=== PATIENT | male | born 1975 | race Caucasian/White ===

== ENCOUNTER 2023-08-22 07:53 | Outpatient (OUT) | payer OTHER, SELFPAY ==
[2023-08-22 09:28] LABS: Alanine Aminotransferase 27 U/L (16-63); Albumin Globulin Ratio 0.9; Albumin Level 3.2 g/dL (3.4-5.0); Alkaline Phosphatase 101 U/L (46-116); Anion Gap 10.6; Aspartate Amino Transferase 13 U/L (15-37); BUN Creatinine Ratio 20.3; Bilirubin Total 0.5 mg/dL (0.2-1.0); Calcium 8.5 mg/dL (8.5-10.1); Carbon Dioxide 30.3 mmol/L (21.0-32.0); Chloride 104 mmol/L (98-107); Chol HDL Ratio 5.6; Cholesterol 253 mg/dL (<=200); Estimated GFR (African America >60 (>=60); Estimated GFR (Non-African Ame >60 (>=60); Globulin 3.7 g/dL; Glucose 97 mg/dL (74-106); HDL Cholesterol 45 mg/dL (40-60); Potassium 3.9 mmol/L (3.5-5.1); Sodium 141 mmol/L (136-145); Total Protein 6.9 g/dL (6.4-8.2); Triglycerides 101 mg/dL (<=150); VLDL CHOLESTEROL 20.2 mg/dL
== END 2023-08-22 07:54 | disposition home or self-care (01) ==
LOC: LAB 07:56
PROVIDERS: PCP Family Medicine; Visit Provider Family Medicine
DX: I10 Essential (primary) hypertension (principal)
CPT/HCPCS: 36415; 80053; 80061

== ENCOUNTER 2025-01-27 16:04 | Emergency (ER) | payer OTHER, SELFPAY ==
--- OUTSIDE RECORDS SUMMARY | 2025-01-19 15:30 | XMS_ITS | Encounter Summary ---
Author Organization [facility] Address [address] [place] [address] Care Team Providers Care Co Founder And Cto Name Role Phone Mesfin Chin MD Primary Care Provider [phone] Reason for Visit * ReasonCommentsHypertensionHyperlipidemia Encounter Details DateTypeDepartmentCare Team (Latest Contact Info)Ymtvglcnakt22/23/2025 3:30 PM EDTOffice Visit [facility] [place] [address] [facility] [address] [place] [address] Mesfin Chin MD 112 [facility] 100 [place] [address] Essential hypertension; Mixed dyslipidemia; Chronic left shoulder pain Social History Tobacco UseTypesPacks/DayYears UsedDateSmoking Tobacco: NeverSmokeless Tobacco: Never Tobacco Cessation:Counseling Given: Yes Alcohol UseStandard Drinks/RittKinawreaRaw19 (1 standard drink = 0.6 oz pure alcohol)caffeine intake: 2-3 cups per [id number] Health LiteracyAnswerDate RecordedHow often do you need to have someone help you when you read instructions, pamphlets, or other written material from your doctor or pharmacy? Never03/03/2024Humiliation, Afraid, Rape, and Kick questionnaireAnswerDate RecordedWithin the last year, have you been afraid of your partner or ex-partner?No08/31/2022Within the last year, have you been humiliated or emotionally abused in other ways by your partner or ex-partner?No08/31/2022 Within the last year, have you been kicked, hit, slapped, or otherwise physically hurt by your partner or ex-partner?No08/31/2022Within the last year, have you been raped or forced to have any kind of sexual activity by your part ner or ex-partner?No08/31/2022Social Connection and Isolation PanelAnswerDate RecordedIn a typical week, how many times do you talk on the phone with family, friends, or neighbors?Once a week03/03/2024How often do you get together with friends or relatives?Once a week03/03/2024How often do you attend anabaptist or pentecostalism services?More than 4 times per year03/03/2024o you belong to any clubs or organizations such as anabaptist groups, unions, [employer] or athletic lali ups, or school groups?No03/03/2024How often do you attend meetings of the clubs or organizations you belong to?Never03/03/2024re you , , , , never , or living with a partner?Xkvjysu4903/03/2024 AUDIT-CAnswerDate RecordedQ1: How often do you have a drink containing alcohol? Never03/03/2024Q2: How many drinks containing alcohol do you have on a typical day when you are drinking?Patient does not drink03/03/2024Q3: How often do you have six or more drinks on one occasion?Never03/03/2024Overall Financial Resource Strain (CARDIA)AnswerDate RecordedHow hard is it for you to pay for the very basics like food, housing, medical care, and heating?Not hard at all 03/03/2024HQ-2AnswerDate RecordedPatient Health Questionnaire-2 Score0 09/01/2022[facility] [place] [facility] - Occupational Stress QuestionnaireAnswerDate RecordedDo you feel stress - tense, restless, nervous, or anxious, or unable to sleep at night because yourmind is troubled all the time - these days?Only a gzivzt9103/03/2024Exercise Vital SignAnswerDate Recorded On average, how many days per week do you engage in moderate to strenuous exercise (like a brisk walk)?0 days03/03/2024On average, how many minutes do you engage in exercise at this level?0 min03/03/2024Hunger Vital SignAnswerDate RecordedWithin the past 12 months, you worried that your food would run out before you got the money to buymore.Never true03/03/2024Within the past 12 months, the food you bought just didn't last and you didn't have money to get more.Never true03/03/2024RAPARE - TransportationAnswerDate RecordedIn the past 12 months, has lack of transportation kept you from medical appointments or from getting medications?No03/03/2024In the past 12 months, has lack of transportation kept you from meetings, work, or from getting things needed for daily living?No03/03/2024Housing Stability Vital SignAnswerDate RecordedIn the last 12 months, was there a time when you were not able to pay the mortgage or rent on time?No08/31/2022In the last 12 months, how many places have you lived?1 08/31/2022In the last 12 months, was there a time when you did not have a steady place to sleep or slept in [facility] (including now)?No08/31/2022Housing Stability Vital SignAnswerDate RecordedIn the last 12 months, was there a time when you were not able to pay the mortgage or rent on time?No03/03/2024In the past 12 months, how many times have you moved where you were living? At any time in the past 12 months, were you homeless or living in a detention (including now)?No03/03/2024EducationAnswerDate RecordedWhat is the highest level of school you have completed or the highest degree you have received?Some college, no eovggw2508/05/2022Sex and Gender InformationValueDate RecordedSex Assigned at BirthNot on fileLegal AjrDumz7106/11/2022 7:26 PM EDTGender Identity Not on fileSexual OrientationNot on fileOccupationIndustryJob Start DateJob End Dateworks full-timeNot on fileNot on fileNot on filedocumented as of this encounter Last Filed Vital Signs Vital SignReadingTime TakenCommentsBlood Osfngftw371/7410/ 3:12 PM EDT Lbjqx770301/19/2025 3:12 PM EDTTemperature--Respiratory Rate--Oxygen Rzxoibfzxc59% 01/19/2025 3:12 PM EDTInhaled Oxygen Concentration--Mxtorl77.6 kg (171 lb) 01/19/2025 3:12 PM JJAWmbfho548.4 cm (6' 1 )01/19/2025 3:12 PM EDTBody Mass Index22.561 3:12 PM EDTdocumented in this encounter Progress Notes * Mesfin Chin MD - 01/19/2025 3:30 PM EDT Images from the original note were not included. Patient ID: Caio Carolina is a 49 y.o. male who presents for: Hypertension Patient is here for follow-up of elevated blood pressure. He is exercising and is adherent to a low-salt diet. Blood pressure is well controlled at home. Cardiac symptoms: none. Patient denies chest pain, dyspnea, irregular heart beat, lower extremity edema, and palpitations. Cardiovascular risk factors: dyslipidemia, hypertension, and male gender. Use of agents associated with hypertension: none. History of target organ damage: none. Hyperlipidemia Pt who presents for follow-up of dyslipidemia. A repeat fasting lipid profile was not done. The patient does not use medications that may worsen dyslipidemias (corticosteroids, progestins, anabolic steroids, diuretics, beta-blockers, amiodarone, cyclosporine, olanzapine). Exercise: three times a week. Review of Systems Constitutional: Negative for activity change and fatigue. Respiratory: Negative for cough, shortness of breath and wheezing. Cardiovascular: Negative for chest pain, palpitations and leg swelling. Neurological: Negative for light-headedness and headaches. Objective The patient is pleasant and in no acute distress. The neck is supple and trachea is midline. No masses are appreciated. The heart is regular rate and rhythm without S3, S4. No murmur. The patient has normal respiratory pattern. The breath sounds are symmetrical without evidence of rhonchi or rales. No wheezing. The skin is warm and dry. The lower extremities have trace edema. The patient has good eye contact and speech is clear. Appropriate affect. 01/19/2025 3:12 PM 08/16/2024 4:03 PM 02/22/2024 4:03 PM 08/31/2023 4:02 PM Vitals BMI 22.56 kg/m2 22.82 kg/m2 22.82 kg/m2 22.82 kg/m2 BSA (m2) 2 m2 2.01 m2 2.01 m2 2.01 m2 Systolic 124 126 128 124 Diastolic 74 74 78 74 Heart Rate 68 74 71 76 SpO2 99 % 99 % 98 % 98 % Height (in) 6' 1 6' 1 6' 1 6' 1 Weight (lb) 171 173 173 173 Visit Report Report Report Report Report Allergies[1] Medications Ordered Prior to Encounter[2] 1. Essential hypertension Chronic problem, stable, to goal. Active at work but no formal exercise program. Continue current treatment and refill medications. - nebivolol (Bystolic) 10 MG tablet; Take 1 tablet (10 mg) by mouth Daily Dispense: 90 tablet; Refill: 1 - losartan (Cozaar) 100 MG tablet; Take 1 tablet (100 mg) by mouth Daily Dispense: 90 tablet; Refill: 1 - Comprehensive metabolic panel; Future - Comprehensive metabolic panel 2. Mixed dyslipidemia Chronic problem. Tolerating statin without side effect. Continue current treatment and refill medication. - atorvastatin (Lipitor) 40 MG tablet; Take 1 tablet (40 mg) by mouth in the evening Dispense: 90 tablet; Refill: 1 - Lipid panel; Future - Lipid panel 3. Chronic left shoulder pain Chronic problem that he believes is stable. He notes the nabumetone does help him especially when there is a weather changes shoulder truly aches. - nabumetone (Relafen) 750 MG tablet; Take 1 tablet (750 mg) by mouth in the morning and 1 tablet (750 mg) before bedtime. Dispense: 180 tablet; Refill: 1 Please Note: Portions of this chart may have been created using voice recognition software. Occasionally a wrong-word or sound-like substitutions may have occurred due to inherent limitations of the voice recognition software. Please read the chart carefully and recognize, using context, where the substitutions may have occurred. [1] No Known Allergies [2] Current Outpatient Medications on File Prior to Visit Medication Sig Dispense Refill acetaminophen (Tylenol) 325 MG tablet Take 325 mg by mouth every 6 (six) hours if needed. atorvastatin (Lipitor) 40 MG tablet Take 1 tablet (40 mg) by mouth in the evening 90 tablet 1 carBAMazepine (TEGretol) 200 MG tablet Take 200 mg by mouth in the morning and 200 mg before bedtime. 1.5 tablet in AM and 2 tablets in PM orally daily. levETIRAcetam (Keppra) 1000 MG tablet Take 1,000 mg by mouth in the morning and 1,000 mg before bedtime. losartan (Cozaar) 100 MG tablet Take 1 tablet (100 mg) by mouth Daily 90 tablet 1 nabumetone (Relafen) 750 MG tablet Take 1 tablet (750 mg) by mouth in the morning and 1 tablet (750mg) before bedtime. 180 tablet 0 nebivolol (Bystolic) 10 MG tablet Take 1 tablet (10 mg) by mouth Daily 30 tablet 0 No current facility-administered medications on file prior to visit. documented in this encounter Plan of Treatment DateTypeDepartmentCare Team (Latest Contact Info)Kygcerdvhey22/22/2026 3:30 PM EDTOffice Visit [facility] [address] Medicine [address] [address] Mesfin Chin MD [address] [address] NameTypePriorityAssociated DiagnosesOrder ScheduleComprehensive metabolic panel LabRoutine Essential hypertension Expected: 06/19/2025, Expires: 09/17/2025Lipid panelLabRoutine Mixed dyslipidemia Expected: 06/19/2025, Expires: 09/17/2025documented as of this encounter Visit Diagnoses Diagnosis Essential hypertension Unspecified essential hypertension Mixed dyslipidemia Chronic left shoulder pain Pain in joint, shoulder region documented in this encounter Care Teams Team MemberRelationshipSpecialtyStart DateEnd Date Mesfin Chin MD PCP - GeneralFamily Medicine08/21/22documented as of this encounter
--- OUTSIDE RECORDS SUMMARY | 2025-01-27 16:13 | XMS_ITS | Encounter Summary ---
Author Organization [facility] Address [address] [place] [address] Care Team Providers Care Aperture Mask Etcher Name Role Phone Mesfin Chin MD Primary Care Provider [phone] Encounter Details DateTypeDepartmentCare Team (Latest Contact Info)Ntjugaihcnv82/23/2025amboo flowsheet [facility] [place] [address] Family Medicine [address] [place] [address] [place] [address] Mesfin Chin MD [address] [place] [address] Social History Tobacco UseTypesPacks/DayYears UsedDateSmoking Tobacco: NeverSmokeless Tobacco: NeverAlcohol UseStandard Drinks/SqprIfbchaicHsm28 (1 standard drink = 0.6 oz pure alcohol)caffeine intake: 2-3 cups per tbuM7857 Health LiteracyAnswerDate RecordedHow often do you need [...] relatives?Once a week03/03/2024How often do you attend advent or voodoo services?More than 4 times per year03/03/2024o you belong to any clubs or organizations such as advent groups, unions, [employer] or athletic lali ups, or school groups?No03/03/2024How often do you attend meetings of the clubs or organizations you belong to?Never03/03/2024re you , , , , never , or living with a partner?Opaebpx3303/03/2024 AUDIT-CAnswerDate RecordedQ1: How often do you have [...] at all 03/03/2024HQ-2AnswerDate RecordedPatient Health Questionnaire-2 Score0 09/01/2022[facility] [place] of Occupational Health - Occupational Stress QuestionnaireAnswerDate RecordedDo you feel stress - tense, restless, nervous, or anxious, or unable to sleep at night because yourmind is troubled all the time - these days?Only a dqrcxr9603/03/2024Exercise Vital SignAnswerDate Recorded On average, how many [...] steady place to sleep or [facility] ([facility])?No08/31/2022Housing Stability Vital SignAnswerDate RecordedIn the last 12 months, was there a time when you were not able to pay the mortgage or rent on time?No03/03/2024In the past 12 months, how many times have you moved where you were living? At any time in the past 12 months, were you homeless or living in a [place] [facility] (including now)?No03/03/2024EducationAnswerDate RecordedWhat is the highest level of school you have completed or the highest degree you have received?Some college, no osvodg0208/05/2022Sex and Gender InformationValueDate RecordedSex Assigned at BirthNot on fileLegal LzvArxc2506/11/2022 7:26 PM EDTGender Identity Not on fileSexual OrientationNot on fileOccupationIndustryJob Start DateJob End Dateworks full-timeNot on fileNot on fileNot on filedocumented as of this encounter Plan of Treatment DateTypeDepartmentCare Team (Latest Contact Info)Hzxrqkdancq16/22/2026 3:30 PM EDTOffice Visit [facility] [place] [address] [place] [address] Mesfin Chin MD [address] [place] [address] documented as of this encounter Visit Diagnoses Not on filedocumented in this encounter Care Teams Team MemberRelationshipSpecialtyStart DateEnd Date Mesfin Chin MD PCP - GeneralFamily Medicine08/21/22documented as of this encounter
--- OUTSIDE RECORDS SUMMARY | 2025-01-27 16:13 | XMS_ITS | Clinical Summary ---
Author Organization [facility] Address [address] [place] [address] Care Team Providers Care Furnace Attendant Name Role Phone Mesfin Chin MD Primary Care Provider [phone] Allergies No known active allergies Medications MedicationSigDispense QuantityRefillsLast FilledStart DateEnd DateStatus acetaminophen (Tylenol) 325 MG tablet Take 325 mg by mouth every 6 (six) hours if needed.Active carBAMazepine (TEGretol) 200 MG tablet Take 200 mg by mouth in the morning and 200 mg before bedtime. 1.5 tablet in AM and 2 tablets in PMorally daily.Active levETIRAcetam (Keppra) 1000 MG tablet Take 1,000 mg by mouth in the morning and 1,000 mg before bedtime.Active melatonin 10 MG tablet Take 1 tablet by mouth at bedtimeActive nebivolol (Bystolic) 10 MG tablet Indications:Essential hypertensionTake 1 tablet (10 mg) by mouth Daily 90 tablet /899036/6Active losartan (Cozaar) 100 MG tablet Indications:Essential hypertensionTake 1 tablet (100 mg) by mouth Daily 90 tablet /706099//6Active atorvastatin (Lipitor) 40 MG tablet Indications:Mixed dyslipidemiaTake 1 tablet (40 mg) by mouth in the evening 90 tablet /977281/6Active nabumetone (Relafen) 750 MG tablet Indications:Chronic left shoulder painTake 1 tablet (750 mg) by mouth in the morning and 1 tablet (750 mg) before bedtime. 180 tablet /236825/6Active atorvastatin (Lipitor) 40 MG tablet Indications:Mixed dyslipidemiaTake 1 tablet (40 mg) by mouth in the evening 90 tablet Discontinued(Reorder) losartan (Cozaar) 100 MG tablet Indications:Essential hypertensionTake 1 tablet (100 mg) by mouth Daily 90 tablet Discontinued(Reorder) nebivolol (Bystolic) 10 MG tablet Indications:Essential hypertensionTake 1 tablet (10 mg) by mouth Daily 90 tablet Discontinued(Reorder) nabumetone (Relafen) 750 MG tablet Indications:Chronic left shoulder painTake 1 tablet (750 mg) by mouth in the morning and 1 tablet (750 mg) before bedtime. 180 tablet Discontinued(Reorder) nebivolol (Bystolic) 10 MG tablet Indications:Essential hypertensionTake 1 tablet (10 mg) by mouth Daily 30 tablet Discontinued(Reorder) Active Problems ProblemNoted DateDiagnosed DateMixed /02/2024ependence on other enabling machines and molqnbv3709/01/2022Essential axyaesxboybb92/05/2023rand mal seizure ptcpdgno20/05/2023Obstructive sleep apnea (adult) (pediatric)09/01/2022 Postural kyphosis of cervicothoracic uzjjni3109/01/2022Reactive depression 09/01/2022rimary osteoarthritis of right elbow09/01/2022S/P rotator cuff repair 06/30/2016Post traumatic seizure uiefsygi63/24/2017Incomplete tear of left rotator cuff06/12/2016Cubital tunnel syndrome on left05/01/2016Chronic left shoulder pain03/13/2016Adhesive capsulitis of left uzqidbld22/15/2016Impingement syndrome of left cesqehuj33/15/2016Lateral epicondylitis of left elbow03/13/2016 Encounters DateTypeDepartmentCare JebfEuneymhgyzv34/23/2025 3:30 PM EDTOffice Visit [facility] [place] [address] [place] [address] Mesfin Chin MD Essential hypertension; Mixed dyslipidemia; Chronic left shoulder pain01/19/2025amboo flowsheet [facility] [address] [place] [address] Mesfin Chin MD 01/19/20255683Agxlta75/02/2025Refill [place] [address] [place] [address] Mesfin Chin MD Essential suqrfdmleycf31/02/2025Telephone [address] [place] [address] Mesfin Chin MD from Last 3 Months Immunizations ImmunizationAdministration DatesNext DueInfluenza, injectable, quadrivalent, preservative free12/22/2022,05/09/2022,12/29/2020,01/31/2020,01/01/2019, 12/23/2017Influenza, seasonal, injectable, preservative free12/20/2016, 01/20/2015Pfizer Bivalent Booster 12 Years And Older05/09/20220016FHKW-SJP-9 (COVID- 19) vaccine, mRNA, spike protein, LNP, PF, hue-sucrose, 30 mcg/0.3 mL12/22/2022 Tetanus toxoid, obtzqecv23/19/2001 Family History Medical HistoryRelationNameCommentsNo Known ProblemsDaughterArthritisFatherDave DiabetesFatherDaveHeart diseaseFatherDaveStrokeFatherDaveArthritisMotherPat AsthmaMotherPatDiabetesMotherPatAlcohol abuseMother's BrotherTomArthritis Paternal GrandmotherMaudeNo Known ProblemsSister 1No Known ProblemsSister 2No Known ProblemsSister 3RelationNameStatusCommentsDaughterAliveFatherDaveAlive MotherPatAliveMother's BrotherTomPaternal GrandmotherMaudeSister 1AliveSister 2 AliveSister 3Alive Social History Tobacco UseTypesPacks/DayYears UsedDateSmoking Tobacco: NeverSmokeless Tobacco: Never Tobacco Cessation:Counseling Given: Yes Alcohol UseStandard Drinks/UetxWrqlkwchIee76 (1 standard drink = 0.6 oz pure alcohol)caffeine intake: 2-3 cups per bzlC7658 Health LiteracyAnswerDate RecordedHow often do you need [...] relatives?Once a week03/03/2024How often do you attend sikh or spiritism services?More than 4 times per year03/03/2024o you belong to any clubs or organizations such as sikh groups, unions, fraternal or athletic lali ups, or school groups?No03/03/2024How often do you attend meetings of the clubs or organizations you belong to?Never03/03/2024re you , , , , never , or living with a partner?Qqbovez7903/03/2024 AUDIT-CAnswerDate RecordedQ1: How often do you have [...] at all 03/03/2024HQ-2AnswerDate RecordedPatient Health Questionnaire-2 Score0 09/01/2022[facility] [place] of Occupational Health - Occupational Stress QuestionnaireAnswerDate RecordedDo you feel stress - tense, restless, nervous, or anxious, or unable to sleep at night because yourmind is troubled all the time - these days?Only a jorogr7103/03/2024Exercise Vital SignAnswerDate Recorded On average, how many [...] steady place to sleep or slept in [place] (including now)?No08/31/2022Housing Stability Vital SignAnswerDate RecordedIn the last 12 months, was there a time when you were not able to pay the mortgage or rent on time?No03/03/2024In the past 12 months, how many times have you moved where you were living? At any time in the past 12 months, were you homeless or living in a assisted (including now)?No03/03/2024EducationAnswerDate RecordedWhat is the highest level of school you have completed or the highest degree you have received?Some college, no rzyvoq9408/05/2022Sex and Gender InformationValueDate RecordedSex Assigned at BirthNot on fileLegal ZilGfji4506/11/2022 7:26 PM EDTGender Identity Not on fileSexual OrientationNot on fileOccupationIndustryJob Start DateJob End Dateworks full-timeNot on fileNot on fileNot on file Last Filed Vital Signs Vital SignReadingTime TakenCommentsBlood Ipzbfbig675/7410 3:12 PM EDT Mhstk696601/19/2025 3:12 PM EDTTemperature--Respiratory Rate--Oxygen Kwddprkvrn42% 01/19/2025 3:12 PM EDTInhaled Oxygen Concentration--Kdagae52.6 kg (171 lb) 01/19/2025 3:12 PM NVACqwmsg874.4 cm (6' 1 )01/19/2025 3:12 PM EDTBody Mass Index22.561 3:12 PM EDT Plan of Treatment DateTypeDepartmentCare Team (Latest Contact Info)Zkopgrnflhf81/22/2026 3:30 PM EDTOffice Visit [facility] [place] [address] Family Medicine 112 [facility] 100 [place] [address] Mesfin Chin MD 112 [facility] 100 [place] [address] Health MaintenanceDue DateLast DoneCommentsCT Ircaglntiyxn13/12/1975Colonoscopy 1974Colorectal Cancer Ukbyogjzo64/12/1975FIT-DNA1974FIT1974 FOBT1974 6998Nmugmbafeakgt33/12/1975MMR Vaccines (1 of 1 - Standard series) 08/09/1975DTaP/Tdap/Td Vaccines (1 - Tdap)1981Hepatitis B Vaccines (1 of 3 - 19+ 3-dose series)1993COVID-19 Vaccine ( - season)2024 12/22/2022, 05/09/2022, 07/06/2020Influenza Vaccine (#1)5012/22/2022, 05/09/2022, 12/29/2020, Additional history existsHIB VaccinesAged OutNo longer eligible based on patient's age to complete this topicHPV VaccinesAged OutNo longer eligible based on patient's age to complete this topicHepatitis A VaccinesAged OutNo longer eligible based on patient's age to complete this topic IPV VaccinesAged OutNo longer eligible based on patient's age to complete this topicMeningococcal B VaccineAged OutNo longer eligible based on patient's age to complete this topicMeningococcal VaccineAged OutNo longer eligible based on patient's age to complete this topicPneumococcal Vaccine: Pediatrics (0 to 5 Years) and At-Risk Patients (6 to 64 Years)Aged OutNo longer eligible based on patient's age to complete this topicRotavirus VaccinesAged OutNo longer eligible based on patient's age to complete this topic Insurance Care Teams Team MemberRelationshipSpecialtyStart DateEnd Date Mesfin Chin MD PCP - GeneralFamily Medicine08/21/22
--- OUTSIDE RECORDS SUMMARY | 2025-01-27 16:14 | XMS_ITS | Encounter Summary ---
Author Organization [facility] Address [address] [place] [address] Care Team Providers Care Engineering Tech Name Role Phone Mesfin Chin MD Primary Care Provider + [phone] Encounter Details DateTypeDepartmentCare Team (Latest Contact Info)Pwbcjvxvgrc28/23/2025Travel Social History Tobacco UseTypesPacks/DayYears UsedDateSmoking Tobacco: NeverSmokeless Tobacco: NeverAlcohol UseStandard Drinks/TcpyMvimzjbnUth29 (1 standard drink = 0.6 oz pure alcohol)caffeine intake: 2-3 cups per [id number] Health LiteracyAnswerDate RecordedHow often do you need [...] relatives?Once a week03/03/2024How often do you attend mosque or anabaptist services?More than 4 times per year03/03/2024o you belong to any clubs or organizations such as mosque groups, unions, fraternal or athletic lali ups, or school groups?No03/03/2024How often do you attend meetings of the clubs or organizations you belong to?Never03/03/2024re you , , , , never , or living with a partner?Qzzccmu4003/03/2024 AUDIT-CAnswerDate RecordedQ1: How often do you have [...] at all 03/03/2024HQ-2AnswerDate RecordedPatient Health Questionnaire-2 Score0 09/01/2022[facility] [place] [facility] - Occupational Stress QuestionnaireAnswerDate RecordedDo you feel stress - tense, restless, nervous, or anxious, or unable to sleep at night because yourmind is troubled all the time - these days?Only a pbxusl8203/03/2024Exercise Vital SignAnswerDate Recorded On average, how many [...] steady place to sleep or slept in ashelter (including now)?No08/31/2022Housing Stability Vital SignAnswerDate RecordedIn the last 12 months, was there a time when you were not able to pay the mortgage or rent on time?No03/03/2024In the past 12 months, how many times have you moved where you were living? At any time in the past 12 months, were you homeless or living in a correction (including now)?No03/03/2024EducationAnswerDate RecordedWhat is the highest level of school you have completed or the highest degree you have received?Some college, no bojuzj4008/05/2022Sex and Gender InformationValueDate RecordedSex Assigned at BirthNot on fileLegal TfwIpxv2006/11/2022 7:26 PM EDTGender Identity Not on fileSexual OrientationNot on fileOccupationIndustryJob Start DateJob End Dateworks full-timeNot on fileNot on fileNot on filedocumented as of this encounter Plan of Treatment DateTypeDepartmentCare Team (Latest Contact Info)Tgdbrnjiyhi80/22/2026 3:30 PM EDTOffice Visit [facility] [address] [place] [address] Mesfin Chin MD [address] [place] [address] (Fax) documented as of this encounter Visit Diagnoses Not on filedocumented in this encounter Care Teams Team MemberRelationshipSpecialtyStart DateEnd Date Mesfin Chin MD PCP - GeneralFamily Medicine08/21/22documented as of this encounter
--- OUTSIDE RECORDS SUMMARY | 2025-01-27 16:14 | XMS_ITS | Clinical Summary ---
Author Organization [facility] Address [address] [place], [place] [address] Care Team Providers Care Pulmonologist Intensivist Name Role Phone Mesfin Chin MD Primary Care Provider Allergies No known active allergies Medications MedicationSigDispense QuantityRefillsLast FilledStart DateEnd DateStatus CPAP Indications:STEVAN (obstructive sleep apnea)CPAP 11 cmH2O, mask, tubing, humidifier, filters. Lifetime supplies. Dx: G47.33 DME: [facility], f: [phone] 1 Device Active CPAP Provide new SD card. Current card is not functional. 1 Device 11/03/2016Active CPAP AutoPAP 5-12 cmH2O, mask, humidity, filters. Lifetime supplies. Dx: G47.33. Fax 30 day compliance rpt to [phone] when available. 1 Device 11/03/2016Active CPAP 2nd request for download report. Fax results to [phone]. 1 Device 02/02/2017Active calcium carbonate (OS-BALWINDER 500) 500 mg calcium (1,250 mg) tablet Take 1 tablet by mouth once daily. 60 tablet Active losartan (COZAAR) 100 mg tablet Take 100 mg by mouth once daily.1Active carBAMazepine (TEGRETOL) 200 mg tablet Indications:Post traumatic seizure disorder (HCC)TAKE 1 AND 1/2 TABLETS BY MOUTH EVERY MORNING AND 2 TABLETS EVERY EVENING 315 tablet 5Active levETIRAcetam (KEPPRA) 1,000 mg tablet Indications:Post traumatic seizure disorder (HCC)Take 1 tablet by mouth two times a day. 180 tablet 307/507/6Active Active Problems ProblemNoted DateDiagnosed DateS/P rotator cuff repair - LEFT06/30/2016OSA on CPAP06/20/2016Post traumatic seizure rvvrecao30/24/2017Incomplete tear of left rotator cuff06/12/2016Cubital tunnel syndrome on left05/01/2016Chronic left shoulder pain03/13/2016Lateral epicondylitis of left elbow03/13/2016Impingement syndrome of left javajzgt16/15/2016Adhesive capsulitis of left shoulder 03/13/2016 Resolved Problems ProblemNoted DateDiagnosed DateResolved DateCerebral aneurysm, nonruptured Family History Medical HistoryRelationCommentsDiabetesFatherRelationStatusCommentsFatherAlive MotherAlive Social History Tobacco UseTypesPacks/DayYears UsedDateSmoking Tobacco: NeverSmokeless Tobacco: Never Tobacco Cessation:Counseling Given: No Alcohol UseStandard Drinks/WeekCommentsYes0 (1 standard drink = 0.6 oz pure alcohol)very rarePHQ-2AnswerDate RecordedPHQ-2 mxqzr0325Area Deprivation IndexAnswerDate RecordedNational Score (1-100), lower number is lower risk87 2022State Score (1-10), lower number is lower huzh1603Data from: https://www.neighborhoodatlas.medicine.[facility].edu/. Last address used for xl[address] [facility]2022Sex and Gender InformationValueDate RecordedSex Assigned at FitwyLdoi44/22/2022 10:12 PM EDTLegal BhsEsbt66/02/2012 8:11 AM ESTGender CxuxpafxEwfx92/22/2022 10:12 PM EDTSexual OrientationStraight 09/08/2024 8:53 PM EDTOccupationIndustryJob Start DateJob End DateGENERALNot on fileNot on fileNot on file Last Filed Vital Signs Vital SignReadingTime TakenCommentsBlood Ecyrayns496/96889 10:07 AM EDT Ncelr231206/19/2020 10:07 AM ENHXxdinvballa17.4 ??C (97.6 ??F)01/30/2017 9:24 AM EDTRespiratory Ekrg449706/19/2020 10:07 AM EDTOxygen Shlzuocimw80%06/19/2020 10:07 AM EDTInhaled Oxygen Concentration--Csjehe90.1 kg (170 lb)06/19/2020 10:07 AM VDOVujjgz836.4 cm (6' 1 )06/19/2020 10:07 AM EDTBody Mass Index22.43006/19/2020 10:07 AM EDT Plan of Treatment Health MaintenanceDue DateLast DoneCommentsAnxiety Ahahoddxp44/12/1993Depression Amsxowinw18/12/1993HIV Kvtnswddq33/12/1993Hepatitis C Nydyhsvsr42/12/1993 DTaP,Tdap,Td Vaccine (1 - Tdap)1993Hepatitis B Vaccine (1 of 3 - 19+ 3- dose series)1993Lipid Xddxhonnc98/12/2010CT Jkjvgcxyhssu41/12/2020 Cologuard (FIT-DNA)08/09/20198154Cljnocaufrn87/12/2020Colorectal Cancer Screening 08/09/2019Fecal Occult Blood08/09/20197075Bpzcdzqcykwbt96/12/2020Diabetes Screening , 04/11/2016, 04/11/2015, Additional history exists Pneumococcal Vaccine: 50+ (1 of 1 - PCV)2024Shingrix Vaccine (1 of 2) 5Covid-19 Vaccine ( - season)/, 05/09/2022, 10/06/2021, Additional history existsInfluenza Vaccine (#1)/, 05/09/2022, 12/29/2020, Additional history exists Medical Devices ImplantedTypeAreaManufacturerDevice IdentifierShelf Expiration DateModel / Serial / LotAnchor Swivelock 4.75mm Peek 19.1mm Suture Closed Eyelet Vent Sterile - [id number] Implanted:Qty: 1 on 06/30/2016 at [facility]: Bone - Shoulder [employer]02/26/2021R-2324PSLC / / [id number]:PEEK SWIVELOCKAnchor Swivelock 4.75mm Peek 19.1mm Suture Closed Eyelet Vent Sterile - [id number] [facility] - [facility]er [employer]12/27/2020R-2324PSLC / / [id number]:PEEK SWIVELOCKAnchor Corkscrew Fiberwire 5.5mm 2 Full Thread Peek 14.7mm Suture 2 Sterile - [id number] Implanted:Qty[facility] Bone - Shoulder [employer]09/26/2020R-1927PSF / / [id number]:PEEK CORKSCREW Procedures Procedure NamePriorityDate/TimeAssociated DiagnosisCommentsCOMPREHENSIVE METABOLIC TRUNZIljwhdh82/23/2021 10:35 AM EDT Partial epilepsy with impairment of consciousness (HCC) from Last 3 Months or Most Recently Relevant to Health Maintenance Results * (ABNORMAL) COMP METABOLIC PANEL (06/19/2020 10:35 AM EDT)ComponentValueRef RangeTest MethodAnalysis TimePerformed AtPathologist SignatureProtein, Total 7.16.3 - 8.0 g/dL06/19/2020 5:19 PM EDTCleveland Clinic LaboratoriesAlbumin4.8 3.9 - 4.9 g/dL06/19/2020 5:19 PM EDTCleveland Clinic LaboratoriesCalcium9.48.5 - 10.2 mg/dL06/19/2020 5:19 PM EDTCleveland Clinic LaboratoriesBilirubin, Total<0.2(L)0.2 - 1.3 mg/dL06/19/2020 5:19 PM EDTCleveland Clinic Laboratories Alkaline Rqitfejwwmf2145 - 113 U/L06/19/2020 5:19 PM [facility] JgyffkbzajdbEXZ2073 - 40 U/L06/19/2020 5:19 PM [facility]TC[facility] JrtbdgywblceLgngfqd9639 - 99 mg/dL06/19/2020 5:19 PM [facility] LaboratoriesComment: The [place] Diabetes Association (ADA) provides guidance for cutoff values for fasting glucose and random glucose. The ADA defines fasting as no caloric intake for at least 8 hours. Fasting plasma glucose results between 100 to 125 mg/dL indicate increased risk for diabetes (prediabetes). Fasting plasma glucose results greater than or equal to 126 mg/dL meet the criteria for diagnosis of diabetes. In the absence of unequivocal hyperglycemia, results should be confirmed by repeat testing. In a patient with classic symptoms of hyperglycemia or hyperglycemic crisis, random plasma glucose results greater than or equal to 200 mg/dL meet the criteria for diagnosis of diabetes. Reference: Standards of Medical Care in Diabetes 2016, [place] Diabetes Association. Diabetes Care. 2016.39(Suppl 1). HKZ102 - 24 mg/dL06/19/2020 5:19 PM [facility] LaboratoriesCreatinine 0.850.73 - 1.22 mg/dL06/19/2020 5:19 PM [facility] LaboratoriesSodium 093006 - 144 mmol/L06/19/2020 5:19 PM [facility] LaboratoriesPotassium 4.13.7 - 5.1 mmol/L06/19/2020 5:19 PM [facility] LaboratoriesChloride 97890 - 105 mmol/L06/19/2020 5:19 PM [facility] SgzteaxlbpnfJL16721 - 30 mmol/L06/19/2020 5:19 PM [facility] LaboratoriesAnion Gap99 - 18 mmol/L06/19/2020 5:19 PM [facility] JrosrpygcfofFVE7786 - 54 U/L 06/19/2020 5:19 PM [facility] LaboratorieseGFR->60 06/19/2020 5:19 PM [facility] LaboratorieseGFR-All Other Races>60. 06/19/2020 5:19 PM [facility] LaboratoriesComment: eGFR (Estimated GFR) Units of measure: mL/min/1.73 meters squared eGFR is derived from the reexpressed MDRD Study equation using the following parameters: serum creatinine, age, gender and race. The creatinine assay has been calibrated to be traceable to IDMS. An eGFR <60 mL/min/1.73m2 for >3 months is consistent with chronic kidney disease. Refer to KDOQI guidelines for clinical interpretation. In patients with unstable renal function, e.g. those with acute kidney injury, the eGFR may not accurately reflect actual GFR. Specimen (Source)Anatomical Location / LateralityCollection Method / Volume Collection TimeReceived TimeBloodBLOOD SPECIMEN / Ezvddsj2306/19/2020 10:35 AM EDT 06/19/2020 10:37 AM EDT Narrative Authorizing ProviderResult TypeResult StatusSilvia Justin Ramos MDLABORATORY Final ResultPerforming OrganizationAddressCity/State/ZIP CodePhone Number [facility] [address] [place] [address] [facility] [address] [place] [address] from Last 3 Months or Most Recently Relevant to Health Maintenance Insurance Care Teams Team MemberRelationshipSpecialtyStart DateEnd Mesfin Chin MD [address] [place] [address] PCP - GeneralFamily Medicine07/17/17
--- OUTSIDE RECORDS SUMMARY | 2025-01-27 16:15 | XMS_ITS | CCD ---
Author Organization [facility] Care Team Providers Care Atm Servicer Name Role Phone Josiah Blankenship Primary Care Provider DR JENA BANGURA Consulting Unavailable ABRAHAM THOMAS Attending Unavailable ABRAHAM THOMAS Admitting Unavailable KRZYSZTOF, DR RAHMAN Primary Care Unavailable KARSON SPARKS Consulting Unavailable ABRAHAM THOMAS Consulting Unavailable KRZYSZTOF, DR RAHMAN Admitting Unavailable KRZYSZTOF, DR RAHMAN Attending Unavailable KRZYSZTOF, DR RAHMAN Consulting Unavailable KRZYSZTOF, DR RAHMAN Primary Care Unavailable Josiah Blankenship MD Primary Care Provider Josiah Blankenship MD Primary Care Provider [phone] Josiah Blankenship MD Primary Care Provider Josiah Blankenship MD Primary Care Provider [phone] TRINA SINHA Attending Unavailable SELF Referring JOSIAH Falcon Primary Care Unavailab JOSIAH Gonzalez Attending Unavailable JOSIAH BLANKENSHIP Attending Unavailable JOSIAH BLANKENSHIP Attending Unavailable JOSIAH BLANKENSHIP Attending Unavailable Medications Current Medications MedicationDrug Class(es)DatesSig (Normalized)Sig (Original)acetaminophen 325 mg oral tablet (16 sources)take 1 tablet by mouth every six hours as neededacetaminophen (Tylenol) 325 MG tablet Take 325 mg by mouth every 6 (six) hours if needed. Activecalcium carbonate 1250 mg oral tablet (9 sources)Start: 70-98-8268wsav 1 tablet by mouth once dailycalcium carbonate (OS-BALWINDER 500) 500 mg calcium (1,250 mg) tablet Take 1 tablet by mouth once daily. 60 tablet 5 07/17/2017 ActiveComment on above:Take 1 tablet by mouth once daily. carBAMazepine 200 mg oral tablet (20 sources)Mood StabilizerStart: 2022 End: 68-23-9190mjeb 1 tablet by mouth once daily in the morning, then take 2 tablets by mouth once daily in the eveningcarBAMazepine (TEGRETOL) 200 mg tablet Indications: Post traumatic seizure disorder (HCC) TAKE 1 AND 1/2 TABLETS BY MOUTH EVERY MORNING AND 2 TABLETS EVERY EVENING 315 tablet 3 09/26/2024 Active Start: 07-15-2019 End: 37-00-5523lrdPECdnqzmhc (TEGRETOL) 200 mg tablet Indications: Post traumatic seizure disorder (HCC) 1 1/2 TABIN AM AND 2 TABS IN PM 315 tablet 1 07/28/2022 Activetake 2 tablets by mouth once daily in the eveningcarBAMazepine (TEGretol) 200 MG tablet Take 200 mg by mouth in the morning and 200 mg before bedtime. 1.5 tablet in AM and 2 tablets in PM orally daily. ActiveComment on above:1 1/2 TAB IN AM AND 2 TABS IN PM1 and a half tab in am and 2 tabs in pm TAKE 1 AND 1/2 TABLETS BY MOUTH EVERY MORNING AND 2 TABLETS EVERY EVENING cholecalciferol 0.025 mg oral capsule (1 source)Vitamin DStart: 07-17-2017 End: 47-84-1976vlaj 1 capsule by mouth once dailyCholecalciferol, Vitamin D3, (VITAMIN D) 1,000 unit cap Take 1 capsule by mouth once daily. 60 capsule 5 07/17/2017 06/21/2021 DiscontinuedComment on above:Take 1 capsule by mouth once daily.CPAP (20 sources)Start: 40-90-2434MEWR 2nd request for download report. Fax results to [phone]. 1 Device 02/02/2017 ActiveStart: 83-37-4726YNHW 2nd request for download report. Fax results to [phone]. 1 Device 0 02/02/2017 ActiveStart: 19-41-0773CFPQ Provide new SD card. Current card is not functional. 1 Device 11/03/2016 ActiveStart: 66-09-7024OVAW AutoPAP 5-12 cmH2O, mask, humidity, filters. Lifetime supplies. Dx: G47.33. Fax 30 day compliance rpt to [phone] when available. 1 Device 11/03/2016 ActiveStart: 14-21-8015EQMP Provide new SD card. Current card is not functional. 1 Device 0 11/03/2016 ActiveStart: 17-74-9324XMNS AutoPAP 5-12 cmH2O, mask, humidity, filters. Lifetime supplies. Dx: G47.33. Fax 30 day compliance rpt to [phone] when available. 1 Device 0 11/03/2016 ActiveStart: 42-21-5895OEYF Indications: STEVAN (obstructive sleep apnea) CPAP 11 cmH2O, mask, tubing, humidifier, filters. Li fetime supplies. Dx: G47.33 DME: [employer], f: [phone] 1 Device 0 10/22/2015ActiveComment on above:CPAP 11 cmH2O, mask, tubing, humidifier, filters. Lifetime supplies. Dx: G47.33 DME: [employer], f: [phone] new SD card. Current card is not functional. AutoPAP 5-12 cmH2O, mask, humidity, filters. Lifetime supplies. Dx: G47.33. Fax 30 day compliance rpt to [phone] when available.2nd request for download report. Fax results to [phone].levETIRAcetam 1000 mg oral tablet (20 sources)Start: 2022 End: 44-32-1429lowp 1 tablet by mouth twice dailylevETIRAcetam (KEPPRA) 1,000 mg tablet Indications: Post traumatic seizure disorder (HCC) Take 1 tablet by mouth two times a day. 180 tablet 3 10/05/2024 10/05/2025 ActiveStart: 07-30-2020 End: 65-05-1099yory 1 tablet by mouth twice dailylevETIRAcetam (KEPPRA) 1,000 mg tablet Indications: Post traumatic seizure disorder (HCC) Take 1 tablet by mouth twice daily. 180 tablet 3 06/21/2021 ActiveComment on above:Take 1 tablet by mouth twice daily.melatonin 10 mg oral tablet (2 sources)take 1 tablet by mouth at bedtimemelatonin 10 MG tablet Take 1 tablet by mouth at bedtime Activenabumetone 750 mg oral tablet (17 sources)Nonsteroidal Anti-inflammatory DrugStart: 11-07-2024 End: 54-19-1597dmgr 1 tablet by mouth in the morningnabumetone (Relafen) 750 MG tablet Indications: Chronic left shoulder pain Take 1 tablet (750 mg) by mouth in the morning and 1 tablet (750 mg) before bedtime. 180 tablet 1 01/19/2025 07/18/2025 ActiveStart: 03-28-2024 End: 92-29-6349ogkn 1 tablet by mouth in the morningnabumetone (Relafen) 750 MG tablet Indications: Chronic left shoulder pain Take 1 tablet (750 mg) by mouth in the morning and 1 tablet (750 mg) before bedtime. 180 tablet 1 03/28/2024 09/24/2024 ActiveStart: 02-22-2024 End: 38-70-1463ulqw 1 tablet by mouth in the morningnabumetone (Relafen) 750 MG tablet Indications: Chronic left shoulder pain Take 1 tablet (750 mg) by mouth in the morning and 1 tablet (750 mg) before bedtime. 60 tablet 02/22/2024 03/23/2024 ExpiredStart: 05-04-2023 End: 50-54-3713ugkl 1 tablet by mouth in the morningnabumetone (Relafen) 750 MG tablet Indications: Chronic right shoulder pain Take 1 tablet (750 mg) by mouth in the morning and 1 tablet (750 mg) before bedtime. 60 tablet 0 05/04/2023 06/03/2023 Activenaproxen 500 mg oral tablet (1 source)Nonsteroidal Anti-inflammatory DrugStart: 06-30-2016 End: 80-64-9274zrll 1 tablet by mouth twice daily at mealtimenaproxen (NAPROSYN) 500 mg tablet Take 1 tablet by mouth twice daily with meals. Take with food 20 t ablet 0 06/30/2016 06/21/2021 DiscontinuedComment on above:Take 1 tablet by mouth twice daily with meals. Take with food Completed/Discontinued Medications MedicationDrug Class(es)DatesSig (Normalized)Sig (Original)atorvastatin 40 mg oral tablet (18 sources)HMG-CoA Reductase InhibitorStart: 09-24-2023 End: 76-90-8102fgqi 1 tablet by mouth in the eveningatorvastatin (Lipitor) 40 MG tablet Indications: Mixed dyslipidemia Take 1 tablet (40 mg) by mouth in the evening 90 tablet 1 08/16/2024 01/19/2025 Discontinued (Reorder)losartan potassium 100 mg oral tablet (20 sources)Angiotensin 2 Receptor BlockerStart: 05-26-2020 End: 23-91-7072qupu 1 tablet by mouth once dailylosartan (Cozaar) 100 MG tablet Indications: Essential hypertension Take 1 tablet (100 mg) by mouthDaily 90 tablet 1 08/16/2024 01/19/2025 Discontinued (Reorder)Comment on above:Take 100 mg by mouth once daily.meloxicam 15 mg oral tablet (3 sources)Nonsteroidal Anti-inflammatory DrugStart: 08-31-2023 End: 23-72-1264ghhu 1 tablet by mouth once dailymeloxicam (Mobic) 15 MG tablet Indications: Impingement syndrome of left shoulder Take 1 tablet (15mg) by mouth Daily 90 tablet 1 08/31/2023 02/22/2024 Discontinued (Therapy completed) nebivolol 10 mg oral tablet (20 sources)Start: 08-01-2023 End: 35-71-4865jmzw 1 tablet by mouth once dailynebivolol (Bystolic) 10 MG tablet Indications: Essential hypertension Take 1 tablet (10 mg) by mouth Daily 30 tablet 12/29/2024 01/19/2025 Discontinued (Reorder)traMADol hydrochloride 50 mg oral tablet (2 sources)Opioid AgonistStart: 05-04-2023 End: 92-59-2912hrhn 1 tablet by mouth every six hours for paintraMADol (Ultram) 50 MG tablet Indications: Rotator cuff syndrome, right Take 1 tablet (50 mg) by mouth every 6 (six) hours if needed for severe pain for up to 7 days 21 tablet 0 05/04/2023 05/11/2023 Problems Active Problems Problem ClassificationProblemDateDocumented DateEpisodic/ChronicAbdominal pain (9 sources)Unspecified abdominal pain; Translations: [Right upper quadrant pain] Onset: 43-58-7925UobwyyyeFpshjcgsx of lipid metabolism (19 sources)Dyslipidemia; Translations: [Mixed hyperlipidemia]Onset: 02-29-2024 42-45-8969IshyjtdRrlybkzs; convulsions (16 sources)Other generalized epilepsy and epileptic syndromes, not intractable, without status epilepticus; Translations: [Generalized convulsive epilepsy, without mention of intractable epilepsy]Onset: hronic Essential hypertension (20 sources)Essential hypertension; Translations: [Essential (primary) hypertension]Onset: 024059-38-9893LinnserGfbc disorders (16 sources)Reactive depression (situational); Translations: [Major depressive disorder, single episode, unspecified]Onset: hronic Osteoarthritis (16 sources)Osteoarthritis of joint of right elbow; Translations: [Primary osteoarthritis, right elbow]Onset: 437343-85-4990HaamxvvLahlb acquired deformities (16 sources)Postural kyphosis; 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, cervicothoracic region]Onset: 657519-69-3919DgcrgcvBjgql connective tissue disease (2 sources)Right rotator cuff syndrome; Translations: [Unspecified rotator cuff tear or rupture of right shoulder, not specified as traumatic]42-23-2280Qcaproyl Other connective tissue disease (2 sources)Non-traumatic partial tear of left rotator cuff; Translations: [Incomplete rotator cuff tear or rupture of left shoulder, not specified as traumatic]43-48-2565AcceboxfZgwqz nervous system disorders (20 sources)Lesion of ulnar nerve, left upper limb; Translations: [Lesion of ulnar nerve]Onset: 692560-83-3669ZyeukjcEpaiy non-traumatic joint disorders (20 sources)Chronic pain of left upper limb; Translations: [Pain in left shoulder]Onset: 256147-02-0957ZompmnteItlji non-traumatic joint disorders (2 sources)Chronic pain of right upper limb; Translations: [Pain in right shoulder]19-18-7517HciounugJqjll upper respiratory infections (2 sources)Viral upper respiratory tract infection; Translations: [Acute upper respiratory infection, unspecified]96-91-6894ApwecaesMipkmbrm codes; unclassified (20 sources)Obstructive sleep apnea syndrome; Translations: [Obstructive sleep apnea (adult) (pediatric)]Onset: 358270-66-9821KynkbonVpwkvjia codes; unclassified (16 sources)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; Translations: [Dependence on other enabling machines and devices]Onset: 907626-27-8302Mjgtbcy Past or Other Problems Problem ClassificationProblemDateDocumented DateEpisodic/ChronicEpilepsy; convulsions (20 sources)Seizure; Translations: [Post traumatic seizures]Onset: 06-20-2016 EpisodicOther and ill-defined cerebrovascular disease (4 sources)Cerebral arterial aneurysm; Translations: [Cerebral aneurysm, nonruptured]Onset: 04-07-2007 Resolved: 002551-81-8425JdplktpOaoax connective tissue disease (20 sources)Lateral epicondylitis of left humerus; Translations: [Lateral epicondylitis, left elbow]Onset: 437834-81-1745VqpewkjoGxsig connective tissue disease (20 sources)Impingement syndrome of left shoulder region; Translations: [Impingement syndrome of left shoulder]Onset: 626053-27-8887YwrkraheOmraq connective tissue disease (20 sources)Adhesive capsulitis of left shoulder; Translations: [Adhesive capsulitis of left shoulder]Onset: 096608-16-2143RxrtuwqwComlk connective tissue disease (20 sources)Partial thickness rotator cuff tear; Translations: [Incomplete rotator cuff tear or rupture of leftshoulder, not specified as traumatic]Onset: 743653-20-5971Vbzhnevr Results Test NameValueInterpretationReference RangeFacilityXR Shoulder - right 2 Viewson [id number] are no acute osseous changes. ELECTRONICALLY SIGNED BY: Washington White MDIMAGING CLINICAL HISTORY: right shoulder pain, chronic COMPARISON: NONE. FINDINGS: There are no lytic or sclerotic lesions. There is no acute fracture or subluxation. The humeral head is located. There is no significant joint space narrowing. The AC joint and the clavicle are unremarkable. The visualized portions of the lung, ribs, and chest wall soft tissues are unremarkable. IMAGINGWashington White MD - 05/06/2023 CLINICAL HISTORY: right shoulder pain, chronic COMPARISON: NONE. FINDINGS: There are no lytic or sclerotic lesions. There is no acute fracture or subluxation. The humeral head is located. There is no significant joint space narrowing. The AC joint and the clavicle are unremarkable. The visualized portions of the lung, ribs, and chest wall soft tissues are unremarkable. IMPRESSION: There are no acute osseous changes. ELECTRONICALLY SIGNED BY: Washington White MD [facility]OM[facility] HealthcareXR Shoulder - right 2 ViewsOrdered By: Washington White on [id number] Work Phone: XR Shoulder - right 2 Viewson 77-92-5844Cgdzbtkjq Study observation (narrative)[facility] HealthcareAMYLASEon 19-58-1474Ixeasvx [Catalytic activity/Vol]48 U/VInomac62-131Jow [facility] HospitalComment on above: Performed By: #### RAFAEL, LIPA, CMP #### [facility] [address] [place] [address] Dr. Mando Huynh AUTO DIFFon [id number] #0.1 103/ulNormal0.0-0.1The [facility] HospitalComment on above:Performed By: #### CBC #### [facility] [address] [place] [address] Dr. Mando MckennaBasophils/100 WBC (Bld)1.1 %Normal0.2-2.0[facility] Comment on above:Performed By: #### CBC #### [facility] [address] [place] [address] Dr. Mando Trujillo #0.2 103/ulNormal0.0-0.7The [facility] HospitalComment on above: Performed By: #### CBC #### [facility] [address] [place] [address] Dr. Mando Duttaosinophils/100 WBC (Bld)3.2 %Normal0.9-7.0[facility] Comment on above:Performed By: #### CBC #### [facility] [address] [place] [address] Dr. Mando Duttarythrocyte distribution width (RBC) [Ratio]11.9 %Jnbitx43.0-15.0 The [facility] HospitalComment on above:Performed By: #### CBC #### [facility] [address] [place] [address] Dr. Mando MckennaHematocrit (Bld) [Volume fraction]42.6 %Dnzvnf82.0-54.0The [facility] HospitalComment on above:Performed By: #### CBC #### [facility] [address] [place] [address] Dr. Mando Hernadezoglobin (Bld) [Mass/Vol]13.5 g/dLCritically low14.0-18.0The [facility] HospitalComment on above:Performed By: #### CBC #### [facility] [address] [place] [address] Dr. Mando Greene #0.01 10e3/ulNormal0.00-0.03The [facility] HospitalComment on above:Performed By: #### CBC #### [facility] [address] [place] [address] Dr. Mando Greene %0.2 %Normal0.0-0.5The [facility] HospitalComment on above: Performed By: #### CBC #### [facility] [address] [place] [address] Dr. Mando Cabrera #1.6 103/ulNormal1.2-3.8The [facility] HospitalComment on above:Performed By: #### CBC #### [facility] [address] [place] [address] Dr. Mando Eugenemphocytes/100 WBC (Bld)33.8 %Cimtla20.5-60.0The [facility] HospitalComment on above:Performed By: #### CBC #### [facility] [address] [place] [address] Dr. Mando BraxtonUAL DIFF REQNONormalThe [facility] HospitalComment on above: Performed By: #### CBC #### [facility] [address] [place] [address] Dr. Mando Gay (RBC) [Entitic mass]30.1 llPiyote39.9-34.0The [facility] HospitalComment on above:Performed By: #### CBC #### [facility] [address] [place] [address] Dr. Mando Diaz (RBC) [Mass/Vol]31.7 g/kNItgaxg87.9-35.2The [facility] HospitalComment on above:Performed By: #### CBC #### [facility] [address] [address] [address] Mando DiazV (RBC) [Entitic vol]94.9 fLCritically high80.0-94.0The [facility] HospitalComment on above:Performed By: #### CBC #### [facility] [address] [place] [address] Dr. Mando Javed #0.6 103/ulNormal0.3-0.8The [facility] HospitalComment on above:Performed By: #### CBC #### [facility] [address] [place] [address] Dr. Mando Taocytes/100 WBC (Bld)11.9 %Normal1.7-12.0[facility] Comment on above:Performed By: #### CBC #### [facility] [address] [place] [address] Dr. Mando Bran #2.4 103/ulNormal1.4-6.5The [facility] HospitalComment on above:Performed By: #### CBC #### [facility] [address] [place] [address] Dr. Mando Billingsleyutrophils/100 WBC (Bld)49.8 %Zqyfup20.0-75.0The [facility] HospitalComment on above:Performed By: #### CBC #### [facility] [address] [place] [address] Dr. Mando Ronlet mean volume (Bld) [Entitic vol]8.4 fLCritically low 9.5-13.5The [facility] HospitalComment on above:Performed By: #### CBC #### [facility] [address] [place] [address] Dr. Mando MckennaPLT307 103/ntQqsnqx515-635Gxc [facility] HospitalComment on above: Performed By: #### CBC #### [facility] [address] [place] [address] Dr. Mando MckennaRBC4.49 106/ulCritically low4.70-6.10The [facility] HospitalComment on above:Performed By: #### CBC #### [facility] [address] [place] [address] Dr. Mando MckennaWBC4.7 103/ulNormal4.0-11.0The [facility] HospitalComment on above: Performed By: #### CBC #### [facility] [address] [place] [address] Dr. Mando MckennaCT ABD/PELV W CONon [id number] ABD/PELV W CONEXAMINATION: CT ABD/PELV W CON HISTORY: UNSPECIFIED ABDOMINAL PAIN , right lower quadrant pain for 2-4 weeks COMPARISON: No relevant comparison available. TECHNIQUE: Axial, Coronal, and Sagittal images were created with IV contrast. Dose reduction techniques were achieved by using automated exposure control and/or adjustment of mA and/or kV according to patient size and/or use of iterative reconstruction technique. FINDINGS: LUNG BASES: No visible pulmonary or pleural disease. LIVER: No enlargement, atrophy, abnormal density, or significant focal lesion. BILIARY: No dilatation or calcification. PANCREAS: No lesion, fluid collection, ductal dilatation, or atrophy. SPLEEN: No enlargement or focal lesion. ADRENALS: No mass or enlargement. KIDNEYS: No mass, obstruction, or calcification. BOWEL/MESENTERY: No visible mass, obstruction, or bowel wall thickening. Normal appendix. AORTA/VASCULAR: No aneurysm or dissection. RETROPERITONEUM: No mass or adenopathy. LYMPH NODES: No adenopathy. URINARY BLADDER: No visible focal wall thickening, lesion, or calculus. PELVIC ORGANS: No visible mass. Pelvic organs appropriate for patient age. ABDOMINAL WALL: No mass or hernia. BONES: No bony lesion or fracture. OTHER: Negative. IMPRESSION: 1. No abnormal or suspicious findings to account for patient's symptoms. Electronically authenticated by: JENA BANGURA Date: 2021-08-29 09:26NormSelect Medical Specialty [facility], [facility] URINE PROFILEon [id number] Ql (U)NegativeNormal NEGATIVEThe [facility] HospitalComment on above:Performed By: #### ERUR #### [facility] [address] [address] [address] Mando MckennaClarity (U)CLEARNormalCLEARFisher-Titus Medical CenterComment on above: Performed By: #### ERUR #### [facility] [address] [address] [address] Mando Kaurlor (U)YELLOWNormalYELLOWFisher-Titus Medical CenterComment on above: Performed By: #### ERUR #### [facility] [address] [address] [address] Mando Almanza micrscopic examination will be performed if indicated. NormalThe Newark HospitalComment on above:Performed By: #### ERUR #### [facility] [address] [place] [address] Dr. Mando MckennaGlucose Ql (U)NegativeNormalNEGATIVEFisher-Titus Medical CenterComment on above:Performed By: #### ERUR #### [facility] [address] [place] [address] Dr. Mando MckennaHemoglobin Ql (U)NegativeNormalNEGATIVELakehealth [facility] on above:Performed By: #### ERUR #### [facility] [address] [place] [address] Dr. Mando MckennaKetones Ql (U)NegativeNormalNEGATIVEFisher-Titus Medical CenterComment on above:Performed By: #### ERUR #### [facility] [address] [place] [address] Dr. Mando MckennaLEUKOCYTESNegativeNormalNEGATIVEFisher-Titus Medical CenterComment on above:Performed By: #### ERUR #### [facility] [address] [place] [address] Dr. Mando MckennaNitrite Ql (U)NegativeNormalNEGATIVEFisher-Titus Medical CenterComment on above:Performed By: #### ERUR #### [facility] [address] [place] [address] Dr. Mando MckennapH (U)6.0 [pH]Normal5-9Fisher-[facility]itus Medical CenterComment on above: Performed By: #### ERUR #### [facility] [address] [place] [address] Dr. Mando MckennaSPEC GRAVITY1.747Utpeiz8.005-<=1.025The [facility] HospitalComment on above:Performed By: #### ERUR #### [facility] [address] [place] [address] Dr. Mando Sharpe PROTEINNegativeNormalNEGATIVE/ TRACEThe [facility] Comment on above:Performed By: #### ERUR #### [facility] [address] [place] [address] Dr. Mando Alvarez MICRO INDNOT INDICATEDNoVeterans Health Administratione [facility] HospitalComment on above:Performed By: #### ERUR #### [facility] [address] [place] [address] Dr. Mando Del Torobilinogen Qn (U)0.2 {Jackie'U}/dLNormal0.2 - 1.0The [facility] HospitalComment on above:Performed By: #### ERUR #### [facility] [address] [place] [address] Dr. Mando MckennaLACTATE/LACTIC ACIDon 54-14-3113Yjofhsk [Moles/Vol]0.4 mmol/L Normal0.4-1.9The [facility] HospitalComment on above:Performed By: #### RAFAEL, LIPA, CMP #### [facility] [address] [place] [address] Dr. Mando MckennaLIPASEon [id number] [Catalytic activity/Vol]74.0 U/LNormal 73.0-393.0The [facility] HospitalComment on above:Performed By: #### RAFAEL, LIPA, CMP #### [facility] [address] [place] [address] Dr. Mando Olmos 14(COMP METB)on 68-84-8977Dpvtunv [Mass/Vol]3.6 g/dLNormal 3.4-5.0The [facility] HospitalComment on above:Performed By: #### RAFAEL, LIPA, CMP #### [facility] [address] [place], [place] [id number] Dr. Mando MckennaAlbumin/Globulin [Mass ratio]1.1 {ratio}NormalThe [facility] HospitalComment on above:Performed By: #### RAFAEL, LIPA, CMP #### [facility] [address] [place] [address] Dr. Mando AyalaP [Catalytic activity/Vol]83 U/PEdpzus65-710Uqf [facility] HospitalComment on above:Performed By: #### RAFAEL, LIPA, CMP #### [facility] [address] [place] [address] Dr. Mando AyalaT [Catalytic activity/Vol]25 U/VGpdsfc14-96Cfx [facility] HospitalComment on above:Performed By: #### RAFAEL, LIPA, CMP #### [facility] [address] [place] [address] Dr. Mando Marquezon gap [Moles/Vol]11.8 mmol/LNormalThe [facility] Comment on above:Performed By: #### RAFAEL, LIPA, CMP #### [facility] [address] [place] [address] Dr. Mando MckennaAST [Catalytic activity/Vol]13 U/LCritically mdy22-46Set [facility] HospitalComment on above:Performed By: #### RAFAEL, LIPA, CMP #### [facility] [address] [place] [address] Dr. Mando MckennaBilirubin [Mass/Vol]0.3 mg/dLNormal0.2-1.0[facility] Comment on above:Performed By: #### RAFAEL, LIPA, CMP #### [facility] [address] [place] [address] Dr. Mando MckennaCalcium [Mass/Vol]8.6 mg/dLNormal8.5-10.1[facility] Comment on above:Performed By: #### RAFAEL, LIPA, CMP #### [facility] [address] [place] [address] Dr. Mando MckennaChloride [Moles/Vol]104 mmol/FPaqxdw70-566Ewk [facility] Comment on above:Performed By: #### RAFAEL, LIPA, CMP #### [facility] [address] [address] [address] Mando MckennaCO2 [Moles/Vol]29.3 mmol/MTduytj88.0-32.0[facility] Comment on above:Performed By: #### RAFAEL, LIPA, CMP #### [facility] [address] [address] [address] Mando MckennaCreatinine [Mass/Vol]0.81 mg/dLNormal0.70-1.30[facility]itus Medical CenterComment on above:Performed By: #### RAFAEL, LIPA, CMP #### [facility] [address] [address] [address] Mando De Paz-AF ETHIOPIAN>60Normal>=60The [facility] HospitalComment on above:Performed By: #### RAFAEL, LIPA, CMP #### [facility] [address] [place] [address] Dr. Mando De Paz-NON AF ETHIOPIAN>60Normal>=60The [facility] HospitalComment on above:Performed By: #### RAFAEL, LIPA, CMP #### [facility] [address] [address] [address] Mando MckennaGlobulin (S) [Mass/Vol]3.3 g/dLNormalThe [facility] HospitalComment on above:Performed By: #### RAFAEL, LIPA, CMP #### [facility] [address] [place] [address] Dr. Mando MckennaGlucose [Mass/Vol]96 mg/oAOeflsm39-871Rnp [facility] Comment on above:Performed By: #### RAFAEL, LIPA, CMP #### [facility] [address] [address] [address] Mando MckennaPotassium [Moles/Vol]4.1 mmol/LNormal3.5-5.1[facility] Comment on above:Performed By: #### RAFAEL, LIPA, CMP #### [facility] [address] [address] [address] Mando MckennaProtein [Mass/Vol]6.9 g/dLNormal6.4-8.2[facility] Comment on above:Performed By: #### OG HALL, CMP #### [facility] [address] [address] [address] Mando MckennaSodium [Moles/Vol]141 mmol/VUshuiy599-798Lqw [facility] Comment on above:Performed By: #### RAFAEL LIPA, CMP #### [facility] [address] [address] [address] Mando MckennaUrea nitrogen [Mass/Vol]17.0 mg/dLNormal7.0-18.0The [facility] HospitalComment on above:Performed By: #### CHARISSA HALLA, CMP #### [facility] [address] [place] [address] Dr. Mando Connor nitrogen/Creatinine [Mass ratio]21.0 mg/mgNoBrown Memorial HospitalComment on above:Performed By: #### OG HALL, CMP #### [facility] [address] [place] [address] Dr. Mando MckennaUS SINGLE QUAD RT UPPERon [id number] SINGLE QUAD RT UPPER EXAMINATION: US SINGLE QUAD RT UPPER HISTORY: Pain , right lower quadrant pain for 2 weeks COMPARISON: No relevant comparison available. TECHNIQUE: Transabdominal evaluation of the right upper quadrant. FINDINGS: LIVER: Normal size and echotexture. Color Doppler demonstrates patent hepatic veins. PORTAL VEIN: Duplex Doppler demonstrates normal hepatopetal flow pattern with flow velocity averaging 32 cm/s. GALLBLADDER: No visible gallstones, wall thickening, or pericholecystic free fluid. Negative sonographic Aiken's sign. BILIARY: No abnormal dilation or stones. Common bile duct diameter is within normal limits. PANCREASE: No visible mass, abnormal atrophy, or duct dilation. KIDNEY: No hydronephrosis. No visible mass or stones. Size: 11.6 x 5.0 x 5.1 cm IMPRESSION: 1. No acute or suspicious findings to account for patient's symptoms. Electronically authenticated by: JENA BANGURA Date: 2021-08-29 08:18[facility] AUTO DIFFon [id number] #0.1 103/ulNormal0.0-0.1The [facility] HospitalComment on above:Performed By: #### CBC #### [facility] [address] [place] [address] Dr. Mando MckennaBasophils/100 WBC (Bld)1.1 %Normal0.2-2.0[facility] Comment on above:Performed By: #### CBC #### [facility] [address] [place] [address] Dr. Mando Trujillo #0.1 103/ulNormal0.0-0.7The [facility] HospitalComment on above: Performed By: #### CBC #### [facility] [address] [place] [address] Dr. Mando Duttaosinophils/100 WBC (Bld)1.7 %Normal0.9-7.0[facility] Comment on above:Performed By: #### CBC #### [facility] [address] [place] [address] Dr. Mando Emmanuelthrocyte distribution width (RBC) [Ratio]12.1 %Tqozyj53.0-15.0 The [facility] HospitalComment on above:Performed By: #### CBC #### [facility] [address] [place] [address] Dr. Mando MckennaHematocrit (Bld) [Volume fraction]42.2 %Unxgnz14.0-54.0The [facility] HospitalComment on above:Performed By: #### CBC #### [facility] [address] [place] [address] Dr. Mando MckennaHemoglobin (Bld) [Mass/Vol]13.6 g/dLCritically low14.0-18.0The [facility] HospitalComment on above:Performed By: #### CBC #### [facility] [address] [place] [address] Dr. Mando Greene #0.02 10e3/ulNormal0.00-0.03The [facility] HospitalComment on above:Performed By: #### CBC #### [facility] [address] [place] [address] Dr. Mando Greene %0.3 %Normal0.0-0.5The [facility] HospitalComment on above: Performed By: #### CBC #### [facility] [address] [place] [address] Dr. Mando Cabrera #1.7 103/ulNormal1.2-3.8The [facility] HospitalComment on above:Performed By: #### CBC #### [facility] [address] [place] [address] Dr. Mando Frankhocytes/100 WBC (Bld)27.1 %Tnuvhk16.5-60.0The [facility] HospitalCom[facility] on above:Performed By: #### CBC #### [facility] [address] [place] [address] Dr. Mando BraxtonUAL DIFF REQNONormalThe [facility] HospitalComment on above: Performed By: #### CBC #### [facility] [address] [place] [address] Dr. Mando Gay (RBC) [Entitic mass]30.1 hlMnoizl17.9-34.0The [facility] HospitalComment on above:Performed By: #### CBC #### [facility] [address] [place] [address] Dr. Mando Diaz (RBC) [Mass/Vol]32.2 g/tLKzznda56.9-35.2The [facility] HospitalCom[facility] on above:Performed By: #### CBC #### [facility] [address] [place] [address] Dr. Mando Diaz (RBC) [Entitic vol]93.4 dORsrqcb27.0-94.0The [facility] HospitalComasc[facility] on above:Performed By: #### CBC #### [facility] [address] [place] [address] Dr. Mando Javed #0.7 103/ulNormal0.3-0.8The [facility] HospitalComment on above:Performed By: #### CBC #### [facility] [address] [address] [address] Mando Taocytes/100 WBC (Bld)11.5 %Normal1.7-12.0[facility] Comment on above:Performed By: #### CBC #### [facility] [address] [place] [address] Dr. Mando Bran #3.7 103/ulNormal1.4-6.5The [facility] HospitalComment on above:Performed By: #### CBC #### [facility] [address] [place] [address] Dr. Mando Billingsleyutrophils/100 WBC (Bld)58.3 %Cdqmre93.0-75.0The [facility] HospitalComment on above:Performed By: #### CBC #### [facility] [address] [place] [address] Dr. Mando MckennaPlatelet mean volume (Bld) [Entitic vol]8.1 fLCritically low 9.5-13.5The [facility] HospitalComment on above:Performed By: #### CBC #### [facility] [address] [place] [address] Dr. Mando MckennaPLT318 103/zxEwkghz298-469Xle [facility] HospitalComment on above: Performed By: #### CBC #### [facility] [address] [place] [address] Dr. Mando MckennaRBC4.52 106/ulCritically low4.70-6.10The [facility] HospitalComment on above:Performed By: #### CBC #### [facility] [address] [place] [address] Dr. Mando MckennaWBC6.4 103/ulNormal4.0-11.0The [facility] HospitalComment on above: Performed By: #### CBC #### [facility] [address] [place] [address] Dr. Mando MckennaLIPASEon 95-12-5298Kwpndd [Catalytic activity/Vol]81.0 U/LNormal 73.0-393.0The [facility] HospitalComment on above:Performed By: #### CMP, LIPA #### [facility] [address] [address] [address] Mando TolbertF 14(COMP METB)on 73-01-2448Hjcgpuh [Mass/Vol]3.9 g/dLNormal 3.4-5.0The [facility] HospitalComment on above:Performed By: #### CMP, LIPA #### [facility] [address] [address] [address] Mando MckennaAlbumin/Globulin [Mass ratio]1.1 {ratio}NormalThe [facility] HospitalComment on above:Performed By: #### CMP, LIPA #### [facility] [address] [address] [address] Mando Wheat [Catalytic activity/Vol]91 U/DWtbrap65-786Cav [facility] HospitalComment on above:Performed By: #### CMP, LIPA #### [facility] [address] [address] [address] Mando Iqbal [Catalytic activity/Vol]30 U/JGcwvyt97-75Flf [facility] HospitalComment on above:Performed By: #### CMP, LIPA #### [facility] [address] [address] [address] Mando Machado gap [Moles/Vol]10.6 mmol/LNormalThe [facility] Comment on above:Performed By: #### CMP, LIPA #### [facility] [address] [address] [address] Mando MckennaAST [Catalytic activity/Vol]14 U/LCritically imj08-20Yxd [facility] HospitalComment on above:Performed By: #### CMP, LIPA #### [facility] [address] [address] [address] Mando MckennaBilirubin [Mass/Vol]0.1 mg/dLCritically low0.2-1.0The [facility] HospitalComment on above:Performed By: #### CMP, LIPA #### [facility] [address] [place] [address] Dr. Mando MckennaCalcium [Mass/Vol]9.0 mg/dLNormal8.5-10.1[facility] Comment on above:Performed By: #### CMP, LIPA #### [facility] [address] [place] [address] Dr. Mando MckennaChloride [Moles/Vol]103 mmol/XMyxkjs45-630Jul [facility] Comment on above:Performed By: #### CMP, LIPA #### [facility] [address] [place] [address] Dr. Mando MckennaCO2 [Moles/Vol]31.3 mmol/LVqkazi70.0-32.0[facility] Comment on above:Performed By: #### CMP, LIPA #### [facility] [address] [place] [address] Dr. Mando MckennaCreatinine [Mass/Vol]0.96 mg/dLNormal0.70-1.30The [facility] HospitalComment on above:Performed By: #### CMP, LIPA #### [facility] [address] [place] [address] Dr. Mando DuttaGFR-AF ETHIOPIAN>60Normal>=60The [facility] HospitalComment on above:Performed By: #### CMP, LIPA #### [facility] [address] [place] [address] Dr. Mando DuttaGFR-NON AF ETHIOPIAN>60Normal>=60The [facility] HospitalComment on above:Performed By: #### CMP, LIPA #### [facility] [address] [place] [address] Dr. Mando MckennaGlobulin (S) [Mass/Vol]3.6 g/dLNormalThe [facility] HospitalComment on above:Performed By: #### CMP, LIPA #### [facility] [address] [place] [address] Dr. Mando MckennaGlucose [Mass/Vol]95 mg/nJSinxis21-737MtnFisher-Titus Medical Center Comment on above:Performed By: #### CMP, LIPA #### [facility] [address] [place] [address] Dr. Mando MckennaPotassium [Moles/Vol]3.9 mmol/LNormal3.5-5.1[facility] Comment on above:Performed By: #### CMP, LIPA #### [facility] [address] [place] [address] Dr. Mando MckennaProtein [Mass/Vol]7.5 g/dLNormal6.4-8.2[facility] Comment on above:Performed By: #### CMP, LIPA #### [facility] [address] [address] [address] Mando MckennaSodium [Moles/Vol]141 mmol/IAevtte799-572AufFisher-Titus Medical Center Comment on above:Performed By: #### CMP, LIPA #### [facility] [address] [place] [address] Dr. Mando MckennaUrea nitrogen [Mass/Vol]18.0 mg/dLNormal7.0-18.0[facility] Medical CenterComment on above:Performed By: #### CMP, LIPA #### [facility] [address] [place] [address] Dr. Mando Connor nitrogen/Creatinine [Mass ratio]18.8 mg/mgNormalThWayne HealthCare Main CampusComment on above:Performed By: #### CMP, LIPA #### [facility] [address] [place] [address] Dr. Mando Mckenna Vital Signs Date TimeVital SignValuePerforming XqedyphafRqxzhgap70-75-3088 15:12-0400Body ylrtlq609.4 Casie Blankenship MD Work Phone: [facility] RoadPqakyqcogy11-99-0621 15:12-0400Body mass index (BMI) [Ratio]22.56 kg/d5AecoycJosiah Blankenship MD Work Phone: [facility] RoadAgmsclsqyc58-21-4439 15:12-0400Body ichttp26.56 kgJosiah Blankenship MD Work Phone: [facility] RoadGovrazduzp92-59-3354 15:12-0400Diastolic blood xpqivsgd49 mm[Hg]Josiah Blankenship MD Work Phone: [phone])[address] [place], [place] 6841910-23-2025 15:12-0400Heart rate68 /min Josiah Blankenship MD Work Phone: [phone] [place], [place] 6841910-23-2025 15:12-5307EdP5% (BldA) [Mass fraction]99 %Josiah Blankenship MD Work Phone: [phone])[address] [place], [place] 684[address]10-23-2025 15:12-0400Systolic blood ucqeppid533 mm[Hg]Josiah Blankenship MD Work Phone: [phone])[address] [place], [place] 684[address]05-20-2025 16:03-0400Body oeznya906.4 cmEsedrick Blankenship MD Work Phone: [phone] [place], [place] 684[address]05-20-2025 16:03-0400Body mass index (BMI) [Ratio]22.82 kg/t5ZtptbfJosiah Blankenship MD Work Phone: [phone])[address] [place], [place] 684[address]05-20-2025 16:03-0400Body hxuqbp07.47 kgJosiah Blankenship MD Work Phone: [phone] [place], [place] 684[address]05-20-2025 16:03-0400Diastolic blood exqubjyv31 mm[Hg]Josiah Blankenship MD Work Phone: [phone])[address] [place], [place] 684[address]05-20-2025 16:03-0400Heart rate74 /min Josiah Blankenship MD Work Phone: [phone] [place], [place] 684[address]05-20-2025 16:03-6698YeY3% (BldA) [Mass fraction]99 %Josiah Blankenship MD Work Phone: 1(725)[address] [place], [place] 6841905-20-2025 16:03-0400Systolic blood eslyhhco732 mm[Hg]Josiah Blankenship MD Work Phone: [phone])[address] [place], [place] 6841911-25-2024 16:03-0500Body nzytno040.4 Casie Blankenship MD Work Phone: [phone])[address] [place], [place] 6841911-25-2024 16:03-0500Body mass index (BMI) [Ratio]22.82 kg/f2SvbelyJosiah Blankenship MD Work Phone: [facility] RoadOempwwzjej42-55-2288 16:03-0500Body agbiuk74.47 kgJosiah Blankenship MD Work Phone: [facility] RoadNladmofzwm82-17-6879 16:03-0500Diastolic blood oaiaxvhq23 mm[Hg]Josiah Blankenship MD Work Phone: [facility] RoadIinekdcztz97-78-5789 16:03-0500Heart rate71 /min Josiah Blankenship MD Work Phone: [facility] RoadTmxymzdxqn80-09-8058 16:03-0316PsW9% (BldA) [Mass fraction]98 %Josiah Blankenship MD Work Phone: [facility] RoadUnxmcbmnjv22-81-9067 16:03-0500Systolic blood eejzcrik576 mm[Hg]Josiah Blankenship MD Work Phone: [facility] RoadFyuvxpapja93-61-5796 15:27-0500Body mass index (BMI) [Ratio]22.82 kg/j7UcxjqsJosiah Blankenship MD Work Phone: [facility] RoadIoahuxnejj22-85-0599 15:27-0500Body dtcsyj47.47 kgJosiah Blankenship MD Work Phone: [facility] Healthcare Encounters Encounter DateEncounter TypeCare ProviderFacilityStart: 01-19-2025 End: 32-98-8011Wzqaav outpatient visit 25 minutesEdyasmeen Blankenship MD Work Phone: [phone] MedicineComment on above: Essential hypertension; Mixed dyslipidemia; Chronic left shoulder painStart: 01-19-2025 End: 05-16-6265jwhyuyuhtsNAYXDX J HEMEYERNot AvailableStart: 01-19-2025 End: 15-16-9338Rrosqo flowsPayton Blankenship MD Work Phone: [facility] 100 Family MedicineStart: 01-19-2025 End: 22-66-4443Fmffim Lucía Blankenship MD Work Phone: [facility] MedicineStart: 10-05-2024 End: 19-39-3992QqgubnEsusrxMarianna Ramos MD Work Phone: NeurosurgeryComment on above:Refill RequestStart: 09-26-2024 End: 18-46-4963UeptzwJwyrjjMarianna Ramos MD Work Phone: NeurologyComment on above:Refill RequestStart: 09-09-2024 End: 17-33-0607Ctwlkaesbdcy consultation with Nini Sinha APRN.SLICING MACHINE OPERATOR Work Phone: NeurologyStart: 09-09-2024 End: 30-36-6680kgibobzrdvUJH M MERNERFacility:[facility]ittman HospitalComment on above:STEVAN on CPAP (Primary Dx); Post traumatic seizure disorder (HCC)Start: 08-24-2024 End: 35-14-5126WzskdwLsbwtc J Hemeyer MD Work Phone: [facility] 100Comment on above:Essential hypertension (CMS/HCC)Start: 08-16-2024 End: 88-87-5013Lfittj outpatient visit 25 minutesJosiah Blankenship MD Work Phone: [facility] 100Comment on above:Essential hypertension (CMS/HCC); Mixed dyslipidemia (CMS/HCC)Start: 08-16-2024 End: 91-57-3982ttppkqyfwcEYITLY J HEMEYERNot AvailableStart: 08-16-2024 End: 31-31-1185Zzkosy flowsheetJosiah Blankenship MD Work Phone: [facility] 100Start: 08-16-2024 End: 46-55-8161Aauwny flowsPayton Blankenship MD Work Phone: [facility] 100Start: 03-21-2024 End: 05-63-0060KusshpRsjzwh J Hemeyer MD Work Phone: [facility] 100Comment on above:Chronic left shoulder painStart: 03-03-2024 End: 70-37-7650Tzuxej outpatient visit 15 minutesJosiah Blankenship MD Work Phone: [facility] 100Comment on above:Viral upper respiratory tract infection (Primary Dx)Start: 03-03-2024 End: 08-19-8359mzhsxsmrtpOFLEXI J HEMEYERNot AvailableStart: 03-03-2024 End: 19-59-4985Gcnhxz flowsPayton Blankenship MD Work Phone: [facility] 100Start: 03-03-2024 End: 48-76-1538Sswchv flowsPayton Blankenship MD Work Phone: [facility] 100Start: 02-22-2024 End: 24-67-7432Olyzxu outpatient visit 25 minutesJosiah Blankenship MD Work Phone: [facility] 100Comment on above:Essential hypertension (CMS/HCC) (Primary Dx); Mixed dyslipidemia (CMS/HCC); Chronic left shoulder pain; 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; Impingement syndrome of left shoulderStart: 02-22-2024 End: 59-79-0405qjmsoalorzEDXSKK J HEMEYERNot AvailableStart: 02-22-2024 End: 35-28-3106Qaxrng flowsPayton Blankenship MD Work Phone: [facility] 100Start: 02-22-2024 End: 12-08-9802Yhnjmu Lucía Blankenship MD Work Phone: [facility] 100Start: 08-27-2023 End: 63-62-1815Fdxphvtu Erich Sinha SENIOR PROJECT LEADER/TEAM LEAD.SLICING MACHINE OPERATOR Work Phone: NeurologyComment on above:Post traumatic seizure disorder (HCC)Start: 05-04-2023 End: 22-98-1290Ptpwyy outpatient visit 25 minutesJosiah Blankenship MD Work Phone: [facility] FMComment on above:Chronic right shoulder pain (Primary Dx); Rotator cuff syndrome, rightStart: 42-24-7913UshytjBxboi Langenbeck SENIOR PROJECT LEADER/TEAM LEAD.SLICING MACHINE OPERATOR Work Phone: NeurologyComment on above:Refill RequestStart: 68-09-1443OgepwkKnhReyna Sinha APRN.SLICING MACHINE OPERATOR Work Phone: NeurologyComment on above:Refill RequestStart: 38-39-5113Wxfwtlwzy encounterSbrennon Ramos MD Work Phone: NeurologyComment on above:Forms ([employer])Start: 08-29-2021 End: 75-56-7389hjxwozmbtpDA JENA BANGURAFacility:G5Smlcd: 08-27-2021 End: 49-68-5149ldcbjykxjzFL EDWARD HEMEYERFacility:W3Gjpoq: 79-93-4216Hclnrczcc encounterSbrennon Ramos MD Work Phone: NeurologyComment on above:Lab req emailed to patient Start: 06-19-2021 End: 82-15-5189Fkkbumpb HealthTrina Sinha APRN.CNP Work Phone: NeurologyComment on above:Post traumatic seizure disorder (HCC) Procedures DateProcedureProcedure DetailPerforming ClinicianStart: 93-76-5386Ypjgu depression screening assessmentTrina Sinha APRN.CNP Work Phone: Start: 60-50-9839Grtahsg of repair of musculotendinous cuff of shoulderS/P rotator cuff repair - LEFTTrina Sinha APRN.CNP Work Phone: Plan of Treatment DateCare ActivityDetailAuthorStart: 07-19-2025 End: 37-48-7543Pbguhxa encounter njfuhgqwg47/22/2026 3:30 PM EDT Office Visit [facility] Medicine [address] [facility] 100 [place] [address] Josiah Blankenship MD [address] [facility] 100 [place] [address] (Fax)[facility] 100 Family MedicineStart: 06-19-2025 End: 95-40-3145Wfyxxfrshbfzp metabolic 2000 panel - Serum or PlasmaComprehensive metabolic panel Lab Routine Essential hypertension Expected: 06/19/2025, Expires: 09/17/2025[facility] Work Phone: Comment on above:Expected: 06/19/2025, Expires: 09/17/2025Start: 06-19-2025 End: 02-64-5629Aagvz 1996 panel - Serum or PlasmaLipid panel Lab Routine Mixed dyslipidemia Expected: 06/19/2025, Expires: 09/17/2025[facility] HealthcareComment on above:Expected: 06/19/2025, Expires: 09/17/2025Start: 01-19-2025 End: 10-82-9817Aqvnuyi encounter kdowvricq37/23/2025 3:30 PM EDT Office Visit [facility] [address] [place] [address] Josiah Blankenship MD [address] [place] [address] Essential hypertension; Mixed dyslipidemiaNOMS [place] 100 Family MedicineComment on above:Essential hypertension; Mixed dyslipidemiaStart: 77-20-8280QWKRI-19 Vaccine ( season)COVID-19 Vaccine ( season)[facility] HealthcareStart: 83-09-3003Mxrfzzaic vaccinationNOMS HealthcareStart: 08-16-2024 End: 58-10-1601Fdubmhv encounter procedureNOMS CI FM 100Comment on above: Essential hypertension (CMS/HCC); Mixed dyslipidemia (CMS/HCC)Start: 33-22-6884Nmtgksbybrlz Vaccine: 50+ (1 of 1 - PCV)Pneumococcal Vaccine: 50+ (1 of 1 - PCV)[facility] 2024 Shingrix Vaccine (1 of 2)Shingrix Vaccine (1 of 2)[facility]: 03-03-2024 End: 49-93-8142Ixuxtfm encounter rbbyvusph14/05/2024 4:00 PM EST Office Visit [facility] [address] [place] [address] Josiah Blankenship MD [address] [place] [address] (Fax) ArrivedNOMS CI FM 100Comment on above: ArrivedStart: 02-22-2024 End: 10-42-1454Xpwsrul encounter fjoifngzs82/25/2024 4:00 PM EST Office Visit [facility] [address] [facility] [address] [place] [address] Josiah Blankenship MD [address] [place] [address] (Fax) Essential hypertension (CMS/HCC); Chronic left shoulder painNOMS CI FM 100Comment on above:Essential hypertension (CMS/HCC); Chronic left shoulder painStart: 33-71-2804Avvhw-19 Vaccine ( season) Covid-19 Vaccine ()[facility]: 99-55-8950Etebfdsfw vaccinationInfluenza Vaccine (#1)[facility] HealthcareStart: 08-31-2023 End: 69-01-2383Bewzrkb encounter fjyxinssh71/03/2024 4:00 PM EDT Office Visit [facility] [address] [place] [address] Josiah Blankenship MD [address] [place] [address] (Fax)[facility] FMStart: 17-94-4013HQWMGGTH SCREENDIABETES SCREENOhioHealth Marion General Hospitaltart: 16-14-5437Tloeqiyo ScreeningDiabetes Screening [facility]: 39-66-9781Flubt-19 Vaccine ()Covid-19 Vaccine ()[facility]: 01-85-1576Nxcaodgfc vaccinationOhioHealth Marion General Hospitaltart: 96-51-3205Vlkay depression screening assessmentDEPRESSION SCREENINGOhioHealth [facility] Hospitaltart: 95-51-1644HKMZBWJDPW ASSESSMENTDEPRESSION ASSESSMENTOhioHealth [facility] Hospitaltart: 92-09-9681NIDKQ-19 VACCINE (3 - Booster for Pfizer series)COVID-19 VACCINE (3 - Booster for Pfizer series) [facility]: 38-72-3934KKNYT-19 VACCINE (3 - Booster for Pfizer series)COVID-19 VACCINE (3 - Booster for Pfizer series)[facility]: 63-85-6787TQZIJLHIZ (FIT-DNA)COLOGUARD (FIT-DNA)[facility]: 48-51-0376VkjyuphsopnRANHYPMRSYFNeoudgxzw ClinicStart: 44-02-3475QBKSOCBZGY CANCER SCREENINGCOLORECTAL CANCER SCREENINGOhio[facility] Hospitaltart: 90-09-7396EJ COLONOGRAPHYCT COLONOGRAPHYOhioHealth [facility] General Hospitaltart: 80-81-8976OEECJ OCCULT BLOOD FECAL OCCULT BLOODOhioHealth Marion General Hospitaltart: 45-44-3719Tlnciywaw for malignant neoplasm of colonOhioHealth Marion General Hospitaltart: 38-53-2532YEFUZKUZGHEGKAKEHSYVURNXPE [facility]: 78-60-5126Sqzbx 1996 panel - Serum or PlasmaLipid ScreeningOhioHealth Marion General Hospitaltart: 17-07-2347Twwda panelLipid ScreeningOhioHealth Marion General Hospitaltart: 64-50-0785FMLSV SCREENLIPID SCREENOhioHealth Marion General Hospitaltart: 1993 Hepatitis B Vaccine (1 of 3 - 19+ 3-dose series)Hepatitis B Vaccine (1 of 3 - 19+ 3-dose series)[facility]: 91-41-5910Ldsglhtfq B Vaccines (1 of 3 - 19+ 3-dose series)Hepatitis B Vaccines (1 of 3 - 19+ 3-dose series)[facility] RoadStart: 33-94-9221Auxet microalbumin profileOhioHealth Marion General Hospitaltart: 73-60-7235Etdtbmo ScreeningAnxiety ScreeningOhioHealth [facility] Hospitaltart: 1992 Depression ScreeningDepression ScreeningOhioHealth [facility] Hospitaltart: 1992 HEPATITIS C SCREENINGHEPATITIS C SCREENINGOhioHealth [facility] Hospitaltart: 1992 Hepatitis C screeningHepatitis C ScreeningOhioHealth Marion General Hospitaltart: 41-37-7956LNN SCREENINGHIV SCREENINGOhioHealth [facility] Hospitaltart: 58-76-2190LCH screeningHIV ScreeningOhioHealth Marion General Hospitaltart: 32-17-2678QTbL/Tdap/Td Vaccines (1 - Tdap) DTaP/Tdap/Td Vaccines (1 - Tdap)[facility] RoadStart: 24-29-5909ZOV Vaccines (1 of 1 - Standard series)MMR Vaccines (1 of 1 - Standard series)[facility] [facility] Start: 67-37-7384UMRDNMYVP B (1 of 3 - 3-dose series)HEPATITIS B (1 of 3 - 3- dose series)[facility]: 89-45-7577Juirpxtor B Vaccine (1 of 3 - 3- dose series)Hepatitis B Vaccine (1 of 3 - 3-dose series)[facility]: 38-11-4204Dknemvdvu for malignant neoplasm of [facility]Fort [facility], [place] Immunizations Immunization DateImmunizationNotesCare OvngywvtJfypiaaf46-28-7650swmwpynej, injectable, quadrivalent, preservative freeJosiah Blankenship MD Work Phone: [facility] RoadEobcfqzodi27-42-6757HCXU-LKK-7 (COVID-19) vaccine, mRNA, spike protein, LNP, PF, hue-sucrose, 30 mcg/0.3 mLJosiah Blankenship MD Work Phone: [facility] RoadXovlklkrhr31-05-2923gggtiwvtg virus vaccine, unspecified formulationJosiah Blankenship MD Work Phone: [facility] RoadVkscbxdmeh11-17-2892dbywyktkt, injectable, quadrivalent, preservative freeJosiah Blankenship MD Work Phone: [facility] RoadHzovdmzits44-17-4693Kkoosh Bivalent Booster 12 Years And OlderJosiah Blankenship MD Work Phone: [facility] RoadZweglnzazv53-06-3452trlqozcka virus vaccine, unspecified formulationJasmin Brooks APRNVA Work Phone: [facility] HospitalMnunll93-95-4005rbyaumzcs, injectable, quadrivalent, preservative freeJosiah Blankenship MD Work Phone: [facility] RoadWminjovjao80-23-0688egezfnlpi, injectable, quadrivalent, preservative freeJosiah Blankenship MD Work Phone: [facility] RoadRvnhrgkvsf34-98-9880bxgpeeanz, injectable, quadrivalent, preservative freeJosiah Blankenship MD Work Phone: [facility] RoadQdosalnwwn49-20-1605omvbcmpdd, injectable, quadrivalent, preservative freeJosiah Blankenship MD Work Phone: [facility] RoadIuzcgnckqr74-66-5583pcbugzagj, seasonal, injectable, preservative freeJosiah Blankenship MD Work Phone: [facility] RoadLfxdjgrihe00-90-7063sqryarnpq, seasonal, injectable, preservative freeEdyasmeen Blankenship MD Work Phone: [facility] RoadSeguoeuxoj10-81-0840ahnjzuf toxoid, adsorbed Edyasmeen Blankenship MD Work Phone: [facility] Payers DatePayer CategoryPayerPolicy [id number] Health Insurance [id number] Private Health [facility] [employer] [id number] 2021-Present [phone] [address] [address] [place] [address] O [id number] Social History DateTypeDetailFacilityStart: 07-11-2011 End: 51-42-3187Pjmzssa smoking status NHISNever smoked tobaccoGalion Hospital Start: 06-19-2020 End: 03-30-2208Woxbmuf intakeCurrent drinker of alcohol (finding)[facility]tart: 38-41-6744Jaesrgw SDOH Alcohol Commentvery rareGalion Hospital Start: 15-60-7883Wju Assigned At BirthMaleCblanchard valley health [facility] ClinicStart: 07-11-2011 End: 46-68-5922Njqkzel use and exposureSmokeless tobacco non-userOhioHealth Marion General Hospitaltart: 06-19-2020 End: 60-21-8672Unarpmq of Social functionOhioHealth Marion General Hospitaltart: 06-19-2020 End: 93-18-8672Ploznxq use panelOhioHealth Marion General Hospitaltart: 78-47-7401Bwhgy Depression Screening Wdkzkkqoyg9Ysqtbgbji ClinicStart: 15-29-5218Ecyyba identity Identifies as male gender (finding)[facility] HospitalWithin the last year, have you been afraid of your partner or ex-partner?NoNOMS HealthcareAre you now , , , , never or living with a partner? MarriedNOMS HealthcareHow often to you have a drink containing alcohol?NeverNOMS HealthcareDo you feel stress - tense, restless, nervous, or anxious, or unable to sleep at night because yourmind is troubled all the time - these days [OSQ] Only a littleNOMS Healthcare(I/We) worried whether (my/our) food would run out before (I/we) got money to buy more.Never trueNOAZ HealthcareStart: 08-05-2022 Vnalkumnw11DWID HealthcareStart: 52-54-8851Nhruize Commentcaffeine intake: 2-3 cups per dayPARK CITY HOSPITAL HealthcareStart: 82-32-1821Pae Assigned At BirthNot on filePARK CITY HOSPITAL HealthcareStart: 27-07-8400Grfzus orientationHeterosexual (finding)[facility] Medical Equipment Procedure CodeEquipment CodeEquipment Original TextEquipment IdentifierDates [place] Swivelock 4.75mm Peek 19.1mm Suture Closed Eyelet Vent Sterile - [id number]: 51-02-2358Pofvmzr on above:Description: PEEK SWIVELOCKAnchor Swivelock 4.75mm Peek 19.1mm Suture Closed Eyelet Vent Sterile - [id number]: 81-33-8492Okdstpw on above:Description: PEEK SWIVELOCKAnchor Corkscrew Fiberwire 5.5mm 2 Full Thread Peek 14.7mm Suture 2 Sterile - [id number]: 27-20-4520Szewfhh on above:Description: PEEK CORKSCREW Functional Status MjnrCmdkozxlsjKatouaEmxndelo96-43-4254Lfa you deaf, or do you have serious difficulty hearingNo 06/08/2014 1:57 PM EDT Sarah Hernandez [facility] Work Phone: [phone] you blind, or do you have serious difficulty seeing, even when wearing glassesNo 06/08/2014 1:57 PM EDT Sarah Hernandez Nae [facility]03-12-2015Do you have serious difficulty walking or climbing stairsNo 06/08/2014 1:57 PM EDT Sarah Hernandez [facility] 41-95-1637Lh you have difficulty dressing or bathingNo 06/08/2014 1:57 PM EDT Sarah Hernandez Nae [facility] CenterTssjvt97-86-6509Oqesgte of a physical, mental, or emotional condition, do you have difficulty doing errands alone such as visiting a physician's office or shoppingNo 06/08/2014 1:57 PM EDT Sarah Hernandez [facility] Mental Status AlxfIwdeelggntGuctdrQvkigfwb46-99-8162Qicagql of a physical, mental, or emotional condition, do you have serious difficulty concentrating, remembering, or making decisionsNo 06/08/2014 1:57 PM EDT Sarah Hernandez [facility] Clinical Notes 04-07-2007 to 01-19-2025 Note Date & LjsaBlxfMvsvcmzm09-83-7424 History of Present illness Narrative* Josiah Blankenship MD - 01/19/2025 3:30 PM EDT Images [...] file prior to visit. documented in this encounterSaint Luke's [facility] Hospital–[facility]ry RoadWaxougjlyd27-22-4493 Telephone encounter Note* Telephone Encounter - Phillip Hill PA-C - 10/05/2024 11:00 AM EDT The following approved medication requests have been transmitted electronically. Requested Prescriptions Signed Prescriptions Disp Refills levETIRAcetam (KEPPRA) 1,000 mg tablet 180 tablet 3 Sig: Take 1 tablet by mouth two times a day. Authorizing Provider: PHILLIP HILL PA-C [facility]07-09-2025 Miscellaneous Notes* Telephone Encounter - Phillip Hill PA-C - 10/05/2024 11:00 AM EDT The following approved medication requests have been transmitted electronically. Requested Prescriptions Signed Prescriptions Disp Refills levETIRAcetam (KEPPRA) 1,000 mg tablet 180 tablet 3 Sig: Take 1 tablet by mouth two times a day. Authorizing Provider: PHILLIP HILL PA-C * Telephone Encounter - Zonia Phillips - 10/05/2024 10:34 AM EDT Prescription Refill: Requested by: pharmacy Please E-Scribe Caller Contact Number: [facility] Number: [phone] Generic/ brand: Generic 30 or 90 day supply requested: 90 Last appointment: 09/09/24 Next Appointment: none Patient of Dr. Justin Carolina [id number] [address] [place] [address] documented in this encounterGalion Hospital07-09-2025 Telephone encounter Note * Telephone Encounter - Zonia Phillips - 10/05/2024 10:34 AM EDT Prescription Refill: Requested by: pharmacy Please E-Scribe Caller Contact Number: [facility] Number: [phone] Generic/ brand: Generic 30 or 90 day supply requested: 90 Last appointment: 09/09/24 Next Appointment: none Patient of Dr. Justin Carolina [id number] [address] [facility] [address] [facility]06-30-2025 Telephone encounter Note* Telephone Encounter - Clyde Aponte APRN.CNP - 09/26/2024 2:27 PM EDT The following approved medication requests have been transmitted electronically. Requested Prescriptions Signed Prescriptions Disp Refills carBAMazepine (TEGRETOL) 200 mg tablet 315 tablet 3 Sig: TAKE 1 AND 1/2 TABLETS BY MOUTH EVERY MORNING AND 2 TABLETS EVERY EVENING Authorizing Provider: CLYDE APONTE APRN.CNP [facility]06-30-2025 Miscellaneous Notes* Telephone Encounter - Clyde Aponte APRN.CNP - 09/26/2024 2:27 PM EDT The following approved medication requests have been transmitted electronically. Requested Prescriptions Signed Prescriptions Disp Refills carBAMazepine (TEGRETOL) 200 mg tablet 315 tablet 3 Sig: TAKE 1 AND 1/2 TABLETS BY MOUTH EVERY MORNING AND 2 TABLETS EVERY EVENING Authorizing Provider: CLYDE APONTE APRN.CNP * Telephone Encounter - Alina Sanchez - 09/26/2024 1:44 PM EDT Prescription Refill: Requested by: pharmacy Please E-Scribe Caller Contact Number: [facility] Number: [phone] Generic/ brand: 30 or 90 day supply requested: 90 Last appointment: 09-09-2024 Next Appointment: none Patient of Dr. Justin Carolina [id number] [address] [place], [place] [id number] documented in this encounterGalion Hospital06-30-2025 Telephone encounter Note * Telephone Encounter - Alina Sanchez - 09/26/2024 1:44 PM EDT Prescription Refill: Requested by: pharmacy Please E-Scribe Caller Contact Number: [facility] Number: [phone] Generic/ brand: 30 or 90 day supply requested: 90 Last appointment: 09-09-2024 Next Appointment: none Patient of Dr. Justin Carolina [id number] [address] [place], [place] [id number] [facility]06-13-2025 NoteHNO ID: [id number] Author: TRINA SINHA APRN.SLICING MACHINE OPERATOR Service: ? Author Type: Nurse Practitioner Type: Progress Notes Filed: 09/12/2024 09:35 Note Text: [facility] VIRTUAL VISIT I have communicated my name and active licensure. The patient's identity and physical location were verified at the time of this visit. Either the patient or their legal sales representatives has been informed of the risks and benefits of -- and alternatives to -- treatment through a remote evaluation and consents to proceed with the evaluation remotely. Patient on video y himself. Lives in [place], [place]. HISTORY OF PRESENT ILLNESS: Caio Carolina is a 49 year old RHM who is diagnosed with post traumatic seizures, and presents today for annual visit. They are an established patient of Dr. Rowan and was last seen on 08/27/2023. Seizures: None LS >15 years ago. ASM's: Keppra 1000mg BID Tegretol 200mg, 1.5 tabs in AM and 2 tabs in PM No side effects. In other health, HTN, Wears CPAP at night.. Occupation: Works FT at [employer]. , lives with his . Driving: yes Mood: good Memory: good CURRENT OUTPATIENT MEDICATIONS: Current Outpatient Medications Medication Sig carBAMazepine (TEGRETOL) 200 mg tablet TAKE 1 AND 1/2 TABLETS BY MOUTH EVERY MORNING AND 2 TABLETS EVERY EVENING levETIRAcetam (KEPPRA) 1,000 mg tablet Take 1 tablet by mouth two times a day. losartan (COZAAR) 100 mg tablet Take 100 mg by mouth once daily. calcium carbonate (OS-BALWINDER 500) 500 mg calcium (1,250 mg) tablet Take 1 tablet by mouth once daily. CPAP 2nd request for download report. Fax results to [phone]. CPAP Provide new SD card. Current card is not functional. CPAP AutoPAP 5-12 cmH2O, mask, humidity, filters. Lifetime supplies. Dx: G47.33. Fax 30 day compliance rpt to [phone] when available. CPAP CPAP 11 cmH2O, mask, tubing, humidifier, filters. Lifetime supplies. Dx: G47.33 DME: [facility] [employer], f: [phone] No current facility-administered medications for this visit. PAST MEDICAL HISTORY Diagnosis Date Epilepsy (HCC) Obstructive sleep apnea Traumatic brain injury (HCC) PAST SURGICAL HISTORY Procedure Laterality Date PAST SURGICAL HISTORY OF 4 years old craniotomy with TBI PAST SURGICAL HISTORY OF 2011 stent for Kidney stones FAMILY HISTORY Problem Relation Age of Onset Diabetes Father ASSESSMENT: Caio Carolina is a 49 year old RHM with history of post traumatic epilepsy. No seizures. Remains on Keppra and Tegretol. No side effects.Working and driving. No new health issues. Continues to be followed for his HTN and STEVAN. Continue with plan.. PLAN: - LABS: LEV, CBZ - Medications: -Keppra 1000mg BID -Tegretol 200mg, 1.5 in AM and 2 in PM - Consults: none - Follow up: 6-12 months I spent 14 minutes during this encounter counseling on seizures, medications, general health, documentation. Trina Sinha, SCHUYLRE.SLICING MACHINE OPERATOR September 09[facility]06-13-[facility] History of Present illness Narrative* Trina Sinha M, SENIOR PROJECT LEADER/TEAM LEAD.SLICING MACHINE OPERATOR - 09/09/2024 4:19 PM EDT [facility] VIRTUAL VISIT I have communicated my name and active licensure. The patient's identity and physical location wereverified at the time of this visit. Either the patient or their legal sales representatives has been informed of the risks and benefits of -- and alternatives to -- treatment through a remote evaluation andconsents to proceed with the evaluation remotely. Patient on video y himself. Lives in [place], [place]. HISTORY OF PRESENT ILLNESS: Caio Carolina is a 49 year old RHM who is diagnosed with post traumatic seizures, and presents today for annual visit. They are an established patient of Dr. Anderson'torrie and was last seen on 08/27/2023. Seizures: None LS >15 years ago. ASM's: Keppra 1000mg BID Tegretol 200mg, 1.5 tabs in AM and 2 tabs in PM No side effects. In other health, HTN, Wears CPAP at night.. Occupation: Works FT at [employer]. , lives with his . Driving: yes Mood: good Memory: good CURRENT OUTPATIENT MEDICATIONS: Current Outpatient Medications Medication Sig carBAMazepine (TEGRETOL) 200 mg tablet TAKE 1 AND 1/2 TABLETS BY MOUTH EVERY MORNING AND 2 TABLETS EVERY EVENING levETIRAcetam (KEPPRA) 1,000 mg tablet Take 1 tablet by mouth two times a day. losartan (COZAAR) 100 mg tablet Take 100 mg by mouth once daily. calcium carbonate (OS-BALWINDER 500) 500 mg calcium (1,250 mg) tablet Take 1 tablet by mouth once daily. CPAP 2nd request for download report. Fax results to [phone]. CPAP Provide new SD card. Current card is not functional. CPAP AutoPAP 5-12 cmH2O, mask, humidity, filters. Lifetime supplies. Dx: G47.33. Fax 30 day compliance rpt to [phone] when available. CPAP CPAP 11 cmH2O, mask, tubing, humidifier, filters. Lifetime supplies. Dx: G47.33 DME: [facility], f: [phone] No current facility-administered medications for this visit. PAST MEDICAL HISTORY Diagnosis Date Epilepsy (HCC) Obstructive sleep apnea Traumatic brain injury (HCC) PAST SURGICAL HISTORY Procedure Laterality Date PAST SURGICAL HISTORY OF 4 years old craniotomy with TBI PAST SURGICAL HISTORY OF 2011 stent for Kidney stones FAMILY HISTORY Problem Relation Age of Onset Diabetes Father ASSESSMENT: Caio Carolina is a 49 year old RHM with history of post traumatic epilepsy. No seizures. Remainson Keppra and Tegretol. No side effects.Working and driving. No new health issues. Continues to be followed for his HTN and STEVAN. Continue with plan.. PLAN: - LABS: LEV, CBZ - Medications: -Keppra 1000mg BID -Tegretol 200mg, 1.5 in AM and 2 in PM - Consults: none - Follow up: 6-12 months I spent 14 minutes during this encounter counseling on seizures, medications, general health, documentation. Trina Sinha APRN.SLICING MACHINE OPERATOR September 09, 2024 documented in this encounterGalion Hospital05-20-2025 History of Present illness Narrative* Josiah Blankenship MD - 08/16/2024 4:00 PM EDT Images from the original note [...] steroids, diuretics, beta-blockers, amiodarone, cyclosporine, olanzapine). Exercise: daily. Review of Systems Constitutional: Negative for activity [...] contact and speech is clear. Appropriate affect. 06/03/2022 12:00 PM 09/01/2022 3:19 PM 03/02/2023 4:06 PM 05/04/2023 3:27 PM 08/31/2023 4:02 PM 02/22/2024 4:03 PM 08/16/2024 4:03 PM Vitals BMI 21.11 kg/m2 23.09 kg/m2 22.82 kg/m2 22.82 kg/m2 22.82 kg/m2 22.82 kg/m2 22.82 kg/m2 BSA (m2) 1.93 m2 2.02 m2 2.01 m2 2.01 m2 2.01 m2 2.01 m2 2.01 m2 Systolic 148 132 128 124 128 126 Diastolic 96 80 78 74 78 74 Heart Rate 74 76 76 71 74 SpO2 97 % 99 % 98 % 98 % 99 % Height (in) 6' 1 6' 1 6' 1 6' 1 6' 1 6' 1 Weight (lb) 160 175 173 173 173 173 173 Visit Report Report Report Report Report Report Report No Known Allergies Current Outpatient Medications on File Prior to [...] 1 tablet (750mg) before bedtime. 180 tablet 1 nebivolol (Bystolic) 10 MG tablet Take 1 tablet (10 mg) by mouth Daily 90 tablet 1 No current facility-administered medications on file prior to visit. 1. Essential hypertension (CMS/HCC) Chronic problem, stable, to goal. In prescribing a renewal to their current medication, consideration of the following encompasses moderate decision making; the current prescriptions and supplements, the current allergies and medication intolerances, current medical conditions, and potential drug interactions. The patient was given a chance to ask questions today and all questions were answered. - losartan (Cozaar) 100 MG tablet; Take 1 tablet (100 mg) by mouth Daily Dispense: 90 tablet; Refill: 1 - nebivolol (Bystolic) 10 MG tablet; Take 1 tablet (10 mg) by mouth Daily Dispense: 90 tablet; Refill: 1 2. Mixed dyslipidemia (CMS/HCC) Chronic problem. Patient has outstanding labs for both his essential hypertension in his dyslipidemia. New orders ornot written today and patient is encouraged to get these done. - atorvastatin (Lipitor) 40 MG tablet; Take 1 tablet (40 mg) by mouth in the evening Dispense: 90 tablet; Refill: 1 Chronic problem The patient meets the criteria for polypharmacy; 5 or more prescriptions or multi-morbidity definedas 5 or more diagnoses. Polypharmacy can significantly increase the risk of adverse drug events and negatively impact adherence. Consideration of factors such as clinician agreement, patient perspective, and de-prescribing,as appropriate can improve patient outcomes while simplifying care. This requires longitudinal monitoring as there is at least a moderate risk of morbidity and requires at least a moderate degree of evaluation and management. documented in this encounterSaint Luke's North Hospital–Barry RoadOkewsmsaeh92-78-4928 History of Present illness Narrative* Josiah Blankenship MD - 03/03/2024 3:45 PM EST Images from the original note were not included. Patient ID: Caio Carolina is a 48 y.o. male who presents for: Upper Respiratory Infection Patient complains of symptoms of a URI. Symptoms include cough described as nonproductive and Mild,nasal congestion, and no fever. Onset of symptoms was 4 days ago, and has been gradually worsening since that time. Treatment to date: decongestants. Review of Systems Constitutional: Negative for chills and fever. Respiratory: Negative for cough, shortness of breath and wheezing. Cardiovascular: Negative for chest pain and palpitations. Gastrointestinal: Negative for abdominal pain. Genitourinary: Negative for frequency and urgency. Objective In general the patient is pleasant and in no acute distress. Bilateral ears, canals are within normal limits. I did remove some cerumen from his ears. Right TM is transparent and somewhat retracted. Left TM is transparent and somewhat retracted. No fluid layer. Bilateral nares demonstrate inflamed mucosa. Oropharynx has moist mucosa there is no specific evidence of thrush. There is mild erythema of the pharynx. Shoddy bilateral anterior cervical adenopathy. No signs of respiratory distress. Patient is speaking full sentences. There are symmetrical breath sounds. No rhonchi or rales are appreciated. No wheezes. Skin is warm and dry Visit Vitals Smoking Status Never No Known Allergies Current Outpatient Medications on File Prior to [...] mg) by mouth Daily 90 tablet 1 [] nabumetone (Relafen) 750 MG tablet Take 1 tablet (750 mg) by mouth in the morning and 1 tablet (750 mg) before bedtime. 60 tablet 0 nebivolol (Bystolic) 10 MG tablet Take 1 tablet (10 mg) by mouth Daily 90 tablet 1 No current facility-administered medications on file prior to visit. 1. Viral upper respiratory tract infection (Primary) I do suspect this is viral. I do not see signs of secondary infection. We discussed saline nasal spray and Sudogest. If things worsen over the next several days he can call and give us an update and we will reconsider antibiotic therapy. documented in this encounterSaint Luke's [facility] Hospital–Barry RoadYeubfudowf69-29-5733 History of Present illness Narrative* Josiah Blankenship MD - 02/22/2024 4:00 PM EST Images from the original note were not included. Patient ID: Caio Carolina is a 48 y.o. male who presents for: Hypertension Patient is here for follow-up of elevated blood pressure. He is not exercising and is adherent to alow-salt diet. Blood pressure is well controlled at home. Cardiac symptoms: none. Patient denies chest pain, dyspnea, irregular heart beat, lower extremity edema, and palpitations. Cardiovascular risk factors: hypertension and male gender. Use of agents associated with hypertension: none. History of target organ damage: none. Chronic Pain: Pt is here for follow-up of chronic pain related to shoulder. Her/His pain is waxing and waning. Pain is usually 5/10, described as aching, sharp, and throbbing and occurs continuously. The average duration of each episode is 1 days. Hyperlipidemia Pt who presents for follow-up of dyslipidemia. A repeat fasting lipid profile was not done. The patient does not use medications that may worsen dyslipidemias (corticosteroids, progestins, anabolic steroids, diuretics, beta-blockers, amiodarone, cyclosporine, olanzapine). Exercise: rarely. Review of Systems Constitutional: Negative for chills and fever. Respiratory: Negative for cough, shortness of breath and wheezing. Cardiovascular: Negative for chest pain and palpitations. Gastrointestinal: Negative for abdominal pain. Genitourinary: Negative for frequency and urgency. Objective The patient is pleasant and in no acute distress. The neck is supple and trachea is midline. No masses are appreciated. The heart is regular rate and rhythm without S3, S4. No murmur. The patient has normal respiratory pattern. The breath sounds are symmetrical without evidence of rhonchi or rales. No wheezing. The skin is warm and dry. He demonstrates painful arc with his left arm. The patient has good eye contact and speech is clear. Appropriate affect. Visit Vitals BP 128/78 Pulse 71 Ht 6' 1 Wt 173 lb SpO2 98% BMI 22.82 kg/m Smoking Status Never BSA 2.01 m No Known Allergies Current Outpatient Medications on File Prior to [...] mg) by mouth Daily 90 tablet 1 meloxicam (Mobic) 15 MG tablet Take 1 tablet (15 mg) by mouth Daily 90 tablet 1 nebivolol (Bystolic) 10 MG tablet Take 1 tablet (10 mg) by mouth Daily 90 tablet 1 No current facility-administered medications on file prior to visit. 1. Essential hypertension (CMS/HCC) (Primary) Chronic problem, stable, to goal. In prescribing a renewal to their current medication, consideration of the following encompasses moderate decision making; the current prescriptions and supplements, the current allergies and medication intolerances, current medical conditions, and potential drug interactions. Any changes to risks, benefits, and reason for renewing their current medication due to the above were discussed. The patient was given a chance to ask questions today and all questions were answered. The patient is to contact us if any other questions arise or if any problems occur. (Utilizing the original 1994/1996 guidelines or the 2020 office/outpatient code guidelines for selecting the level of E/M service, In both sets of guidelines, prescription drug management appears in the moderate medical decision making (MDM) row. Neither the original guidelines nor the new guidelines state that a new prescription or change is needed in order to credit prescription drug management) - losartan (Cozaar) 100 MG tablet; Take 1 tablet (100 mg) by mouth Daily Dispense: 90 tablet; Refill: 1 - nebivolol (Bystolic) 10 MG tablet; Take 1 tablet (10 mg) by mouth Daily Dispense: 90 tablet; Refill: 1 2. Mixed dyslipidemia (CMS/HCC) He has not enough medication. 3. Chronic left shoulder pain He has no left shoulder and rotator cuff disease. Previously he was using meloxicam with some relief. He notes now that he is not getting as much if any. After discussion we have mutually agreed to atrial of nabumetone. In prescribing a new medication consideration of the following encompasses moderate decision making: the current prescriptions and supplements, the current allergies and medication intolerances, the current medical conditions, and potential drug interactions. Risks, benefits, and reason for starting their medication were discussed. The patient was given a chance to ask questions today and all questions were answered. The patient is to contact us if any other questions arise or if any problems occur with the adjustment in their medication. - nabumetone (Relafen) 750 MG tablet; Take 1 tablet (750 mg) by mouth in the morning and 1 tablet (750 mg) before bedtime. Dispense: 60 tablet; Refill: 0 4. 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 As above 5. Impingement syndrome of left shoulder As above documented in this encounterSaint [facility] [id number] History of Present illness Narrative* Trina Sinha, SENIOR PROJECT LEADER/TEAM LEAD.[facility] - 08/27/2023 5:33 PM EDT [facility] V[facility]UAL VIS[facility] I have communicated my name and active licensure. The patient's identity and physical location wereverified at the time of this visit. Either the patient or their legal sales representatives has been informed of the risks and benefits of -- and alternatives to -- treatment through a remote evaluation andconsents to proceed with the evaluation remotely. Patient on video by himself. Lives in [place], [place]. 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 They are an established patient of Dr. Rowan and was last seen on 2022. Seizures: None ASM's: Tegretol 200mg, 1.5 tbs every morning and 2 tabs in the evening. Keppra 1000mg BID No side effects to report.. In other health, stable. HTN. Chronic right shoulder pain.Wears his CPAP machine at night or when he sleeps. Occupation: Works at [employer] making [employer]. and lives with his . Driving: yes Mood: variable Memory: average CURRENT OUTPATIENT MEDICATIONS: Current Outpatient Medications Medication Sig carBAMazepine (TEGRETOL) 200 mg tablet TAKE 1 AND 1/2 TABLETS BY MOUTH EVERY MORNING AND 2 TABLETS EVERY EVENING levETIRAcetam (KEPPRA) 1,000 mg tablet Take 1 tablet by mouth twice daily. losartan (COZAAR) 100 mg tablet Take 100 mg by mouth once daily. calcium carbonate (OS-BALWINDER 500) 500 mg calcium (1,250 mg) tablet Take 1 tablet by mouth once daily. CPAP 2nd request for download report. Fax results to [phone]. CPAP Provide new SD card. Current card is not functional. CPAP AutoPAP 5-12 cmH2O, mask, humidity, filters. Lifetime supplies. Dx: G47.33. Fax 30 day compliance rpt to [phone] when available. CPAP CPAP 11 cmH2O, mask, tubing, humidifier, filters. Lifetime supplies. Dx: G47.33 DME: [facility], f: [phone] No current facility-administered medications for this visit. PAST MEDICAL HISTORY Diagnosis Date Epilepsy (HCC) Obstructive sleep apnea Traumatic brain injury (HCC) PAST SURGICAL HISTORY Procedure Laterality Date PAST SURGICAL HISTORY OF 4 years old craniotomy with TBI PAST SURGICAL HISTORY OF 2011 stent for Kidney stones FAMILY HISTORY Problem Relation Age of Onset Diabetes Father ASSESSMENT: Caio Carolina is a 48 year old ambidexterous male with history of post traumatic epilepsy. No report of seizures. Remains on Teretol and Keppra. Has HTN and chronic right/left shoulder issues. Wears CPAP at night. Working a lot of hours. Drives. Counseled on the need for adequate rest. Check levels and issue refills. Continue with plan.. PLAN: - LABS: cmp, LEV, CBZ - Medications: -continue with Tegretol 200mg, 1.5 tabs in am and 2 tabs in pm -continue with Keppra 1000mg BID -continue with all other daily medications -Follow all seizure precautions - Be aware of driving laws here in the state [facility]. - Consults: none - Follow up: 12 months I spent 14 minutes during this encounter counseling on seizures, medications /effects, lifestyle, triggers for seizures, safety, documentation.. Trina Sinha APRN.SLICING MACHINE OPERATOR August 27, 2023 documented in this encounterGalion Hospital02-05-[facility]24 History of Present illness Narrative* Josiah Blankenship MD - 05/04/2023 3:30 PM EST Patient ID: Caio Carolina is a 47 y.o. male who presents for: Subjective Pt presents with bilateral shoulder pain. The symptoms began several years ago. Aggravating factors: had left side rotator cuff 4-5 years ago . Pain is located diffusely throughout the shoulder. Discomfort is described as aching and catches . Symptoms are exacerbated by repetitive movements and overhead movements. Evaluation to date: see notes . Therapy to date includes: avoidance of offending activity, OTC analgesics which are somewhat effective, corticosteroid injection which was somewhat effective, and heat . Review of Systems Constitutional: Negative for chills and fever. Respiratory: Negative for cough, shortness of breath and wheezing. Cardiovascular: Negative for chest pain and palpitations. Gastrointestinal: Negative for abdominal pain. Genitourinary: Negative for frequency and urgency. Objective The patient is pleasant and in no acute distress The head is normocephalic and atraumatic Although no formal testing is done, patient does not appear to have a gross neurologic deficit concerning memory and goal directed thinking during the interview. The patient has good eye contact and clear speech. Both shoulders are without increased calor, rubor, swelling. The acromioclavicular joint on the right shoulder only is mildly painful. Both shoulders demonstrate painful arc. They also both multiple rotator cuff testing tenderness. The right seems to be worse than the left but has previously been repaired. He is definitely cheating and using his back and elevating the shoulder with abduction on the right. This starts in somewhere between 30 and 40 of abduction Visit Vitals Wt 173 lb BMI 22.82 kg/m Smoking Status Never BSA 2.01 m No Known Allergies Current Outpatient Medications Medication Instructions acetaminophen (TYLENOL) 325 mg, Oral, Every 6 hours PRN carBAMazepine (TEGRETOL) 200 mg, Oral, 2 times daily, 1.5 tablet in AM and 2 tablets in PM orally daily levETIRAcetam (KEPPRA) 1,000 mg, Oral, 2 times daily [START ON 08/01/2023] losartan (COZAAR) 100 mg, Oral, Daily [START ON 08/01/2023] nebivolol (BYSTOLIC) 10 mg, Oral, Daily Assessment/Plan Diagnoses and all orders for this visit: Chronic right shoulder pain - XR shoulder 2+ views right; Future - nabumetone (Relafen) 750 MG tablet; Take 1 tablet (750 mg) by mouth in the morning and 1 tablet (750 mg) before bedtime. We've mutually agreed to get some diagnostic imaging started. In the meantime we're going to give him a prescription anti-inflammatory. I'm also going to go ahead and give him some mild opioid as thepain is waking him from sleep and he is somewhat sleep deprived overall All of this. In prescribing a new medication consideration of the following encompasses moderate decision making: the current prescriptions and supplements, the current allergies and medication intolerances, the current medical conditions, and potential drug interactions. Drug interaction screening is reviewed and there are moderate to major severity ratings to consider during prescription drug management. Ifthe new medication is considered a controlled substance, then the OARRS and NARX scores are obtained and reviewed. Risks, benefits, and reason for starting their medication were discussed. The patient was given a chance to ask questions today and all questions were answered. The patient is to contact us, preferably by using the patient portal, or call if any other questions arise or ifany problems occur with the adjustment in their medication. Rotator cuff syndrome, right - XR shoulder 2+ views right; Future - traMADol (Ultram) 50 MG tablet; Take 1 tablet (50 mg) by mouth every 6 (six) hours if needed for severe pain for up to 7 days Josiah Blankenship MD on 05/04/2023 4:03 PM pdmp as expected. He understands that this is a short term medication. Chronic problem, stable Evaluating the patient's electronic health record today, I specifically note the patient has 1 or more high risk medications. A high-risk medicine is one that may cause serious health problems if nottaken the right way, or taken with another drug or food item that it may interact with. Treatment regimens are increasingly complex and potentially harmful, and people with High Risk Medications need regular review and prescribing optimisation. This also complicates all prescribing including prescription renewal consistant with a moderate or complex degree of decision making. This wasdone today and reviewed with the patient. documented in this encounterSaint Luke's [facility] Hospital–Barry [id number] Miscellaneous Notes* Telephone Encounter - Clyde Aponte APRN.VANESSA - 01/28/2023 10:37 AM EDT The following approved medication requests have been transmitted electronically. Requested Prescriptions Signed Prescriptions Disp Refills carBAMazepine (TEGRETOL) 200 mg tablet 315 tablet 3 Sig: TAKE 1 AND 1/2 TABLETS BY MOUTH EVERY MORNING AND 2 TABLETS EVERY EVENING Authorizing Provider: CLYDE APONTE APRN.SLICING MACHINE OPERATOR documented in this encounterGalion Hospital05-01-2023 Miscellaneous Notes* Telephone Encounter - Jasmin Brooks APRN.VANESSA - 07/28/2022 11:08 PM EDT The following approved medication requests have been transmitted electronically. Requested Prescriptions Signed Prescriptions Disp Refills carBAMazepine (TEGRETOL) 200 mg tablet 315 tablet 1 Si 1/2 TAB IN AM AND 2 TABS IN PM Authorizing Provider: JASMIN BROOKS APRN.CNP documented in this encounterGalion Hospital06-03-2022 Miscellaneous Notes* Telephone Encounter - Catalina Degroot RN - 08/30/2021 10:34 AM EDT I spoke with Nubia at [facility], she was informed form is inappropriate for this office. Catalina Degroot RN * Telephone Encounter - Ilana Oleary - 08/29/2021 12:42 PM EDT Form received: From (agency / facility / parent): [employer] supply person (if given): Phone #: [phone] Fax # : [phone] Email: [email or web address] Information requested: Certificate of medical necessity Patient of Dr. Anderson Forwarded to nurse. documented in this encounterGalion Hospital03-25-2022 Miscellaneous Notes* Telephone Encounter - Catalina Degroot RN - 06/21/2021 8:51 AM EDT Images from the original note were not included. 06/21/21 Trina Sinha APRN.SLICING MACHINE OPERATOR P Neur Epilepsy [facility], Need a lab form sent to this patient via mail. Need below: Dx code R56.1 CBZ (total), LEV, cmp, cbc Thank you. Trina Sinha Lab requisition emailed [email or web address] Catalina Degroot RN documented in this encounterGalion Hospital03-23-2022 History of Present illness Narrative* Trina Sinha APRN.SLICING MACHINE OPERATOR - 06/19/2021 5:03 PM EDT [facility] VIRTUAL VISIT HISTORY OF PRESENT ILLNESS: Caio Carolina is a 45 year old ambidexterous(writes/eats with right and sports/work with left) male who is diagnosed with post traumatic epilepsy, and presents today for annual virtual visit. Theyare an established patient of Dr. Anderson and was last seen on 06/19/2020 . Seizures: None Last reported was in [id number] AED's: Keppra 1000mg BID CBZ 200mg, 1.5 tabs in am and 2 tabs in the pm In other health, using his CPAP Occupation: works at [employer] Driving: yes Mood: good Memory: good CURRENT OUTPATIENT MEDICATIONS: Current Outpatient Medications Medication Sig levETIRAcetam (KEPPRA) 1,000 mg tablet Take 1 tablet by mouth twice daily. losartan (COZAAR) 100 mg tablet Take 100 mg by mouth once daily. carBAMazepine (TEGRETOL) 200 mg tablet 1 and a half tab in am and 2 tabs in pm carBAMazepine (TEGRETOL) 200 mg tablet 1 1/2 TAB IN AM AND 2 TABS IN PM Cholecalciferol, Vitamin D3, (VITAMIN D) 1,000 unit cap Take 1 capsule by mouth once daily. calcium carbonate (OS-BALWINDER 500) 500 mg calcium (1,250 mg) tablet Take 1 tablet by mouth once daily. CPAP 2nd request for download report. Fax results to [phone]. CPAP Provide new SD card. Current card is not functional. CPAP AutoPAP 5-12 cmH2O, mask, humidity, filters. Lifetime supplies. Dx: G47.33. Fax 30 day compliance rpt to [phone] when available. naproxen (NAPROSYN) 500 mg tablet Take 1 tablet by mouth twice daily with meals. Take with food CPAP CPAP 11 cmH2O, mask, tubing, humidifier, filters. Lifetime supplies. Dx: G47.33 DME: [facility], f: [phone] No current facility-administered medications for this visit. PAST MEDICAL HISTORY Diagnosis Date Epilepsy (HCC) Obstructive sleep apnea Traumatic brain injury (HCC) PAST SURGICAL HISTORY Procedure Laterality Date PAST SURGICAL HISTORY OF 4 years old craniotomy with TBI PAST SURGICAL HISTORY OF 2011 stent for Kidney stones FAMILY HISTORY Problem Relation Age of Onset Diabetes Father ASSESSMENT: Caio Carolina is a 45 year old ambidexterous male with history of seizures after TBI and crani, Maintained on Keppra and Tegretol. Remains seizure free. Working and driving. Uses his CPAP. Needs blood levels done. Continue with medical plan.. PLAN: - LABS: cbz, cmp, cbc, LEV - Medications: -continue with Keppra 1000mg BID -continue with Tegretol 200mg, 1.5 in am and 2 in pm -continue with all other daily medications -Follow all seizure precautions/safety - Consults: none - Follow up: 12 months I spent 10 minutes during this encounter counseling on usp effects of medications. Trina Sinha APRN.VANESSA June 19, 2021 documented in this encounterGalion Hospital01-09-2008 History of Past illness Narrative* ProblemNoted DateResolved DateCerebral aneurysm, nonruptured documented as of this encounter (statuses as of 06/21/2021) [facility] of Past illness Narrative* ProblemNoted Date Resolved DateCerebral aneurysm, [id number] as of this encounter (statuses as of 06/21/2021) [facility] of Past illness Narrative* ProblemNoted Date Resolved DateCerebral aneurysm, [id number] as of this encounter (statuses as of 08/30/2021) [facility] of Past illness Narrative* ProblemNoted Date Resolved DateCerebral aneurysm, [id number] as of this encounter (statuses as of 07/29/2022) [facility] of Past illness Narrative* ProblemNoted Date Diagnosed DateResolved DateCerebral aneurysm, [id number] documented as of this encounter (statuses as of 01/28/2023) [facility]Evaluation [facility]* Diagnosis Post traumatic seizure disorder (HCC) Post traumatic seizures [facility] Post traumatic seizure disorder (HCC) Post traumatic seizures [facility] Diagnosis Post traumatic seizure disorder (HCC) Post traumatic seizures [facility] Diagnosis Chronic right shoulder pain- Primary Pain in joint, shoulder region Rotator cuff syndrome, right Chronic right shoulder pain Pain in joint, shoulder region Rotator cuff syndrome, right documented in this encounter [facility]* Diagnosis Post traumatic seizure disorder (HCC) Post traumatic seizures [facility]* Diagnosis Essential hypertension (CMS/HCC)- Primary Unspecified essential hypertension Mixed dyslipidemia (CMS/HCC) Chronic left shoulder pain Pain in joint, shoulder region 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 Impingement syndrome of left shoulder documented in this encounter [facility]* Diagnosis Chronic left shoulder pain Pain in joint, shoulder region documented in this encounter [facility]* Diagnosis Viral upper respiratory tract infection- Primary Acute upper respiratory infections of unspecified site documented in this encounter [facility]* Diagnosis Essential hypertension (CMS/HCC) Unspecified essential hypertension documented in this encounter [facility]* Diagnosis Essential hypertension (CMS/HCC) Unspecified essential hypertension Mixed dyslipidemia (CMS/HCC) documented in this encounter [facility]* Diagnosis STEVAN on CPAP- Primary Obstructive sleep apnea (adult) (pediatric) Post traumatic seizure disorder (HCC) Post traumatic seizures [facility] Diagnosis Post traumatic seizure disorder (HCC) Post traumatic seizures [facility] Diagnosis Essential hypertension Unspecified essential hypertension Mixed dyslipidemia Chronic left shoulder pain Pain in joint, shoulder region documented in this encounter [facility] Summary Purpose Family History No Family History Records FoundNo Family History Records FoundNo Family History Records Found Advance Directives No Advanced Directives Records FoundNo Advanced Directives Records FoundNo Advanced Directives Records Found Additional Source Comments Source Comments (unrecognize d section and content) In the event this informatio n is protected by the Federal Confidentiality of Alcohol and Drug Abuse Patient Records regulations: The Federal rules restrict any use of the information to criminally investigate or prosecute any alcohol or drug abuse patient.[facility] HospitalIn the event this information is protected by the Federal Confidentiality of Alcohol and Drug Abuse Patient Records regulations: The Federal rules restrict any use of the information to criminally investigate or prosecute any alcohol or drug abuse patient.[facility] HospitalIn the event this information is protected by the Federal Confidentiality of Alcohol and Drug Abuse Patient Records regulations: The Federal rules restrict any use of the information to criminally investigate or prosecute any alcohol or drug abuse patient.[facility] HospitalIn the event this information is protected by the Federal Confidentiality of Alcohol and Drug Abuse Patient Records regulations: The Federal rules restrict any use of the information to criminally investigate or prosecute any alcohol or drug abuse patient.[facility] HospitalIn the event this information is protected by the Federal Confidentiality of Alcohol and Drug Abuse Patient Records regulations: The Federal rules restrict any use of the information to criminally investigate or prosecute any alcohol or drug abuse patient.[facility] HospitalIn the event this information is protected by the Federal Confidentiality of Alcohol and Drug Abuse Patient Records regulations: The Federal rules restrict any use of the information to criminally investigate or prosecute any alcohol or drug abuse patient.[facility] HospitalIn the event this information is protected by the Federal Confidentiality of Alcohol and Drug Abuse Patient Records regulations: The Federal rules restrict any use of the information to criminally investigate or prosecute any alcohol or drug abuse patient.[facility] HospitalIn the event this information is protected by the Federal Confidentiality of Alcohol and Drug Abuse Patient Records regulations: The Federal rules restrict any use of the information to criminally investigate or prosecute any alcohol or drug abuse patient.[facility] HospitalIn the event this information is protected by the Federal Confidentiality of Alcohol and Drug Abuse Patient Records regulations: The Federal rules restrict any use of the information to criminally investigate or prosecute any alcohol or drug abuse patient.[facility] Reason for Visit (unrecogniz ed section and content) ReasonCommentsFollow UpRefill RequestSpecialtyDiagnoses / ProceduresReferred By ContactReferred To ContactNeurology / EPILEPSY Diagnoses Partial epilepsy with impairment of consciousness Procedures OFFICE/OUTPATIENT ESTABLISHED MOD MDM 30-39 MIN VIDEO SPEC EST Self Trina Sinha, SENIOR PROJECT LEADER/TEAM LEAD.SLICING MACHINE OPERATOR [address] [place] [address] Referral IDStatusReasonStart DateExpiration DateVisits RequestedVisits [id number]/1/[id number] req emailed to patientReasonCommentsFormsHart Medical EquipmentReasonOnset DateCommentsRefill Adlnnhw5307/28/2022ReasonCommentsRefill RequestReasonCommentsJoint PainReason CommentsFollow UpRefill RequestFollowup for Epilepsy and general health review, RFS.ReasonCommentsMed RefillReasonCommentsHypertensionHyperlipidemiaReason CommentsFollow UpSeizuresRefill RequestSpecialtyDiagnoses / ProceduresReferred By ContactReferred To ContactNeurology / EPILEPSY Diagnoses Encounter for medication refill Yearly med refills. No changes. Seizure free Procedures SYNCHRONOUS AUDIO-ONLY VISIT EST HIGH MDM 40 MIN VIDEO SPEC DIRECT SCHED Self Trina Sinha, SENIOR PROJECT LEADER/TEAM LEAD.SLICING MACHINE OPERATOR [address] [place] [address] Phone: tel: fax: Referral IDStatusReasonStart DateExpiration DateVisits RequestedVisits [id number] DateCommentsRefill Zadupnq6209/26/2024ReasonOnset DateCommentsRefill Abitfon9410/05/2024 Care Teams (unrecognized sec tion and content) Team MemberRelationshipSpecialtyStart DateEnd Date Josiah Blankenship [address] [place] [address] (Fax) PCP - GeneralFamily Practice07/17/17Team MemberRelationshipSpecialtyStart DateEnd Date Josiah Blankenship [address] [place] [address] (Fax) PCP - GeneralFamily Practice07/17/17Team MemberRelationshipSpecialtyStart DateEnd Date Josiah Blankenship MD [address] [place] [address] (Fax) PCP - GeneralFamily Practice07/17/17Team MemberRelationshipSpecialtyStart DateEnd Date Josiah Blankenship MD [address] [facility] [place] [place] [address] (Fax) PCP - GeneralFamily Medicine07/17/17Team MemberRelationshipSpecialtyStart DateEnd Date Josiah Blankenship MD [address] [facility] [place] [address] (Fax) PCP - GeneralFamily Medicine07/17/17Team MemberRelationshipSpecialtyStart DateEnd Date Josiah Blankenship MD [address] [facility] [place] [address] PCP - GeneralFamily Medicine08/21/22Team MemberRelationshipSpecialtyStart DateEnd Date Josiah Blankenship MD [address] [facility] [place] [address] (Fax) PCP - GeneralFamily Medicine07/17/17Team MemberRelationshipSpecialtyStart DateEnd Date Josiah Blankenship MD (Fax) PCP - GeneralFamily Medicine08/21/22Team MemberRelationshipSpecialtyStart DateEnd Date Josiah Blankenship MD (Fax) PCP - GeneralFamily Medicine5/23Team MemberRelationshipSpecialtyStart DateEnd Date Josiah Blankenship MD (Fax) PCP - [facility]08/21/22Team MemberRelationshipSpecialtyStart DateEnd Date Josiah Blankenship MD (Fax) [facility] [facility]22Team MemberRelationshipSpecialtyStart DateEnd Date Josiah Blankenship MD (Fax) [facility]08/21/22Team MemberRelationshipSpecialtyStart DateEnd Date Josiah Blankenship MD [address] [place] [address] (Fax) [facility]07/17/17Team MemberRelationshipSpecialtyStart DateEnd Date Josiah Blankenship MD [address] [place] [address] (Fax) [facility]07/17/17Te MemberRelationshipSpecialtyStart DateEnd Date Josiah Blankenship MD (Fax) [facility]08/21/22 (unrecognized sect ion and content) No Status Records FoundNo Status Records FoundNo Status Records Found INFORMATION SOURCE (unrecogn ized section and content) DATE CREATED AUTHOR 09/04/2021 [facility] DATE CREATED AUTHOR AUTHOR'S ORGANIZ ATION 09/12/2024 [facility] DATE CREATED AUTHOR AUTHOR'S ORGANIZ ATION 01/21/2025 [facility] EPIC FOR RECORDS PERTAINING TO PATIENTS WHO ARE OR HAVE BEEN ENROLLED IN A CHEMICAL DEPENDENCY/SUBSTANCEABUSE PROGRAM, SOME INFORMATION MAY BE OMITTED. This clinical summary was aggregated from multiple sources. Caution should be exercised in using it in the provision of clinical care. This summary normalizes information from multiple sources, and as a consequence, information in this document may materially change the coding, format and clinical context of patient data. In addition, data may be omitted in some cases. CLINICAL DECISIONS SHOULD BE BASED ON THE PRIMARY CLINICAL RECORDS. [facility] [facility]. provides no warranty or guarantee of the accuracy or completeness of information in this document.
[2025-01-27 16:17] VITALS: BP 146/98; PULSE 78; TEMP 36.8; O2SAT 99; BMI 23.1
--- NOTE | 2025-01-27 16:31 | XR_ITS ---
The [address] [address] Patient Name: MELISSA LIN MRN: [id number] date: 1975 Sex: M Assigned Patient Location: ER Current Patient Location: ED.MAIN Accession/Order Number: [id number] Exam Date: 01/27/2025 16:40 Report Date: 01/27/2025 18:09 At the request of: MATTHIAS BLAKE Procedure: XR hand LT min 3V 3 views left hand COMPARISON: None REASON FOR EXAM: Laceration second digit FINDINGS: No fracture dislocation. Negative for radiopaque foreign body. Joint spaces preserved. XR/XR hand LT min 3V IMPRESSION: Negative for radiopaque foreign body or acute osseous abnormality. Impression dictated by: Saud Roberts M.D. 01/27/2025 6:09 PM Dictation Location: [place] [address] Electronically authenticated by: [id number] Y Date: 01/27/2025 18:09
--- NOTE | 2025-01-27 16:36 | ED.GENADUL1 ---
HPI HPI - General Adult General Chief complaint: Wound/Laceration Stated complaint: Laceration Time Seen by Provider: 01/27/25 16:21 Source: patient Mode of arrival: walk-in Limitations: no limitations History of Present Illness HPI narrative: Patient is a 49-year-old male that presents with complaints of laceration to the dorsal aspect of his left hand while he was using a miter saw to cut wood for a Halloween decoration. The wound is over the distal metacarpal of the second digit, patient able to fully flex and extend the second digit. He is not up-to-date on his tetanus immunization. Related Data Home Medications ?Medication ?Instructions ?Recorded ?Confirmed atorvastatin 40 mg tablet 40 mg PO DAILY 01/27/25 01/27/25 carbamazepine 200 mg tablet 300 mg PO Q12H 01/27/25 01/27/25 levetiracetam 1,000 mg tablet 1,000 mg PO Q12H 01/27/25 01/27/25 losartan 100 mg tablet 100 mg PO DAILY 01/27/25 01/27/25 nabumetone 750 mg tablet 750 mg PO DAILY 01/27/25 01/27/25 nebivolol 10 mg tablet 10 mg PO DAILY 01/27/25 01/27/25 Previous Rx's ?Medication ?Instructions ?Recorded amoxicillin 875 mg-potassium 1 tab PO BID 5 days #10 tabs 01/27/25 clavulanate 125 mg tablet Allergies Allergy/AdvReac Type Severity Reaction Status Date / Time No Known Drug Allergies Allergy Verified 01/27/25 16:15 Opioid HPI Opioid Management Most Recent Opioid Data: Last Pain Scale 7 Today, 16:40 Last MAR Pain Assessment Today, 16:40 Review of Systems ROS Status of ROS 10 or more systems reviewed and unremarkable except as noted in history and below PFSH PFSH Social History Little interest or pleasure in doing things: not at all Feeling down, depressed, or hopeless: not at all Exam Narrative Exam Narrative: General: No distress, age-appropriate Skin: Warm, dry, no pallor. No rash. 2 cm laceration dorsal aspect of the left hand close to the MCP joint. No tendon visualized. Does not appear to communicate with the MCP joint. Head: Normocephalic, atraumatic. Neck: Supple, non-tender. Eye: Pupils are equal, round and EOMI. No scleral icterus. Ears, Nose, Mouth, and Throat: No nasal mucosal hypertrophy. Oral mucosa is moist, no posterior oropharynx erythema, uvula is mid-line Cardiovascular: Regular Rate and Rhythm without murmur, gallop or rub. Respiratory: No accessory muscle use or respiratory distress. Musculoskeletal: Full ROM of all extremities, no calf or popliteal tenderness. Neurological: A&O x4. No cranial nerve dysfunction observed. No truncal ataxia. Moves all extremities. Sensation intact. Psychiatric: Cooperative and interactive. Normal mood and affect. Constitutional Vital Signs, click to edit/add: Last Vital Signs Temp 98.3 F 01/27/25 16:17 Pulse 74 01/27/25 18:17 Resp 18 01/27/25 18:17 BP 134/80 01/27/25 18:17 Pulse Ox 100 01/27/25 18:17 O2 Del Method Room Air 01/27/25 18:17 Course Vital Signs Vital signs: Vital Signs Temperature 98.3 F 01/27/25 16:17 Pulse Rate 78 01/27/25 16:17 Respiratory Rate 18 01/27/25 16:17 Blood Pressure 146/98 H 01/27/25 16:17 Pulse Oximetry 99 01/27/25 16:17 Oxygen Delivery Method Room Air 01/27/25 16:17 Temperature 98.3 F 01/27/25 16:17 Pulse Rate 74 01/27/25 18:17 Respiratory Rate 18 01/27/25 18:17 Blood Pressure 134/80 01/27/25 18:17 Pulse Oximetry 100 01/27/25 18:17 Oxygen Delivery Method Room Air 01/27/25 18:17 Medical Decision Making [facility] Narrative Medical decision making narrative: This is a 49-year-old male that presented to the ED with complaints of laceration to the back of his left hand while using a miter saw to cut wood for a Halloween decoration. He is not up-to-date on his tetanus immunization. On arrival, there is a 2 cm laceration to the dorsal aspect of the left hand, close to the second MCP joint. No tendon visualized. The joint capsule does not appear to have been disturbed. There is full flexion and extension of the second digit. Sensation is intact distally with light touch. Less than 2-second capillary refill. The wound is mostly hemostatic, some venous oozing. L Hand Laceration - Tetanus ordered. 30mg Toradol ordered IM - XRay L Hand ordered to rule out foreign body or fracture, negative for FB or acute osseous abnormality. - Laceration repaired bedside, see repair note below. Have sutures removed in 10-14 days. - Splint placed under second digit and mild MCP and PIP flexion given high tension area of laceration, nonstick dressing applied. Wound care instructions given to patient and his . Will keep splint in place for 3 to 5 days or otherwise directed by Ortho. Work note given to patient that states no use of left hand until cleared by Ortho. - Recommended Ortho follow-up given the location of the laceration. - Return to ED for any signs or symptoms of infection, uncontrolled pain, or new or worsening symptoms. Patient discharged in stable condition, pain controlled. Plan for close follow-up with Ortho for wound recheck and suture removal. Differential Diagnosis Differential Diagnosis: Laceration, metacarpal fracture, foreign body Imaging Data X-ray left hand: Attestation: I have reviewed the pertinent imaging results. Radiologist's impression: ITS Impressions Hand X-Ray 01/27/25 16:31 IMPRESSION: Negative for radiopaque foreign body or acute osseous abnormality. Impression dictated by: Saud Roberts M.D. 01/27/2025 6:09 PM Dictation Location: [place] [address] Electronically authenticated by: [id number] Y Date: 01/27/2025 18:09 Discharge Plan Discharge Chief Complaint: Wound/Laceration Clinical Impression: Laceration Patient Disposition: Home, Self-Care Time of Disposition Decision: 17:32 Condition: Good Mode of Transportation: Private Vehicle Prescriptions / Home Meds: New amoxicillin-pot clavulanate 875-125 mg tablet 1 tab PO BID 5 Days Qty: 10 0RF No Action atorvastatin 40 mg tablet 40 mg PO DAILY carbamazepine 200 mg tablet 300 mg PO Q12H levetiracetam 1,000 mg tablet 1,000 mg PO Q12H losartan 100 mg tablet 100 mg PO DAILY nabumetone 750 mg tablet 750 mg PO DAILY nebivolol 10 mg tablet 10 mg PO DAILY Print Language: Lithuanian Instructions: Care For Your Stitches (DC) Additional Instructions: Wear the splint for at least 3-5 days. Do not fully flex your finger to avoid wound dehiscence. Change dressing daily or as needed. Monitor for signs and symptoms of infection, fever, night sweats, chills, redness surrounding wound, malodorous drainage, blevins/brown drainage. Cleanse with regular soap and water daily and pat dry. Have sutures removed in 10 to 14 days. Referrals: JOSIAH BLANKENSHIP [Primary Care Provider, Family Practice] - 1 week Ramon Leavitt MD [Physician, Orthopedics] - As soon as possible Referral Note: Call Thursday for appointment for Wound Recheck as soon as they can see you, should be within 2-4 days. Discharge Date/Time: 01/27/25 18:19 Procedures ED Laceration Laceration Laceration 1: Site: hand Side (if applicable): left Size (cm): 2 Description: irregular Depth: simple, single layer Anesthetic used: lidocaine 1% Anesthesia technique: local infiltration Amount (ml): 4 Pre-repair: wound explored, irrigated extensively, deep structures intact and wound margins revised Skin layer closed with: other (Prolene) Size (cm): 3-0 Number of sutures: 6 Technique: simple, interrupted
[2025-01-27] MEDS: KETOROLAC TROMETHAMINE 30 MG/ML VIAL IM (16:40)
[2025-01-27] MEDS: DIPHTH,PERTUSS(ACELL),TET VAC 0.5 ML SYRINGE IM (16:41)
[2025-01-27] MEDS: LIDOCAINE HCL 1% 100 MG/10 ML MDV INJ (16:42)
[2025-01-27 18:17] VITALS: BP 134/80; PULSE 74; O2SAT 100
== END 2025-01-27 18:19 | disposition home or self-care (01) ==
PROVIDERS: Emergency Provider Emergency Medicine; PCP Family Medicine
DX: S61.412A Laceration without foreign body of left hand, initial encounter (principal); W27.0XXA Contact with workbench tool, initial encounter; Z23 Encounter for immunization
CPT/HCPCS: 12001; 73130; 90471; 90715; 96372; 99284; J1885

== ENCOUNTER 2025-02-21 07:10 | Outpatient (OUT) | payer OTHER, SELFPAY ==
--- OUTSIDE RECORDS SUMMARY | 2025-02-21 07:12 | XMS_ITS | CCD ---
Author Organization [facility] Care Team Providers Care Feather Shaper Name Role Phone Josiah Blankenshpi Primary Care Provider [phone] DR JENA BANGURA Consulting Unavailable ABRAHAM THOMAS Attending Unavailable ABRAHAM THOMAS Admitting Unavailable KRZYSZTOF, DR RAHMAN Primary Care Unavailable KARSON SPARKS Consulting Unavailable ABRAHAM THOMAS Consulting Unavailable KRZYSZTOF, DR RAHMAN Admitting Unavailable KRZYSZTOF, DR RAHMAN Attending Unavailable KRZYSZTOF, DR RAHMAN Consulting Unavailable KRZYSZTOF, DR RAHMAN Primary Care Unavailable Josiah Blankenship MD Primary Care Provider Josiah Blankenship MD Primary Care Provider Josiah Blankenship MD Primary Care Provider Josiah Blankenship MD Primary Care Provider TRINA SINHA Attending Unavailable SELF Referring Unavailable JOSIAH BLANKENSHIP Primary Care Unavailab le JOSIAH BLANKENSHIP Attending Unavailable JOSIAH BLANKENSHIP Attending Unavailable JOSIAH BLANKENSHIP Attending Unavailable JOSIAH BLANKENSHIP Attending Unavailable Yomi Prescott DO Attending Provider Josiah Blankenship MD Primary Care Provider [phone] Sonali Mckinney APRN Primary Care Provider Sonali Mckinney APRN Attending Provider Medications Current Medications MedicationDrug Class(es)DatesSig (Normalized)Sig (Original)acetaminophen 325 mg oral tablet (16 sources)take 1 tablet by mouth every six hours as neededacetaminophen (Tylenol) 325 MG tablet Take 325 mg by mouth every 6 (six) hours if needed. Activeatorvastatin 40 mg oral tablet (20 sources)HMG-CoA Reductase InhibitorStart: 09-24-2023 End: 87-59-4417Pkjhbtvdhrfb 40 mg tablet Active MG PO January 30, 2025 12:00am Complies with drug therapycalcium carbonate 1250 mg oral tablet (9 sources)Start: 53-24-3226ycry 1 tablet by mouth once dailycalcium carbonate (OS-BALWINDER 500) 500 mg calcium (1,250 mg) tablet Take 1 tablet by mouth once daily. 60 tablet 5 07/17/2017 ActiveComment on above:Take 1 tablet by mouth once daily. carBAMazepine 200 mg oral tablet (20 sources)Mood StabilizerStart: 16-88-9146Tqczbflszlsyp 200 mg tablet Active MG PO January 30, 2025 12:00am Complies with drug therapyStart: 2022 End: 92-63-7956nazg 1 tablet by mouth once daily in the morning, then take 2 tablets by mouth once daily in the eveningcarBAMazepine (TEGRETOL) 200 mg tablet Indications: Post traumatic seizure disorder (HCC) TAKE 1 AND 1/2 TABLETS BY MOUTH EVERY MORNING AND 2 TABLETS EVERY EVENING 315 tablet 3 09/26/2024 Active Start: 07-15-2019 End: 80-94-5737kziXKDgafpjtr (TEGRETOL) 200 mg tablet Indications: Post traumatic [...] oral capsule (1 source)Vitamin DStart: 07-17-2017 End: 70-40-5641jdom 1 capsule by mouth once dailyCholecalciferol, Vitamin D3, (VITAMIN D) 1,000 unit cap Take 1 capsule by mouth once daily. 60 capsule 5 07/17/2017 06/21/2021 DiscontinuedComment on above:Take 1 capsule by mouth once daily.CPAP (20 sources)Start: 46-20-9352YICV 2nd request for download report. Fax results to [phone]. 1 Device 02/02/2017 ActiveStart: 75-74-3434LSQA 2nd request for download report. Fax results to [phone]. 1 Device 0 02/02/2017 ActiveStart: 46-59-2441UPPO Provide new SD card. Current card is not functional. 1 Device 11/03/2016 ActiveStart: 07-27-1783ZBAS AutoPAP 5-12 cmH2O, mask, humidity, filters. Lifetime supplies. Dx: G47.33. Fax 30 day compliance rpt to [phone] when available. 1 Device 11/03/2016 ActiveStart: 75-14-6801ZXDS Provide new SD card. Current card is not functional. 1 Device 0 11/03/2016 ActiveStart: 64-25-7765FYAV AutoPAP 5-12 cmH2O, mask, humidity, filters. Lifetime supplies. Dx: G47.33. Fax 30 day compliance rpt to [phone] when available. 1 Device 0 11/03/2016 ActiveStart: 86-62-5270PDUN Indications: STEVAN (obstructive sleep apnea) CPAP 11 cmH2O, mask, tubing, humidifier, filters. Li fetime supplies. Dx: G47.33 DME: [employer], f: [phone] 1 Device 0 10/22/2015ActiveComment on above:CPAP 11 cmH2O, mask, tubing, humidifier, filters. Lifetime supplies. Dx: G47.33 DME: [employer], f: [phone] new SD card. Current card is not functional. AutoPAP 5-12 cmH2O, mask, humidity, filters. Lifetime supplies. Dx: G47.33. Fax 30 day compliance rpt to [phone] when available.2nd request for download report. Fax results to [phone].levETIRAcetam 1000 mg oral tablet (20 sources)Start: 2022 End: 65-59-2807Cenigfckbitsd 1,000 mg tablet Active MG PO January 30, 2025 12:00am Complies with drug therapyStart: 07-30-2020 End: 95-41-1605kgwt 1 tablet by mouth twice dailylevETIRAcetam (KEPPRA) 1,000 mg tablet Indications: Post traumatic seizure disorder (HCC) Take 1 tablet by mouth twice daily. 180 tablet 3 06/21/2021 ActiveComment on above:Take 1 tablet by mouth twice daily.losartan potassium 100 mg oral tablet (20 sources)Angiotensin 2 Receptor BlockerStart: 05-26-2020 End: 31-04-6371Uudimojo 100 mg tablet Active MG PO January 30, 2025 12:00am Complies with drug therapyComment on above:Take 100 mg by mouth once daily. melatonin 10 mg oral tablet (2 sources)take 1 tablet by mouth at bedtimemelatonin 10 MG tablet Take 1 tablet by mouth at bedtime Activenabumetone 750 mg oral tablet (20 sources)Nonsteroidal Anti-inflammatory DrugStart: 11-07-2024 End: 30-76-8623Zgylzzkxmb 750 mg tablet Active MG PO January 30, 2025 12:00am Complies with drug therapyStart: 03-28-2024 End: 28-78-2104oaic 1 tablet by mouth in the morningnabumetone (Relafen) 750 MG tablet Indications: Chronic left shoulder pain Take 1 tablet (750 mg) by mouth in the morning and 1 tablet (750 mg) before bedtime. 180 tablet 1 03/28/2024 09/24/2024 ActiveStart: 02-22-2024 End: 68-30-0953znza 1 tablet by mouth in the morningnabumetone (Relafen) 750 MG tablet Indications: Chronic left shoulder pain Take 1 tablet (750 mg) by mouth in the morning and 1 tablet (750 mg) before bedtime. 60 tablet 02/22/2024 03/23/2024 ExpiredStart: 05-04-2023 End: 20-38-7263qslo 1 tablet by mouth in the morningnabumetone (Relafen) 750 MG tablet Indications: Chronic right shoulder pain Take 1 tablet (750 mg) by mouth in the morning and 1 tablet (750 mg) before bedtime. 60 tablet 0 05/04/2023 06/03/2023 Activenaproxen 500 mg oral tablet (1 source)Nonsteroidal Anti-inflammatory DrugStart: 06-30-2016 End: 47-92-2908mkbw 1 tablet by mouth twice daily at mealtimenaproxen (NAPROSYN) 500 mg tablet Take 1 tablet by mouth twice daily with meals. Take with food 20 t ablet 0 06/30/2016 06/21/2021 DiscontinuedComment on above:Take 1 tablet by mouth twice daily with meals. Take with food Completed/Discontinued Medications MedicationDrug Class(es)DatesSig (Normalized)Sig (Original)amoxicillin 875 mg / clavulanate 125 mg oral tablet (3 sources)Penicillin-class AntibacterialStart: 01-30-2025 End: 90-17-4435Sitfbuvkgsq-Pot Clavulanate 875-125 mg tablet Discontinued TAB PO January 30, 2025 12:00am February 06, 2025 3:19pmmeloxicam 15 mg oral tablet (3 sources)Nonsteroidal Anti-inflammatory DrugStart: 08-31-2023 End: 74-52-1687adhr 1 tablet by mouth once dailymeloxicam (Mobic) 15 MG tablet Indications: Impingement syndrome of left shoulder Take 1 tablet (15mg) by mouth Daily 90 tablet 1 08/31/2023 02/22/2024 Discontinued (Therapy completed) nebivolol 10 mg oral tablet (20 sources)Start: 08-01-2023 End: 25-14-2211Nbzxjxujz 10 mg tablet Discontinued MG PO January 30, 2025 12:00am February 06, 2025 3:49pmtraMADol hydrochloride 50 mg oral tablet (2 sources)Opioid AgonistStart: 05-04-2023 End: 17-10-4728syzx 1 tablet by mouth every six hours for paintraMADol (Ultram) 50 MG tablet Indications: Rotator cuff syndrome, right Take 1 tablet (50 mg) by mouth every 6 (six) hours if needed for severe pain for up to 7 days 21 tablet 0 05/04/2023 05/11/2023 Problems Active Problems Problem ClassificationProblemDateDocumented DateEpisodic/ChronicAbdominal pain (9 sources)Unspecified abdominal pain; Translations: [Right upper quadrant pain] Onset: 60-21-9456SlonmnbpOygxxkrsx of lipid metabolism (20 sources)Dyslipidemia; Translations: [Mixed hyperlipidemia]Onset: 02-29-2024 41-33-3021UebblxlKnqohyfc; convulsions (16 sources)Other generalized epilepsy and epileptic syndromes, not intractable, without status epilepticus; Translations: [Generalized convulsive epilepsy, without mention of intractable epilepsy]Onset: hronic Epilepsy; convulsions (20 sources)Seizure; Translations: [Post traumatic seizures]Onset: 06-20-2016 EpisodicEssential hypertension (20 sources)Essential hypertension; Translations: [Essential (primary) hypertension]Onset: 521552-72-4301ViykrdzBagx disorders (16 sources)Reactive depression (situational); Translations: [Major depressive disorder, single episode, unspecified]Onset: 500600-51-0202WrxdtfxCbid wounds of extremities (8 sources)Laceration of left hand; Translations: [Laceration without foreign body of left hand, initial encounter]04-88-0169MdnycsehHmlafecibutelp (16 sources)Osteoarthritis of joint of right elbow; Translations: [Primary osteoarthritis, right elbow]Onset: 947930-37-0682PylggeqZzxyk acquired deformities (16 sources)Postural kyphosis; 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, cervicothoracic region]Onset: 319744-27-6419UwlpbfaSmmro connective tissue disease (2 sources)Right rotator cuff syndrome; Translations: [Unspecified rotator cuff tear or rupture of right shoulder, not specified as traumatic]54-19-2031Vhadklva Other connective tissue disease (2 sources)Non-traumatic partial tear of left rotator cuff; Translations: [Incomplete rotator cuff tear or rupture of left shoulder, not specified as traumatic]71-10-9143LiyxnvqwZcmdn nervous system disorders (20 sources)Lesion of ulnar nerve, left upper limb; Translations: [Lesion of ulnar nerve]Onset: 817018-22-4041RemfloyRzrbt non-traumatic joint disorders (20 sources)Chronic pain of left upper limb; Translations: [Pain in left shoulder]Onset: 646682-09-3683LpkjuwpxYtygd non-traumatic joint disorders (2 sources)Chronic pain of right upper limb; Translations: [Pain in right shoulder]74-60-2564WqregvuvTvegp screening for suspected conditions (not mental disorders or infectious disease) (2 sources)Patient encounter status; Translations: [Encounter for screening for malignant neoplasm of colon]38-52-6659PsqyqusoCcpbi upper respiratory infections (2 sources)Viral upper respiratory tract infection; Translations: [Acute upper respiratory infection, unspecified]22-34-7366EonfoebkAnbtfnat codes; unclassified (20 sources)Obstructive sleep apnea syndrome; Translations: [Obstructive sleep apnea (adult) (pediatric)]Onset: 725976-70-8701OgfkrolXbyzpkbf codes; unclassified (16 sources)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; Translations: [Dependence on other enabling machines and devices]Onset: hronic Past or Other Problems Problem ClassificationProblemDateDocumented DateEpisodic/ChronicOther and ill- defined cerebrovascular disease (4 sources)Cerebral arterial aneurysm; Translations: [Cerebral aneurysm, nonruptured]Onset: 04-07-2007 Resolved: 960043-15-6905JgjuhepUkavd connective tissue disease (20 sources)Lateral epicondylitis of left humerus; Translations: [Lateral epicondylitis, left elbow]Onset: 444092-21-8269AoacfuudFpxhd connective tissue disease (20 sources)Impingement syndrome of left shoulder region; Translations: [Impingement syndrome of left shoulder]Onset: 815269-51-7924ErufiwuxEoezk connective tissue disease (20 sources)Adhesive capsulitis of left shoulder; Translations: [Adhesive capsulitis of left shoulder]Onset: 146385-87-0441HafyhlifRtgwn connective tissue disease (20 sources)Partial thickness rotator cuff tear; Translations: [Incomplete rotator cuff tear or rupture of leftshoulder, not specified as traumatic]Onset: 571545-69-0484Dixoqpyv Results Test NameValueInterpretationReference RangeFacilityXR Shoulder - right 2 Viewson 77-04-8459Hbsub are no acute osseous changes. ELECTRONICALLY SIGNED BY: FLO Andrade CLINICAL HISTORY: right shoulder pain, chronic COMPARISON: NONE. FINDINGS: There are no lytic or sclerotic lesions. There is no acute fracture or subluxation. The humeral head is located. There is no significant joint space narrowing. The AC joint and the clavicle are unremarkable. The visualized portions of the lung, ribs, and chest wall soft tissues are unremarkable. Washington Rodríguez MD - 05/06/2023 CLINICAL HISTORY: right shoulder [...] changes. ELECTRONICALLY SIGNED BY: Washington White MD [facility] HealthcareXR Shoulder - right 2 ViewsOrdered By: Washington White on 25-78-5428[employer] Work Phone: XR Shoulder - right 2 Viewson 62-87-9994Qovhypqqw Study observation (narrative)[facility] HealthcareAMYLASEon 66-58-0102Ysjpxuz [Catalytic activity/Vol]48 U/ZZucmoe39-013Uap [facility] CampusComment on above: Performed By: #### RAFAEL, LIPA, CMP #### [facility] [address] [address] [address] Mando Huynh AUTO DIFFon 31-15-2292JDFQ #0.1 103/ulNormal0.0-0.1The [facility] CampusComment on above:Performed By: #### CBC #### [facility] [address] [address] [address] Mando MckennaBasophils/100 WBC (Bld)1.1 %Normal0.2-2.0The [facility] Comment on above:Performed By: #### CBC #### [facility] [address] [address] [address] Mando Trujillo #0.2 103/ulNormal0.0-0.7The [facility] CampusComment on above: Performed By: #### CBC #### [facility] [address] [address] [address] Mando Duttaosinophils/100 WBC (Bld)3.2 %Normal0.9-7.0The [facility] Comment on above:Performed By: #### CBC #### [facility] [address] [place] [address] Dr. Mando Duttarythrocyte distribution width (RBC) [Ratio]11.9 %Mptcux71.0-15.0 The [facility] CampusComment on above:Performed By: #### CBC #### [facility] [address] [place] [address] Dr. Mando MckennaHematocrit (Bld) [Volume fraction]42.6 %Yisxah80.0-54.0The [facility] CampusComment on above:Performed By: #### CBC #### [facility] [address] [place] [address] Dr. Mando MckennaHemoglobin (Bld) [Mass/Vol]13.5 g/dLCritically low14.0-18.0The [facility] CampusComment on above:Performed By: #### CBC #### [facility] [address] [place] [address] Dr. Mando Grenee #0.01 10e3/ulNormal0.00-0.03The [facility] CampusComment on above:Performed By: #### CBC #### [facility] [address] [place] [address] Dr. Mando Greene %0.2 %Normal0.0-0.5The [facility] CampusComment on above: Performed By: #### CBC #### [facility] [address] [place] [address] Dr. Mando EscobedoH #1.6 103/ulNormal1.2-3.8The [facility] CampusComment on above:Performed By: #### CBC #### [facility] [address] [place] [address] Dr. Mando Eugenemphocytes/100 WBC (Bld)33.8 %Ewaxkx69.5-60.0The [facility] CampusComment on above:Performed By: #### CBC #### [facility] [address] [place] [address] Dr. Mando BraxtonUAL DIFF REQNONormalThe [facility] CampusComment on above: Performed By: #### CBC #### [facility] [address] [address] [address] Mando Diaz (RBC) [Entitic mass]30.1 ywRodrfa83.9-34.0The [facility] CampusComment on above:Performed By: #### CBC #### [facility] [address] [place] [address] Dr. Mando Diaz (RBC) [Mass/Vol]31.7 g/jKTurywn07.9-35.2The [facility] HospitalComment on above:Performed By: #### CBC #### [facility] [address] [place] [address] Dr. Mando Nails (RBC) [Entitic vol]94.9 fLCritically high80.0-94.0The [facility] CampusComment on above:Performed By: #### CBC #### [facility] [address] [place] [address] Dr. Mando Javed #0.6 103/ulNormal0.3-0.8The [facility] CampusComment on above:Performed By: #### CBC #### [facility] [address] [place] [address] Dr. Mando Taocytes/100 WBC (Bld)11.9 %Normal1.7-12.0The [facility] Comment on above:Performed By: #### CBC #### [facility] [address] [place] [address] Dr. Mando Bran #2.4 103/ulNormal1.4-6.5The [facility] CampusComment on above:Performed By: #### CBC #### [facility] [address] [place] [address] Dr. Mando Billingsleyutrophils/100 WBC (Bld)49.8 %Krtoyb80.0-75.0The [facility] CampusComment on above:Performed By: #### CBC #### [facility] [address] [place] [address] Dr. Mando Fortune mean volume (Bld) [Entitic vol]8.4 fLCritically low 9.5-13.5The [facility] CampusComment on above:Performed By: #### CBC #### [facility] [address] [place] [address] Dr. Mando MckennaPLT307 103/epMadrad652-847Lqn [facility] CampusComment on above: Performed By: #### CBC #### [facility] [address] [place] [address] Dr. Mando MckennaRBC4.49 106/ulCritically low4.70-6.10The [facility] CampusComment on above:Performed By: #### CBC #### [facility] [address] [place] [address] Dr. Mando MckennaWBC4.7 103/ulNormal4.0-11.0The [facility] CampusComment on above: Performed By: #### CBC #### [facility] [address] [place] [address] Dr. Mando MckennaCT ABD/PELV W CONon [id number] ABD/PELV W CONEXAMINATION: CT ABD/PELV W CON [...] Electronically authenticated by: JENA BANGURA Date: 2021-08-29 09:26[facility] URINE PROFILEon 93-86-8207Rbqwwjftz Ql (U)NegativeNormal NEGATIVEPremier Health Miami Valley HospitalComment on above:Performed By: #### ERUR #### [facility] [address] [place] [address] Dr. Mando Sullivan (U)CLEARNormalCLEARPremier Health Miami Valley HospitalComment on above: Performed By: #### ERUR #### [facility] [address] [place] [address] Dr. Mando Storey (U)YELLOWNormalYELLOWPremier Health Miami Valley HospitalComment on above: Performed By: #### ERUR #### [facility] [address] [place] [address] Dr. Mando Almanza micrscopic examination will be performed if indicated. NormalPremier Health Miami Valley HospitalComment on above:Performed By: #### ERUR #### [facility] [address] [place] [address] Dr. Mando MckennaGlucose Ql (U)NegativeNormalNEGATIVEPremier Health Miami Valley HospitalComment on above:Performed By: #### ERUR #### [facility] [address] [place] [address] Dr. Mando MckennaHemoglobin Ql (U)NegativeNormalNEGATIVEPremier Health [facility] Hospital Comment on above:Performed By: #### ERUR #### [facility] [address] [place] [address] Dr. Mando MckennaKetones Ql (U)NegativeNormalNEGATIVEPremier Health Miami Valley HospitalComment on above:Performed By: #### ERUR #### [facility] [address] [place] [address] Dr. Mando MckennaLEUKOCYTESNegativeNormalNEGATIVEPremier Health Miami Valley HospitalComment on above:Performed By: #### ERUR #### [facility] [address] [place] [address] Dr. Mando Adler Ql (U)NegativeNormalNEGATIVEThe [facility] CampusComment on above:Performed By: #### ERUR #### [facility] [address] [place] [address] Dr. Mando MckennapH (U)6.0 [pH]Normal5-9The [facility] CampusComment on above: Performed By: #### ERUR #### [facility] [address] [place] [address] Dr. Mando MckennaSPEC GRAVITY1.709Ztyaji0.005-<=1.025The [facility] CampusComment on above:Performed By: #### ERUR #### [facility] [address] [place] [address] Dr. Mando Sharpe PROTEINNegativeNormalNEGATIVE/ TRACEThe [facility] Comment on above:Performed By: #### ERUR #### [facility] [address] [place] [address] Dr. Mando Alvarez MICRO INDNOT INDICATEDNormalThe [facility] CampusComment on above:Performed By: #### ERUR #### [facility] [address] [place] [address] Dr. Mando Del Torobilinogen Qn (U)0.2 {Jackie'U}/dLNormal0.2 - 1.0The [facility] CampusComment on above:Performed By: #### ERUR #### [facility] [address] [place] [address] Dr. Mando MckennaLACTATE/LACTIC ACIDon 05-65-1636Wrryewh [Moles/Vol]0.4 mmol/L Normal0.4-1.9The [facility] CampusComment on above:Performed By: #### RAFAEL, LIPA, CMP #### [facility] [address] [place] [address] Dr. Mando MckennaLIPASEon 74-91-6662Ixwlhi [Catalytic activity/Vol]74.0 U/LNormal 73.0-393.0The [facility] HospitalComment on above:Performed By: #### RAFAEL, LIPA, CMP #### [facility] [address] [place] [address] Dr. Mando Olmos 14(COMP METB)on 27-84-0545Mnaijoq [Mass/Vol]3.6 g/dLNormal 3.4-5.0The [facility] CampusComment on above:Performed By: #### RAFAEL, LIPA, CMP #### [facility] [address] [place] [address] Dr. Mando MckennaAlbumin/Globulin [Mass ratio]1.1 {ratio}NormalThe [facility] CampusComment on above:Performed By: #### RAFAEL, LIPA, CMP #### [facility] [address] [place] [address] Dr. Mando Wheat [Catalytic activity/Vol]83 U/EEqsvdj27-396Pha [facility] CampusComment on above:Performed By: #### RAFAEL, LIPA, CMP #### [facility] [address] [place] [address] Dr. Mando Iqbal [Catalytic activity/Vol]25 U/UYjiphy28-70Tug [facility] CampusComment on above:Performed By: #### RAFAEL, LIPA, CMP #### [facility] [address] [place] [address] Dr. Mando Machado gap [Moles/Vol]11.8 mmol/LNormalThe [facility] Comment on above:Performed By: #### RAFAEL, LIPA, CMP #### [facility] [address] [place] [address] Dr. Mando MckennaAST [Catalytic activity/Vol]13 U/LCritically zik51-19Vht [facility] CampusComment on above:Performed By: #### RAFAEL, LIPA, CMP #### [facility] [address] [place] [address] Dr. Mando MckennaBilirubin [Mass/Vol]0.3 mg/dLNormal0.2-1.0The [facility] Comment on above:Performed By: #### RAFAEL, LIPA, CMP #### [facility] [address] [address] [address] Mando MckennaCalcium [Mass/Vol]8.6 mg/dLNormal8.5-10.1The [facility] Comment on above:Performed By: #### RAFAEL, LIPA, CMP #### [facility] [address] [address] [address] Mando MckennaChloride [Moles/Vol]104 mmol/MCzbgud90-280Fia [facility] Comment on above:Performed By: #### RAFAEL, LIPA, CMP #### [facility] [address] [place] [address] Dr. Mando MckennaCO2 [Moles/Vol]29.3 mmol/IXypfpa61.0-32.0The [facility] Comment on above:Performed By: #### RAFAEL, LIPA, CMP #### [facility] [address] [place] [address] Dr. Mando MckennaCreatinine [Mass/Vol]0.81 mg/dLNormal0.70-1.30The [facility] East CampusComment on above:Performed By: #### RAFAEL, LIPA, CMP #### [facility] [address] [place] [address] Dr. Mando DtutaGFR-AF URUGUAYAN>60Normal>=60The [facility] CampusComment on above:Performed By: #### RAFAEL, LIPA, CMP #### [facility] [address] [place] [address] Dr. Mando DuttaGFR-NON AF URUGUAYAN>60Normal>=60The [facility] CampusComment on above:Performed By: #### RAFAEL, LIPA, CMP #### [facility] [address] [place] [address] Dr. Mando MckennaGlobulin (S) [Mass/Vol]3.3 g/dLNormalThe [facility] CampusComment on above:Performed By: #### RAFAEL, LIPA, CMP #### [facility] [address] [place] [address] Dr. Mando MckennaGlucose [Mass/Vol]96 mg/cMOelitk86-667Hsu [facility] Comment on above:Performed By: #### RAFAEL, LIPA, CMP #### [facility] [address] [address] [address] Mando MckennaPotassium [Moles/Vol]4.1 mmol/LNormal3.5-5.1The [facility] Comment on above:Performed By: #### RAFAEL, LIPA, CMP #### [facility] [address] [place] [address] Dr. Mando MckennaProtein [Mass/Vol]6.9 g/dLNormal6.4-8.2The [facility] Comment on above:Performed By: #### RAFAEL, LIPA, CMP #### [facility] [address] [place] [address] Dr. Mando MckennaSodium [Moles/Vol]141 mmol/UZiowhk255-909Pub [facility] Comment on above:Performed By: #### RAFAEL, LIPA, CMP #### [facility] [address] [place] [address] Dr. Mando MckennaUrea nitrogen [Mass/Vol]17.0 mg/dLNormal7.0-18.0[facility] HospitalComment on above:Performed By: #### RAFAEL, LIPA, CMP #### [facility] [address] [place] [address] Dr. Mando Connor nitrogen/Creatinine [Mass ratio]21.0 mg/mgNormalThe [facility] CampusComment on above:Performed By: #### RAFAEL, LIPA, CMP #### [facility] [address] [place] [address] Dr. Mando Holland SINGLE QUAD RT UPPERon [id number] SINGLE QUAD RT UPPER EXAMINATION: US SINGLE [...] Electronically authenticated by: JENA BANGURA Date: 2021-08-29 08:18NoMer[facility] AUTO DIFFon [id number] #0.1 103/ulNormal0.0-0.1[facility] HospitalComment on above:Performed By: #### CBC #### [facility] [address] [place] [address] Dr. Mando MckennaBasophils/100 WBC (Bld)1.1 %Normal0.2-2.0[facility] Comment on above:Performed By: #### CBC #### [facility] [address] [place] [address] Dr. Mando Trujillo #0.1 103/ulNormal0.0-0.7The [facility] CampusComment on above: Performed By: #### CBC #### [facility] [address] [place] [address] Dr. Mando Duttaosinophils/100 WBC (Bld)1.7 %Normal0.9-7.0[facility] Comment on above:Performed By: #### CBC #### [facility] [address] [place] [address] Dr. Mando Duttarythrocyte distribution width (RBC) [Ratio]12.1 %Rqetna99.0-15.0 The [facility] CampusComment on above:Performed By: #### CBC #### [facility] [address] [place] [address] Dr. Mando MckennaHematocrit (Bld) [Volume fraction]42.2 %Vaxmjj79.0-54.0[facility] HospitalComment on above:Performed By: #### CBC #### [facility] [address] [place] [address] Dr. Mando MckennaHemoglobin (Bld) [Mass/Vol]13.6 g/dLCritically low14.0-18.0The [facility] CampusComment on above:Performed By: #### CBC #### [facility] [address] [place] [address] Dr. Mando Greene #0.02 10e3/ulNormal0.00-0.03The [facility] CampusComment on above:Performed By: #### CBC #### [facility] [address] [place] [address] Dr. Mando Greene %0.3 %Normal0.0-0.5The [facility] CampusComment on above: Performed By: #### CBC #### [facility] [address] [place] [address] Dr. Mando Cabrera #1.7 103/ulNormal1.2-3.8The [facility] CampusComment on above:Performed By: #### CBC #### [facility] [address] [place] [address] Dr. Mando Escobedohocytes/100 WBC (Bld)27.1 %Qsbvvd52.5-60.0The [facility] CampusComment on above:Performed By: #### CBC #### [facility] [address] [place] [address] Dr. Mando BraxtonUAL DIFF REQNONormalThe [facility] CampusComment on above: Performed By: #### CBC #### [facility] [address] [place] [address] Dr. Mando Gay (RBC) [Entitic mass]30.1 yaRpaojo70.9-34.0The [facility] CampusComment on above:Performed By: #### CBC #### [facility] [address] [place] [address] Dr. Mando Diaz (RBC) [Mass/Vol]32.2 g/gHIrqjjz84.9-35.2The [facility] CampusComment on above:Performed By: #### CBC #### [facility] [address] [place] [address] Dr. Mando Nails (RBC) [Entitic vol]93.4 uTNbicph15.0-94.0The [facility] CampusComment on above:Performed By: #### CBC #### [facility] [address] [place] [address] Dr. Mando Javed #0.7 103/ulNormal0.3-0.8The [facility] CampusComment on above:Performed By: #### CBC #### [facility] [address] [place] [address] Dr. Mando Taocytes/100 WBC (Bld)11.5 %Normal1.7-12.0The [facility] Comment on above:Performed By: #### CBC #### [facility] [address] [place] [address] Dr. Mando Bran #3.7 103/ulNormal1.4-6.5The [facility] CampusComment on above:Performed By: #### CBC #### [facility] [address] [place] [address] Dr. Mando Billingsleyutrophils/100 WBC (Bld)58.3 %Putjos22.0-75.0The [facility] CampusComment on above:Performed By: #### CBC #### [facility] [address] [place] [address] Dr. Mando Fortune mean volume (Bld) [Entitic vol]8.1 fLCritically low 9.5-13.5The [facility] CampusComment on above:Performed By: #### CBC #### [facility] [address] [place] [address] Dr. Mando MckennaPLT318 103/wsRmstav378-514Eup [facility] CampusComment on above: Performed By: #### CBC #### [facility] [address] [place] [address] Dr. Mando MckennaRBC4.52 106/ulCritically low4.70-6.10The [facility] CampusComment on above:Performed By: #### CBC #### [facility] [address] [place] [address] Dr. Mando MckennaWBC6.4 103/ulNormal4.0-11.0The [facility] CampusComment on above: Performed By: #### CBC #### [facility] [address] [place] [address] Dr. Mando FloresASEon 79-35-0888Xkhvom [Catalytic activity/Vol]81.0 U/LNormal 73.0-393.0The [facility] CampusComment on above:Performed By: #### CMP, LIPA #### [facility] [address] [place] [address] Dr. Mando MckennaPROF 14(COMP METB)on 74-72-6433Snuyoga [Mass/Vol]3.9 g/dLNormal 3.4-5.0The [facility] CampusComment on above:Performed By: #### CMP, LIPA #### [facility] [address] [place] [address] Dr. Mando MckennaAlbumin/Globulin [Mass ratio]1.1 {ratio}NormalThe [facility] East CampusComment on above:Performed By: #### CMP, LIPA #### [facility] [address] [place] [address] Dr. Mando Wheat [Catalytic activity/Vol]91 U/KNyhqbp39-744Eyr [facility] East CampusComment on above:Performed By: #### CMP, LIPA #### [facility] [address] [place] [address] Dr. Mando Iqbal [Catalytic activity/Vol]30 U/NXuwwog40-71Cdm [facility] CampusComment on above:Performed By: #### CMP, LIPA #### [facility] [address] [place] [address] Dr. Mando Machado gap [Moles/Vol]10.6 mmol/LNormalThe [facility] on above:Performed By: #### CMP, LIPA #### [facility] [address] [place] [address] Dr. Mando MckennaAST [Catalytic activity/Vol]14 U/LCritically ach15-24Sru [facility] CampusComment on above:Performed By: #### CMP, LIPA #### [facility] [address] [address] [address] Mando MckennaBilirubin [Mass/Vol]0.1 mg/dLCritically low0.2-1.0The [facility] CampusComment on above:Performed By: #### CMP, LIPA #### [facility] [address] [place] [address] Dr. Mando MckennaCalcium [Mass/Vol]9.0 mg/dLNormal8.5-10.1The [facility] Comment on above:Performed By: #### CMP, LIPA #### [facility] [address] [place] [address] Dr. Mando MckennaChloride [Moles/Vol]103 mmol/WOqawbp02-047LnsPremier Health [facility] Comment on above:Performed By: #### CMP, LIPA #### [facility] [address] [place] [address] Dr. Mando MckennaCO2 [Moles/Vol]31.3 mmol/JLgkyps05.0-32.0The [facility] Comment on above:Performed By: #### CMP, LIPA #### [facility] [address] [place] [address] Dr. Mando MckennaCreatinine [Mass/Vol]0.96 mg/dLNormal0.70-1.30The [facility] CampusComment on above:Performed By: #### CMP, LIPA #### [facility] [address] [place] [address] Dr. Mando DuttaGFR-AF URUGUAYAN>60Normal>=60The [facility] CampusComment on above:Performed By: #### CMP, LIPA #### [facility] [address] [place] [address] Dr. Mando DuttaGFR-NON AF URUGUAYAN>60Normal>=60The [facility] CampusComment on above:Performed By: #### CMP, LIPA #### [facility] [address] [place] [address] Dr. Mando MckennaGlobulin (S) [Mass/Vol]3.6 g/dLNormalThe [facility] HospitalComment on above:Performed By: #### CMP, LIPA #### [facility] [address] [address] [address] Mando MckennaGlucose [Mass/Vol]95 mg/nFIzqcuf26-541OfmPrem[facility] Health [facility] Comment on above:Performed By: #### CMP, LIPA #### [facility] [address] [address] [address] Mando MckennaPotassium [Moles/Vol]3.9 mmol/LNormal3.5-5.1[facility] Comment on above:Performed By: #### CMP, LIPA #### [facility] [address] [place] [address] Dr. Mando MckennaProtein [Mass/Vol]7.5 g/dLNormal6.4-8.2[facility] Comment on above:Performed By: #### CMP, LIPA #### [facility] [address] [address] [address] Mando MckennaSodium [Moles/Vol]141 mmol/YXhtyob229-344UkrPremier Health [facility] Hospital Comment on above:Performed By: #### CMP, LIPA #### [facility] [address] [place] [address] Dr. Mando MckennaUrea nitrogen [Mass/Vol]18.0 mg/dLNormal7.0-18.0[facility] HospitalComment on above:Performed By: #### CMP, LIPA #### [facility] [address] [place] [address] Dr. Mando Connor nitrogen/Creatinine [Mass ratio]18.8 mg/mgNoBrown Memorial HospitalComment on above:Performed By: #### CMP, LIPA #### [facility] [address] [place] [address] Dr. Mando Mckenna Vital Signs Date TimeVital SignValuePerforming PsyebuvctLqtvoeag21-77-6425 15:15-0500Body womoxk442.42 Casie Blankenship MD Work Phone: [facility]11-10-2025 15:15-0500 Body mass index (BMI) [Ratio]25 kg/v9ZovgprJosiah Blankenship MD Work Phone: [phone])[address] [place], [place] 6343911-10-2025 15:15-0500 Body naozghbgtro91.8 [degF]Josiah Blankenship MD Work Phone: [phone] [place], [place] 6343911-10-2025 15:15-0500 Body .18 kgJosiah Blankenship MD Work Phone: [phone] [place], [place] 6343911-10-2025 15:15-0500 Diastolic blood akprzlod58 mm[Hg]Josiah Blankenship MD Work Phone: 1(512)[address] [place], [place] 6343911-10-2025 15:15-0500 Heart uynz553 /minEsedrick Blankenship MD Work Phone: [phone] [place], [place] 634[address]11-10-2025 15:15-0500 SaO2% (BldA) [Mass fraction]97 %Josiah Blankenship MD Work Phone: 1(521)[address] [place], [place] 634[address]11-10-2025 15:15-0500 Systolic blood qlodgwlt497 mm[Hg]Josiah Blankenship MD Work Phone: 1(962)[address] [place], [place] 6343911-10-2025 11:45-0500 Body .42 Casie Blankenship MD Work Phone: [phone] [place], [place] 6343911-10-2025 11:45-0500 Body mass index (BMI) [Ratio]23.1 kg/c7PnkzniJosiah Blankenship MD Work Phone: 1(821)[address] [place], [place] 6343911-10-2025 11:45-0500 Body srfpij38.37 kgJosiah Blankenship MD Work Phone: 1(107)[address] [place], [place] 6343911-03-2025 11:22-0500 Body .42 Casie Blankenship MD Work Phone: 1(712)[address] [place], [place] 6343911-03-2025 11:22-0500 Body mass index (BMI) [Ratio]23.1 kg/o9Elkluq Hemeyer MD Work Phone: 1(510)[address] [place], [place] 6343911-03-2025 11:22-0500 Body .37 kgJosiah Blankenship MD Work Phone: 1(037)[address] [place], [place] 6343910-23-2025 15:12-0400 Body knurnv166.4 cmEsedrick Blankenship MD Work Phone: [phone] [place], [place] 8284510-23-2025 15:12-0400Body mass index (BMI) [Ratio]22.56 kg/u4EhlhbtJosiah Blankenship MD Work Phone: 1([phone] [place], [place] 8284510-23-2025 15:12-0400Body qgytot48.56 kgJosiah Blankenship MD Work Phone: [phone] [place], [place] 8284510-23-2025 15:12-0400Diastolic blood nglzdpbi57 mm[Hg]Josiah Blankenship MD Work Phone: 1(177)[address] [place], [place] 8284510-23-2025 15:12-0400Heart rate68 /min Josiah Blankenship MD Work Phone: [phone] [place], [place] 8284510-23-2025 15:12-1347GjH8% (BldA) [Mass fraction]99 %Josiah Blankenship MD Work Phone: [phone] [place], [place] 8284510-23-2025 15:12-0400Systolic blood pxixcdxp005 mm[Hg]Josiah Blankenship MD Work Phone: [phone])[address] [place], [place] 8284505-20-2025 16:03-0400Body wjxcaz792.4 Casie Blankenship MD Work Phone: [phone] [place], [place] 8284505-20-2025 16:03-0400Body mass index (BMI) [Ratio]22.82 kg/i9DudlexJosiah Blankenship MD Work Phone: 1(854)[address] [place], [place] 8284505-20-2025 16:03-0400Body zwoilo14.47 kgJosiah Blankenship MD Work Phone: 1(640)[address] [place], [place] 8284505-20-2025 16:03-0400Diastolic blood mm[Hg]Josiah Blankenship MD Work Phone: 1(510)[address] [place], [place] 8284505-20-2025 16:03-0400Heart rate74 /min Josiah Blankenship MD Work Phone: [phone] [place], [place] 8284505-20-2025 16:03-0026JgG6% (BldA) [Mass fraction]99 %Josiah Blankenship MD Work Phone: [phone])[address] [place], [place] 8284505-20-2025 16:03-0400Systolic blood gjzrncsy599 mm[Hg]Josiah Blankenship MD Work Phone: 1([phone] [place], [place] 8284511-25-2024 16:03-0500Body xvpemn209.4 cmEsedrick Blankenship MD Work Phone: [phone] [place], [place] 8284511-25-2024 16:03-0500Body mass index (BMI) [Ratio]22.82 kg/z8IrusqgJosiah Blankenship MD Work Phone: 1(411)[address] [place], [place] 8284511-25-2024 16:03-0500Body bijumx80.47 kgJosiah Blankenship MD Work Phone: 1([phone] [place], [place] 8284511-25-2024 16:03-0500Diastolic blood ykkahvsj59 mm[Hg]Josiah Blankenship MD Work Phone: [phone] [place], [place] 8284511-25-2024 16:03-0500Heart rate71 /min Josiah Blankenship MD Work Phone: 1(840)[facility] [place], [place] [address]Spfgdmdyne44-84-7850 16:03-1631WaQ4% (BldA) [Mass fraction]98 %Josiah Blankenship MD Work Phone: 1(855)[address] [place], [place] 8284511-25-2024 16:03-0500Systolic blood sphgvupb177 mm[Hg]Josiah Blankenship MD Work Phone: [phone] [place], [place] 8284502-05-2024 15:27-0500Body mass index (BMI) [Ratio]22.82 kg/m1LrkqejJosiah Blankenship MD Work Phone: 1([phone] [place], [place] 8284502-05-2024 15:27-0500Body jbgiez77.47 kgEdyasmeen Hemeyer MD Work Phone: [facility] Encounters Encounter DateEncounter TypeCare ProviderFacilityStart: 02-06-2025 End: 51-20-3217pzglidniexSbkoiiLois Blankenship MD Work Phone: [facility]: 02-06-2025 End: 45-90-8312Eielopd encounter procedureJeandreasgian Mckinney CYBER SOFTWARE ENGINEER [facility] Work Phone: Start: 02-06-2025 End: 19-43-2276eamxipduxxTkaucq J Hemeyer MD Work Phone: [facility]: 02-06-2025 End: 27-10-4112Tjpudxg encounter procedureJustjuan josé Prescott DO-[facility] [place] Work Phone: Start: 01-30-2025 End: 95-31-5876kmhhzkkjokJkkcek J Hemeyer MD Work Phone: -[facility] [place]: 01-30-2025 End: 24-67-2424Virkilb encounter procedureJustjuan josé Prescott [facility] [place] Work Phone: Start: 01-19-2025 End: 03-33-2799Rathez outpatient visit 25 minutesEdyasmeen Blankenship MD Work Phone: [facility] [place] [facility] MedicineComment on above: Essential hypertension; Mixed dyslipidemia; Chronic left shoulder painStart: 01-19-2025 End: 88-70-8943vlqyiyolgrTJMKTD J HEMEYERNot AvailableStart: 01-19-2025 End: 32-79-4093Vnvzaa Lucía Blankenship MD Work Phone: [facility] [place] [facility] MedicineStart: 01-19-2025 End: 15-35-5143Ghnyyo Lucía Blankenship MD Work Phone: [facility] [place] [facility] MedicineStart: 10-05-2024 End: 21-88-6776GgogbjJdjsguMarianna Ramos MD Work Phone: NeurosurgeryComment on above:Refill RequestStart: 09-26-2024 End: 80-02-7743AbkpdrByfefxMarianna Ramos MD Work Phone: NeurologyComment on above:Refill RequestStart: 09-09-2024 End: 14-19-4080Wmrkeelcysae consultation with Nini Sinha APRN.FERRY ENGINEER Work Phone: NeurologyStart: 09-09-2024 End: 97-35-2764hdosyozsydWKT M MERNERFacility:[facility] HospitalComment on above:STEVAN on CPAP (Primary Dx); Post traumatic seizure disorder (HCC)Start: 08-24-2024 End: 85-20-4913IwrlcbZkakqr J Hemeyer MD Work Phone: [facility] FM 100Comment on above:Essential hypertension (CMS/HCC)Start: 08-16-2024 End: 98-45-6268Hvkwtx outpatient visit 25 minutesJosiah Blankenship MD Work Phone: [facility] 100Comment on above:Essential hypertension (CMS/HCC); Mixed dyslipidemia (CMS/HCC)Start: 08-16-2024 End: 28-99-1638mkhbosyvpfEKHTFG J HEMEYERNot AvailableStart: 08-16-2024 End: 15-65-1441Astmye flowsheetJosiah Blankenship MD Work Phone: [phone] 100Start: 08-16-2024 End: 07-93-2295Qxqqth flowsPayton Blankenship MD Work Phone: [facility] 100Start: 03-21-2024 End: 72-82-4230JjfrgkBkuqkx J Hemeyer MD Work Phone: [facility] 100Comment on above:Chronic left shoulder painStart: 03-03-2024 End: 42-02-2635Xpafji outpatient visit 15 minutesJosiah Blankenship MD Work Phone: [facility] FM 100Comment on above:Viral upper respiratory tract infection (Primary Dx)Start: 03-03-2024 End: 17-63-3010juzodxfegdBAGVWC J HEMEYERNot AvailableStart: 03-03-2024 End: 68-25-5064Xsldmj Lucía Blankenship MD Work Phone: [facility] 100Start: 03-03-2024 End: 43-67-3252Qnduup Lucía Blankenship MD Work Phone: [facility] 100Start: 02-22-2024 End: 52-02-1062Nnkmyu outpatient visit 25 minutesJosiah Blankenship MD Work Phone: [facility] FM 100Comment on above:Essential hypertension (CMS/HCC) (Primary Dx); Mixed dyslipidemia (CMS/HCC); Chronic left shoulder pain; 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; Impingement syndrome of left shoulderStart: 02-22-2024 End: 85-66-7347rcstyvlfzjSYUUIN J HEMEYERNot AvailableStart: 02-22-2024 End: 69-57-9904Slhnzj Lucía Blankenship MD Work Phone: [facility] 100Start: 02-22-2024 End: 75-60-7886Qnpzrp Lucía Blankenship MD Work Phone: [facility] 100Start: 08-27-2023 End: 94-96-3331Nazzzoxp Erich Sinha CYBER SOFTWARE ENGINEER.FERRY ENGINEER Work Phone: NeurologyComment on above:Post traumatic seizure disorder (HCC)Start: 05-04-2023 End: 79-78-7053Eaorap outpatient visit 25 minutesJosiah Blankenship MD Work Phone: [facility]NS FMComment on above:Chronic right shoulder pain (Primary Dx); Rotator cuff syndrome, rightStart: 04-63-0733LnmyhcBuyqo [place] CYBER SOFTWARE ENGINEER.FERRY ENGINEER Work Phone: NeurologyComment on above:Refill RequestStart: 51-94-9098WgltcmBreReyna Sinha APRN.CNP Work Phone: NeurologyComment on above:Refill RequestStart: 99-56-4556Vzxzeinvo encounterSbrennon Ramos MD Work Phone: NeurologyComment on above:Forms ([employer])Start: 08-29-2021 End: 39-56-8707thmrwqxqzzNS JENA BANGURAFacility:V3Xyqco: 08-27-2021 End: 29-33-1994lfosdvibieIM EDWARD HEMEYERFacility:N2Buxrg: 47-70-6452Ckmwzwopl encounterSbrennon Ramos MD Work Phone: NeurologyComment on above:Lab req emailed to patient Start: 06-19-2021 End: 82-13-8262Okzwkukd HealthTrina Sinha APRN.CNP Work Phone: NeurologyComment on above:Post traumatic seizure disorder (HCC) Procedures DateProcedureProcedure DetailPerforming ClinicianStart: 75-07-3847Jsrrw depression screening assessmentTrina Sinha APRN.CNP Work Phone: Start: 88-18-2564Oczshua of repair of musculotendinous cuff of shoulderS/P rotator cuff repair - LEFTTrina Sinha APRN.CNP Work Phone: Plan of Treatment DateCare ActivityDetailAuthorStart: 07-19-2025 End: 44-93-2812Awbnlvu encounter /22/2026 3:30 PM EDT Office Visit [facility] [facility] [address] [facility] [address] [place] [address] Josiah Blankenship MD [address] [facility] [address] [place] [address] (Fax)[facility] [place] [facility] MedicineStart: 06-19-2025 End: 98-34-0862Nyuhlpzahnsbt metabolic 2000 panel - Serum or PlasmaComprehensive metabolic panel Lab Routine Essential hypertension Expected: 06/19/2025, Expires: 09/17/2025[facility] Work Phone: Comment on above:Expected: 06/19/2025, Expires: 09/17/2025Start: 06-19-2025 End: 34-96-5569Dymfk 1996 panel - Serum or PlasmaLipid panel Lab Routine Mixed dyslipidemia Expected: 06/19/2025, Expires: 09/17/2025[facility] HealthcareComment on above:Expected: 06/19/2025, Expires: 09/17/2025Start: 01-19-2025 End: 79-76-4194Qqkjzyw encounter pnachhekt49/23/2025 3:30 PM EDT Office Visit [facility] [place] [facility] [address] [facility] [address] [place] [address] Josiah Blankenship MD [address] [place] [address] Essential hypertension; Mixed dyslipidemiaNOMS [place] 100 Family MedicineComment on above:Essential hypertension; Mixed dyslipidemiaStart: 38-94-8586ROMRF-19 Vaccine ( season)COVID-19 Vaccine ( season)[facility] HealthcareStart: 51-74-7025Jokahobxf vaccinationNOPR HealthcareStart: 08-16-2024 End: 52-30-4782Fnlgwwj encounter procedureNOMS CI FM 100Comment on above: Essential hypertension (CMS/HCC); Mixed dyslipidemia (CMS/HCC)Start: 78-49-9072Xbgmzblmofkn Vaccine: 50+ (1 of 1 - PCV)Pneumococcal Vaccine: 50+ (1 of 1 - PCV)[facility] 20[facility] Shingrix Vaccine (1 of 2)Shingrix Vaccine (1 of 2)[facility] 03-03-2024 End: 78-99-6384Yvkcdgh encounter dcbtlhatx42/05/2024 4:00 PM EST Office Visit [facility] [address] [place] [address] [place] [address] Josiah Blankenship MD [address] [place] [address] (Fax) ArrivedNOMS CI FM 100Comment on above: ArrivedStart: 02-22-2024 End: 43-45-7223Prwvyku encounter fohulonso28/25/2024 4:00 PM EST Office Visit [facility] [address] [place] [address] Josiah Blankenship MD [address] [place] [address] (Fax) Essential hypertension (CMS/HCC); Chronic left shoulder painNOMS CI FM 100Comment on above:Essential hypertension (CMS/HCC); Chronic left shoulder painStart: 36-51-2242Xxrvk-19 Vaccine ( season) Covid-19 Vaccine ()[facility]: 46-12-9787Ksjohzxcd vaccinationInfluenza Vaccine (#1)[facility] HealthcareStart: 08-31-2023 End: 71-46-5534Sffgwmb encounter adklsuqfb33/03/2024 4:00 PM EDT Office Visit [facility] [address] [place] [address] Josiah Blankenship MD [address] [place] [address] (Fax)[facility] FMStart: 41-64-2571IHGHARXC SCREENDIABETES SCREENSacramento ClinicStart: 10-57-9196Moqwzcgw ScreeningDiabetes Screening [facility]: 87-07-0822Xywhv-19 Vaccine ( season)Covid-19 Vaccine ()[facility]: 64-45-9331Wtlgzhcet vaccinationMercy Memorial Hospitaltart: 60-53-3825Jsisq depression screening assessmentDEPRESSION SCREENINGMercy Memorial Hospitaltart: 27-85-2324RGONHLTYKL ASSESSMENTDEPRESSION ASSESSMENTMercy Memorial Hospitaltart: 03-40-5620JXSLV-19 VACCINE (3 - Booster for Pfizer series)COVID-19 VACCINE (3 - Booster for Pfizer series) [facility]: 12-08-3979LHTJA-19 VACCINE (3 - Booster for Pfizer series)COVID-19 VACCINE (3 - Booster for Pfizer series)[facility]: 53-93-4481MPZDWMDLB (FIT-DNA)COLOGUARD (FIT-DNA)[facility]: 90-26-1487BdtircoqufrSMLWXTGWFFDYnykuwdtk ClinicStart: 93-30-1283QBXESAQKNU CANCER SCREENINGCOLORECTAL CANCER SCREENINGMercy Memorial Hospitaltart: 52-64-4148DG COLONOGRAPHYCT COLONOGRAPHYMercy Memorial Hospitaltart: 17-63-7108ZGRAD OCCULT BLOOD FECAL OCCULT BLOODMercy Memorial Hospitaltart: 21-13-5743Jwhtfqfgy for malignant neoplasm of colonMercy Memorial Hospitaltart: 86-98-5657EDKLSMCSZTFBDMYOYGRXLCCXOJ [facility]: 05-93-8896Ayojq 1996 panel - Serum or PlasmaLipid ScreeningMercy Memorial Hospitaltart: 28-05-5707Zmxta panelLipid ScreeningMercy Memorial Hospitaltart: 97-77-3512JZAFZ SCREENLIPID SCREENMercy Memorial Hospitaltart: 1993 Hepatitis B Vaccine (1 of 3 - 19+ 3-dose series)Hepatitis B Vaccine (1 of 3 - 19+ 3-dose series)[facility]: 40-82-1848Wwtcmvjsr B Vaccines (1 of 3 - 19+ 3-dose series)Hepatitis B Vaccines (1 of 3 - 19+ 3-dose series)[facility] HealthcareStart: 11-52-0496Okoly microalbumin profileMercy Memorial Hospitaltart: 77-93-1957Wgfbpcq ScreeningAnxiety ScreeningMercy Memorial Hospitaltart: 1992 Depression ScreeningDepression ScreeningMercy Memorial Hospitaltart: 1992 HEPATITIS C SCREENINGHEPATITIS C SCREENINGMercy Memorial Hospitaltart: 1992 Hepatitis C screeningHepatitis C ScreeningMercy Memorial Hospitaltart: 11-45-1884WOE SCREENINGHIV SCREENINGMercy Memorial Hospitaltart: 35-13-1461VNK screeningHIV ScreeningMercy Memorial Hospitaltart: 16-32-5666XAzC/Tdap/Td Vaccines (1 - Tdap) DTaP/Tdap/Td Vaccines (1 - Tdap)[facility]: 74-31-5768NBW Vaccines (1 of 1 - Standard series)MMR Vaccines (1 of 1 - Standard series)[facility] Start: 56-50-1508AGPVNWVGY B (1 of 3 - 3-dose series)HEPATITIS B (1 of 3 - 3- dose series)[facility]: 93-90-8095Adqrukgsi B Vaccine (1 of 3 - 3- dose series)Hepatitis B Vaccine (1 of 3 - 3-dose series)[facility]: 47-85-7767Swtwowywl for malignant neoplasm of colonVeterans Health Administration Immunizations Immunization DateImmunizationNotesCare OpmxaijdRcvuffqd54-47-8604mlfrguhbf, injectable, quadrivalent, preservative freeJosiah Blankenship MD Work Phone: [facility] HospitalSmuheznwqa15-61-7297IJKF-GAM-6 (COVID-19) vaccine, mRNA, spike protein, LNP, PF, hue-sucrose, 30 mcg/0.3 mLJosiah Blankenship MD Work Phone: [facility] HospitalJgmnvpxfjp43-73-1086ysfqnjwvk virus vaccine, unspecified formulationJosiah Blankenship MD Work Phone: [facility] HospitalNdduvpsfev68-05-7081eiuduamyp, injectable, quadrivalent, preservative freeJosiah Blankenship MD Work Phone: [facility] HospitalMizukgvgas41-69-1725Bnofoe Bivalent Booster 12 Years And OlderJosiah Blankenship MD Work Phone: [facility] HospitalJltnsdokjr00-67-2959lgfzaajnf virus vaccine, unspecified formulationJasmin Brooks APRN.FERRY ENGINEER Work Phone: [facility] CenterLhzfba98-82-9133wweahgvvq, injectable, quadrivalent, preservative freeJosiah Blankenship MD Work Phone: [facility] HospitalCxosuxptir97-82-1569fdjfyjwup, injectable, quadrivalent, preservative freeJosiah Blankenship MD Work Phone: [facility] HospitalEejxpjoyzg24-52-1085sgrzasciw, injectable, quadrivalent, preservative freeJosiah Blankenship MD Work Phone: [facility] HospitalFxeurnpams80-93-3411qgtwbpssk, injectable, quadrivalent, preservative freeJosiah Blankenship MD Work Phone: [facility] HospitalZbytgtvfny67-51-9623stovqcdil, seasonal, injectable, preservative freeEdyasmeen Blankenship MD Work Phone: [facility] HospitalDioewpjbew89-87-1164tzakgqybi, seasonal, injectable, preservative freeEdyasmeen Blankenship MD Work Phone: [facility] HospitalAubmddqfqe22-19-6786cdoeajt toxoid, adsorbed Edyasmeen Blankenship MD Work Phone: [facility] Payers DatePayer CategoryPayerPolicy [id number] Health Insurance [id number] Private Health InsuranceC[facility] CHO[employer] GENERIC [id number] 2021-Present [phone] [address] [address] [place] [address] O [id number] [id number] [id number] [id number] [id number] Social History DateTypeDetailFacilityStart: 07-11-2011 End: 37-16-9074Aemlkeg smoking status NHISNever smoked tobaccoKettering Health Behavioral Medical Center Start: 06-19-2020 End: 47-44-9152Tojifen intakeCurrent drinker of alcohol (finding)[facility]: 28-36-4448Qjilbfb SDOH Alcohol Commentvery rareKettering Health Behavioral Medical Center Start: 59-85-8071Hrm Assigned At BirthMaleCmercy health [facility] hospital ClinicStart: 07-11-2011 End: 82-78-2789Yxbfyov use and exposureSmokeless tobacco non-userMercy Memorial Hospitaltart: 06-19-2020 End: 94-14-9870Hhecrrf of Social functionMercy Memorial Hospitaltart: 06-19-2020 End: 17-64-0686Anucswb use panelMercy Memorial Hospitaltart: 54-42-6367Eonvx Depression Screening Iiqkeeagbe4Owokpptka ClinicStart: 35-64-4638Baawas identity Identifies as male gender (finding)[facility] CenterWithin the last year, have you been afraid [...] before (I/we) got money to buy more.Never trueNOPR HealthcareStart: 08-05-2022 Qavtcbygp55OCQY HealthcareStart: 34-47-0707Dcqakvx Commentcaffeine intake: 2-3 cups per dayCENTRAL VALLEY [facility]ICAL [facility]ENTER HealthcareStart: 16-87-2156Fry Assigned At BirthNot on fileCENTRAL VALLEY MEDICAL CENTER HealthcareStart: 13-47-4201Ppppuf orientationHeterosexual (finding)[facility] smoking status NHISUnknown if ever smokedKing'S [facility] [place] Work Phone: SexMale (finding)[facility] Medical Equipment Procedure CodeEquipment CodeEquipment Original TextEquipment IdentifierDates [place] Swivelock 4.75mm Peek 19.1mm Suture Closed Eyelet Vent Sterile - [id number]: 27-93-3595Rulcxmh on above:Description: PEEK SWIVELOCKAnchor Swivelock 4.75mm Peek 19.1mm Suture Closed Eyelet Vent Sterile - [id number]: 45-78-0050Taeatth on above:Description: PEEK SWIVELOCKAnchor Corkscrew Fiberwire 5.5mm 2 Full Thread Peek 14.7mm Suture 2 Sterile - [id number]: 33-59-1092Spjjixz on above:Description: PEEK CORKSCREW Functional Status HqkfRzmyisyjgwTdluaeYkkpmzqv38-28-1416Rcn you deaf, or do you have serious difficulty hearingNo 06/08/2014 1:57 PM EDT Nae Smith Ma [facility] Work Phone: [phone] you blind, or do you have serious difficulty seeing, even when wearing glassesNo 06/08/2014 1:57 PM EDT Nae Smith Ma [facility]03-12-2015Do you have serious difficulty walking or climbing stairsNo 06/08/2014 1:57 PM EDT Nae Smith Ma [facility] 45-99-5942Js you have difficulty dressing or bathingNo 06/08/2014 1:57 PM EDT Nae Smith MaSelect Medical [facility], AvonEontca13-24-3169Bkiriyw of a physical, mental, or emotional condition, do you have difficulty doing errands alone such as visiting a physician's office or shoppingNo 06/08/2014 1:57 PM EDT Nae Smith Ma [facility] Mental Status MzqvPazxkpdlskJrqspgGwpsghsv15-40-3677Ffuptxn of a physical, mental, or emotional condition, do you have serious difficulty concentrating, remembering, or making decisionsNo 06/08/2014 1:57 PM EDT Sarah Hernandez Nae [facility] Clinical Notes 04-07-2007 to 01-30-2025 Note Date & YbmaJrxkSvcwicsd86-52-9478 Evaluation note* Diagnosis Onset Date Resolution Status Admit Date Laceration of hand, left acuteNovember 2024 10:58amLaceration of hand, leftacuteNovember 2024 10:54am [facility] [place] Work Phone: [phone]) 742-342611-03-2025 Evaluation note* Diagnosis Onset Date Resolution Status Admit Date Laceration of hand, left acuteNovember 2024 10:58amLaceration of hand, leftacuteNovember 2024 10:54amHyperlipidemiaacuteNovember 2024 3:12pmHypertensionacuteNovember 2024 3:12pmScreening for colon canceracuteNov2024 3:12pm SeizuresacuteNovember 2024 3:12pm [facility] [place] Work Phone: [phone] 437-554710-23-2025 History of Present illness Narrative* Josiah Blankenship [...] file prior to visit. documented in this encounterUniversity of Missouri Children's HospitalCcuvxjhvap91-20-1649 Telephone encounter Note* Telephone Encounter - Phillip Hill PA-C - 10/05/2024 11:00 AM EDT The following approved medication requests have been transmitted electronically. Requested Prescriptions Signed Prescriptions Disp Refills levETIRAcetam (KEPPRA) 1,000 mg tablet 180 tablet 3 Sig: Take 1 tablet by mouth two times a day. Authorizing Provider: PHILLIP HILL PA-C [facility]07-09-2025 Miscellaneous Notes* Telephone Encounter - Phillip Hill [...] Contact Number: [facility] Number: [phone] Generic/ brand: Generic 30 or 90 day supply requested: 90 Last appointment: 09/09/24 Next Appointment: none Patient of Dr. Justin Carolina [id number] [address] [place], [place] [address] documented in this encounterKettering Health Behavioral Medical Center07-09-2025 Telephone encounter Note * Telephone Encounter - Zonia Phillips - 10/05/2024 10:34 AM EDT Prescription Refill: Requested by: pharmacy Please E-Scribe Caller Contact Number: [facility] Number: [phone] Generic/ brand: Generic 30 or 90 day supply requested: 90 Last appointment: 09/09/24 Next Appointment: none Patient of Dr. Justin Carolina [id number] [address] [place], [place] [address] [facility]06-30-2025 Telephone encounter Note* Telephone Encounter - Clyde Aponte APRN.CNP - 09/26/2024 2:27 PM EDT The following approved medication requests have been transmitted electronically. Requested Prescriptions Signed Prescriptions Disp Refills carBAMazepine (TEGRETOL) 200 mg tablet 315 tablet 3 Sig: TAKE 1 AND 1/2 TABLETS BY MOUTH EVERY MORNING AND 2 TABLETS EVERY EVENING Authorizing Provider: CLYDE APONTE APRN.CNP [facility]06-30-2025 Miscellaneous Notes* Telephone Encounter - Clyde Aponte [...] Contact Number: [facility] Number: [phone] Generic/ brand: 30 or 90 day supply requested: 90 Last appointment: 09-09-2024 Next Appointment: none Patient of Dr. Justin Carolina [id number] [address] [place] [address] documented in this encounterKettering Health Behavior[facility] Medical Center06-30-2025 Telephone encounter Note * Telephone Encounter - Alina Sanchez - 09/26/2024 1:44 PM EDT Prescription Refill: Requested by: pharmacy Please E-Scribe Caller Contact Number: [facility] Number: [phone] Generic/ brand: 30 or 90 day supply requested: 90 Last appointment: 09-09-2024 Next Appointment: none Patient of Dr. Justin Carolina [id number] [address] [place], [place] [address] [facility]06-13-2025 NoteHNO ID: [id number] Author: TRINA SINHA APRN.FERRY ENGINEER Service: ? Author Type: Nurse Practitioner Type: Progress Notes Filed: 09/12/2024 09:35 Note Text: [facility] EPILEPSY CENTER VIRTUAL VISIT I have communicated my name and active licensure. The patient's identity and physical location were verified at the time of this visit. Either the patient or their legal construction sales representative has been informed of the risks and benefits of -- and alternatives to -- treatment through a remote evaluation and consents to proceed with the evaluation remotely. Patient on video y himself. Lives in [place], [place]. HISTORY OF PRESENT ILLNESS: Caio Carolina [...] CPAP at night.. Occupation: Works FT at [employer] , lives with his . Driving: yes [...] request for download report. Fax results to [phone]. CPAP Provide new SD card. Current card is not functional. CPAP AutoPAP 5-12 cmH2O, mask, humidity, filters. Lifetime supplies. Dx: G47.33. Fax 30 day compliance rpt to [phone] when available. CPAP CPAP 11 cmH2O, mask, tubing, humidifier, filters. Lifetime supplies. Dx: G47.33 DME: [employer], f: [phone] No current facility-administered medications for this visit. [...] seizures, medications, general health, documentation. Trina Sinha APRN.FERRY ENGINEER September 09[facility]06-13-[facility] History of Present illness Narrative* Trina Sinha, SCHUYLER.FERRY ENGINEER - 09/09/2024 4:19 PM EDT [facility] EPILEPSY CENTER VIRTUAL VISIT I have communicated my name and active licensure. The patient's identity and physical location wereverified at the time of this visit. Either the patient or their legal construction sales representative has been informed of the risks and benefits of -- and alternatives to -- treatment through a remote evaluation andconsents to proceed with the evaluation remotely. Patient on video y himself. Lives in [place], [place]. HISTORY OF PRESENT ILLNESS: Caio Carolina [...] CPAP at night.. Occupation: Works FT at [employer]. , lives with his . Driving: yes [...] request for download report. Fax results to [phone]. CPAP Provide new SD card. Current card is not functional. CPAP AutoPAP 5-12 cmH2O, mask, humidity, filters. Lifetime supplies. Dx: G47.33. Fax 30 day compliance rpt to [phone] when available. CPAP CPAP 11 cmH2O, mask, tubing, humidifier, filters. Lifetime supplies. Dx: G47.33 DME: [facility], f: [phone] No current facility-administered medications for this visit. [...] seizures, medications, general health, documentation. Trina Sinha APRN.VANESSA September 09, 2024 documented in this encounterKettering Health [facility] Center05-20-2025 History of Present illness Narrative* Josiah Blankenship [...] of evaluation and management. documented in this encounterUniversity of Missouri Children's HospitalAgdanuqzdd96-28-9746 History of Present illness Narrative* Josiah Blankenship [...] will reconsider antibiotic therapy. documented in this encounterUniversity of Missouri Children's HospitalNqndyckheg96-00-2812 History of Present illness Narrative* Josiah Blankenship [...] left shoulder As above documented in this encounterUniversity of Missouri Children's HospitalNsbrafxhjr94-99-8576 History of Present illness Narrative* Trina Sinha, CYBER SOFTWARE ENGINEER.FERRY ENGINEER - 08/27/2023 5:33 PM EDT [facility] EPILEPSY CENTER VIRTUAL VISIT I have communicated my name and active licensure. The patient's identity and physical location wereverified at the time of this visit. Either the patient or their legal construction sales representative has been informed of the risks and benefits of -- and alternatives to -- treatment through a remote evaluation andconsents to proceed with the evaluation remotely. Patient on video by himself. Lives in [place], [place]. HISTORY OF PRESENT ILLNESS: Caio Carolina [...] or when he sleeps. Occupation: Works at [employer]. and lives with his . Driving: yes [...] request for download report. Fax results to [phone]. CPAP Provide new SD card. Current card is not functional. CPAP AutoPAP 5-12 cmH2O, mask, humidity, filters. Lifetime supplies. Dx: G47.33. Fax 30 day compliance rpt to [phone] when available. CPAP CPAP 11 cmH2O, mask, tubing, humidifier, filters. Lifetime supplies. Dx: G47.33 [facility], f: [phone] No current facility-administered medications for this visit. [...] of driving laws here in the state [facility]. - Consults: none - Follow up: 12 months I spent 14 minutes during this encounter counseling on seizures, medications /effects, lifestyle, triggers for seizures, safety, documentation.. Trina Sinha APRN.FERRY ENGINEER August 27, 2023 documented in this encounterKettering Health Behavioral [facility] Center02-05-2024 History of Present illness Narrative* Josiah Blankenship [...] reviewed with the patient. documented in this encounterUniversity of Missouri Children's HospitalFglsqymgat43-60-9814 Miscellaneous Notes* Telephone Encounter - Clyde Aponte APRN.VANESSA - 01/28/2023 10:37 AM EDT The following approved medication requests have been transmitted electronically. Requested Prescriptions Signed Prescriptions Disp Refills carBAMazepine (TEGRETOL) 200 mg tablet 315 tablet 3 Sig: TAKE 1 AND 1/2 TABLETS BY MOUTH EVERY MORNING AND 2 TABLETS EVERY EVENING Authorizing Provider: CLYDE APONTE APRN.CNP documented in this encounterKettering Health Behavioral Medical Center05-01-2023 Miscellaneous Notes* Telephone Encounter - Jasmin Brooks APRN.CNP - 07/28/2022 11:08 PM EDT The following approved medication requests have been transmitted electronically. Requested Prescriptions Signed Prescriptions Disp Refills carBAMazepine (TEGRETOL) 200 mg tablet 315 tablet 1 Si 1/2 TAB IN AM AND 2 TABS IN PM Authorizing Provider: JASMIN BROOKS APRN.VANESSA documented in this encounterKettering Health Behavioral Medical Center06-03-2022 Miscellaneous Notes* Telephone Encounter - Catalina Degroot RN - 08/30/2021 10:34 AM EDT I spoke with Nubia at [employer], she was informed form is inappropriate for this office. Catalina Degroot RN * Telephone Encounter - Ilana Oleary - 08/29/2021 12:42 PM EDT Form received: From (agency / facility / parent): [employer] shipbuilding draftsperson (if given): Phone #: [phone] Fax # : [phone] Email: [email or web address] Information requested: Certificate of medical necessity Patient of Dr. Anderson Forwarded to nurse. documented in this encounterKettering Health Behavioral [facility] Center03-25-2022 Miscellaneous Notes* Telephone Encounter - Catalina Degroot RN - 06/21/2021 8:51 AM EDT Images from the original note were not included. 06/21/21 Trina Sinha APRN.FERRY ENGINEER P Neur Epilepsy [facility], Need a lab form sent to this patient via mail. Need below: Dx code R56.1 CBZ (total), LEV, cmp, cbc Thank you. 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 Theyare an established patient of Dr. Anderson and was last seen on 06/19/2020 . Seizures: None Last reported was in [id number] AED's: Keppra 1000mg BID CBZ 200mg, 1.5 tabs in am and 2 tabs in the pm In other health, using his CPAP Occupation: works at [employer] Driving: yes Mood: good Memory: good CURRENT [...] request for download report. Fax results to [phone]. CPAP Provide new SD card. Current card is not functional. CPAP AutoPAP 5-12 cmH2O, mask, humidity, filters. Lifetime supplies. Dx: G47.33. Fax 30 day compliance rpt to [phone] when available. naproxen (NAPROSYN) 500 mg tablet Take 1 tablet by mouth twice daily with meals. Take with food CPAP CPAP 11 cmH2O, mask, tubing, humidifier, filters. Lifetime supplies. Dx: G47.33 DME: [facility], f: [phone] No current facility-administered medications for this visit. [...] 10 minutes during this encounter counseling on fdc effects of medications. Trina Sinha APRN.FERRY ENGINEER June 19, 2021 documented in this encounterKettering Health [facility]al [facility] Center01-09-2008 History of Past illness Narrative* ProblemNoted DateResolved DateCerebral aneurysm, nonruptured documented as of this encounter (statuses as of 06/21/2021) [facility]01-09-2008 History of Past illness Narrative* ProblemNoted Date Resolved DateCerebral aneurysm, jmwgpiwmuge77documented as of this encounter (statuses as of 06/21/2021) [facility]01-09-2008 History of Past illness Narrative* ProblemNoted Date Resolved DateCerebral aneurysm, easpbnfxrwc61documented as of this encounter (statuses as of 08/30/2021) [facility]01-09-2008 History of Past illness Narrative* ProblemNoted Date Resolved DateCerebral aneurysm, ixktdfxpafo86documented as of this encounter (statuses as of 07/29/2022) [facility]01-09-2008 History of Past illness Narrative* ProblemNoted Date Diagnosed DateResolved DateCerebral aneurysm, syhbnhlfujc43 documented as of this encounter (statuses as of 01/28/2023) [facility] note* Diagnosis Post traumatic seizure disorder (HCC) Post traumatic seizures documented in this encounter [facility] CenterEvalunemours foundation note* Diagnosis Post traumatic seizure disorder (HCC) Post traumatic seizures [facility]* Diagnosis Post traumatic seizure disorder (HCC) Post traumatic seizures [facility]* Diagnosis Chronic right shoulder pain- Primary Pain in joint, shoulder region Rotator cuff syndrome, right Chronic right shoulder pain Pain in joint, shoulder region Rotator cuff syndrome, right documented in this encounter [facility] HospitalEvaluation note* Diagnosis Post traumatic seizure disorder (HCC) Post traumatic seizures documented in this encounter [facility] CenterEvalunemours foundation note* Diagnosis Essential hypertension (CMS/HCC)- Primary Unspecified essential hypertension Mixed dyslipidemia (CMS/HCC) Chronic left shoulder pain Pain in joint, shoulder region 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 Impingement syndrome of left shoulder documented in this encounter [facility] HealthcareEvaluation note* Diagnosis Chronic left shoulder pain Pain in joint, shoulder region documented in this encounter [facility] HealthcareEvaluation note* Diagnosis Viral upper respiratory tract infection- Primary Acute upper respiratory infections of unspecified site documented in this encounter [facility] HealthcareEvaluation note* Diagnosis Essential hypertension (CMS/HCC) Unspecified essential hypertension documented in this encounter [facility] HealthcareEvaluation note* Diagnosis Essential hypertension (CMS/HCC) Unspecified essential hypertension Mixed dyslipidemia (CMS/HCC) documented in this encounter [facility] HealthcareEvaluation note* Diagnosis STEVAN on CPAP- Primary Obstructive sleep apnea (adult) (pediatric) Post traumatic seizure disorder (HCC) Post traumatic seizures [facility] Diagnosis Post traumatic seizure disorder (HCC) Post traumatic seizures [facility]* Diagnosis Essential hypertension Unspecified essential hypertension Mixed dyslipidemia Chronic left shoulder pain Pain in joint, shoulder region documented in this encounter [facility] HealthcareEvaluation note* Diagnosis Onset Date Resolution Status Admit Date Laceration of hand, left acuteNovember 2024 10:58am [facility] [place] Work Phone: Reason for referral (narrative)No reason for referral information availableKing'S D[facility] [place] Work Phone: Summary Purpose Family History Relationship Condition Age at Onset Recorded Date/T mary father Diabetes mellitus Unknown Cerebrovascular accident (CVA)UnknownmotherHigh blood cholesterolUnknown Advance Directives Advance Directive Response Recorded Date/ Time Advance Directives No January 26, 2020 5:48am Chief Complaint and Reason for Visit Chief Complaint Admit Date [facility] ER LT HAND LAC WX January 30, 2025 10:58am Reason for Visit Admit Date Laceration of hand, left January 30, 025 10:58am Chief Complaint Admit Date [facility] ER LT HAND LAC WX January 30, 2025 10:58am [facility] 1 WEEK February 06, 2025 10:54am Reason for Visit Admit Date Laceration of hand, left January 30, 025 10:58am Laceration of hand, left February 06, 2025 10:54am Chief Complaint Admit Date [facility] ER LT HAND LAC WX January 30, 2025 10:58am [facility] 1 WEEK February 06, 2025 10:54am [facility] February 06, 2025 3:12pm Reason for Visit Admit Date Laceration of hand, left January 30 10:58am Laceration of hand, left February 06, 2025 10:54am Hyperlipidemia February 06, 2025 3:12pm Hypertension February 06, 2025 3:12pm Screening for colon cancer January 3:12pm Seizures February 06, 2025 3:12pm Additional Source Comments Source Comments (unrecognize d section and content) In the event this informatio n is protected by the Federal Confidentiality of Alcohol and Drug Abuse Patient Records regulations: The Federal rules restrict any use of the information to criminally investigate or prosecute any alcohol or drug abuse patient.[facility] CenterIn the event this information is protected by the Federal Confidentiality of Alcohol and Drug Abuse Patient Records regulations: The Federal rules restrict any use of the information to criminally investigate or prosecute any alcohol or drug abuse patient.[facility] CenterIn the event this information is protected by the Federal Confidentiality of Alcohol and Drug Abuse Patient Records regulations: The Federal rules restrict any use of the information to criminally investigate or prosecute any alcohol or drug abuse patient.[facility] CenterIn the event this information is protected by the Federal Confidentiality of Alcohol and Drug Abuse Patient Records regulations: The Federal rules restrict any use of the information to criminally investigate or prosecute any alcohol or drug abuse patient.[facility] CenterIn the event this information is protected by the Federal Confidentiality of Alcohol and Drug Abuse Patient Records regulations: The Federal rules restrict any use of the information to criminally investigate or prosecute any alcohol or drug abuse patient.[facility] CenterIn the event this information is protected by the Federal Confidentiality of Alcohol and Drug Abuse Patient Records regulations: The Federal rules restrict any use of the information to criminally investigate or prosecute any alcohol or drug abuse patient.[facility] CenterIn the event this information is protected by the Federal Confidentiality of Alcohol and Drug Abuse Patient Records regulations: The Federal rules restrict any use of the information to criminally investigate or prosecute any alcohol or drug abuse patient.[facility] CenterIn the event this information is protected by the Federal Confidentiality of Alcohol and Drug Abuse Patient Records regulations: The Federal rules restrict any use of the information to criminally investigate or prosecute any alcohol or drug abuse patient.[facility] CenterIn the event this information is protected by the Federal Confidentiality of Alcohol and Drug Abuse Patient Records regulations: The Federal rules restrict any use of the information to criminally investigate or prosecute any alcohol or drug abuse patient.[facility] Reason for Visit (unrecogniz ed section and content) ReasonCommentsFollow UpRefill RequestSpecialtyDiagnoses / ProceduresReferred By ContactReferred To ContactNeurology / EPILEPSY Diagnoses Partial epilepsy with impairment of consciousness Procedures OFFICE/OUTPATIENT ESTABLISHED MOD MDM 30-39 MIN VIDEO SPEC EST Self Trina Sinha, CYBER SOFTWARE ENGINEER.FERRY ENGINEER [address] [place] [address] Referral IDStatusReasonSthuntsville DateExpiration DateVisits RequestedVisits [id number]/1/202212/31/162267EaabrlSfdukaboWms req emailed to patientReasonCommentsFormsHart Medical EquipmentReasonOnset DateCommentsRefill Gjfyeum7507/28/2022ReasonCommentsRefill RequestReasonCommentsJoint PainReason CommentsFollow UpRefill RequestFollowup for Epilepsy and general health review, RFS.ReasonCommentsMed RefillReasonCommentsHypertensionHyperlipidemiaReason CommentsFollow UpSeizuresRefill RequestSpecialtyDiagnoses / ProceduresReferred By ContactReferred To ContactNeurology / EPILEPSY Diagnoses Encounter for medication refill Yearly med refills. No changes. Seizure free Procedures SYNCHRONOUS AUDIO-ONLY VISIT EST HIGH MDM 40 MIN VIDEO SPEC DIRECT SCHED Self Trina Sinha, CYBER SOFTWARE ENGINEER.FERRY ENGINEER [address] [place] [address] Phone: tel: fax: Referral IDStatusReasonDugger DateExpiration DateVisits RequestedVisits [id number]/13/202512/[id number] DateCommentsRefill Xazkpyk9109/26/2024ReasonOnset DateCommentsRefill Mhaxeec3310/05/2024 Care Teams (unrecognized sec tion and content) Team MemberRelationshipSpecialtyStart DateEnd Date Josiah Blankenship [address] [place] [phone] (Fax) PCP - GeneralFamily Practice07/17/17Team MemberRelationshipSpecialtyStart DateEnd Date [place] [address] (Fax) PCP - GeneralFamily Practice07/17/17Team MemberRelationshipSpecialtyStart DateEnd Date Josiah Blankenship MD [address] [facility] [place] [address] (Fax) PCP - GeneralFamily Practice07/17/17Team MemberRelationshipSpecialtyStart DateEnd Date Josiah Blankenship MD [address] [facility] [place] [address] (Fax) PCP - GeneralFamily Medicine07/17/17Team MemberRelationshipSpecialtyStart DateEnd Date Josiah Blankenship MD [address] [facility] [place] [address] (Fax) PCP - GeneralFamily Medicine07/17/17Team MemberRelationshipSpecialtyStart DateEnd Date Josiah Blankenship MD [address] [place] [address] PCP - GeneralFamily Medicine08/21/22Team MemberRelationshipSpecialtyStart DateEnd Date Josiah Blankenship MD [address] [facility] [place] [address] (Fax) PCP - GeneralFamily Medicine07/17/17Team MemberRelationshipSpecialtyStart DateEnd [...] MemberRelationshipSpecialtyStart DateEnd Date Josiah Blankenship MD [address] [place] [address] (Fax) PCP - GeneralFamily Medicine07/17/17Team MemberRelationshipSpecialtyStart DateEnd Date Josiah Blankenship MD [address] [place] [address] (Fax) PCP - GeneralFamily Medicine07/17/17Team MemberRelationshipSpecialtyStart DateEnd Date Josiah Blankenship MD (Fax) PCP - GeneralFamily Medicine08/21/22 Team Status: Active Member Role/Relationship Status Dates Josiah Blankenship MD Primary Care Provider Active Team Status: Inactive Member Role/Relationship Status Dates Yomi Prescott DO Attending Provider Active S tart: January 30, 2025 End: January 30, 2025Fredi Garcia Care ProviderActiveStart: January 30, 2025 End: January 30, 2025 Team Status: Active Member Role/Relationship Status Dates Sonali Mckinney APRN [employer]-C Primary Care Provider Active Team Status: Inactive Member Role/Relationship Status Dates Yomi Prescott DO Attending Provider Active S tart: February 06, 2025 End: February 06, 2025Sonali Mckinney APRN [employer]-CPrimary Care Provider ActiveStart: February 06, 2025 End: February 06, 2025 Team Status: Inactive Member Role/Relationship Status Dates Sonali Mckinney APRN [employer]-C Primary Care Provider Active Start: February 062024 End: February 06, 2025Sonali Mckinney APRN [employer]-CAttending ProviderActive Start: February 06, 2025 End: February 06, 2025 (unrecognized sect ion and content) No Status Records FoundNo Status Records FoundNo Status Records Found INFORMATION SOURCE (unrecogn ized section and content) DATE CREATED AUTHOR 09/04/2021 [facility] DATE CREATED AUTHOR AUTHOR'S ORGANIZ ATION 09/12/2024 [facility] DATE CREATED AUTHOR AUTHOR'S ORGANIZ ATION 01/21/2025 [facility] EPIC Goals (unrecognized section and content) Goals may be documented in a n alternate sectionGoals may be documented in an alternate sectionGoals may be documented in an alternate section FOR RECORDS PERTAINING TO PATIENTS WHO ARE [...] BE BASED ON THE PRIMARY CLINICAL RECORDS. [employer] provides no warranty or guarantee of the accuracy or completeness of information in this document.
--- OUTSIDE RECORDS SUMMARY | 2025-02-21 07:13 | XMS_ITS | Clinical Summary ---
Author Organization [facility] Address [address] [place], [place] [address] Care Team Providers Care Private Equity Analyst Name Role Phone Mesfin Chin MD Primary Care Provider Allergies No known active allergies Medications MedicationSigDispense QuantityRefillsLast FilledStart DateEnd DateStatus CPAP Indications:STEVAN (obstructive sleep apnea)CPAP 11 cmH2O, mask, tubing, humidifier, filters. Lifetime supplies. Dx: G47.33 DME: [employer], f: [phone] 1 Device Active CPAP Provide new SD card. Current card is not functional. 1 Device 11/03/2016Active CPAP AutoPAP 5-12 cmH2O, mask, humidity, filters. Lifetime supplies. Dx: G47.33. Fax 30 day compliance rpt to [phone] when available. 1 Device 11/03/2016Active CPAP 2nd request for download report. Fax results to [phone]. 1 Device 02/02/2017Active calcium carbonate (OS-BALWINDER 500) [...] repair - LEFT06/30/2016OSA on CPAP06/20/2016Post traumatic seizure ouhkmehq94/24/2017Incomplete tear of left rotator cuff06/12/2016Cubital tunnel syndrome on left05/01/2016Chronic left shoulder pain03/13/2016Lateral epicondylitis of left elbow03/13/2016Impingement syndrome of left /15/2016Adhesive capsulitis of left shoulder 03/13/2016 Resolved Problems ProblemNoted DateDiagnosed DateResolved DateCerebral aneurysm, nonruptured Family History Medical HistoryRelationCommentsDiabetesFatherRelationStatusCommentsFatherAlive MotherAlive Social History Tobacco UseTypesPacks/DayYears UsedDateSmoking Tobacco: NeverSmokeless Tobacco: Never Tobacco Cessation:Counseling Given: No Alcohol UseStandard Drinks/WeekCommentsYes0 (1 standard drink = 0.6 oz pure alcohol)very rarePHQ-2AnswerDate RecordedPHQ-2 cyoyk9555Area Deprivation IndexAnswerDate RecordedNational Score (1-100), lower number is lower risk87 2022State Score (1-10), lower number is lower kfdv6633Data from: https://www.neighborhoodatlas.medicine.[facility].edu/. Last address used for n[address] [facility]2022Sex and Gender InformationValueDate RecordedSex Assigned at IxvrkQxim72/22/2022 10:12 PM EDTLegal YjiOhwf41/02/2012 8:11 AM ESTGender CcmsccgcXszv89/22/2022 10:12 PM EDTSexual OrientationStraight 09/08/2024 8:53 PM EDTOccupationIndustryJob Start DateJob End DateGENERALNot on fileNot on fileNot on file Last Filed Vital Signs Vital SignReadingTime TakenCommentsBlood Dizdwlet561/27365 10:07 AM EDT Uebhi473406/19/2020 10:07 AM GEWMgpveczdxdw29.4 ??C (97.6 ??F)01/30/2017 9:24 AM EDTRespiratory Uwrn927806/19/2020 10:07 AM EDTOxygen Kcmvfyzcom64%06/19/2020 10:07 AM EDTInhaled Oxygen Concentration--Lrrbbd48.1 kg (170 lb)06/19/2020 10:07 AM BEGNehofn236.4 cm (6' 1 )06/19/2020 10:07 AM EDTBody Mass Index22.43006/19/2020 10:07 AM EDT Plan of Treatment Health MaintenanceDue DateLast DoneCommentsAnxiety Fbkaaiwcl91/12/1993Depression Zqxypblmh65/12/1993HIV Oqvggeftu57/12/1993Hepatitis C Xcbwkzxxr92/12/1993 DTaP,Tdap,Td Vaccine (1 - Tdap)1993Hepatitis B Vaccine (1 of 3 - 19+ 3- dose series)1993Lipid Oppzxlbhe07/12/2010CT Hziomukibqpx57/12/2020 Cologuard (FIT-DNA)08/09/20199845Cpxvwdbyfcc47/12/2020Colorectal Cancer Screening 08/09/2019Fecal Occult Blood08/09/20197333Atkzxlioywqyy48/12/2020Diabetes Screening , 04/11/2016, 04/11/2015, Additional history exists Pneumococcal Vaccine: 50+ (1 of 1 - PCV)2024Shingrix Vaccine (1 of 2) 5Covid-19 Vaccine ( - season)/, 05/09/2022, 10/06/2021, Additional history existsInfluenza Vaccine (#1)/, 05/09/2022, 12/29/2020, Additional history exists Medical Devices ImplantedTypeAreaManufacturerDevice IdentifierShelf Expiration DateModel / Serial / LotAnchor Swivelock 4.75mm Peek 19.1mm Suture Closed Eyelet Vent Sterile - [id number] Implanted:Qty: 1 on 06/30/2016 at [facility]: Bone - Shoulder [employer]02/26/2021R-2324PSLC / / [id number]:PEEK SWIVELOCKAnchor Swivelock 4.75mm Peek 19.1mm Suture Closed Eyelet Vent Sterile - [id number] [facility] [employer]12/27/2020R-2324PSLC / / [id number]:PEEK SWIVELOCKAnchor Corkscrew Fiberwire 5.5mm 2 Full Thread Peek 14.7mm Suture 2 Sterile - [id number] [facility] - Shoulder [employer]09/26/2020R-1927PSF / / [id number]:PEEK CORKSCREW Procedures Procedure NamePriorityDate/TimeAssociated DiagnosisCommentsCOMPREHENSIVE METABOLIC SVRADNldzffa28/23/2021 10:35 AM EDT Partial epilepsy with impairment [...] mg/dL06/19/2020 5:[facility] Alkaline Qbhumhhjvza9562 - 113 U/L06/19/2020 5:19 [facility] KpywdlzqqmmfXHG0885 - 40 U/L06/19/2020 5:19 [facility] HctomstbrplqVywfnuc9096 - 99 mg/dL06/19/2020 5:19 PM [facility] LaboratoriesComment: The [place] Diabetes Association (ADA) provides guidance for cutoff [...] Standards of Medical Care in Diabetes 2016, [place] Diabetes Association. Diabetes Care. 2016.39(Suppl 1). UVA015 - 24 mg/dL06/19/2020 5:19 PM [facility] LaboratoriesCreatinine 0.850.73 - 1.22 mg/dL06/19/2020 5:19 PM [facility] LaboratoriesSodium 723110 - 144 mmol/L06/19/2020 5:19 PM [facility] LaboratoriesPotassium 4.13.7 - 5.1 mmol/L06/19/2020 5:19 PM [facility] LaboratoriesChloride 19752 - 105 mmol/L06/19/2020 5:19 PM [facility] WwdvelwefmumAC13580 - 30 mmol/L06/19/2020 5:19 PM [facility] LaboratoriesAnion Gap99 - 18 mmol/L06/19/2020 5:19 PM [facility] JisdylssqfhvZFD0081 - 54 U/L 06/19/2020 5:19 PM [facility] LaboratorieseGFR->60 06/19/2020 5:19 PM [facility] LaboratorieseGFR-All Other Races>60. 06/19/2020 5:19 PM [facility] LaboratoriesComment: eGFR (Estimated GFR) Units of measure: [...] / Volume Collection TimeReceived TimeBloodBLOOD SPECIMEN / Vkcejvx3006/19/2020 10:35 AM EDT 06/19/2020 10:37 AM EDT Narrative Authorizing ProviderResult TypeResult StatusSilvia Justin Ramos MDLABORATORY Final ResultPerforming OrganizationAddressCity/State/ZIP CodePhone Number [facility] [address] [place] [address] [facility] [address] [place] [address] from Last 3 Months or Most Recently Relevant to Health Maintenance Insurance Care Teams Team MemberRelationshipSpecialtyStart DateEnd Mesfin Chin MD [address] [place] [address] PCP - GeneralFamily Medicine07/17/17
--- OUTSIDE RECORDS SUMMARY | 2025-02-21 07:13 | XMS_ITS | Clinical Summary ---
Author Organization [facility] Address [address] [place] [address] Care Team Providers Care Operations Support Professionals Name Role Phone Mesfin Chin MD Primary Care Provider + [phone] Allergies No known active allergies Medications MedicationSigDispense [...] (10 mg) by mouth Daily 90 tablet 504/ctive losartan (Cozaar) 100 MG tablet Indications:Essential hypertensionTake 1 tablet (100 mg) by mouth Daily 90 tablet /359240/6Active atorvastatin (Lipitor) 40 MG tablet Indications:Mixed dyslipidemiaTake 1 tablet (40 mg) by mouth in the evening 90 tablet /ctive nabumetone (Relafen) 750 MG tablet Indications:Chronic left shoulder painTake 1 tablet (750 mg) by mouth in the morning and 1 tablet (750 mg) before bedtime. 180 tablet /234480/ctive Active Problems ProblemNoted DateDiagnosed DateMixed uzkiznuduxen64/02/2024ependence on other enabling machines and dbpjgmf0809/01/2022Essential izbtkmosuvjy66/05/2023rand mal seizure /05/2023Obstructive sleep apnea (adult) (pediatric)09/01/2022 Postural kyphosis of cervicothoracic lodmqu0109/01/2022Reactive depression 09/01/2022rimary osteoarthritis of right elbow09/01/2022S/P rotator cuff repair 06/30/2016Post traumatic seizure dgaljpgx57/24/2017Incomplete tear of left rotator cuff06/12/2016Cubital tunnel syndrome on left05/01/2016Chronic left shoulder pain03/13/2016Adhesive capsulitis of left nmwzzovz96/15/2016Impingement syndrome of left dooyajcj95/15/2016Lateral epicondylitis of left elbow03/13/2016 Encounters DateTypeDepartmentCare IbhjNreeyfejyxu49/04/2025Telephone [facility] [address] [address] [place] [address] Zaynab Church RN ER Follow-up ([facility] ER on 01/27/2025 for Left hand lacertation)01/19/2025 3:30 PM EDTOffice Visit [facility] 112 [facility] [address] [place] [address] Mesfin Chin MD Essential hypertension; Mixed dyslipidemia; Chronic left shoulder pain01/19/2025amboo flowsheet [facility] 112 [facility] [address] [place] [address] Mesfin Chin MD 01/19/20256802Errbgn37/02/2025Refill [facility] 112 [facility] [address] [place] [address] Mesfin Chin MD Essential nunktiosbbym66/02/2025Telephone [facility] 112 [facility] [address] [place] [address] Mesfin Chin MD from Last 3 Months Immunizations ImmunizationAdministration DatesNext DueInfluenza, injectable, quadrivalent, preservative free12/22/2022,05/09/2022,12/29/2020,01/31/2020,01/01/2019, 12/23/2017Influenza, seasonal, injectable, preservative free12/20/2016, 01/20/2015Pfizer Bivalent Booster 12 Years And Older05/09/20224746BXLF-OWZ-8 (COVID- 19) vaccine, mRNA, spike protein, LNP, PF, hue-sucrose, 30 mcg/0.3 mL12/22/2022 Tetanus toxoid, aiiwlkcv58/19/2001 Family History Medical HistoryRelationNameCommentsNo Known ProblemsDaughterArthritisFatherDave DiabetesFatherDaveHeart diseaseFatherDaveStrokeFatherDaveArthritisMotherPat AsthmaMotherPatDiabetesMotherPatAlcohol abuseMother's BrotherTomArthritis Paternal GrandmotherMaudeNo Known ProblemsSister 1No Known ProblemsSister 2No Known ProblemsSister 3RelationNameStatusCommentsDaughterAliveFatherDaveAlive MotherPatAliveMother's BrotherTomPaternal GrandmotherMaudeSister 1AliveSister 2 AliveSister 3Alive Social History Tobacco UseTypesPacks/DayYears UsedDateSmoking Tobacco: NeverSmokeless Tobacco: Never Tobacco Cessation:Counseling Given: Yes Alcohol UseStandard Drinks/DcoeCbxiicecAuk09 (1 standard drink = 0.6 oz pure alcohol)caffeine intake: 2-3 cups per ofxW3014 Health LiteracyAnswerDate RecordedHow often do you need [...] relatives?Once a week03/03/2024How often do you attend yazidi or nondenominational services?More than 4 times per year03/03/2024o you belong to any clubs or organizations such as yazidi groups, unions, [employer] or athletic lali ups, or school groups?No03/03/2024How often do you attend meetings of the clubs or organizations you belong to?Never03/03/2024re you , , , , never , or living with a partner?Perywtj8103/03/2024 AUDIT-CAnswerDate RecordedQ1: How often do you have [...] at all 03/03/2024HQ-2AnswerDate RecordedPatient Health Questionnaire-2 Score0 09/01/2022[facility] [place] - Occupational Stress QuestionnaireAnswerDate RecordedDo you feel stress - tense, restless, nervous, or anxious, or unable to sleep at night because yourmind is troubled all the time - these days?Only a xhziig9003/03/2024Exercise Vital SignAnswerDate Recorded On average, how many [...] steady place to sleep or slept in sterlingelter (including now)?No08/31/2022Housing Stability Vital SignAnswerDate RecordedIn the last 12 months, was there a time when you were not able to pay the mortgage or rent on time?No03/03/2024In the past 12 months, how many times have you moved where you were living? At any time in the past 12 months, were you homeless or living in a snf (including now)?No03/03/2024EducationAnswerDate RecordedWhat is the highest level of school you have completed or the highest degree you have received?Some college, no yohtgp9908/05/2022Sex and Gender InformationValueDate RecordedSex Assigned at BirthNot on fileLegal NmqGeib3506/11/2022 7:26 PM EDTGender Identity Not on fileSexual OrientationNot on fileOccupationIndustryJob Start DateJob End Dateworks full-timeNot on fileNot on fileNot on file Last Filed Vital Signs Vital SignReadingTime TakenCommentsBlood Uhwwjdbm919/7410 3:12 PM EDT Vettn9124 3:12 PM EDTTemperature--Respiratory Rate--Oxygen Rfzdihyzvp00% 01/19/2025 3:12 PM EDTInhaled Oxygen Concentration--Ystgrr43.6 kg (171 lb) 01/19/2025 3:12 PM WEZUhwdfj238.4 cm (6' 1 )01/19/2025 3:12 PM EDTBody Mass Index22.561 3:12 PM EDT Plan of Treatment DateTypeDepartmentCare Team (Latest Contact Info)Doedfrsprku61/22/2026 3:30 PM EDTOffice Visit [facility] [address] Medicine 112 [facility] 100 [place] [address] Mesfin Chin MD 112 [facility] 100 [place] [address] Health MaintenanceDue DateLast DoneCommentsCT Eutqlwiieaef00/12/1975Colonoscopy 1975Colorectal Cancer Gsnvjrqll55/12/1975FIT-DNA1974FIT1975 FOBT1975 6662Upovriitjofre20/12/1975COVID-19 Vaccine ( season) , 05/09/2022, 07/06/2020Influenza Vaccine (#1)2024 12/22/2022, 05/09/2022, 12/29/2020, Additional history existsPneumococcal Vaccine: Pediatrics (0 to 5 Years) and At-Risk Patients (6 to 64 Years)Aged Out No longer eligible based on patient's age to complete this topic Insurance Care Teams Team MemberRelationshipSpecialtyStart DateEnd Date Mesfin Chin MD [address] [address] PCP - GeneralFamily Medicine08/21/22
[2025-02-21 07:36] LABS: Hematocrit 41.4 % (42.0-54.0); Hemoglobin 13.6 g/dL (14.0-18.0); Immature Granulocytes Abs Auto 0.01 10^3/uL (0.00-0.03); Immature Granulocytes Pct Auto 0.2 % (0.0-0.5); Lymphocytes Absolute Auto 2.0 10^3/uL (1.2-3.8); Mean Corpuscular HGB Conc 32.9 g/dL (29.9-35.2); Mean Corpuscular Hemoglobin 30.9 pg (25.9-34.0); Mean Corpuscular Volume 94.1 fL (80.0-94.0); Platelet Count 308 10^3/uL (150-450); Red Blood Count 4.40 10^6/uL (4.70-6.10); White Blood Count 6.4 10^3/uL (4.0-11.0)
[2025-02-21 08:09] LABS: Alanine Aminotransferase 36 U/L (16-63); Albumin Globulin Ratio 1.1; Albumin Level 3.6 g/dL (3.4-5.0); Alkaline Phosphatase 97 U/L (46-116); Anion Gap 11.4; Aspartate Amino Transferase 15 U/L (15-37); Blood Urea Nitrogen 14.0 mg/dL (7.0-18.0); Calcium 8.6 mg/dL (8.5-10.1); Carbon Dioxide 31.9 mmol/L (21.0-32.0); Chloride 105 mmol/L (98-107); Cholesterol 196 mg/dL (<=200); Estimated GFR (African America >60 (>=60 mL/min/1.73m^2); Estimated GFR (Non-African Ame >60 (>=60 mL/min/1.73m^2); Globulin 3.4 g/dL; Glucose 100 mg/dL (74-106); HDL Cholesterol 47 mg/dL (40-60); Potassium 4.3 mmol/L (3.5-5.1); Sodium 144 mmol/L (136-145); Total Protein 7.0 g/dL (6.4-8.2); Triglycerides 196 mg/dL (<=150); VLDL CHOLESTEROL 39.2 mg/dL
== END 2025-02-21 07:11 | disposition home or self-care (01) ==
LOC: LAB 07:10
PROVIDERS: PCP Family Medicine; Visit Provider Nurse Practitioner Family
DX: E78.5 Hyperlipidemia, unspecified (principal); I10 Essential (primary) hypertension; Z12.5 Encounter for screening for malignant neoplasm of prostate
CPT/HCPCS: 36415; 80053; 80061; 85025; G0103

== ENCOUNTER 2025-03-07 06:50 | Emergency (ER) | payer OTHER, SELFPAY ==
--- OUTSIDE RECORDS SUMMARY | 2025-03-06 07:03 | XMS_ITS | Continuity of Care Document ---
Author Organization [facility] Address [address] [place] [address] Phone Care Team Providers Care Construction Trades Teacher Name Role Phone Yomi Prescott DO Attending Provider Mesfin Chin MD Primary Care Provider Sonali Mckinney APRN Primary Care Provider Sonali Mckinney APRN Attending Provider Care Teams Patient Care Team Team Status: Active Member Role/Relationship Status Dates Sonali Mckinney APRN RECEPTION SPECIALIST-C Primary Care Provider Active Visit Care Team Team Status: Inactive Member Role/Relationship Status Dates Yomi Prescott DO Attending Provider Active S tart: January 30, 2025 End: January 30, 2025Fredi Garcia Care ProviderActiveStart: January 30, 2025 End: January 30, 2025 Visit Care Team Team Status: Inactive Member Role/Relationship Status Dates Yomi Prescott DO Attending Provider Active S tart: February 06, 2025 End: February 06, 2025Sonali Mckinney APRN RECEPTION SPECIALIST-CPrimary Care Provider ActiveStart: February 06, 2025 End: February 06, 2025 Visit Care Team Team Status: Inactive Member Role/Relationship Status Dates Sonali Mckinney APRN RECEPTION SPECIALIST-C Primary Care Provider Active Start: February 062024 End: February 06, 2025Sonali Mckinney APRN RECEPTION SPECIALIST-CAttending ProviderActive Start: February 06, 2025 End: February 06, 2025 Patient Care Team Team Status: Inactive Member Role/Relationship Status Dates Sonali Mckinney APRN RECEPTION SPECIALIST-C Primary Care Provider Active Start: February End: March 06, 2025JustRandee Clemente ProviderActiveStart: March 06, 2025 End: March 06, 2025 Chief Complaint and Reason for Visit Chief Complaint Admit Date [facility] ER LT HAND LAC WX January 30, 2025 10:58am [facility] 1 WEEK February 06, 2025 10:54am Est Care February 06, 2025 3:12pm [facility] 4 WEEKS March 06, 2025 1 1:42am Reason for Visit Admit Date Laceration of hand, left January 30, 2 025 10:58am Laceration of hand, left February 06, 2025 10:54am Hyperlipidemia February 06, 2025 3:12pm Hypertension February 06, 2025 3:12pm Overweight (BMI 25.0-29.9) January 3:12pm Screening for colon cancer January 3:12pm Screening for prostate cancer January 282024 3:12pm Seizures February 06, 2025 3:12pm Laceration of hand, left March 06, 2 025 11:42am Allergies, Adverse Reactions, Alerts Allergen Type Severity Reaction Last Updated Verified Status No Known Allergies Allergy Unknown February 06, 2025 3:14pmYesActive Social History Smoking Status Status Start Date End Date Date of Observa tion Never smoked tobacco (finding) February 06, 2025 3:24pm Observation Status Observation Response Date of Response Legal Sex Male (finding) [facility] 1975 Family History Relationship Condition Age at Onset Recorded Date/T mary father Diabetes mellitus Unknown Cerebrovascular accident (CVA)UnknownmotherHigh blood cholesterolUnknown Problems Active Problems Problem Diagnosis/Recorded Date Onset Date Stat us Screening for prostate cancer February 07, 2025 2:09 pm Unknown Active Screening for colon cancer February 06, 2025 3:40pm Unknown Active Overweight (BMI 25.0-29.9) February 07, 2025 2:15pm Unknown Active Hyperlipidemia January 30, 2025 11:26am Unknown Active Seizures January 30, 2025 11:26am Unknown A ctive Hypertension January 30, 2025 11:26am Unknown A ctive Laceration of hand, left January 30, 2025 11:35am Un known Active Medications Medication Status Dose Units Route Directions Qty Days Refills S tart Date Stop Date End Date Reason(s) Instructions Adherence Atorvastatin 40 mg tablet Active MGPONovember 2024 12:00amUnknownNabumetone 750 mg tabletActiveMGPONovember 2024 12:00amUnknownCarbamazepine 200 mg tabletActiveMGPONovember 2024 12:00amUnknownLosartan 100 mg tabletActiveMGPONovember 2024 12:00amUnknown Amoxicillin-Pot Clavulanate 875-125 mg tabletDiscontinuedTABPONovember 2024 12:00amNovember 2024 3:19pmLevetiracetam 1,000 mg tabletActiveMGPONovember 2024 12:00amUnknownNebivolol 10 mg tabletDiscontinuedMGPONovember 2024 12:00amNovember 2024 3:49pmNebivolol 10 mg qvnvsmVjunjj81ZIGEDknmy54438 February 06, 2025 3:49pmHypertension Essential (primary) hypertensionUnknown Vital Signs Vital Reading Result Reference Range Collection Date/Time Height 73 [in_i] January 30, 2025 11:39zyCxychx74.37 kgNov2024 11:22amBMI (Body Mass Index)23.1 kg/r5QxcblzsnJanuary 30, 2025 11:89piThwrrr33 [in_i]February 06, 2025 11:16fbTwkjvh97.37 [facility] 11:45amBMI (Body Mass Index)23.1 kg/m2 February 06, 2025 11:00pgQzpvan24 [in_i]February 06, 2025 3:13tuEmenjg63.18 kgNov2024 3:15pmBody Ktnzvkhadxh69.8 [degF]97.6-99.0February 06, 2025 3:15pmHeart Rcas054 /fae08-019AundodkqFebruary 06, 2025 3:15pmOxygen saturation by Pulse mpdhbkga36 %95-100February 06, 2025 3:15pmBP Lvozrfzz734 mm[Hg] 100-140February 06, 2025 3:15pmBP Jkeadvpoq83 mm[Hg]60-100Nov2024 3:15pmBMI (Body Mass Index)25.0 kg/y5ClohozllFebruary 06, 2025 3:15pm Advance Directives Advance Directive Response Recorded Date/ Time Advance Directives No January 26, 2020 5:48am Insurance Providers Guarantor Shelley Jaeger Address [address] [place] [phone] Info.Home Phone: Coverage Status Update:2025 Payer Group Member ID Coverage Type Subscriber Relationship to Subscriber Effective Date Expiration Date [employer] [id number] Schofield Id: [id number] [address] [place] [phone] Home Phone: [employer] Id: [id number] B Fleming , D Id: [id number] [address] [place] [phone] Home Phone: Self Encounters Encounter Location(s) Arrival/Admit Date Discharge/Departure Date Discharge/Departure Disposition Provider(s) Departed Physician/ Provider Office Visit -[facility] January 30, 2025 10:58am January 30, 2025 12:02pm Discharged to home care or self care (routine discharge) Yomi Prescott DO Departed Physician/ Provider [facility] 06, [facility]25 10:54am February 06, 2025 11:57am Discharged to home care or self care (routine discharge) Yomi Prescott DO Departed Physician/ Provider Office Visit -[facility] February 06, 2025 3:12pm February 06, 2025 3:59pm Discharged to home care or self care (routine discharge) Sonali Mckinney APRN CNP Departed Physician/ Provider Office Visit [facility] March 06, 2025 11:42am March 06, 2025 12:02pm Discharged to home care or self care (routine discharge) Yomi Prescott DO Recent Diagnosis Onset Date Admit Date Laceration of hand, left Unknown Novem2024 10:58am Laceration of hand, left Unknown Novembe r 2024 10:54am Hyperlipidemia Unknown February 06 3:12pm Hypertension Unknown February 06 3:12pm Overweight (BMI 25.0-29.9) Unknown 2024 3:12pm Screening for colon cancer Unknown 2024 3:12pm Screening for prostate cancer Unknown No vember 2024 3:12pm Seizures Unknown February 06 3:12pm Laceration of hand, left Unknown Decembe r 2024 11:42am Assessments Diagnosis Onset Date Resolution Status Admit Date Laceration of hand, left acuteNov2024 10:58amLaceration of hand, leftacuteNov2024 10:54amHyperlipidemiaacuteNov2024 3:12pmHypertensionacuteNov2024 3:12pmOverweight (BMI 25.0-29.9)acuteFebruary 06, 2025 3:12pm Screening for colon canceracuteFebruary 06, 2025 3:12pmScreening for prostate canceracuteNov2024 3:12pmSeizuresacuteNovember 2024 3:12pm Laceration of hand, leftacuteDecember 2024 11:42am Plan of Treatment Author Yomi Prescott [facility]2024 2:43pmJonatdmitri returns with left index finger laceration. At this juncture we have discussed the findings and diagnosis as well as personally reviewed appropriate imaging and performed interpretation of related testing and examination with the patient in office today. Will plan to do a 5 pound restriction as the patient cannot return to full duty just yet secondary to this laceration. I will plan to see him back about 6 weeks after injury and plan for full release at that time. Works at [employer] The patient has been involved in our cooperative treatment plan and agrees to move forward with treatment at this time. Advised patient to increase range of motion in the finger as tolerated. Weightbearing up to 5 pounds at this time. Will see the patient in 4 weeks to discuss work restrictions at that time. Work note with current restrictions sent with patient today. Author Yomi Prescott [facility] 2024 12:09pmJonatdmitri presents with left index finger laceration. At this juncture we have discussed the findings and diagnosis as well as personally reviewed appropriate imaging and performed interpretation of related testing and examination with the patient in office today. Prior medical notes from the [facility] and history have been reviewed. At this time I would recommend nonoperative treatment. Sutures removed today. Skin glue applied. He will stay out of work for another week. We will plan for follow-up 1 week for recheck. [facility] [employer] The patient has been involved in our cooperative treatment plan and agrees to move forward with treatment at this time. Patient has sustained a laceration of the left hand at the MCP joint of the left index finger without any evidence of injury to the tendon. Sutures removed today, patient tolerated well. Skin glue applied to reinforce. May lightly clean around the area, but attempt to keep the laceration dry until next appt. Avoid any strenuous use of the finger at this time. May leave open to air while at rest. Finish antibiotics as directed. Patient is to be off work at this time. Author Sonali Mckinney [facility] 20[facility] 2:16pmTo goal Continue losartan and nebivolol Prior to your visit today we reviewed your chart and outlined the testing and treatment needed for your care. We discussed the possible complications of high blood pressure, including increased risk for heart disease, stroke, and kidney disease. Our goal is to keep your blood pressure below 130/85 (an preferably < 120/80) and maintain a healthy weight with a BMI less than 26. We are working together to achieve these goals with the following plan; healthier diet, increased activity and exercise, understanding your medications, and your compliance. Continue atorvastatin Will obtain labs Follows with Neurology. Denies any recent seizure acitivity. Referral placed for colonoscopy. Risks and benefits of PSA screening discussed with patient today. Patient wishes to get PSA screening done. PSA screening lab ordered today. Patient is advised to work on healthy diet choices and appropriate servings, weight control, regular exercise as directed, reduced fat intake, and salt avoidance. Patient voiced understanding of this and agrees to this plan. Author Bety Chinchilla [facility] 2024 12:02pmCaio returns with left index finger laceration. At this juncture we have discussed the findings and diagnosis as well as personally reviewed appropriate imaging and performed interpretation of related testing and examination with the patient in office today. Will plan to do a 5 pound restriction as the patient cannot return to full duty just yet secondary to this laceration. I will plan to see him back about 6 weeks after injury and plan for full release at that time. Works at [employer] The patient has been involved in our cooperative treatment plan and agrees to move forward with treatment at this time. Patient is progressing well from injury. Instructed to continue to progress activity and weight bearing as tolerated. Patient given note to return to work on 03/07/2025. Instructed patient if his pain increases to call the office and we can take his back off work and order formal occupational therapy. Patient is to follow up in 4 weeks. Note scribed by MAHENDRA Altman, reviewed and amended by myself Yomi Prescott D.O. Future Tests Future scheduled test information is unavailable Pending Tests Test Name Ordered Date Scheduled Date Comprehensive Metabolic Panel February 07 2:08pm Future Visits Future appointment information is unavailable Future Procedures Procedure Name Ordered Date Scheduled Date AMB Cologuard February 06, 2025 3:40pm Complete Blood Count Auto DiffNovember 2024 2:08pmLipid PanelNovember 2024 2:08pmPSA Screen (Yearly Only)February 07, 2025 2:08pm Future Medications Future medication information is unavailable Patient Instructions Patient instructions are unavailable
[2025-03-07 06:54] VITALS: BP 157/95; PULSE 61; TEMP 36.7; O2SAT 100; BMI 22.4
--- NOTE | 2025-03-07 07:09 | ECG_ITS ---
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 Measurements Intervals [place] Rate: 64 P: 16 [place]: 184 QRS: 16 QRSD: 88 T: 15 QT: 376 QTc: 385 Interpretive Statements 1100 Sinus rhythm 1102 Sinus arrhythmia 9110 normal ECG No previous ECG available for comparison Electronically Signed On 03-07-2025 20:00:28 EST by DIONNE VALERIO M.D.
[2025-03-07 07:24] LABS: Hematocrit 40.6 % (42.0-54.0); Hemoglobin 13.2 g/dL (14.0-18.0); Immature Granulocytes Abs Auto 0.04 10^3/uL (0.00-0.03); Immature Granulocytes Pct Auto 0.5 % (0.0-0.5); Lymphocytes Absolute Auto 1.5 10^3/uL (1.2-3.8); Mean Corpuscular HGB Conc 32.5 g/dL (29.9-35.2); Mean Corpuscular Hemoglobin 30.8 pg (25.9-34.0); Mean Corpuscular Volume 94.9 fL (80.0-94.0); Platelet Count 334 10^3/uL (150-450); Red Blood Count 4.28 10^6/uL (4.70-6.10); White Blood Count 8.0 10^3/uL (4.0-11.0)
--- OUTSIDE RECORDS SUMMARY | 2025-03-07 07:33 | XMS_ITS | Clinical Summary ---
Author Organization [facility] Address [address] [place] [address] Care Team Providers Care Head Knitting Machine Fixer Name Role Phone Mesfin Chin MD Primary Care Provider + [phone] Allergies No known active allergies Medications MedicationSigDispense [...] (100 mg) by mouth Daily 90 tablet /672117/6Active atorvastatin (Lipitor) 40 MG tablet Indications:Mixed dyslipidemiaTake 1 tablet (40 mg) by mouth in the evening 90 tablet /ctive nabumetone (Relafen) 750 MG tablet Indications:Chronic left shoulder painTake 1 tablet (750 mg) by mouth in the morning and 1 tablet (750 mg) before bedtime. 180 tablet /202694/ctive Active Problems ProblemNoted DateDiagnosed DateMixed gtjvjgvsteqy05/02/2024ependence on other enabling machines and rkhgzop9909/01/2022Essential iytnhkrljjmb51/05/2023rand mal seizure /05/2023Obstructive sleep apnea (adult) (pediatric)09/01/2022 Postural kyphosis of cervicothoracic ffafzw5009/01/2022Reactive depression 09/01/2022rimary osteoarthritis of right elbow09/01/2022S/P rotator cuff repair 06/30/2016Post traumatic seizure /24/2017Incomplete tear of left rotator cuff06/12/2016Cubital tunnel syndrome on left05/01/2016Chronic left shoulder pain03/13/2016Adhesive capsulitis of left awzekeyu14/15/2016Impingement syndrome of left pfdivmvc23/15/2016Lateral epicondylitis of left elbow03/13/2016 Encounters DateTypeDepartmentCare UbioVhydemwmphg26/25/2025linisync Result Encounter [facility] External Department Unsolicited Provider, Generic External Data 01/31/2025Telephone [facility] [facility] [address] [address] Zaynab Church RN ER Follow-up ([facility] ER on 01/27/2025 for Left hand lacertation)01/19/2025 3:30 PM EDTOffice Visit [facility] 100 [facility] [address] [address] [place] [address] Mesfin Chin MD Essential hypertension; Mixed dyslipidemia; Chronic left shoulder pain01/19/2025amboo flowsheet [facility] 100 [facility] [address] [address] [place] [address] Mesfin Chin MD 01/19/20256165Nhzssz89/02/2025Refill [facility] 100 [facility] [address] [address] [place] [address] Mesfin Chin MD Essential cxqmgatmfexx17/02/2025Telephone [facility] [place] 100 [facility] [address] [address] [place] [address] Mesfin Chin MD from Last 3 Months Immunizations ImmunizationAdministration DatesNext DueInfluenza, injectable, quadrivalent, preservative free12/22/2022,05/09/2022,12/29/2020,01/31/2020,01/01/2019, 12/23/2017Influenza, seasonal, injectable, preservative free12/20/2016, 01/20/2015Pfizer Bivalent Booster 12 Years And Older05/09/20228682SLYM-CKG-7 (COVID- 19) vaccine, mRNA, spike protein, LNP, PF, hue-sucrose, 30 mcg/0.3 mL12/22/2022 Tetanus toxoid, odyhdusj22/19/2001 Family History Medical HistoryRelationNameCommentsNo Known ProblemsDaughterArthritisFatherDave DiabetesFatherDaveHeart diseaseFatherDaveStrokeFatherDaveArthritisMotherPat AsthmaMotherPatDiabetesMotherPatAlcohol abuseMother's BrotherTomArthritis Paternal GrandmotherMaudeNo Known ProblemsSister 1No Known ProblemsSister 2No Known ProblemsSister 3RelationNameStatusCommentsDaughterAliveFatherDaveAlive MotherPatAliveMother's BrotherTomPaternal GrandmotherMaudeSister 1AliveSister 2 AliveSister 3Alive Social History Tobacco UseTypesPacks/DayYears UsedDateSmoking Tobacco: NeverSmokeless Tobacco: Never Tobacco Cessation:Counseling Given: Yes Alcohol UseStandard Drinks/SjaaUgjskfykKvh18 (1 standard drink = 0.6 oz pure alcohol)caffeine intake: 2-3 cups per thdQ3042 Health LiteracyAnswerDate RecordedHow often do you need [...] relatives?Once a week03/03/2024How often do you attend pentecostalism or temple services?More than 4 times per year03/03/2024o you belong to any clubs or organizations such as pentecostalism groups, unions, fraOrthos or athletic lali ups, or school groups?No03/03/2024How often do you attend meetings of the clubs or organizations you belong to?Never03/03/2024re you , , , , never , or living with a partner?Kxewmob2103/03/2024 AUDIT-CAnswerDate RecordedQ1: How often do you have [...] at all 03/03/2024HQ-2AnswerDate RecordedPatient Health Questionnaire-2 Score0 09/01/2022[facility] [place] [facility] - Occupational Stress QuestionnaireAnswerDate RecordedDo you feel stress - tense, restless, nervous, or anxious, or unable to sleep at night because yourmind is troubled all the time - these days?Only a icomel0703/03/2024Exercise Vital SignAnswerDate Recorded On average, how many [...] steady place to sleep or slept in [place] (including now)?No08/31/2022Housing Stability Vital SignAnswerDate RecordedIn the last 12 months, was there a time when you were not able to pay the mortgage or rent on time?No03/03/2024In the past 12 months, how many times have you moved where you were living? At any time in the past 12 months, were you homeless or living in a fpc (including now)?No03/03/2024EducationAnswerDate RecordedWhat is the highest level of school you have completed or the highest degree you have received?Some college, no gedzcd6808/05/2022Sex and Gender InformationValueDate RecordedSex Assigned at BirthNot on fileLegal OpeDvec3206/11/2022 7:26 PM EDTGender Identity Not on fileSexual OrientationNot on fileOccupationIndustryJob Start DateJob End Dateworks full-timeNot on fileNot on fileNot on file Last Filed Vital Signs Vital SignReadingTime TakenCommentsBlood Zrjxfygw308/7410 3:12 PM EDT Uhqth7829 3:12 PM EDTTemperature--Respiratory Rate--Oxygen Qiwxxhqlqx51% 01/19/2025 3:12 PM EDTInhaled Oxygen Concentration--Tdeghw08.6 kg (171 lb) 01/19/2025 3:12 PM KXKMqobdx280.4 cm (6' 1 )01/19/2025 3:12 PM EDTBody Mass Index22.561 3:12 PM EDT Plan of Treatment DateTypeDepartmentCare Team (Latest Contact Info)Rrrnszmhxzj82/22/2026 3:30 PM EDTOffice Visit N[facility] [address] 112 [facility] 100 [place] [address] Mesfin Chin MD 112 [facility] 100 [place] [address] Health MaintenanceDue DateLast DoneCommentsCT Ezwklosyxmkc72/12/1975Colonoscopy 1974Colorectal Cancer Kzpfyjuoi03/12/1975FIT-DNA1974FIT1974 FOBT1974 4220Hnhhvudfhffwj96/12/1975COVID-19 Vaccine ( season) 5012/22/2022, 05/09/2022, 07/06/2020Influenza Vaccine (#1)2024 12/22/2022, 05/09/2022, 12/29/2020, Additional history existsPneumococcal Vaccine: Pediatrics (0 to 5 Years) and At-Risk Patients (6 to 64 Years)Aged Out No longer eligible based on patient's age to complete this topic Procedures Procedure NamePriorityDate/TimeAssociated DiagnosisCommentsSROH PROSTATE SPECIFIC ANTIGEN IQWESnqrnsw35/25/2025 7:22 AM EST ALL LIPID PROFILE (FASTING)Ulgsxnr8802/21/2025 7:22 AM EST [facility] CMP (CMP) (FOR [facility] USE)Fcbhygt0902/21/2025 7:22 AM EST ALL CBC WITH AUTO GRUDVdiqtov53/25/2025 7:22 AM EST from Last 3 Months Results * SRMCOH PROSTATE SPECIFIC ANTIGEN SCRN (02/21/2025 7:22 AM EST)ComponentValue Ref RangeTest MethodAnalysis TimePerformed AtPathologist SignaturePROSTATE SPECIFIC ANTIGEN SCRN0.80<=4.00 ng/mLTBHSpecimen (Source)Anatomical Location / LateralityCollection Method / VolumeCollection TimeReceived Time02/21/2025 7:22 AM EST02/21/2025 7:30 AM EST Narrative [facility] - 02/21/2025 9:03 AM EST Authorizing ProviderResult TypeResult StatusGeneric External Data Provider CLINISYNCFinal ResultPerforming OrganizationAddressCity/State/ZIP CodePhone Number [facility] * [facility] CMP (CMP) (FOR [facility] USE) (02/21/2025 7:22 AM EST)ComponentValueRef RangeTest MethodAnalysis TimePerformed AtPathologist NbvhciyhnBCUMNZ937117 - 145 mmol/LTBHPOTASSIUM4.33.5 - 5.1 mmol/QODMADUBFKZT60796 - 107 mmol/LTBH [place] IZOVEPU84.921.0 - 32.0 mmol/LTBHANION GAP11.8GQAXPVYWUU54605 - 106 mg/dLTBHBLOOD UREA TBLCEVBS62.07.0 - 18.0 mg/dLTBHCREATININE0.980.70 - 1.30 mg/dLTBHTBH EGFR-AF NEPALESE>60>=60 mL/min/1.73m 2TBHTBH EGFR-NON AF NEPALESE >60>=60 mL/min/1.73m 2TBHBUN CREATININE RATIO14.2NAMYYBDAJL6.68.5 - 10.1 mg/dL TBHBILIRUBIN TOTAL0.30.2 - 1.0 mg/dLTBHASPARTATE AMINO TFWTZXTEGQL5968 - 37 U/LTBHALANINE AXOEBDSQQVMKDYZC5410 - 63 U/LTBHALKALINE AHNAMHFTQUD0995 - 116 U/LTBHTOTAL PROTEIN7.06.4 - 8.2 g/dLTBHALBUMIN LEVEL3.63.4 - 5.0 g/dLTBH GLOBULIN3.4g/dLTBHALBUMIN GLOBULIN RATIO1.1TBHSpecimen (Source)Anatomical Location / LateralityCollection Method / VolumeCollection TimeReceived Time 02/21/2025 7:22 AM EST02/21/2025 7:30 AM EST Narrative [facility] - 02/21/2025 8:23 AM EST Authorizing ProviderResult TypeResult StatusGeneric External Data Provider CLINISYNCFinal ResultPerforming OrganizationAddressCity/State/ZIP CodePhone Number [facility] * (ABNORMAL) ALL LIPID PROFILE (FASTING) (02/21/2025 7:22 AM EST)ComponentValue Ref RangeTest MethodAnalysis TimePerformed AtPathologist Signature MNEODHKWPJRYX800(H)<=150 mg/gGRZVYNGPWWLTOFO065<=200 mg/dLTBHHDL LQLINHEJPKL77 40 - 60 mg/dLTBHComment: > or =60 mg/dl - LOW CARDIOVASCULAR RISK <40 mg/dl - HIGH CARDIOVASCULAR RISK LDL CHOLESTEROL IEHLLQXKMY231.0mg/dLTBHComment: <100 mg/dl OPTIMAL 100-129 mg/dl NEAR OR ABOVE OPTIMAL 130-159 mg/dl BORDERLINE HIGH 160-189 mg/dl HIGH >190 mg/dl VERY HIGH VLDL XIOBPLZPBEV00.2mg/dLTBHCHOL HDL RATIO4.2TBHComment: 3.3 - 4.4 ?? LOW RISK 4.4 - 7.1 ?? AVERAGE RISK 7.1 - 11.0 ??MODERATE RISK >11.0 HIGH RISK Specimen (Source)Anatomical Location / LateralityCollection Method / Volume Collection TimeReceived Time02/21/2025 7:22 AM EST02/21/2025 7:30 AM EST Narrative [facility] - 02/21/2025 8:23 AM EST Authorizing ProviderResult TypeResult StatusGeneric External Data Provider CLINISYNCFinal ResultPerforming OrganizationAddressCity/State/ZIP CodePhone Number [facility] * (ABNORMAL) ALL CBC WITH AUTO DIFF (02/21/2025 7:22 AM EST)ComponentValueRef RangeTest MethodAnalysis TimePerformed AtPathologist SignatureTBH WBC6.44.0 - 11.0 10 3/uLTBHTBH RBC4.40(L)4.70 - 6.10 10 6/uLTBHTBH HGB13.6(L)14.0 - 18.0 g/dLTBHTBH HCT41.4(L)42.0 - 54.0 %TBHTBH MCV94.1(H)80.0 - 94.0 fLTBHTBH MCH 30.925.9 - 34.0 pgTBHTBH MCHC32.929.9 - 35.2 g/dLTBHTBH RDW11.911.0 - 15.0 % TBHTBH KRO503236 - 450 10 3/uLTBHTBH MPV8.4(L)9.5 - 13.5 fLTBHNEUTROPHILS PERCENT AUTO51.243.0 - 75.0 %TBHLYMPHOCYTES PERCENT AUTO30.820.5 - 60.0 %TBH MONOCYTES PERCENT AUTO12.6(H)1.7 - 12.0 %TBHTBH EO %4.10.9 - 7.0 %TBHBASOPHILS PERCENT AUTO1.10.2 - 2.0 %TBHIMMATURE GRANULOCYTES PCT AUTO0.20.0 - 0.5 %TBH NEUTROPHILS ABSOLUTE AUTO3.31.4 - 6.5 10 3/uLTBHLYMPHOCYTES ABSOLUTE AUTO2.0 1.2 - 3.8 10 3/uLTBHMONOCYTES ABSOLUTE AUTO0.80.3 - 0.8 10 3/uLTBHTBH EO #0.3 0.0 - 0.7 10 3/uLTBHBASOPHILS ABSOLUTE AUTO0.10.0 - 0.1 10 3/uLTBHIMMATURE GRANULOCYTES ABS AUTO0.010.00 - 0.03 10 3/uLTBHSpecimen (Source)Anatomical Location / LateralityCollection Method / VolumeCollection TimeReceived Time 02/21/2025 7:22 AM EST02/21/2025 7:30 AM EST Narrative [facility] - 02/21/2025 7:40 AM EST Authorizing ProviderResult TypeResult StatusGeneric External Data Provider CLINISYNCFinal ResultPerforming OrganizationAddressCity/State/ZIP CodePhone Number [facility] from Last 3 Months Insurance Care Teams Team MemberRelationshipSpecialtyStart DateEnd Date Mesfin Chin MD [address] [address] PCP - GeneralFamily Medicine08/21/22
--- OUTSIDE RECORDS SUMMARY | 2025-03-07 07:33 | XMS_ITS | Encounter Summary ---
Author Organization [facility] Address [address] [place] [address] Care Team Providers Care Panel Machine Setter Name Role Phone Mesfin Chin MD Primary Care Provider + [phone] Encounter Details DateTypeDepartmentCare Team (Latest Contact Info)Wgbivyrsvvi32/25/2025Clinisync Result Encounter [facility] External Department Unsolicited Provider, Generic External Data Social History Tobacco UseTypesPacks/DayYears UsedDateSmoking Tobacco: NeverSmokeless Tobacco: NeverAlcohol UseStandard Drinks/EobfTwzyvkcwGlv59 (1 standard drink = 0.6 oz pure alcohol)caffeine intake: 2-3 cups per tqtT6491 Health LiteracyAnswerDate RecordedHow often do you need [...] relatives?Once a week03/03/2024How often do you attend quaker or buddhist services?More than 4 times per year03/03/2024o you belong to any clubs or organizations such as quaker groups, unions, fraternal or athletic lali ups, or school groups?No03/03/2024How often do you attend meetings of the clubs or organizations you belong to?Never03/03/2024re you , , , , never , or living with a partner?Zyynuoe0203/03/2024 AUDIT-CAnswerDate RecordedQ1: How often do you have [...] at all 03/03/2024HQ-2AnswerDate RecordedPatient Health Questionnaire-2 Score0 09/01/2022[facility] [place] [facility] - Occupational Stress QuestionnaireAnswerDate RecordedDo you feel stress - tense, restless, nervous, or anxious, or unable to sleep at night because yourmind is troubled all the time - these days?Only a turpmj9803/03/2024Exercise Vital SignAnswerDate Recorded On average, how many [...] were you homeless or living in a care home (including now)?No03/03/2024EducationAnswerDate RecordedWhat is the highest level of school you have completed or the highest degree you have received?Some college, no eftsjd6908/05/2022Sex and Gender InformationValueDate RecordedSex Assigned at BirthNot on fileLegal NxcYcfw3106/11/2022 7:26 PM EDTGender Identity Not on fileSexual OrientationNot on fileOccupationIndustryJob Start DateJob End Dateworks full-timeNot on fileNot on fileNot on filedocumented as of this encounter Plan of Treatment DateTypeDepartmentCare Team (Latest Contact Info)Hmhtswfktvf40/22/2026 3:30 PM EDTOffice Visit [facility] [address] [place] [address] [place] [address] Mesfin Chin MD [address] [place] [address] documented as of this encounter Procedures Procedure NamePriorityDate/TimeAssociated DiagnosisCommentsSROH PROSTATE SPECIFIC ANTIGEN DHQHBrxcelh00/25/2025 7:22 AM EST [facility] CMP (CMP) (FOR REMOTE [facility] USE)Zifvzos1702/21/2025 7:22 AM EST ALL LIPID PROFILE (FASTING)Txlbumc7902/21/2025 7:22 AM EST ALL CBC WITH AUTO QJGLChuiuwn10/25/2025 7:22 AM EST documented in this encounter Results * SRMCOH PROSTATE SPECIFIC ANTIGEN SCRN (02/21/2025 7:22 AM EST)ComponentValue Ref RangeTest MethodAnalysis TimePerformed AtPathologist SignaturePROSTATE SPECIFIC ANTIGEN SCRN0.80<=4.00 ng/mLTBHSpecimen (Source)Anatomical Location / LateralityCollection Method / VolumeCollection TimeReceived Time02/21/2025 7:22 AM EST02/21/2025 7:30 AM EST Narrative [facility] - 02/21/2025 9:03 AM EST Authorizing ProviderResult TypeResult StatusGeneric External Data Provider CLINISYNCFinal ResultPerforming OrganizationAddressCity/State/ZIP CodePhone Number [facility] * (ABNORMAL) ALL LIPID PROFILE (FASTING) (02/21/2025 7:22 AM EST)ComponentValue Ref RangeTest MethodAnalysis TimePerformed AtPathologist Signature XTSAXTZHIJWBO149(H)<=150 mg/uADFFBIIAVUVPLNC057<=200 mg/dLTBHHDL ZWXXCJXRQCB57 40 - 60 mg/dLTBHComment: > or =60 mg/dl - LOW CARDIOVASCULAR RISK <40 mg/dl - HIGH CARDIOVASCULAR RISK LDL CHOLESTEROL EUBYSWPAHU925.0mg/dLTBHComment: <100 mg/dl OPTIMAL 100-129 mg/dl NEAR OR ABOVE OPTIMAL 130-159 mg/dl BORDERLINE HIGH 160-189 mg/dl HIGH >190 mg/dl VERY HIGH VLDL UDCZZWNUQDO63.2mg/dLTBHCHOL HDL RATIO4.2TBHComment: 3.3 - 4.4 ?? LOW RISK 4.4 - 7.1 ?? AVERAGE RISK 7.1 - 11.0 ??MODERATE RISK >11.0 HIGH RISK Specimen (Source)Anatomical Location / LateralityCollection Method / Volume Collection TimeReceived Time02/21/2025 7:22 AM EST02/21/2025 7:30 AM EST Narrative [facility] - 02/21/2025 8:23 AM EST Authorizing ProviderResult TypeResult StatusGeneric External Data Provider CLINISYNCFinal ResultPerforming OrganizationAddressCity/State/ZIP CodePhone Number [facility] * [facility] CMP (CMP) (FOR REMOTE [facility] USE) (02/21/2025 7:22 AM EST)ComponentValueRef RangeTest MethodAnalysis TimePerformed AtPathologist DltpqgghfBQBTBF663095 - 145 mmol/LTBHPOTASSIUM4.33.5 - 5.1 mmol/KNWLKGGEECEH84917 - 107 mmol/LTBH [place] CLNRDZS44.921.0 - 32.0 mmol/LTBHANION GAP11.3ZGQZDCOLPX65427 - 106 mg/dLTBHBLOOD UREA GZUSSQOW94.07.0 - 18.0 mg/dLTBHCREATININE0.980.70 - 1.30 mg/dLTBHTBH EGFR-AF PARAGUAYAN>60>=60 mL/min/1.73m 2TBHTBH EGFR-NON AF PARAGUAYAN >60>=60 mL/min/1.73m 2TBHBUN CREATININE RATIO14.3CWPUSMUGWP3.68.5 - 10.1 mg/dL TBHBILIRUBIN TOTAL0.30.2 - 1.0 mg/dLTBHASPARTATE AMINO KDLVKJBMRAY1626 - 37 U/LTBHALANINE YSZJPRHDCYXFRZAK8363 - 63 U/LTBHALKALINE HMXOVSIYDZA1590 - 116 U/LTBHTOTAL PROTEIN7.06.4 - 8.2 g/dLTBHALBUMIN LEVEL3.63.4 - 5.0 g/dLTBH GLOBULIN3.4g/dLTBHALBUMIN GLOBULIN RATIO1.1TBHSpecimen (Source)Anatomical Location / LateralityCollection Method / VolumeCollection TimeReceived Time 02/21/2025 7:22 AM EST02/21/2025 7:30 AM EST Narrative [facility] - 02/21/2025 8:23 AM EST Authorizing ProviderResult TypeResult StatusGeneric External Data Provider CLINISYNCFinal ResultPerforming OrganizationAddressCity/State/ZIP CodePhone Number [facility] * (ABNORMAL) ALL CBC WITH AUTO DIFF (02/21/2025 7:22 AM EST)ComponentValueRef RangeTest MethodAnalysis TimePerformed AtPathologist SignatureTBH WBC6.44.0 - 11.0 10 3/uLTBHTBH RBC4.40(L)4.70 - 6.10 10 6/uLTBHTBH HGB13.6(L)14.0 - 18.0 g/dLTBHTBH HCT41.4(L)42.0 - 54.0 %TBHTBH MCV94.1(H)80.0 - 94.0 fLTBHTBH MCH 30.925.9 - 34.0 pgTBHTBH MCHC32.929.9 - 35.2 g/dLTBHTBH RDW11.911.0 - 15.0 % TBHTBH OAY981224 - 450 10 3/uLTBHTBH MPV8.4(L)9.5 - 13.5 [...] CLINISYNCFinal ResultPerforming OrganizationAddressCity/State/ZIP CodePhone Number [facility] documented in this encounter Visit Diagnoses Not on filedocumented in this encounter Care Teams Team MemberRelationshipSpecialtyStart DateEnd Date Mesfin Chin MD [address] [address] PCP - GeneralFamily Medicine08/21/22documented as of this encounter
--- OUTSIDE RECORDS SUMMARY | 2025-03-07 07:33 | XMS_ITS | CCD ---
Author Organization 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 Name Role Phone Josiah Blankenship Primary Care Provider DR JENA BANGURA Consulting Unavailable ABRAHAM HTOMAS Attending Unavailable ABRAHAM THOMAS Admitting Unavailable KRZYSZTOF, DR RAHMAN Primary Care Unavailable KARSON SPARKS Consulting Unavailable ABRAHAM THOMAS Consulting Unavailable KRZYSZTOF, DR RAHMAN Admitting Unavailable KRZYSZTOF, DR RAHMAN Attending Unavailable KRZYSZTOF, DR RAHMAN Consulting Unavailable KRZYSZTOF, DR RAHMAN Primary Care Unavailable Josiah Blankenship MD Primary Care Provider Josiah Blankenship MD Primary Care Provider [phone] Josiah Blankenship MD Primary Care Provider Josiah Blankenship MD Primary Care Provider TRINA SINHA Attending Unavailable SELF Referring Unavailable JOSIAH BLANKENSHIP Primary Care Unavailab le JOSIAH BLANKENSHIP Attending Unavailable JOSIAH BLANKENSHIP Attending Unavailable JOSIAH BLANKENSHIP Attending Unavailable JOSIAH BLANKENSHIP Attending Unavailable Yomi Prescott DO Attending Provider [phone] Josiah Blankenship MD Primary Care Provider [phone] Sonali Mckinney APRN Primary Care Provider Sonali Mckinney APRN Attending Provider [phone] Medications Current Medications MedicationDrug Class(es)DatesSig (Normalized)Sig (Original)acetaminophen 325 mg oral tablet (16 sources)take 1 tablet by mouth every six hours as neededacetaminophen (Tylenol) 325 MG tablet Take 325 mg by mouth every 6 (six) hours if needed. Activeatorvastatin 40 mg oral tablet (20 sources)HMG-CoA Reductase InhibitorStart: 09-24-2023 End: 99-00-5366Qvsebypaoksg 40 mg tablet Active MG PO January 30, 2025 12:00am Complies with drug therapycalcium carbonate 1250 mg oral tablet (9 sources)Start: 67-62-9913tyul 1 tablet by mouth once dailycalcium carbonate (OS-BALWINDER 500) 500 mg calcium (1,250 mg) tablet Take 1 tablet by mouth once daily. 60 tablet 5 07/17/2017 ActiveComment on above:Take 1 tablet by mouth once daily. carBAMazepine 200 mg oral tablet (20 sources)Mood StabilizerStart: 93-86-6990Jhsosrsysauee 200 mg tablet Active MG PO January 30, 2025 12:00am Complies with drug therapyStart: 2022 End: 94-43-6184smps 1 tablet by mouth once daily in the morning, then take 2 tablets by mouth once daily in the eveningcarBAMazepine (TEGRETOL) 200 mg tablet Indications: Post traumatic seizure disorder (HCC) TAKE 1 AND 1/2 TABLETS BY MOUTH EVERY MORNING AND 2 TABLETS EVERY EVENING 315 tablet 3 09/26/2024 Active Start: 07-15-2019 End: 02-90-4808picHLSryebspz (TEGRETOL) 200 mg tablet Indications: Post traumatic [...] oral capsule (1 source)Vitamin DStart: 07-17-2017 End: 89-99-0911yffx 1 capsule by mouth once dailyCholecalciferol, Vitamin D3, (VITAMIN D) 1,000 unit cap Take 1 capsule by mouth once daily. 60 capsule 5 07/17/2017 06/21/2021 DiscontinuedComment on above:Take 1 capsule by mouth once daily.CPAP (20 sources)Start: 68-25-8049GTLG 2nd request for download report. Fax results to [phone]. 1 Device 02/02/2017 ActiveStart: 43-80-9818LKIT 2nd request for download report. Fax results to [phone]. 1 Device 0 02/02/2017 ActiveStart: 45-25-3300ARSH Provide new SD card. Current card is not functional. 1 Device 11/03/2016 ActiveStart: 10-96-9268LQMV AutoPAP 5-12 cmH2O, mask, humidity, filters. Lifetime supplies. Dx: G47.33. Fax 30 day compliance rpt to [phone] when available. 1 Device 11/03/2016 ActiveStart: 28-11-2754SKTV Provide new SD card. Current card is not functional. 1 Device 0 11/03/2016 ActiveStart: 78-93-9176KKYC AutoPAP 5-12 cmH2O, mask, humidity, filters. Lifetime supplies. Dx: G47.33. Fax 30 day compliance rpt to [phone] when available. 1 Device 0 11/03/2016 ActiveStart: 43-32-6947KCWR Indications: STEVAN (obstructive sleep apnea) CPAP 11 cmH2O, mask, tubing, humidifier, filters. Li fetime supplies. Dx: G47.33 DME: [facility], f: [phone] 1 Device 0 10/22/2015ActiveComment on above:CPAP 11 cmH2O, mask, tubing, humidifier, filters. Lifetime supplies. Dx: G47.33 DME: [employer] [facility] [employer], f: [phone] new SD card. Current card is not functional. AutoPAP 5-12 cmH2O, mask, humidity, filters. Lifetime supplies. Dx: G47.33. Fax 30 day compliance rpt to [phone] when available.2nd request for download report. Fax results to [phone].levETIRAcetam 1000 mg oral tablet (20 sources)Start: 2022 End: 69-80-7654Qzsztspfprywd 1,000 mg tablet Active MG PO January 30, 2025 12:00am Complies with drug therapyStart: 07-30-2020 End: 37-96-7265dsfj 1 tablet by mouth twice dailylevETIRAcetam (KEPPRA) 1,000 mg tablet Indications: Post traumatic seizure disorder (HCC) Take 1 tablet by mouth twice daily. 180 tablet 3 06/21/2021 ActiveComment on above:Take 1 tablet by mouth twice daily.losartan potassium 100 mg oral tablet (20 sources)Angiotensin 2 Receptor BlockerStart: 05-26-2020 End: 25-00-4767Ehzuqgmb 100 mg tablet Active MG PO January 30, 2025 12:00am Complies with drug therapyComment on above:Take 100 mg by mouth once daily. melatonin 10 mg oral tablet (2 sources)take 1 tablet by mouth at bedtimemelatonin 10 MG tablet Take 1 tablet by mouth at bedtime Activenabumetone 750 mg oral tablet (20 sources)Nonsteroidal Anti-inflammatory DrugStart: 11-07-2024 End: 71-52-9117Pmtvvnwizw 750 mg tablet Active MG PO January 30, 2025 12:00am Complies with drug therapyStart: 03-28-2024 End: 18-86-9183fugb 1 tablet by mouth in the morningnabumetone (Relafen) 750 MG tablet Indications: Chronic left shoulder pain Take 1 tablet (750 mg) by mouth in the morning and 1 tablet (750 mg) before bedtime. 180 tablet 1 03/28/2024 09/24/2024 ActiveStart: 02-22-2024 End: 48-69-5248phua 1 tablet by mouth in the morningnabumetone (Relafen) 750 MG tablet Indications: Chronic left shoulder pain Take 1 tablet (750 mg) by mouth in the morning and 1 tablet (750 mg) before bedtime. 60 tablet 02/22/2024 03/23/2024 ExpiredStart: 05-04-2023 End: 75-72-4629bpcg 1 tablet by mouth in the morningnabumetone (Relafen) 750 MG tablet Indications: Chronic right shoulder pain Take 1 tablet (750 mg) by mouth in the morning and 1 tablet (750 mg) before bedtime. 60 tablet 0 05/04/2023 06/03/2023 Activenaproxen 500 mg oral tablet (1 source)Nonsteroidal Anti-inflammatory DrugStart: 06-30-2016 End: 39-85-2519coov 1 tablet by mouth twice daily at mealtimenaproxen (NAPROSYN) 500 mg tablet Take 1 tablet by mouth twice daily with meals. Take with food 20 t ablet 0 06/30/2016 06/21/2021 DiscontinuedComment on above:Take 1 tablet by mouth twice daily with meals. Take with food Completed/Discontinued Medications MedicationDrug Class(es)DatesSig (Normalized)Sig (Original)amoxicillin 875 mg / clavulanate 125 mg oral tablet (3 sources)Penicillin-class AntibacterialStart: 01-30-2025 End: 48-68-6924Kfpbhqdkyxa-Pot Clavulanate 875-125 mg tablet Discontinued TAB PO January 30, 2025 12:00am February 06, 2025 3:19pmmeloxicam 15 mg oral tablet (3 sources)Nonsteroidal Anti-inflammatory DrugStart: 08-31-2023 End: 29-33-9248gabx 1 tablet by mouth once dailymeloxicam (Mobic) 15 MG tablet Indications: Impingement syndrome of left shoulder Take 1 tablet (15mg) by mouth Daily 90 tablet 1 08/31/2023 02/22/2024 Discontinued (Therapy completed) nebivolol 10 mg oral tablet (20 sources)Start: 08-01-2023 End: 67-65-4164Sizbunxoq 10 mg tablet Discontinued MG PO January 30, 2025 12:00am February 06, 2025 3:49pmtraMADol hydrochloride 50 mg oral tablet (2 sources)Opioid AgonistStart: 05-04-2023 End: 94-22-0125ivni 1 tablet by mouth every six hours for paintraMADol (Ultram) 50 MG tablet Indications: Rotator cuff syndrome, right Take 1 tablet (50 mg) by mouth every 6 (six) hours if needed for severe pain for up to 7 days 21 tablet 0 05/04/2023 05/11/2023 Problems Active Problems Problem ClassificationProblemDateDocumented DateEpisodic/ChronicAbdominal pain (9 sources)Unspecified abdominal pain; Translations: [Right upper quadrant pain] Onset: 29-70-3983ByichfcgJouspvjnb of lipid metabolism (20 sources)Dyslipidemia; Translations: [Mixed hyperlipidemia]Onset: 02-29-2024 85-01-8937PxhdprkBrbqyyte; convulsions (16 sources)Other generalized epilepsy and epileptic syndromes, not intractable, without status epilepticus; Translations: [Generalized convulsive epilepsy, without mention of intractable epilepsy]Onset: hronic Epilepsy; convulsions (20 sources)Seizure; Translations: [Post traumatic seizures]Onset: 06-20-2016 EpisodicEssential hypertension (20 sources)Essential hypertension; Translations: [Essential (primary) hypertension]Onset: 204687-08-3478OamsewgBhxw disorders (16 sources)Reactive depression (situational); Translations: [Major depressive disorder, single episode, unspecified]Onset: 212369-39-9276WsalaowNrps wounds of extremities (8 sources)Laceration of left hand; Translations: [Laceration without foreign body of left hand, initial encounter]46-02-1278ZefttzpeXbrkicxxknjyor (16 sources)Osteoarthritis of joint of right elbow; Translations: [Primary osteoarthritis, right elbow]Onset: 683049-39-4760FxzqmjuAgcyr acquired deformities (16 sources)Postural kyphosis; 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, cervicothoracic region]Onset: 746201-93-8263AxxdsalHtnjz connective tissue disease (2 sources)Right rotator cuff syndrome; Translations: [Unspecified rotator cuff tear or rupture of right shoulder, not specified as traumatic]88-48-2846Eifezqaw Other connective tissue disease (2 sources)Non-traumatic partial tear of left rotator cuff; Translations: [Incomplete rotator cuff tear or rupture of left shoulder, not specified as traumatic]20-47-9325OkhvxebzXlxhi nervous system disorders (20 sources)Lesion of ulnar nerve, left upper limb; Translations: [Lesion of ulnar nerve]Onset: 385117-15-0388YozyvimXlatw non-traumatic joint disorders (20 sources)Chronic pain of left upper limb; Translations: [Pain in left shoulder]Onset: 699067-71-2400NwpollxsPreql non-traumatic joint disorders (2 sources)Chronic pain of right upper limb; Translations: [Pain in right shoulder]44-19-4423KybcavhsSblhe screening for suspected conditions (not mental disorders or infectious disease) (2 sources)Patient encounter status; Translations: [Encounter for screening for malignant neoplasm of colon]57-63-4119MaljhuikVocnp upper respiratory infections (2 sources)Viral upper respiratory tract infection; Translations: [Acute upper respiratory infection, unspecified]14-88-3161NcojqvaiCdgzqmfk codes; unclassified (20 sources)Obstructive sleep apnea syndrome; Translations: [Obstructive sleep apnea (adult) (pediatric)]Onset: 360624-23-8787FodelkqMppmzjtf codes; unclassified (16 sources)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; Translations: [Dependence on other enabling machines and devices]Onset: hronic Past or Other Problems Problem ClassificationProblemDateDocumented DateEpisodic/ChronicOther and ill- defined cerebrovascular disease (4 sources)Cerebral arterial aneurysm; Translations: [Cerebral aneurysm, nonruptured]Onset: 04-07-2007 Resolved: 158496-54-6210WwukbndMdyrt connective tissue disease (20 sources)Lateral epicondylitis of left humerus; Translations: [Lateral epicondylitis, left elbow]Onset: 183584-14-7273DvmbwvuuHvijn connective tissue disease (20 sources)Impingement syndrome of left shoulder region; Translations: [Impingement syndrome of left shoulder]Onset: 331406-87-6755TfwdwtcsSptqd connective tissue disease (20 sources)Adhesive capsulitis of left shoulder; Translations: [Adhesive capsulitis of left shoulder]Onset: 190886-99-3562QcsjloijTxrch connective tissue disease (20 sources)Partial thickness rotator cuff tear; Translations: [Incomplete rotator cuff tear or rupture of leftshoulder, not specified as traumatic]Onset: 781511-50-4304Kitqzwhd Results Test NameValueInterpretationReference RangeFacilityXR Shoulder - right 2 Viewson 80-66-2990Yofjd are no acute osseous changes. ELECTRONICALLY SIGNED [...] changes. ELECTRONICALLY SIGNED BY: Washington White MD [facility] HealthcareXR Shoulder - right 2 ViewsOrdered By: Washington White on 62-16-6885YTVW [employer] Work Phone: XR Shoulder - right 2 Viewson 13-92-6292Cfupkmgrd Study observation (narrative)[facility] HealthcareAMYLASEon 30-42-6530Bvmxpec [Catalytic activity/Vol]48 U/ZXjihyo73-498Mfa [facility] HospitalComment on above: Performed By: #### RAFAEL, LIPA, CMP #### [facility] [address] [address] [address] Mando Huynh AUTO DIFFon 54-64-7112PZIQ #0.1 103/ulNormal0.0-0.1The [facility] HospitalComment on above:Performed By: #### CBC #### [facility] [address] [address] [address] Mando MckennaBasophils/100 WBC (Bld)1.1 %Normal0.2-2.0The [facility] Comment on above:Performed By: #### CBC #### [facility] [address] [address] [address] Mando Trujillo #0.2 103/ulNormal0.0-0.7The [facility] HospitalComment on above: Performed By: #### CBC #### [facility] [address] [address] [address] Mando Duttaosinophils/100 WBC (Bld)3.2 %Normal0.9-7.0The [facility] Comment on above:Performed By: #### CBC #### [facility] [address] [place] [address] Dr. Mando Duttarythrocyte distribution width (RBC) [Ratio]11.9 %Igccdx51.0-15.0 The [facility] HospitalComment on above:Performed By: #### CBC #### [facility] [address] [place] [address] Dr. Mando MckennaHematocrit (Bld) [Volume fraction]42.6 %Ptdxqg90.0-54.0The [facility] HospitalComment on above:Performed By: #### CBC #### [facility] [address] [place] [address] Dr. Mando MckennaHemoglobin (Bld) [Mass/Vol]13.5 g/dLCritically low14.0-18.0The [facility] HospitalComment on above:Performed By: #### CBC #### [facility] [address] [place] [address] Dr. Mando Greene #0.01 10e3/ulNormal0.00-0.03The [facility] HospitalComment on above:Performed By: #### CBC #### [facility] [address] [place] [address] Dr. Mando Greene %0.2 %Normal0.0-0.5The [facility] HospitalComment on above: Performed By: #### CBC #### [facility] [address] [place] [address] Dr. Mando EscobedoH #1.6 103/ulNormal1.2-3.8The [facility] HospitalComment on above:Performed By: #### CBC #### [facility] [address] [place] [address] Dr. Mando Eugenemphocytes/100 WBC (Bld)33.8 %Pcwuyr21.5-60.0The [facility] HospitalComment on above:Performed By: #### CBC #### [facility] [address] [place] [address] Dr. Mando BraxtonUAL DIFF REQNONormalThe [facility] HospitalComment on above: Performed By: #### CBC #### [facility] [address] [address] [address] Mando Diaz (RBC) [Entitic mass]30.1 gbHsbzbl90.9-34.0The [facility] HospitalComment on above:Performed By: #### CBC #### [facility] [address] [place] [address] Dr. Mando Diaz (RBC) [Mass/Vol]31.7 g/fQCscmnz45.9-35.2The [facility] HospitalComment on above:Performed By: #### CBC #### [facility] [address] [place] [address] Dr. Mando Nails (RBC) [Entitic vol]94.9 fLCritically high80.0-94.0The [facility] HospitalComment on above:Performed By: #### CBC #### [facility] [address] [place] [address] Dr. Mando Javed #0.6 103/ulNormal0.3-0.8The [facility] HospitalComment on above:Performed By: #### CBC #### [facility] [address] [place] [address] Dr. Mando Taocytes/100 WBC (Bld)11.9 %Normal1.7-12.0The [facility] Comment on above:Performed By: #### CBC #### [facility] [address] [place] [address] Dr. Mando Bran #2.4 103/ulNormal1.4-6.5The [facility] HospitalComment on above:Performed By: #### CBC #### [facility] [address] [place] [address] Dr. Mando Billingsleyutrophils/100 WBC (Bld)49.8 %Tyzuim72.0-75.0The [facility] HospitalComment on above:Performed By: #### CBC #### [facility] [address] [place] [address] Dr. Mando Fortune mean volume (Bld) [Entitic vol]8.4 fLCritically low 9.5-13.5The [facility] HospitalComment on above:Performed By: #### CBC #### [facility] [address] [place] [address] Dr. Mando MckennaPLT307 103/jiWgdabh102-313Ewt [facility] HospitalComment on above: Performed By: #### CBC #### [facility] [address] [place] [address] Dr. Mando MckennaRBC4.49 106/ulCritically low4.70-6.10The [facility] HospitalComment on above:Performed By: #### CBC #### [facility] [address] [place] [address] Dr. Mando MckennaWBC4.7 103/ulNormal4.0-11.0The [facility] HospitalComment on above: Performed By: #### CBC #### [facility] [address] [place] [address] Dr. Mando MckennaCT ABD/PELV W CONon 41-06-9470HX ABD/PELV W CONEXAMINATION: CT ABD/PELV W CON [...] Electronically authenticated by: JENA BANGURA Date: 2021-08-29 09:26[facility] URINE PROFILEon 62-07-6312Mfkicmrdx Ql (U)NegativeNormal NEGATIVEMemorial Health System Marietta Memorial HospitalComment on above:Performed By: #### ERUR #### [facility] [address] [place] [address] Dr. Mando Sullivan (U)CLEARNormalCLEARMemorial Health System Marietta Memorial HospitalComment on above: Performed By: #### ERUR #### [facility] [address] [place] [address] Dr. Mando Storey (U)YELLOWNormalYELLOWMemorial Health System Marietta Memorial HospitalComment on above: Performed By: #### ERUR #### [facility] [address] [place] [address] Dr. Mando Almanza micrscopic examination will be performed if indicated. NormalMemorial Health System Marietta Memorial HospitalComment on above:Performed By: #### ERUR #### [facility] [address] [place] [address] Dr. Mando MckennaGlucose Ql (U)NegativeNormalNEGATIVEMemorial Health System Marietta Memorial HospitalComment on above:Performed By: #### ERUR #### [facility] [address] [place] [address] Dr. Mando MckennaHemoglobin Ql (U)NegativeNormalNEGATIVEMemorial Health System [facility] Comment on above:Performed By: #### ERUR #### [facility] [address] [place] [address] Dr. Mando MckennaKetones Ql (U)NegativeNormalNEGATIVEMemorial Health System Marietta Memorial HospitalComment on above:Performed By: #### ERUR #### [facility] [address] [place] [address] Dr. Mando MckennaLEUKOCYTESNegativeNormalNEGATIVEMemorial Health System Marietta Memorial HospitalComment on above:Performed By: #### ERUR #### [facility] [address] [place] [address] Dr. Mando Adler Ql (U)NegativeNormalNEGATIVEThe [facility] HospitalComment on above:Performed By: #### ERUR #### [facility] [address] [place] [address] Dr. Mando MckennapH (U)6.0 [pH]Normal5-9The [facility] HospitalComment on above: Performed By: #### ERUR #### [facility] [address] [place] [address] Dr. Mando MckennaSPEC GRAVITY1.868Mvbxhg9.005-<=1.025The [facility] HospitalComment on above:Performed By: #### ERUR #### [facility] [address] [place] [address] Dr. Mando Sharpe PROTEINNegativeNormalNEGATIVE/ TRACEThe [facility] Comment on above:Performed By: #### ERUR #### [facility] [address] [place] [address] Dr. Mando Alvarez MICRO INDNOT INDICATEDNormalThe [facility] HospitalComment on above:Performed By: #### ERUR #### [facility] [address] [place] [address] Dr. Mando Del Torobilinogen Qn (U)0.2 {Jackie'U}/dLNormal0.2 - 1.0The [facility] HospitalComment on above:Performed By: #### ERUR #### [facility] [address] [place] [address] Dr. Mando MckennaLACTATE/LACTIC ACIDon 94-98-5634Jqhhtza [Moles/Vol]0.4 mmol/L Normal0.4-1.9The [facility] HospitalComment on above:Performed By: #### RAFAEL, LIPA, CMP #### [facility] [address] [place] [address] Dr. Mando MckennaLIPASEon 88-13-3075Prqqdw [Catalytic activity/Vol]74.0 U/LNormal 73.0-393.0The [facility] HospitalComment on above:Performed By: #### RAFAEL, LIPA, CMP #### [facility] [address] [place] [address] Dr. Mando Olmos 14(COMP METB)on 80-51-9200Ptrkunv [Mass/Vol]3.6 g/dLNormal 3.4-5.0The [facility] HospitalComment on above:Performed By: #### RAFAEL, LIPA, CMP #### [facility] [address] [place] [address] Dr. Mando MckennaAlbumin/Globulin [Mass ratio]1.1 {ratio}NormalThe [facility] HospitalComment on above:Performed By: #### RAFAEL, LIPA, CMP #### [facility] [address] [place] [address] Dr. Mando Wheat [Catalytic activity/Vol]83 U/ZBbxuhb19-610Jfv [facility] HospitalComment on above:Performed By: #### RAFAEL, LIPA, CMP #### [facility] [address] [place] [address] Dr. Mando Iqbal [Catalytic activity/Vol]25 U/ANrhlfx45-33Ugc [facility] HospitalComment on above:Performed By: #### RAFAEL, LIPA, CMP #### [facility] [address] [place] [address] Dr. Mando Machado gap [Moles/Vol]11.8 mmol/LNormalThe [facility] Comment on above:Performed By: #### RAFAEL, LIPA, CMP #### [facility] [address] [place] [address] Dr. Mando MckennaAST [Catalytic activity/Vol]13 U/LCritically ybr90-80Uev [facility] HospitalComment on above:Performed By: #### RAFAEL, LIPA, CMP #### [facility] [address] [place] [address] Dr. Mando MckennaBilirubin [Mass/Vol]0.3 mg/dLNormal0.2-1.0The [facility] Comment on above:Performed By: #### RAFAEL, LIPA, CMP #### [facility] [address] [address] [address] Mando MckennaCalcium [Mass/Vol]8.6 mg/dLNormal8.5-10.1The [facility] Comment on above:Performed By: #### RAFAEL, LIPA, CMP #### [facility] [address] [address] [address] Mando MckennaChloride [Moles/Vol]104 mmol/BXghfnh97-028Wwd [facility] Comment on above:Performed By: #### RAFAEL, LIPA, CMP #### [facility] [address] [place] [address] Dr. Mando MckennaCO2 [Moles/Vol]29.3 mmol/LHffxvp81.0-32.0The [facility] Comment on above:Performed By: #### RAFAEL, LIPA, CMP #### [facility] [address] [place] [address] Dr. Mando MckennaCreatinine [Mass/Vol]0.81 mg/dLNormal0.70-1.30The [facility] HospitalComment on above:Performed By: #### RAFAEL, LIPA, CMP #### [facility] [address] [place] [address] Dr. Mando DuttaGFR-AF ITALIAN>60Normal>=60The [facility] HospitalComment on above:Performed By: #### RAFAEL, LIPA, CMP #### [facility] [address] [place] [address] Dr. Mando DuttaGFR-NON AF ITALIAN>60Normal>=60The [facility] HospitalComment on above:Performed By: #### RAFAEL, LIPA, CMP #### [facility] [address] [place] [address] Dr. Mando MckennaGlobulin (S) [Mass/Vol]3.3 g/dLNormalThe [facility] HospitalComment on above:Performed By: #### RAFAEL, LIPA, CMP #### [facility] [address] [place] [address] Dr. Mando MckennaGlucose [Mass/Vol]96 mg/vYHcbryn32-616Euq [facility] Comment on above:Performed By: #### RAFAEL, LIPA, CMP #### [facility] [address] [address] [address] Mando MckennaPotassium [Moles/Vol]4.1 mmol/LNormal3.5-5.1The [facility] Comment on above:Performed By: #### RAFAEL, LIPA, CMP #### [facility] [address] [place] [address] Dr. Mando MckennaProtein [Mass/Vol]6.9 g/dLNormal6.4-8.2The [facility] Comment on above:Performed By: #### RAFAEL, LIPA, CMP #### [facility] [address] [place] [address] Dr. Mando MckennaSodium [Moles/Vol]141 mmol/UNftrir907-626Elw [facility] Comment on above:Performed By: #### RAFAEL, LIPA, CMP #### [facility] [address] [place] [address] Dr. Mando MckennaUrea nitrogen [Mass/Vol]17.0 mg/dLNormal7.0-18.0[facility] HospitalComment on above:Performed By: #### RAFAEL, LIPA, CMP #### [facility] [address] [place] [address] Dr. Mando Connor nitrogen/Creatinine [Mass ratio]21.0 mg/mgNormalThe [facility] HospitalComment on above:Performed By: #### RAFAEL, LIPA, CMP #### [facility] [address] [place] [address] Dr. Mando Holland SINGLE QUAD RT UPPERon [id number] SINGLE QUAD RT UPPER EXAMINATION: US SINGLE [...] Electronically authenticated by: JENA BANGURA Date: 2021-08-29 08:18NoKing[facility] [place] AUTO DIFFon [id number] #0.1 103/ulNormal0.0-0.1[facility] HospitalComment on above:Performed By: #### CBC #### [facility] [address] [place] [address] Dr. Mando cMkennaBasophils/100 WBC (Bld)1.1 %Normal0.2-2.0[facility] Comment on above:Performed By: #### CBC #### [facility] [address] [place] [address] Dr. Mando Trujillo #0.1 103/ulNormal0.0-0.7The [facility] HospitalComment on above: Performed By: #### CBC #### [facility] [address] [place] [address] Dr. Mando Duttaosinophils/100 WBC (Bld)1.7 %Normal0.9-7.0[facility] Comment on above:Performed By: #### CBC #### [facility] [address] [place] [address] Dr. Mando Duttarythrocyte distribution width (RBC) [Ratio]12.1 %Nwpgct46.0-15.0 The [facility] HospitalComment on above:Performed By: #### CBC #### [facility] [address] [place] [address] Dr. Mando MckennaHematocrit (Bld) [Volume fraction]42.2 %Bjxczc18.0-54.0[facility] HospitalComment on above:Performed By: #### CBC #### [facility] [address] [place] [address] Dr. Mando MckennaHemoglobin (Bld) [Mass/Vol]13.6 g/dLCritically low14.0-18.0The [facility] HospitalComment on above:Performed By: #### CBC #### [facility] [address] [place] [address] Dr. Mando Greene #0.02 10e3/ulNormal0.00-0.03The [facility] HospitalComment on above:Performed By: #### CBC #### [facility] [address] [place] [address] Dr. Mando Greene %0.3 %Normal0.0-0.5The [facility] HospitalComment on above: Performed By: #### CBC #### [facility] [address] [place] [address] Dr. Mando Cabrera #1.7 103/ulNormal1.2-3.8The [facility] HospitalComment on above:Performed By: #### CBC #### [facility] [address] [place] [address] Dr. Mando Escobedohocytes/100 WBC (Bld)27.1 %Nfqlij09.5-60.0The [facility] HospitalComment on above:Performed By: #### CBC #### [facility] [address] [place] [address] Dr. Mando BraxtonUAL DIFF REQNONormalThe [facility] HospitalComment on above: Performed By: #### CBC #### [facility] [address] [place] [address] Dr. Mando Gay (RBC) [Entitic mass]30.1 ldTfodcc22.9-34.0The [facility] HospitalComment on above:Performed By: #### CBC #### [facility] [address] [place] [address] Dr. Mando Diaz (RBC) [Mass/Vol]32.2 g/jYAyprgk87.9-35.2The [facility] HospitalComment on above:Performed By: #### CBC #### [facility] [address] [place] [address] Dr. Mando Nails (RBC) [Entitic vol]93.4 lCJanury50.0-94.0The [facility] HospitalComment on above:Performed By: #### CBC #### [facility] [address] [place] [address] Dr. Mando Javed #0.7 103/ulNormal0.3-0.8The [facility] HospitalComment on above:Performed By: #### CBC #### [facility] [address] [place] [address] Dr. Mando Taocytes/100 WBC (Bld)11.5 %Normal1.7-12.0The [facility] Comment on above:Performed By: #### CBC #### [facility] [address] [place] [address] Dr. Mando Bran #3.7 103/ulNormal1.4-6.5The [facility] HospitalComment on above:Performed By: #### CBC #### [facility] [address] [place] [address] Dr. Mando Billingsleyutrophils/100 WBC (Bld)58.3 %Qdxroo29.0-75.0The [facility] HospitalComment on above:Performed By: #### CBC #### [facility] [address] [place] [address] Dr. Mando Fortune mean volume (Bld) [Entitic vol]8.1 fLCritically low 9.5-13.5The [facility] HospitalComment on above:Performed By: #### CBC #### [facility] [address] [place] [address] Dr. Mando MckennaPLT318 103/ubWwoufo190-322Gbo [facility] HospitalComment on above: Performed By: #### CBC #### [facility] [address] [place] [address] Dr. Mando MckennaRBC4.52 106/ulCritically low4.70-6.10The [facility] HospitalComment on above:Performed By: #### CBC #### [facility] [address] [place] [address] Dr. Mando MckennaWBC6.4 103/ulNormal4.0-11.0The [facility] HospitalComment on above: Performed By: #### CBC #### [facility] [address] [place] [address] Dr. Mando FloresASEon 12-03-3795Nbfzpz [Catalytic activity/Vol]81.0 U/LNormal 73.0-393.0The [facility] HospitalComment on above:Performed By: #### CMP, LIPA #### [facility] [address] [place] [address] Dr. Mando MckennaPROF 14(COMP METB)on 42-95-9968Alurzgj [Mass/Vol]3.9 g/dLNormal 3.4-5.0The [facility] HospitalComment on above:Performed By: #### CMP, LIPA #### [facility] [address] [place] [address] Dr. Mando MckennaAlbumin/Globulin [Mass ratio]1.1 {ratio}NormalThe [facility] HospitalComment on above:Performed By: #### CMP, LIPA #### [facility] [address] [place] [address] Dr. Mando Wheat [Catalytic activity/Vol]91 U/YFvwfyo73-532Qfx [facility] HospitalComment on above:Performed By: #### CMP, LIPA #### [facility] [address] [place] [address] Dr. Mando Iqbal [Catalytic activity/Vol]30 U/GVgxmsm99-52Fny [facility] HospitalComment on above:Performed By: #### CMP, LIPA #### [facility] [address] [place] [address] Dr. Mando Machado gap [Moles/Vol]10.6 mmol/LNormalThe [facility] on above:Performed By: #### CMP, LIPA #### [facility] [address] [place] [address] Dr. Mando MckennaAST [Catalytic activity/Vol]14 U/LCritically ycr98-60Dop [facility] HospitalComment on above:Performed By: #### CMP, LIPA #### [facility] [address] [address] [address] Mando MckennaBilirubin [Mass/Vol]0.1 mg/dLCritically low0.2-1.0The [facility] HospitalComment on above:Performed By: #### CMP, LIPA #### [facility] [address] [place] [address] Dr. Mando MckennaCalcium [Mass/Vol]9.0 mg/dLNormal8.5-10.1The [facility] Comment on above:Performed By: #### CMP, LIPA #### [facility] [address] [place] [address] Dr. Mando MckennaChloride [Moles/Vol]103 mmol/XSjkyay05-343TqmMem[facility] Comment on above:Performed By: #### CMP, LIPA #### [facility] [address] [place] [address] Dr. Mando MckennaCO2 [Moles/Vol]31.3 mmol/NLpcgas14.0-32.0The [facility] Comment on above:Performed By: #### CMP, LIPA #### [facility] [address] [place] [address] Dr. Mando MckennaCreatinine [Mass/Vol]0.96 mg/dLNormal0.70-1.30The [facility] HospitalComment on above:Performed By: #### CMP, LIPA #### [facility] [address] [place] [address] Dr. Mando DuttaGFR-AF ITALIAN>60Normal>=60The [facility] HospitalComment on above:Performed By: #### CMP, LIPA #### [facility] [address] [place] [address] Dr. Mando DuttaGFR-NON AF ITALIAN>60Normal>=60The [facility] HospitalComment on above:Performed By: #### CMP, LIPA #### [facility] [address] [place] [address] Dr. Mando MckennaGlobulin (S) [Mass/Vol]3.6 g/dLNormalThe [facility] HospitalComment on above:Performed By: #### CMP, LIPA #### [facility] [address] [address] [address] Mando MckennaGlucose [Mass/Vol]95 mg/oIFozukg71-665UafMemorial Health System [facility] Hospital Comment on above:Performed By: #### CMP, LIPA #### [facility] [address] [address] [address] Mando MckennaPotassium [Moles/Vol]3.9 mmol/LNormal3.5-5.1[facility] Comment on above:Performed By: #### CMP, LIPA #### [facility] [address] [place] [address] Dr. Mando MckennaProtein [Mass/Vol]7.5 g/dLNormal6.4-8.2[facility] Comment on above:Performed By: #### CMP, LIPA #### [facility] [address] [address] [address] Mando MckennaSodium [Moles/Vol]141 mmol/TYevteh319-999RqjMemorial Health System [facility] Hospital Comment on above:Performed By: #### CMP, LIPA #### [facility] [address] [place] [address] Dr. Mando MckennaUrea nitrogen [Mass/Vol]18.0 mg/dLNormal7.0-18.0[facility] HospitalComment on above:Performed By: #### CMP, LIPA #### [facility] [address] [place] [address] Dr. Mando Connor nitrogen/Creatinine [Mass ratio]18.8 mg/mgNoFairfield Medical CenterComment on above:Performed By: #### CMP, LIPA #### [facility] [address] [place] [address] Dr. Mando Mckenna Vital Signs Date TimeVital SignValuePerforming EwjltkrsjQsuqrgmp82-37-1114 15:15-0500Body lejtfo008.42 Casie Blankenship MD Work Phone: [facility]11-10-2025 15:15-0500 Body mass index (BMI) [Ratio]25 kg/t6NkxxpuJosiah Blankenship MD Work Phone: 1(525)[address] [place], [place] 1297211-10-2025 15:15-0500 Body ergmwszcyaa28.8 [degF]Josiah Blankenship MD Work Phone: [phone])[address] [place], [place] 1297211-10-2025 15:15-0500 Body riiwen86.18 kgJosiah Blankenship MD Work Phone: [phone] [place], [place] 1297211-10-2025 15:15-0500 Diastolic blood dggthqsu88 mm[Hg]Josiah Blankenship MD Work Phone: 1(585)[address] [place], [place] 1297211-10-2025 15:15-0500 Heart vcwj798 /minEsedrick Blankenship MD Work Phone: [phone] [place], [place] 1297211-10-2025 15:15-0500 SaO2% (BldA) [Mass fraction]97 %Josiah Blankenship MD Work Phone: [phone])[address] [place], [place] 1297211-10-2025 15:15-0500 Systolic blood gxpxibbe042 mm[Hg]Josiah Blankenship MD Work Phone: [phone] [place], [place] 1297211-10-2025 11:45-0500 Body getefa497.42 Casie Blankenship MD Work Phone: 1(658)[address] [place], [place] 1297211-10-2025 11:45-0500 Body mass index (BMI) [Ratio]23.1 kg/t7AoaugxJosiah Blankenship MD Work Phone: 1(444)[address] [place], [place] 1297211-10-2025 11:45-0500 Body fbhezt11.37 kgJosiah Blankenship MD Work Phone: 1(953)[address] [place], [place] 1297211-03-2025 11:22-0500 Body oyvzbw328.42 Casie Blankenship MD Work Phone: [phone])[address] [place], [place] 1297211-03-2025 11:22-0500 Body mass index (BMI) [Ratio]23.1 kg/s9Ttnmsd Hemeyer MD Work Phone: 1(490)[address] [place], [place] 1297211-03-2025 11:22-0500 Body dzcbgy11.37 kgJosiah Blankenship MD Work Phone: 1(735)[address] [place], [place] 1297210-23-2025 15:12-0400 Body umkwux358.4 cmEsedrick Blankenship MD Work Phone: 1([phone] [place], [place] 6810710-23-2025 15:12-0400Body mass index (BMI) [Ratio]22.56 kg/m1GxffruJosiah Blankenship MD Work Phone: 1(288)[address] [place], [place] 6810710-23-2025 15:12-0400Body .56 kgJosiah Blankenship MD Work Phone: 1(803)[address] [place], [place] 6810710-23-2025 15:12-0400Diastolic blood ytziaccx32 mm[Hg]Josiah Blankenship MD Work Phone: 1(710)[address] [place], [place] 6810710-23-2025 15:12-0400Heart rate68 /min Josiah Blankenship MD Work Phone: 1(997)[address] [place], [place] 6810710-23-2025 15:12-7482AdU7% (BldA) [Mass fraction]99 %Josiah Blankenship MD Work Phone: 1(532)[address] [place], [place] 6810710-23-2025 15:12-0400Systolic blood loppluts443 mm[Hg]Josiah Blankenship MD Work Phone: 1(075)[address] [place], [place] 6810705-20-2025 16:03-0400Body oiyoiy095.4 Casie Blankenship MD Work Phone: [phone] [place], [place] 6810705-20-2025 16:03-0400Body mass index (BMI) [Ratio]22.82 kg/p1NyvujfJosiah Blankenship MD Work Phone: 1(175)[address] [place], [place] 6810705-20-2025 16:03-0400Body bfusrz38.47 kgJosiah Blankenship MD Work Phone: 1(730)[address] [place], [place] 6810705-20-2025 16:03-0400Diastolic blood nszpagyp07 mm[Hg]Josiah Blankenship MD Work Phone: 1(887)[address] [place], [place] 6810705-20-2025 16:03-0400Heart rate74 /min Josiah Blankenship MD Work Phone: 1(991)[address] [place], [place] 6810705-20-2025 16:03-9353OgC0% (BldA) [Mass fraction]99 %Josiah Blankenship MD Work Phone: 1(160)[address] [place], [place] 6810705-20-2025 16:03-0400Systolic blood epmcfyau367 mm[Hg]Josiah Blankenship MD Work Phone: 1(713)[address] [place], [place] 6810711-25-2024 16:03-0500Body gaxrxj447.4 cmEsedrick Blankenship MD Work Phone: 1(752)[address] [place], [place] 6810711-25-2024 16:03-0500Body mass index (BMI) [Ratio]22.82 kg/o5GhzlndJosiah Blankenship MD Work Phone: 1(845)[address] [place], [place] 6810711-25-2024 16:03-0500Body .47 kgJosiah Blankenship MD Work Phone: 1(368)[address] [place], [place] 6810711-25-2024 16:03-0500Diastolic blood cqtfnrce26 mm[Hg]Josiah Blankenship MD Work Phone: 1(854)[address] [place], [place] 6810711-25-2024 16:03-0500Heart rate71 /min Josiah Blankenship MD Work Phone: 1(017)[facility] [place], [place] [address]Qzkeefzpvi44-68-8260 16:03-4220KnV4% (BldA) [Mass fraction]98 %Josiah Blankenship MD Work Phone: 1(359)[address] [place], [place] 6810711-25-2024 16:03-0500Systolic blood oqpwaqgs834 mm[Hg]Josiah Blankenship MD Work Phone: 1(842)[address] [place], [place] 6810702-05-2024 15:27-0500Body mass index (BMI) [Ratio]22.82 kg/f9ZvvqctJosiah Blankenship MD Work Phone: 1(131)[address] [place], [place] 6810702-05-2024 15:27-0500Body .47 kgEdyasmeen Hemeyer MD Work Phone: [facility] Encounters Encounter DateEncounter TypeCare ProviderFacilityStart: 02-06-2025 End: 16-23-5141phlzxywaaxAoakqnLois Blankenship MD Work Phone: -[facility]: 02-06-2025 End: 00-69-4129Olaiccj encounter procedureJeandreasgian Mckinney [employer] REPAIR CHIEF [facility] Work Phone: Start: 02-06-2025 End: 20-23-9237vkoifhpkmuAcctli J Hemeyer MD Work Phone: [facility]: 02-06-2025 End: 84-59-3801Bytnjos encounter procedureJustjuan josé Prescott DO-[facility] [place] Work Phone: Start: 01-30-2025 End: 29-90-5434vuhlgqjxgwMwdlmr J Hemeyer MD Work Phone: -[facility]Start: 01-30-2025 End: 20-02-4448Buninck encounter procedureJustjuan josé Prescott [facility] [place] Work Phone: Start: 01-19-2025 End: 47-88-3126Uhufkg outpatient visit 25 minutesEdyasmeen Blankenship MD Work Phone: [facility] MedicineComment on above: Essential hypertension; Mixed dyslipidemia; Chronic left shoulder painStart: 01-19-2025 End: 94-49-0156efjiellzszDXRSXY J HEMEYERNot AvailableStart: 01-19-2025 End: 90-02-6860Kikjfd Lucía Blankenship MD Work Phone: [facility] MedicineStart: 01-19-2025 End: 94-29-9760Cicvsq Lucía Blankenship MD Work Phone: [facility] MedicineStart: 10-05-2024 End: 05-45-2244UkjmpaJhojqtMarianna Ramos MD Work Phone: NeurosurgeryComment on above:Refill RequestStart: 09-26-2024 End: 16-56-7169VqpuurUdjvfdMarianna Ramos MD Work Phone: NeurologyComment on above:Refill RequestStart: 09-09-2024 End: 83-46-4999Yovrqjqooxie consultation with Nini Sinha APRN.SHOT PEEN OPERATOR Work Phone: NeurologyStart: 09-09-2024 End: 12-85-3906ffxhtwgbgtTVQ M MERNERFacility:[facility] HospitalComment on above:STEVAN on CPAP (Primary Dx); Post traumatic seizure disorder (HCC)Start: 08-24-2024 End: 76-06-2894OdlhumDfjgrw J Hemeyer MD Work Phone: [facility] FM 100Comment on above:Essential hypertension (CMS/HCC)Start: 08-16-2024 End: 08-81-1561Srkbva outpatient visit 25 minutesJosiah Blankenship MD Work Phone: [facility] FM 100Comment on above:Essential hypertension (CMS/HCC); Mixed dyslipidemia (CMS/HCC)Start: 08-16-2024 End: 91-50-7101wvrfrlculqKMPCGO J HEMEYERNot AvailableStart: 08-16-2024 End: 55-05-5735Uomrfq flowsheetJosiah Blankenship MD Work Phone: [facility] FM 100Start: 08-16-2024 End: 26-91-4445Fthrod flowsPayton Blankenship MD Work Phone: [facility] 100Start: 03-21-2024 End: 70-77-7188CwpssxXiktsn J Hemeyer MD Work Phone: [facility] FM 100Comment on above:Chronic left shoulder painStart: 03-03-2024 End: 43-42-7552Hbdgkj outpatient visit 15 minutesJosiah Blankenship MD Work Phone: [facility] FM 100Comment on above:Viral upper respiratory tract infection (Primary Dx)Start: 03-03-2024 End: 03-17-4534eetsigjpbcWGQPIV J HEMEYERNot AvailableStart: 03-03-2024 End: 35-68-3153Frkxuu Lucía Blankenship MD Work Phone: [facility] FM 100Start: 03-03-2024 End: 00-12-9392Blukum Lucía Blankenship MD Work Phone: [facility] FM 100Start: 02-22-2024 End: 07-05-2882Pitzzo outpatient visit 25 minutesJosiah Blankenship MD Work Phone: [facility] FM 100Comment on above:Essential hypertension (CMS/HCC) (Primary Dx); Mixed dyslipidemia (CMS/HCC); Chronic left shoulder pain; 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; Impingement syndrome of left shoulderStart: 02-22-2024 End: 51-37-9257khejmnjlzuSUSKOM J HEMEYERNot AvailableStart: 02-22-2024 End: 83-14-7518Kefvcr Lucía Blankenship MD Work Phone: [facility] 100Start: 02-22-2024 End: 86-05-9701Xdgems Lucía Blankenship MD Work Phone: [facility] 100Start: 08-27-2023 End: 00-72-1705Pyxhsaee Erich Sinha AUT[employer]LE BODY REPAIR CHIEF.SHOT PEEN OPERATOR Work Phone: NeurologyComment on above:Post traumatic seizure disorder (HCC)Start: 05-04-2023 End: 40-54-4901Ddpljw outpatient visit 25 minutesJosiah Blankenship MD Work Phone: [facility]NS FMComment on above:Chronic right shoulder pain (Primary Dx); Rotator cuff syndrome, rightStart: 92-73-3582PwkttdNhbsp [place] AUTOM[employer]LE BODY REPAIR CHIEF.SHOT PEEN OPERATOR Work Phone: NeurologyComment on above:Refill RequestStart: 17-40-5352FwczkgLwoReyna Sinha APRN.CNP Work Phone: NeurologyComment on above:Refill RequestStart: 68-61-3372Wqyxelbzi encounterSbrennon Ramos MD Work Phone: NeurologyComment on above:Forms ([employer])Start: 08-29-2021 End: 33-75-0147udbegljolsHH JENA BANGURAFacility:J4Mabet: 08-27-2021 End: 94-41-4554qqzctiwssmNW EDWARD HEMEYERFacility:Y4Dbqtp: 13-88-6411Ehqfwrtxx encounterSbrennon Ramos MD Work Phone: NeurologyComment on above:Lab req emailed to patient Start: 06-19-2021 End: 62-88-0646Zevctvmc HealthTrina Sinha APRN.CNP Work Phone: NeurologyComment on above:Post traumatic seizure disorder (HCC) Procedures DateProcedureProcedure DetailPerforming ClinicianStart: 40-14-4826Wittp depression screening assessmentTrina Sinha APRN.CNP Work Phone: Start: 85-69-2889Nuietsf of repair of musculotendinous cuff of shoulderS/P rotator cuff repair - LEFTTrina Sinha APRN.CNP Work Phone: Plan of Treatment DateCare ActivityDetailAuthorStart: 07-19-2025 End: 72-90-5495Ipocwxw encounter hecefbsuz36/22/2026 3:30 PM EDT Office Visit [facility] [address] [facility] [address] [place] [address] Josiah Blankenship MD [address] [facility] [address] [place] [address] (Fax)[facility] MedicineStart: 06-19-2025 End: 09-48-9185Cgifazvawkque metabolic 2000 panel - Serum or PlasmaComprehensive metabolic panel Lab Routine Essential hypertension Expected: 06/19/2025, Expires: 09/17/2025[facility] Work Phone: Comment on above:Expected: 06/19/2025, Expires: 09/17/2025Start: 06-19-2025 End: 33-84-0488Ymmma 1996 panel - Serum or PlasmaLipid panel Lab Routine Mixed dyslipidemia Expected: 06/19/2025, Expires: 09/17/2025[facility] HealthcareComment on above:Expected: 06/19/2025, Expires: 09/17/2025Start: 01-19-2025 End: 00-97-1042Tblrcrs encounter gkhjalqln39/23/2025 3:30 PM EDT Office Visit [facility] [address] [facility] [address] [place] [address] Josiah Blankenship MD [address] [place] [address] Essential hypertension; Mixed dyslipidemiaNOMS Christianne 100 Family MedicineComment on above:Essential hypertension; Mixed dyslipidemiaStart: 56-17-9159YKFDV-19 Vaccine ( season)COVID-19 Vaccine ( season)[facility] HealthcareStart: 11-07-4895Utjaxgvmq vaccinationNOMN HealthcareStart: 08-16-2024 End: 20-18-1643Xrnyvpy encounter procedureNOMS CI FM 100Comment on above: Essential hypertension (CMS/HCC); Mixed dyslipidemia (CMS/HCC)Start: 99-41-9383Eluydehdqlkz Vaccine: 50+ (1 of 1 - PCV)Pneumococcal Vaccine: 50+ (1 of 1 - PCV)[facility]: 2024 Shingrix Vaccine (1 of 2)Shingrix Vaccine (1 of 2)[facility]: 03-03-2024 End: 02-02-6232Tkodxhf encounter kwbkqgdje24/05/2024 4:00 PM EST Office Visit [facility] [address] [place] [address] [place] [address] Josiah Blankenship MD [address] [place] [address] (Fax) ArrivedNOMS CI FM 100Comment on above: ArrivedStart: 02-22-2024 End: 35-92-1206Faxgckx encounter dvfhvdhto65/25/2024 4:00 PM EST Office Visit [facility] [address] [place] [address] [place] [address] Josiah Blankenship MD [address] [place], [place] [address] (Fax) Essential hypertension (CMS/HCC); Chronic left shoulder painNOMS CI FM 100Comment on above:Essential hypertension (CMS/HCC); Chronic left shoulder painStart: 48-58-4381Pvkeh-19 Vaccine ( season) Covid-19 Vaccine ()[facility]: 34-26-2280Vspypposu vaccinationInfluenza Vaccine (#1)[facility] HealthcareStart: 08-31-2023 End: 06-12-6428Iovyuuq encounter lsidggbix12/03/2024 4:00 PM EDT Office Visit [facility] [address] [place] [address] Josiah Blankenship MD [address] [place] [address] (Fax)[facility] FMStart: 91-25-8113EHQBHTWC SCREENDIABETES SCREENFriedensburg ClinicStart: 37-39-1769Uuzdxalu ScreeningDiabetes Screening [facility]: 12-61-3603Nypez-19 Vaccine ( season)Covid-19 Vaccine ()[facility]: 32-85-3269Rlynpnywn vaccinationK[facility]: 13-27-1149Sazbg depression screening assessmentDEPRESSION SCREENINGK[facility]tering [facility]: 50-47-2026JZKAIYWQPZ ASSESSMENTDEPRESSION ASSESSMENTK[facility]: 81-58-0961JGYME-19 VACCINE (3 - Booster for Pfizer series)COVID-19 VACCINE (3 - Booster for Pfizer series) [facility]: 40-19-6409NSUDE-19 VACCINE (3 - Booster for Pfizer series)COVID-19 VACCINE (3 - Booster for Pfizer series)[facility]: 09-33-6793QWUOQMZWH (FIT-DNA)COLOGUARD (FIT-DNA)[facility]: 31-97-2324OhllwpedmefXVWRHBASZYQKgnzseaot ClinicStart: 20-73-7426BRRDPROMUG CANCER SCREENINGCOLORECTAL CANCER SCREENINGK[facility]: 87-88-7480OR COLONOGRAPHYCT COLONOGRAPHYK[facility]: 38-74-2025JQADV OCCULT BLOOD FECAL OCCULT BLOODK[facility]: 16-23-3867Ltsypypyj for malignant neoplasm of colonK[facility]tering Health [facility]: 84-71-1933JGSSBPJPZLZGGQQRXKTBEDERWJ [facility]: 33-67-4886Itxas 1996 panel - Serum or PlasmaLipid ScreeningK[facility]: 53-10-7032Ytewm panelLipid ScreeningK[facility]: 55-57-3628DEEJU SCREENLIPID SCREENK[facility]: 1993 Hepatitis B Vaccine (1 of 3 - 19+ 3-dose series)Hepatitis B Vaccine (1 of 3 - 19+ 3-dose series)[facility]: 95-03-4797Yuwszqunu B Vaccines (1 of 3 - 19+ 3-dose series)Hepatitis B Vaccines (1 of 3 - 19+ 3-dose series)[facility] HealthcareStart: 77-78-2664Bdlai microalbumin profileK[facility]: 90-17-5180Gtetsqp ScreeningAnxiety ScreeningK[facility]: 1992 Depression ScreeningDepression ScreeningK[facility]: 1992 HEPATITIS C SCREENINGHEPATITIS C SCREENINGK[facility]: 1992 Hepatitis C screeningHepatitis C ScreeningK[facility]: 39-03-1687IFG SCREENINGHIV SCREENINGK[facility]: 45-94-7817YZH screeningHIV ScreeningK[facility]: 06-24-6420HDpT/Tdap/Td Vaccines (1 - Tdap) DTaP/Tdap/Td Vaccines (1 - Tdap)[facility] SystemStart: 90-69-5344EUW Vaccines (1 of 1 - Standard series)MMR Vaccines (1 of 1 - Standard series)[facility] Start: 22-54-6587WUSBJFJWD B (1 of 3 - 3-dose series)HEPATITIS B (1 of 3 - 3- dose series)[facility]: 36-51-1537Rpvbxxpyk B Vaccine (1 of 3 - 3- dose series)Hepatitis B Vaccine (1 of 3 - 3-dose series)[facility]: 46-33-1470Dtxlgwgui for malignant neoplasm of colonSal[facility] Immunizations Immunization DateImmunizationNotesCare VnonypzjPulsbguv98-41-6886xjjanglat, injectable, quadrivalent, preservative freeJosiah Blankenship MD Work Phone: [facility] SystemGqqrndygns66-39-9042CZSI-EYI-5 (COVID-19) vaccine, mRNA, spike protein, LNP, PF, hue-sucrose, 30 mcg/0.3 mLJosiah Blankenship MD Work Phone: [facility] SystemTqimhpqwgk64-47-0587ahnznzzcz virus vaccine, unspecified formulationJosiah Blankenship MD Work Phone: [facility] SystemIgmcxtqefk01-29-1293xqssxjkgx, injectable, quadrivalent, preservative freeJosiah Blankenship MD Work Phone: [facility] SystemDsvsuhutqz07-97-1993Szxmkq Bivalent Booster 12 Years And OlderJosiah Blankenship MD Work Phone: [facility] SystemZpsrlrfujr58-87-7217cmatfpeeh virus vaccine, unspecified formulationJasmin Brooks APRN.SHOT PEEN OPERATOR Work Phone: [facility] HospitalIbxkup02-26-9190nqkksenwc, injectable, quadrivalent, preservative freeJosiah Blankenship MD Work Phone: [facility] SystemOffanhnjpl58-69-5107pnjklaxst, injectable, quadrivalent, preservative freeJosiah Blankesnhip MD Work Phone: [facility] SystemMxxrcrysst80-97-0711fjvfookvx, injectable, quadrivalent, preservative freeJosiah Blankenship MD Work Phone: [facility] SystemMyprrxddqa32-90-3897gwbzpnqro, injectable, quadrivalent, preservative freeJosiah Blankenship MD Work Phone: [facility] SystemBbxcrlchth11-95-9128dtfdlhypk, seasonal, injectable, preservative freeEdyasmeen Blankenship MD Work Phone: [facility] SystemJxhnrhjdwd85-46-8533kjxbndttb, seasonal, injectable, preservative freeEdyasmeen Blankenship MD Work Phone: [facility] SystemZyewdpijdz34-40-7681wkcvdmq toxoid, adsorbed Edyasmeen Blankenship MD Work Phone: [facility] Payers DatePayer CategoryPayerPolicy [id number] Health Insurance [id number] Private Health InsuranceMER[facility] GENERIC [id number] 2021-Present [phone] [address] [address] [place] [address] O [id number] [id number] [id number] Social History DateTypeDetailFacilityStart: 07-11-2011 End: 24-58-3064Igsguwc smoking status NHISNever smoked tobaccoC[facility] Clinic [facility] Start: 06-19-2020 End: 52-96-4130Gxuccsa intakeCurrent drinker of alcohol (finding)[facility]: 05-61-6768Rogbjae SDOH Alcohol Commentvery rareC[facility] Clinic [facility] Start: 23-56-0721Xdv Assigned At BirthMaleCmercy [facility] ClinicStart: 07-11-2011 End: 96-77-5724Vfknntj use and exposureSmokeless tobacco non-userK[facility] Health [facility]: 06-19-2020 End: 05-70-2891Qphhlum of Social functionK[facility]tering Health [facility]: 06-19-2020 End: 35-17-0612Snishii use panelKettering Health [facility]: 21-18-0022Sopwm Depression Screening Unbmljthpu1Uemzcooyp ClinicStart: 31-23-6496Jbkger identity Identifies as male gender (finding)[facility] HospitalWithin the last year, have you been [...] before (I/we) got money to buy more.Never trueNOMN HealthcareStart: 08-05-2022 Hoqjsesxx58BWQF HealthcareStart: 44-54-1844Qrkcbig Commentcaffeine intake: 2-3 cups per dayFILLMORE COMM[facility]ITY [facility] HealthcareStart: 76-13-8352Aug Assigned At BirthNot on fileFILLMORE COMMUNITY MEDICAL CENTER HealthcareStart: 94-79-3454Racypj orientationHeterosexual (finding)[facility] smoking status NHISUnknown if ever smokedFirelands Regional [facility] Work Phone: SexMale (finding)[facility] Medical Equipment Procedure CodeEquipment CodeEquipment Original TextEquipment IdentifierDates Truro Swivelock 4.75mm Peek 19.1mm Suture Closed Eyelet Vent Sterile - [id number]: 22-21-7800Mlxovjc on above:Description: PEEK SWIVELOCKAnchor Swivelock 4.75mm Peek 19.1mm Suture Closed Eyelet Vent Sterile - [id number]: 52-89-6453Xicnnez on above:Description: PEEK SWIVELOCKAnchor Corkscrew Fiberwire 5.5mm 2 Full Thread Peek 14.7mm Suture 2 Sterile - [id number]: 62-06-2464Bznxpsg on above:Description: PEEK CORKSCREW Functional Status KtwfWxwletkufzZotrpuWiikxmcy58-88-1740Yst you deaf, or do you have serious difficulty hearingNo 06/08/2014 1:57 PM EDT Nae Smith Ma [facility] Work Phone: [phone] you blind, or do you have serious difficulty seeing, even when wearing glassesNo 06/08/2014 1:57 PM EDT Nae Smith Ma [facility]03-12-2015Do you have serious difficulty walking or climbing stairsNo 06/08/2014 1:57 PM EDT Nae Smith Ma [facility] 52-98-8635Vo you have difficulty dressing or bathingNo 06/08/2014 1:57 PM EDT Nae Smith MaC[facility] Medical CenterNfrumk55-34-4268Rjifbvn of a physical, mental, or emotional condition, do you have difficulty doing errands alone such as visiting a physician's office or shoppingNo 06/08/2014 1:57 PM EDT Nae Smith Ma [facility] Mental Status EpfvFmxxapmhasIxxnfyFaqmaeyi03-77-1789Uvkoalt of a physical, mental, or emotional condition, do you have serious difficulty concentrating, remembering, or making decisionsNo 06/08/2014 1:57 PM EDT Sarah Hernandez Nae [facility] Clinical Notes 04-07-2007 to 01-30-2025 Note Date & OvrtPqwlCjlrtqym03-11-9243 Evaluation note* Diagnosis Onset Date Resolution Status Admit Date Laceration of hand, left acuteNovember 2024 10:58amLaceration of hand, leftacuteNovember 2024 10:54am [facility] Work Phone: [phone]) 769-347811-03-2025 Evaluation note* Diagnosis Onset Date Resolution Status Admit Date Laceration of hand, left acuteNovember 2024 10:58amLaceration of hand, leftacuteNovember 2024 10:54amHyperlipidemiaacuteNovember 2024 3:12pmHypertensionacuteNovember 2024 3:12pmScreening for colon canceracuteNov2024 3:12pm SeizuresacuteNovember 2024 3:12pm [facility] Work Phone: 1([phone] 468-339210-23-2025 History of Present illness Narrative* Josiah Blankenship [...] prior to visit. documented in this encounterSaint John's Health SystemLtitgoyehe97-20-3661 Telephone encounter Note* Telephone Encounter - Phillip Hill PA-C - 10/05/2024 11:00 AM EDT The following approved medication requests have been transmitted electronically. Requested Prescriptions Signed Prescriptions Disp Refills levETIRAcetam (KEPPRA) 1,000 mg tablet 180 tablet 3 Sig: Take 1 tablet by mouth two times a day. Authorizing Provider: PHILLIP HILL PA-C [facility]07-09-2025 Miscellaneous Notes* Telephone Encounter - Phillip [...] Contact Number: [facility] Number: [phone] Generic/ brand: Generic 30 or 90 day supply requested: 90 Last appointment: 09/09/24 Next Appointment: none Patient of Dr. Justin Carolina [id number] [address] [place], [place] [address] documented in this encounterC[facility] Clinic [facility]07-09-2025 Telephone encounter Note * Telephone Encounter - Zonia Phillips - 10/05/2024 10:34 AM EDT Prescription Refill: Requested by: pharmacy Please E-Scribe Caller Contact Number: [facility] Number: [phone] Generic/ brand: Generic 30 or 90 day supply requested: 90 Last appointment: 09/09/24 Next Appointment: none Patient of Dr. Justin Carolina [id number] [address] [place], [place] [address] [facility]06-30-2025 Telephone encounter Note* Telephone Encounter - Clyde Aponte APRN.CNP - 09/26/2024 2:27 PM EDT The following approved medication requests have been transmitted electronically. Requested Prescriptions Signed Prescriptions Disp Refills carBAMazepine (TEGRETOL) 200 mg tablet 315 tablet 3 Sig: TAKE 1 AND 1/2 TABLETS BY MOUTH EVERY MORNING AND 2 TABLETS EVERY EVENING Authorizing Provider: CLYDE APONTE APRN.CNP [facility]06-30-2025 Miscellaneous Notes* Telephone Encounter - Clyde [...] Contact Number: [facility] Number: [phone] Generic/ brand: 30 or 90 day supply requested: 90 Last appointment: 09-09-2024 Next Appointment: none Patient of Dr. Jsutin Carolina [id number] [address] [place] [address] documented in this encounterC[facility] Clinic [facility]06-30-2025 Telephone encounter Note * Telephone Encounter - Alina Sanchez - 09/26/2024 1:44 PM EDT Prescription Refill: Requested by: pharmacy Please E-Scribe Caller Contact Number: [facility] Number: [phone] Generic/ brand: 30 or 90 day supply requested: 90 Last appointment: 09-09-2024 Next Appointment: none Patient of Dr. Justin Carolina [id number] [address] [place], [place] [address] [facility]06-13-2025 NoteHNO ID: [id number] Author: TRINA SINHA APRN.SHOT PEEN OPERATOR Service: ? Author Type: Nurse Practitioner Type: Progress Notes Filed: 09/12/2024 09:35 Note Text: [facility]UAL [facility] I have communicated my name and active licensure. The patient's identity and physical location were verified at the time of this visit. Either the patient or their legal customer care representative has been informed of the risks and benefits of -- and alternatives to -- treatment through a remote evaluation and consents to proceed with the evaluation remotely. Patient on video y himself. Lives in [place], [place]. HISTORY OF PRESENT ILLNESS: Caio Carolina [...] CPAP at night.. Occupation: Works FT at [employer]. , lives with his . Driving: yes [...] request for download report. Fax results to [phone]. CPAP Provide new SD card. Current card is not functional. CPAP AutoPAP 5-12 cmH2O, mask, humidity, filters. Lifetime supplies. Dx: G47.33. Fax 30 day compliance rpt to [phone] when available. CPAP CPAP 11 cmH2O, mask, tubing, humidifier, filters. Lifetime supplies. Dx: G47.33 DME: [employer], f: [phone] No current facility-administered medications for this visit. [...] seizures, medications, general health, documentation. Trina Sinha APRN.SHOT PEEN OPERATOR [facility] 09[facility] History of Present illness Narrative* Trina Sinha, SCHUYL[place].SHOT PEEN OPERATOR - 09/09/2024 4:19 PM EDT [facility] I have communicated my name and active licensure. The patient's identity and physical location wereverified at the time of this visit. Either the patient or their legal customer care representative has been informed of the risks and benefits of -- and alternatives to -- treatment through a remote evaluation andconsents to proceed with the evaluation remotely. Patient on video y himself. Lives in [place], [place]. HISTORY OF PRESENT ILLNESS: Caio Carolina [...] CPAP at night.. Occupation: Works FT at [employer]. , lives with his . Driving: yes [...] request for download report. Fax results to [phone]. CPAP Provide new SD card. Current card is not functional. CPAP AutoPAP 5-12 cmH2O, mask, humidity, filters. Lifetime supplies. Dx: G47.33. Fax 30 day compliance rpt to [phone] when available. CPAP CPAP 11 cmH2O, mask, tubing, humidifier, filters. Lifetime supplies. Dx: G47.33 DME: [facility], f: [phone] No current facility-administered medications for this visit. [...] APRN.VANESSA September 09, 2024 documented in this encounterC[facility] Clinic [facility]05-20-2025 History of Present illness Narrative* Josiah [...] evaluation and management. documented in this encounterSaint John's Health SystemHibkygescb63-59-0883 History of Present illness Narrative* Josiah Blankenship [...] reconsider antibiotic therapy. documented in this encounterSaint John's Health SystemXyaacfciae02-75-3222 History of Present illness Narrative* Josiah Blankenship [...] shoulder As above documented in this encounterSaint John's Health SystemOpjjdgjzuc17-56-2914 History of Present illness Narrative* Trina Sinha, AUTOMOBILE BODY REPAIR CHIEF.SHOT PEEN OPERATOR - 08/27/2023 5:33 PM EDT [facility] VIRTUAL VISIT I have communicated my name and active licensure. The patient's identity and physical location wereverified at the time of this visit. Either the patient or their legal customer care representative has been informed of the risks and benefits of -- and alternatives to -- treatment through a remote evaluation andconsents to proceed with the evaluation remotely. Patient on video by himself. Lives in [place], [place]. HISTORY OF PRESENT ILLNESS: Caio Carolina [...] or when he sleeps. Occupation: Works at [employer]. and lives with his . Driving: yes [...] request for download report. Fax results to [phone]. CPAP Provide new SD card. Current card is not functional. CPAP AutoPAP 5-12 cmH2O, mask, humidity, filters. Lifetime supplies. Dx: G47.33. Fax 30 day compliance rpt to [phone] when available. CPAP CPAP 11 cmH2O, mask, tubing, humidifier, filters. Lifetime supplies. Dx: G47.33 [facility], f: [phone] No current facility-administered medications for this visit. [...] of driving laws here in the state [facility]. - Consults: none - Follow up: 12 months I spent 14 minutes during this encounter counseling on seizures, medications /effects, lifestyle, triggers for seizures, safety, documentation.. Trina Sinha APRN.SHOT PEEN OPERATOR August 27, 2023 documented in this encounterC[facility] Clinic [facility]02-05-2024 History of Present illness Narrative* Josiah [...] with the patient. documented in this encounterSaint John's Health SystemNdpbhsurah44-67-4370 Miscellaneous Notes* Telephone Encounter - Clyde Aponte APRN.VANESSA - 01/28/2023 10:37 AM EDT The following approved medication requests have been transmitted electronically. Requested Prescriptions Signed Prescriptions Disp Refills carBAMazepine (TEGRETOL) 200 mg tablet 315 tablet 3 Sig: TAKE 1 AND 1/2 TABLETS BY MOUTH EVERY MORNING AND 2 TABLETS EVERY EVENING Authorizing Provider: CLYDE APONTE APRN.CNP documented in this encounterCleveland Clinic [facility]05-01-2023 Miscellaneous Notes* Telephone Encounter - Jasmin Brooks APRN.CNP - 07/28/2022 11:08 PM EDT The following approved medication requests have been transmitted electronically. Requested Prescriptions Signed Prescriptions Disp Refills carBAMazepine (TEGRETOL) 200 mg tablet 315 tablet 1 Si 1/2 TAB IN AM AND 2 TABS IN PM Authorizing Provider: JASMIN BROOKS APRN.VANESSA documented in this encounterCleveland Clinic [facility]06-03-2022 Miscellaneous Notes* Telephone Encounter - Catalina Degroot RN - 08/30/2021 10:34 AM EDT I spoke with Nubia at [employer], she was informed form is inappropriate for this office. Catalina Degroot RN * Telephone Encounter - Ilaan Oleary - 08/29/2021 12:42 PM EDT Form received: From (agency / facility / parent): [employer] handyperson (if given): Phone #: [phone] Fax # : [phone] Email: [email or web address] Information requested: Certificate of medical necessity Patient of Dr. Anderson Forwarded to nurse. documented in this encounterC[facility] Clinic [facility]03-25-2022 Miscellaneous Notes* Telephone Encounter - Catalina Degroot RN - 06/21/2021 8:51 AM EDT Images from the original note were not included. 06/21/21 Trina Sinha APRN.SHOT PEEN OPERATOR P Neur Epilepsy [facility], Need a lab form sent to this patient via mail. Need below: Dx code R56.1 CBZ (total), LEV, cmp, cbc Thank you. 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 Theyare an established patient of Dr. Anderson and was last seen on 06/19/2020 . Seizures: None Last reported was in [phone] AED's: Keppra 1000mg BID CBZ 200mg, 1.5 tabs in am and 2 tabs in the pm In other health, using his CPAP Occupation: works at [employer] Driving: yes Mood: good Memory: good CURRENT [...] request for download report. Fax results to [phone]. CPAP Provide new SD card. Current card is not functional. CPAP AutoPAP 5-12 cmH2O, mask, humidity, filters. Lifetime supplies. Dx: G47.33. Fax 30 day compliance rpt to [phone] when available. naproxen (NAPROSYN) 500 mg tablet Take 1 tablet by mouth twice daily with meals. Take with food CPAP CPAP 11 cmH2O, mask, tubing, humidifier, filters. Lifetime supplies. Dx: G47.33 DME: [facility], f: [phone] No current facility-administered medications for this visit. [...] 10 minutes during this encounter counseling on [facility] effects of medications. Trina Sinha APRN.SHOT PEEN OPERATOR June 19, 2021 documented in this encounterC[facility] Clinic [facility]01-09-2008 History of Past illness Narrative* ProblemNoted DateResolved DateCerebral aneurysm, nonruptured documented as of this encounter (statuses as of 06/21/2021) [facility]01-09-2008 History of Past illness Narrative* ProblemNoted Date Resolved DateCerebral aneurysm, qxnbdgehamn60documented as of this encounter (statuses as of 06/21/2021) [facility]01-09-2008 History of Past illness Narrative* ProblemNoted Date Resolved DateCerebral aneurysm, tqnzqxuimfm29documented as of this encounter (statuses as of 08/30/2021) [facility]01-09-2008 History of Past illness Narrative* ProblemNoted Date Resolved DateCerebral aneurysm, zgxojdcvqub40documented as of this encounter (statuses as of 07/29/2022) [facility]01-09-2008 History of Past illness Narrative* ProblemNoted Date Diagnosed DateResolved DateCerebral aneurysm, oqvigvfxssn17 documented as of this encounter (statuses as of 01/28/2023) [facility] note* Diagnosis Post traumatic seizure disorder (HCC) Post traumatic seizures documented in this encounter [facility] HospitalEvaluchristianacare note* Diagnosis Post traumatic seizure disorder (HCC) Post traumatic seizures [facility] encounter [facility]* Diagnosis Post traumatic seizure disorder (HCC) Post traumatic seizures documented in this encounter [facility]* Diagnosis Chronic right shoulder pain- Primary Pain in joint, shoulder region Rotator cuff syndrome, right Chronic right shoulder pain Pain in joint, shoulder region Rotator cuff syndrome, right documented in this encounter [facility] SystemEvaluation [facility]* Diagnosis Post traumatic seizure disorder (HCC) Post traumatic seizures documented in this encounter [facility] HospitalEvaluchristianacare note* Diagnosis Essential hypertension (CMS/HCC)- Primary Unspecified essential hypertension Mixed dyslipidemia (CMS/HCC) Chronic left shoulder pain Pain in joint, shoulder region 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 Impingement syndrome of left shoulder documented in this encounter [facility] HealthcareEvaluation note* Diagnosis Chronic left shoulder pain Pain in joint, shoulder region documented in this encounter [facility] HealthcareEvaluation note* Diagnosis Viral upper respiratory tract infection- Primary Acute upper respiratory infections of unspecified site documented in this encounter [facility] HealthcareEvaluation note* Diagnosis Essential hypertension (CMS/HCC) Unspecified essential hypertension documented in this encounter [facility] HealthcareEvaluation note* Diagnosis Essential hypertension (CMS/HCC) Unspecified essential hypertension Mixed dyslipidemia (CMS/HCC) documented in this encounter [facility] HealthcareEvaluation note* Diagnosis STEVAN on CPAP- Primary Obstructive sleep apnea (adult) (pediatric) Post traumatic seizure disorder (HCC) Post traumatic seizures [facility] Diagnosis Post traumatic seizure disorder (HCC) Post traumatic seizures [facility] Diagnosis Essential hypertension Unspecified essential hypertension Mixed dyslipidemia Chronic left shoulder pain Pain in joint, shoulder region documented in this encounter [facility] HealthcareEvaluation note* Diagnosis Onset Date Resolution Status Admit Date Laceration of hand, left acuteNovember 2024 10:58am [facility] Work Phone: Reason for referral (narrative)No reason for referral information availableFirelands Regional [facility] Work Phone: Summary Purpose Family History Relationship [...] or prosecute any alcohol or drug abuse patient.[facility] HospitalIn the event this information is protected by the Federal Confidentiality of Alcohol and Drug Abuse Patient Records regulations: The Federal rules restrict any use of the information to criminally investigate or prosecute any alcohol or drug abuse patient.[facility] HospitalIn the event this information is protected by the Federal Confidentiality of Alcohol and Drug Abuse Patient Records regulations: The Federal rules restrict any use of the information to criminally investigate or prosecute any alcohol or drug abuse patient.[facility] HospitalIn the event this information is protected by the Federal Confidentiality of Alcohol and Drug Abuse Patient Records regulations: The Federal rules restrict any use of the information to criminally investigate or prosecute any alcohol or drug abuse patient.[facility] HospitalIn the event this information is protected by the Federal Confidentiality of Alcohol and Drug Abuse Patient Records regulations: The Federal rules restrict any use of the information to criminally investigate or prosecute any alcohol or drug abuse patient.[facility] HospitalIn the event this information is protected by the Federal Confidentiality of Alcohol and Drug Abuse Patient Records regulations: The Federal rules restrict any use of the information to criminally investigate or prosecute any alcohol or drug abuse patient.[facility] HospitalIn the event this information is protected by the Federal Confidentiality of Alcohol and Drug Abuse Patient Records regulations: The Federal rules restrict any use of the information to criminally investigate or prosecute any alcohol or drug abuse patient.[facility] HospitalIn the event this information is protected by the Federal Confidentiality of Alcohol and Drug Abuse Patient Records regulations: The Federal rules restrict any use of the information to criminally investigate or prosecute any alcohol or drug abuse patient.[facility] HospitalIn the event this information is protected by the Federal Confidentiality of Alcohol and Drug Abuse Patient Records regulations: The Federal rules restrict any use of the information to criminally investigate or prosecute any alcohol or drug abuse patient.[facility] Reason for Visit (unrecogniz ed section and content) ReasonCommentsFollow UpRefill RequestSpecialtyDiagnoses / ProceduresReferred By ContactReferred To ContactNeurology / EPILEPSY Diagnoses Partial epilepsy with impairment of consciousness Procedures OFFICE/OUTPATIENT ESTABLISHED MOD MDM 30-39 MIN VIDEO SPEC EST Self Trina Sinha, AUTOMOBILE BODY REPAIR CHIEF.SHOT PEEN OPERATOR [address] [place] [address] Referral IDStatusReasonStrose hill DateExpiration DateVisits RequestedVisits [id number]/1/202212/[id number] req emailed to patientReasonCommentsFormsHart Medical EquipmentReasonOnset DateCommentsRefill Qwnncjb7307/28/2022ReasonCommentsRefill RequestReasonCommentsJoint PainReason CommentsFollow UpRefill RequestFollowup for Epilepsy and general health review, RFS.ReasonCommentsMed RefillReasonCommentsHypertensionHyperlipidemiaReason CommentsFollow UpSeizuresRefill RequestSpecialtyDiagnoses / ProceduresReferred By ContactReferred To ContactNeurology / EPILEPSY Diagnoses Encounter for medication refill Yearly med refills. No changes. Seizure free Procedures SYNCHRONOUS AUDIO-ONLY VISIT EST HIGH MDM 40 MIN VIDEO SPEC DIRECT SCHED Self Trina Sinha, AUTOMOBILE BODY REPAIR CHIEF.SHOT PEEN OPERATOR [address] [place] [address] Phone: tel: fax: Referral IDStatusReasonAr[place] DateExpiration DateVisits RequestedVisits [id number]/13/202512/[id number] DateCommentsRefill Zfrlbwc0809/26/2024ReasonOnset DateCommentsRefill Xaqeght2810/05/2024 Care Teams (unrecognized sec tion and content) Team MemberRelationshipSpecialtyStart DateEnd Date Josiah Blankenship [address] [place] [phone] (Fax) PCP - GeneralFamily Practice07/17/17Team MemberRelationshipSpecialtyStart DateEnd [place] [address] (Fax) PCP - GeneralFamily Practice07/17/17Team MemberRelationshipSpecialtyStart DateEnd Date Josiah Blankenship MD [address] [facility] [place] [address] (Fax) PCP - GeneralFamily Practice07/17/17Team MemberRelationshipSpecialtyStart DateEnd Date Josiah Blankenship MD [address] [facility] [place] [address] (Fax) PCP - GeneralFamily Medicine07/17/17Team MemberRelationshipSpecialtyStart DateEnd Date Josiah Blankenship MD [address] [facility] [place] [address] (Fax) PCP - GeneralFamily Medicine07/17/17Team MemberRelationshipSpecialtyStart DateEnd Date Josiah Blankenship MD [address] [address] PCP - GeneralFamily Medicine08/21/22Team MemberRelationshipSpecialtyStart DateEnd Date Josiah Blankenship MD [address] [facility] [place] [address] (Fax) PCP - GeneralFamily Medicine07/17/17Team MemberRelationshipSpecialtyStart DateEnd [...] MemberRelationshipSpecialtyStart DateEnd Date Josiah Blankenship MD [address] [place] [address] (Fax) PCP - GeneralFamily Medicine07/17/17Team MemberRelationshipSpecialtyStart DateEnd Date Josiah Blankenship MD [address] [place] [address] (Fax) PCP - GeneralFamily Medicine07/17/17Team MemberRelationshipSpecialtyStart DateEnd [...] Member Role/Relationship Status Dates Sonali Mckinney APRN GRADER TENDER-C Primary Care Provider Active Team Status: Inactive Member Role/Relationship Status Dates Yomi Prescott DO Attending Provider Active S tart: February 06, 2025 End: February 06, 2025Sonali Mckinney APRN GRADER TENDER-CPrimary Care Provider ActiveStart: February 06, 2025 End: February 06, 2025 Team Status: Inactive Member Role/Relationship Status Dates Sonali Mckinney APRN GRADER TENDER-C Primary Care Provider Active Start: February 062024 End: February 06, 2025Sonali Mckinney APRN GRADER TENDER-CAttending ProviderActive Start: February 06, 2025 End: February 06, 2025 (unrecognized sect ion and content) No Status Records FoundNo Status Records FoundNo Status Records Found INFORMATION SOURCE (unrecogn ized section and content) DATE CREATED AUTHOR 09/04/2021 [facility] DATE CREATED AUTHOR AUTHOR'S ORGANIZ ATION 09/12/2024 [facility] DATE CREATED AUTHOR AUTHOR'S ORGANIZ ATION 01/21/2025 [facility] EPIC Goals (unrecognized section and [...] BE BASED ON THE PRIMARY CLINICAL RECORDS. [employer] provides no warranty or guarantee of the accuracy or completeness of information in this document.
--- OUTSIDE RECORDS SUMMARY | 2025-03-07 07:33 | XMS_ITS | Clinical Summary ---
Author Organization [facility] Address [address] [place], [place] [address] Care Team Providers Care Ceiling Installer Name Role Phone Mesfin Chin MD Primary Care Provider Allergies No known active allergies Medications MedicationSigDispense QuantityRefillsLast FilledStart DateEnd DateStatus CPAP Indications:STEVAN (obstructive sleep apnea)CPAP 11 cmH2O, mask, tubing, humidifier, filters. Lifetime supplies. Dx: G47.33 DME: [employer], f: [phone] 1 Device Active CPAP Provide new SD card. Current card is not functional. 1 Device 11/03/2016Active CPAP AutoPAP 5-12 cmH2O, mask, humidity, filters. Lifetime supplies. Dx: G47.33. Fax 30 day compliance rpt to [phone] when available. 1 Device 11/03/2016Active CPAP 2nd request for download report. Fax results to [phone]. 1 Device 02/02/2017Active calcium carbonate (OS-BALWINDER 500) [...] repair - LEFT06/30/2016OSA on CPAP06/20/2016Post traumatic seizure oizkwfop37/24/2017Incomplete tear of left rotator cuff06/12/2016Cubital tunnel syndrome [...] = 0.6 oz pure alcohol)very rarePHQ-2AnswerDate RecordedPHQ-2 fkqmx0075Area Deprivation IndexAnswerDate RecordedNational Score (1-100), lower number is lower risk87 2022State Score (1-10), lower number is lower pckp5973Data from: https://www.neighborhoodatlas.medicine.[facility].edu/. Last address used for [address] [facility]2022Sex and Gender InformationValueDate RecordedSex Assigned at QlobpBvyi78/22/2022 10:12 PM EDTLegal RccWzht49/02/2012 8:11 AM ESTGender ExktlzymAmsy31/22/2022 10:12 PM EDTSexual OrientationStraight 09/08/2024 8:53 PM EDTOccupationIndustryJob Start DateJob End DateGENERALNot on fileNot on fileNot on file Last Filed Vital Signs Vital SignReadingTime TakenCommentsBlood Frnrkudn859/71429 10:07 AM EDT Vpnpc838406/19/2020 10:07 AM HTHGfliocvczoe10.4 ??C (97.6 ??F)01/30/2017 9:24 AM EDTRespiratory Hwfb140406/19/2020 10:07 AM EDTOxygen Uhsxsufxnd52%06/19/2020 10:07 AM EDTInhaled Oxygen Concentration--Pyqzwn56.1 kg (170 lb)06/19/2020 10:07 AM QEEQrhjll161.4 cm (6' 1 )06/19/2020 10:07 AM EDTBody Mass Index22.43006/19/2020 10:07 AM EDT Plan of Treatment Health MaintenanceDue DateLast DoneCommentsAnxiety Kprdwpeje98/12/1993Depression Xhtbdnnwt68/12/1993HIV Dqwxafocr62/12/1993Hepatitis C Utusmvsnh13/12/1993 DTaP,Tdap,Td Vaccine (1 - Tdap)1993Hepatitis B Vaccine (1 of 3 - 19+ 3- dose series)1993Lipid Gtspicotr57/12/2010CT Szlpgxmhgapj28/12/2020 Cologuard (FIT-DNA)08/09/20197485Aztammepzfo58/12/2020Colorectal Cancer Screening 08/09/2019Fecal Occult Blood08/09/20190376Imrkjhmoomcil84/12/2020Diabetes Screening , 04/11/2016, 04/11/2015, Additional history exists Pneumococcal Vaccine: 50+ (1 of 1 - PCV)2024Shingrix Vaccine (1 of 2) 5Covid-19 Vaccine ( - season)/, 05/09/2022, 10/06/2021, Additional history existsInfluenza Vaccine (#1)/, 05/09/2022, 12/29/2020, Additional history exists Medical Devices ImplantedTypeAreaManufacturerDevice IdentifierShelf Expiration DateModel / Serial / LotAnchor Swivelock 4.75mm Peek 19.1mm Suture Closed Eyelet Vent Sterile - [id number] Implanted:Qty: 1 on 06/30/2016 at [facility]: Bone - Shoulder [employer]02/26/2021R-2324PSLC / / [id number]:PEEK SWIVELOCKAnchor Swivelock 4.75mm Peek 19.1mm Suture Closed Eyelet Vent Sterile - [id number] [facility] [employer]12/27/2020R-2324PSLC / / [id number]:PEEK SWIVELOCKAnchor Corkscrew Fiberwire 5.5mm 2 Full Thread Peek 14.7mm Suture 2 Sterile - [id number] [facility]plant[facility] - [facility]er [employer]09/26/2020R-1927PSF / / [id number]:PEEK CORKSCREW Procedures Procedure NamePriorityDate/TimeAssociated DiagnosisCommentsCOMPREHENSIVE METABOLIC CEFGXGadmrpf47/23/2021 10:35 AM EDT Partial epilepsy with impairment [...] mg/dL06/19/2020 5:19 [facility] Alkaline Bkkpsymwlir6030 - 113 U/L06/19/2020 5:19 [facility] ZsnaugzoedduZDQ8607 - 40 U/L06/19/2020 5:19 [facility] KauziconvkafBqioegs5589 - 99 mg/dL06/19/2020 5:19 PM [facility] LaboratoriesComment: The [place] Diabetes Association (ADA) provides guidance for cutoff [...] Standards of Medical Care in Diabetes 2016, [place] Diabetes Association. Diabetes Care. 2016.39(Suppl 1). GZY486 - 24 mg/dL06/19/2020 5:19 PM [facility] LaboratoriesCreatinine 0.850.73 - 1.22 mg/dL06/19/2020 5:19 PM [facility] LaboratoriesSodium 790124 - 144 mmol/L06/19/2020 5:19 PM [facility] LaboratoriesPotassium 4.13.7 - 5.1 mmol/L06/19/2020 5:19 PM [facility] LaboratoriesChloride 89565 - 105 mmol/L06/19/2020 5:19 PM [facility] NiopgcmciwouIC88407 - 30 mmol/L06/19/2020 5:19 PM [facility] LaboratoriesAnion Gap99 - 18 mmol/L06/19/2020 5:19 PM [facility] FjealmldlzdtTEO6022 - 54 U/L 06/19/2020 5:19 PM [facility] LaboratorieseGFR->60 06/19/2020 5:19 PM [facility] LaboratorieseGFR-All Other Races>60. 06/19/2020 5:19 PM [facility] LaboratoriesComment: eGFR (Estimated GFR) Units of [...] / Volume Collection TimeReceived TimeBloodBLOOD SPECIMEN / Ydkujjo6606/19/2020 10:35 AM EDT 06/19/2020 10:37 AM EDT Narrative Authorizing ProviderResult TypeResult StatusSilvia Justin Ramos MDLABORATORY Final ResultPerforming OrganizationAddressCity/State/ZIP CodePhone Number [facility] [address] [place] [address] [facility] [address] [place] [address] from Last 3 Months or Most Recently Relevant to Health Maintenance Insurance Care Teams Team MemberRelationshipSpecialtyStart DateEnd Mesfin Chin MD [address] [place] [address] PCP - GeneralFamily Medicine07/17/17
[2025-03-07 07:34] LABS: Magnesium 2.3 mg/dL (1.8-2.4)
[2025-03-07 07:43] LABS: Alanine Aminotransferase 35 U/L (16-63); Albumin Globulin Ratio 1.0; Albumin Level 3.6 g/dL (3.4-5.0); Alkaline Phosphatase 126 U/L (46-116); Anion Gap 11.8; Aspartate Amino Transferase 16 U/L (15-37); Blood Urea Nitrogen 11.0 mg/dL (7.0-18.0); Calcium 8.9 mg/dL (8.5-10.1); Carbon Dioxide 31.3 mmol/L (21.0-32.0); Chloride 104 mmol/L (98-107); Estimated GFR (African America >60 (>=60 mL/min/1.73m^2); Estimated GFR (Non-African Ame >60 (>=60 mL/min/1.73m^2); Globulin 3.6 g/dL; Glucose 111 mg/dL (74-106); Potassium 4.1 mmol/L (3.5-5.1); Sodium 143 mmol/L (136-145); Total Protein 7.2 g/dL (6.4-8.2)
[2025-03-07 08:07] VITALS: BP 127/84; PULSE 59
[2025-03-07 08:08] VITALS: BP 139/91; PULSE 57
[2025-03-07 08:09] VITALS: BP 141/94; PULSE 61
[2025-03-07] MEDS: 0.9 % SODIUM CHLORIDE 1,000 ML 500 ML IV (08:50)
[2025-03-07 09:27] LABS: Glucose Urine UA NEGATIVE (NEGATIVE)
[2025-03-07 09:41] LABS: Cast Seen? SEEN #/LPF (NONE SEEN); Crystals Seen? None Seen #/HPF (None Seen); Urine Culture Indicated NO
--- NOTE | 2025-03-07 09:55 | ED.GENADUL1 ---
HPI HPI - General Adult General Chief complaint: Syncope Stated complaint: NEAR SYNCOPE Time Seen by Provider: 03/07/25 07:09 Source: patient Mode of arrival: ambulance History of Present Illness HPI narrative: Patient brought to us by the EMS after he had some dizziness when he was at work, the first day for the patient to go back to work after vacation , was at the beginning of his 10-hour shift when he stood up and felt dizzy and after that the patient sat down and is feeling much better he did not have any chest pain he did not have any nausea vomiting or any other concern and he did not have any room spinning sensation At that time he did not eat yet and at this moment the patient have no complaint Related Data Home Medications ?Medication ?Instructions ?Recorded ?Confirmed atorvastatin 40 mg tablet 40 mg PO DAILY 01/27/25 03/07/25 carbamazepine 200 mg tablet 300 mg PO Q12H 01/27/25 03/07/25 levetiracetam 1,000 mg tablet 1,000 mg PO Q12H 01/27/25 03/07/25 losartan 100 mg tablet 100 mg PO DAILY 01/27/25 03/07/25 nabumetone 750 mg tablet 750 mg PO DAILY 01/27/25 03/07/25 nebivolol 10 mg tablet 10 mg PO DAILY 01/27/25 03/07/25 Allergies Allergy/AdvReac Type Severity Reaction Status Date / Time No Known Drug Allergies Allergy Verified 03/07/25 06:52 Opioid HPI Opioid Management Most Recent Opioid Data: Last Pain Scale 7 01/27/25, 16:40 Review of Systems ROS Status of ROS 10 or more systems reviewed and unremarkable except as noted in history and below PFSH PFSH Social History Little interest or pleasure in doing things: not at all Feeling down, depressed, or hopeless: not at all Exam Narrative Exam Narrative: Nurses notes and vital signs reviewed and patient is not hypoxic. General: Well-appearing and in no apparent distress. Skin: Warm, dry, no pallor noted. No rash. Head: Normocephalic, atraumatic. Neck: Supple, non-tender. Cardiovascular: Regular Rate and Rhythm without murmur, gallop or rub. Respiratory: No accessory muscle use or respiratory distress. Lungs are clear to auscultation, no wheezing, rales or rhonchi Chest Wall: no tenderness Back: No midline thoracic or lumbar vertebral tenderness. No CVA tenderness Musculoskeletal: normal ROM, no calf or popliteal tenderness, no lower extremity edema/swelling GI: Abdomen is soft, non-distended. Normal bowel sounds. No masses appreciated. No tenderness to palpation. No rebound, guarding, or rigidity noted. Neurological: A&O x4. No cranial nerve dysfunction observed. No truncal ataxia. Moves all extremities. Sensation intact. Psychiatric: Cooperative and interactive. Normal mood and affect. Constitutional Vital Signs, click to edit/add: Last Vital Signs Temp 98.0 F 03/07/25 06:54 Pulse 61 03/07/25 10:55 Resp 114 H 03/07/25 10:55 BP 148/96 H 03/07/25 10:55 Pulse Ox 97 03/07/25 10:55 O2 Del Method Room Air 03/07/25 10:55 Course Vital Signs Vital signs: Vital Signs Temperature 98.0 F 03/07/25 06:54 Pulse Rate 61 03/07/25 06:54 Respiratory Rate 16 03/07/25 06:54 Blood Pressure 157/95 H 03/07/25 06:54 Pulse Oximetry 100 03/07/25 06:54 Oxygen Delivery Method Room Air 03/07/25 06:54 Temperature 98.0 F 03/07/25 06:54 Pulse Rate 61 03/07/25 10:55 Respiratory Rate 114 H 03/07/25 10:55 Blood Pressure 148/96 H 03/07/25 10:55 Pulse Oximetry 97 03/07/25 10:55 Oxygen Delivery Method Room Air 03/07/25 10:55 Medical Decision Making [facility] Narrative Medical decision making narrative: The patient was feeling much better after initial evaluation CBC and chemistry showed no acute significant pathology and the troponin was repeated twice EKG did not show any acute pathology the heart rate of [address] elevation or depression The patient was not orthostatic Urine did show some ketones and the patient was provided some IV fluid hydration before he gave us the urine sample Mild dehydration could be the reason for the patient's symptoms although he is not having any concern at the moment for any complaint he was able to ambulate with no difficulty but he was still was discharged with monitoring his symptoms The patient to come back to the ER in case of any new symptoms or concern The patient to follow-up with the primary care within 2 to 3 days and to come back to the ER in case of any worsening of the current symptoms or any new symptoms or concerns Lab Data Labs: Lab Results 03/07/25 03/07/25 03/07/25 Range/Units 07:15 08:28 09:16 WBC 8.0 (4.0-11.0) 10^3/uL RBC 4.28 L (4.70-6.10) 10^6/uL Hgb 13.2 L (14.0-18.0) g/dL Hct 40.6 L (42.0-54.0) % MCV 94.9 H (80.0-94.0) fL MCH 30.8 (25.9-34.0) pg MCHC 32.5 (29.9-35.2) g/dL RDW 11.9 (11.0-15.0) % Plt Count 334 (150-450) 10^3/uL MPV 8.3 L (9.5-13.5) fL Neut % (Auto) 68.0 (43.0-75.0) % Lymph % (Auto) 19.0 L (20.5-60.0) % Meigs % (Auto) 9.6 (1.7-12.0) % Eos % (Auto) 2.0 (0.9-7.0) % Baso % (Auto) 0.9 (0.2-2.0) % Neut # (Auto) 5.5 (1.4-6.5) 10^3/uL Lymph # (Auto) 1.5 (1.2-3.8) 10^3/uL Meigs # (Auto) 0.8 (0.3-0.8) 10^3/uL Eos # (Auto) 0.2 (0.0-0.7) 10^3/uL Baso # (Auto) 0.1 (0.0-0.1) 10^3/uL Abs Immat Gran (auto) 0.04 H (0.00-0.03) 10^3/uL Imm/Tot Granulo (auto) 0.5 (0.0-0.5) % Sodium 143 (136-145) mmol/L Potassium 4.1 (3.5-5.1) mmol/L Chloride 104 (98-107) mmol/L Carbon Dioxide 31.3 (21.0-32.0) mmol/L Anion Gap 11.8 BUN 11.0 (7.0-18.0) mg/dL Creatinine 1.07 (0.70-1.30) mg/dL Est GFR ( Amer) >60 (>=60 mL/min/1.73m^2) Est GFR (Non-Af Amer) >60 (>=60 mL/min/1.73m^2) BUN/Creatinine Ratio 10.3 Glucose 111 H (74-106) mg/dL Calcium 8.9 (8.5-10.1) mg/dL Magnesium 2.3 (1.8-2.4) mg/dL Total Bilirubin 0.3 (0.2-1.0) mg/dL AST 16 (15-37) U/L ALT 35 (16-63) U/L Alkaline Phosphatase 126 H (46-116) U/L Troponin I High Sens 5.7 5.9 (4.0-76.1) pg/mL Total Protein 7.2 (6.4-8.2) g/dL Albumin 3.6 (3.4-5.0) g/dL Globulin 3.6 g/dL Albumin/Globulin Ratio 1.0 Urine Color Yellow (YELLOW) Urine Clarity Clear (CLEAR) Urine pH 5.5 (5.0-9.0) Ur Specific [place] >=1.030 A (1.005-1.025) Urine Protein 100 A (NEG/TRACE) mg/dL Urine Glucose (UA) Negative (NEGATIVE) mg/dL Urine Ketones Trace A (NEGATIVE) mg/dL Urine Occult Blood Negative (NEGATIVE) Urine Nitrite Negative (NEGATIVE) Urine Bilirubin Negative (NEGATIVE) Urine Urobilinogen 0.2 (0.2-1.0) EU/dL Ur Leukocyte Esterase Negative (NEGATIVE) Urine RBC 0-2 (0-2) #/HPF Urine WBC 0-2 A (NONE SEEN) #/HPF Ur Squamous Epith Cells Rare (NONE/RARE) #/LPF Urine Crystals None seen (None Seen) #/HPF Urine Bacteria Trace A (NONE SEEN) #/HPF Urine Casts Seen A (NONE SEEN) #/LPF Hyaline Casts Few Urine Mucus Small A (NONE SEEN) Ur Culture Indicated? No Discharge Plan Discharge Chief Complaint: Syncope Clinical Impression: Dehydration, Dizziness Patient Disposition: Home, Self-Care Time of Disposition Decision: 09:56 Condition: Good Prescriptions / Home Meds: No Action atorvastatin 40 mg tablet 40 mg PO DAILY carbamazepine 200 mg tablet 300 mg PO Q12H levetiracetam 1,000 mg tablet 1,000 mg PO Q12H losartan 100 mg tablet 100 mg PO DAILY nabumetone 750 mg tablet 750 mg PO DAILY nebivolol 10 mg tablet 10 mg PO DAILY Print Language: Polish Instructions: Dehydration (DC), Dizziness (ED) Referrals: LIBRADO VIDES [Primary Care Provider, Unknown] - 1 week Discharge Date/Time: 03/07/25 10:58
[2025-03-07 10:55] VITALS: BP 148/96; PULSE 61; O2SAT 97
== END 2025-03-07 10:58 | disposition home or self-care (01) ==
PROVIDERS: Emergency Provider Emergency Medicine; PCP Nurse Practitioner Family
DX: E86.0 Dehydration (principal); R42 Dizziness and giddiness
CPT/HCPCS: 36415; 80053; 81001; 83735; 84484; 85025; 93005; 99284

== ENCOUNTER 2025-03-18 10:21 | Emergency (ER) | payer OTHER, SELFPAY ==
--- OUTSIDE RECORDS SUMMARY | 2025-03-08 05:21 | XMS_ITS | Continuity of Care Document ---
Author Organization [facility] Address [address] [place] [address] Phone Care Team Providers Care Second Ride Fare Collector Name Role Phone Yomi Prescott DO Attending Provider Mesfin Chin MD Primary Care Provider Sonali Mckinney APRN Primary Care Provider Sonali Mckinney APRN Attending Provider Savanah Koehler MD Attending Provider Care Teams Patient Care Team Team Status: Active Member Role/Relationship Status Dates Sonali Mckinney APRN [employer] Primary Care Provider Active Visit Care Team [...] 2025 End: February 06, 2025Sonali Mckinney APRN [place] [employer]CPrimary Care Provider ActiveStart: February 06, 2025 End: February 06, 2025 Visit Care Team Team Status: Inactive Member Role/Relationship Status Dates Sonali Mckinney APRN [employer] [employer] Primary Care Provider Active Start: February 062024 End: February 06, 2025Sonali Mckinney APRN [place]CAttending ProviderActive Start: February 06, 2025 End: February 06, 2025 Visit Care Team Team Status: Inactive Member Role/Relationship Status Dates Sonali Mckinney APRN [employer] Primary Care Provider Active Start: February End: March 06, 2025Yomi Prescott DOAttending ProviderActiveStart: March 06, 2025 End: March 06, 2025 Visit Care Team Team Status: Active Member Role/Relationship Status Dates Sonali Mckinney APRN [employer] Primary Care Provider Active Start: February Savanah Koehler MDAttending ProviderActiveStart: March 07, 2025 Visit Care Team Team Status: Inactive Member Role/Relationship Status Dates Sonali Mckinney APRN [employer] [employer] Primary Care Provider Active Start: March 082024 End: March 08, 2025Sonali Mckinney APRN [place]CAttending ProviderActive Start: March 08, 2025 End: March 08, 2025 Chief Complaint and Reason for Visit Chief Complaint Admit Date TB ER LT HAND LAC WX January 30, 2025 10:58am TBH 1 WEEK February 06, 2025 10:54am Est Care February 06, 2025 3:12pm TBH 4 WEEKS March 06, 2025 1 1:42am TBH ER f/u March 08, 2025 9:37am Reason for Visit Admit Date Laceration of [...] hand, left March 06, 2 025 11:42am Dehydration March 08, 2025 9:37am Dizziness March 08, 2025 9:37am Allergies, Adverse Reactions, Alerts Allergen Type Severity Reaction Last Updated Verified Status No Known Allergies Allergy Unknown March 08, 2025 9:40amYesActive Social History Smoking Status Status Start Date End Date Date of Observa tion Never smoked tobacco (finding) February 06, 2025 3:24pm Observation Status Observation Response Date of Response Legal Sex Male (finding) Sex Assigned At BirthMaleMay 1975 Family History Relationship Condition Age at Onset Recorded Date/T mary father Diabetes mellitus Unknown Cerebrovascular accident (CVA)UnknownmotherHigh blood cholesterolUnknown Problems Active Problems Problem Diagnosis/Recorded Date Onset Date Stat us Screening for prostate cancer February 07, 2025 2:09 pm Unknown Active Screening for colon cancer February 06, 2025 3:40pm Unknown Active Overweight (BMI 25.0-29.9) February 07, 2025 2:15pm Unknown Active Dizziness March 08, 2025 10:12am Unknown Active Hyperlipidemia January 30, 2025 11:26am Unknown Active Seizures January 30, 2025 11:26am Unknown A ctive Hypertension January 30, 2025 11:26am Unknown A ctive Dehydration March 08, 2025 10:13am Unknown Active Inactive/Resolved Problems Problem Diagnosis/Recorded Date Onset Date Stat us Laceration of hand, left January 30, 2025 11:35am Un known Resolved Medications Medication Status Dose Units Route Directions Qty Days Refills S tart Date Stop Date End Date Reason(s) Instructions Adherence Atorvastatin 40 mg tablet Active MGPONovember 2024 12:00amComplies with drug therapyNabumetone 750 mg tablet ActiveMGPONovember 2024 12:00amComplies with drug therapyCarbamazepine 200 mg tabletActiveMGPONovember 2024 12:00amComplies with drug therapyLosartan 100 mg tabletActiveMGPONovember 2024 12:00amComplies with drug therapy Amoxicillin-Pot Clavulanate 875-125 mg tabletDiscontinuedTABPONovember 2024 12:00amNovember 2024 3:19pmLevetiracetam 1,000 mg tabletActiveMGPONovember 2024 12:00amComplies with drug therapyNebivolol 10 mg tabletDiscontinuedMG PONovember 2024 12:00amNovember 2024 3:49pmNebivolol 10 mg tablet Sbvjcm52EQSNVrefd26327Inwybgse 2024 3:49pmHypertension Essential (primary) hypertensionComplies with drug therapy Relevant Diagnostic Tests and/or Laboratory Data Laboratory Results Test Collection Date/Time Result Date/Time Result Interpretation Reference Range Result Comment Performing Site Anion Gap March 07, 2025 7:15am March 07, 2025 7: 15am 11.8 Magnesium LevelDe2024 7:15amcemb2024 7:15am2.3 mg/dL 1.8-2.4Urine Microscopic ReviewMarch 07, 2025 8:28amce2024 8:28amYESTroponin I High SensitivityMarch 07, 2025 9:16amMarch 07, 2025 9:16am5.9 pg/mL4.0-76.1CUT-OFF POINTS HAVE BEEN ESTABLISHED BASED ON THE FOURTHUNIVERS DEFINITION OF MYOCARDIAL INFARCTION. THE UPPERREFERENCE LIMIT (URL) OF TROPONIN, DEFINED THE 99THPERCENTILE OF cTnI DISTRIBUTION IN A REFERENCE POPULATION,HAS BEEN CONFIRMED THE DECISION THRESHOLD FOR MIDIAGNOSIS.99TH PERCENTILE = 76.2 PG/MLNOTE: HIGH-SENSITIVITY TROPONIN ASSAY IS NOT INTENDED TO BEUSED IN ISOLATION BUT SHOULD BE INTERPRETED IN CONJUNCTIONWITH OTHER DIAGNOSTIC AND CLINICAL INFORMATION.Albumin/Globulin RatioMarch 07, 2025 7:15amMarch 07, 2025 7:15am1.0Urine BilirubinMarch 07, 2025 8:28am March 07, 2025 8:28amNEGATIVENEGATIVEAlbuminDe2024 7:15am March 07, 2025 7:15am3.6 g/dL3.4-5.0Urine Occult BloodMarch 07, 2025 8:28amDece2024 8:28amNEGATIVENEGATIVEAlkaline PhosphataseMarch 07, 2025 7:15amMarch 07, 2025 7:94vl934 U/LAbove high ywdrhr09-100Lvmav AppearanceMarch 07, 2025 8:28amDecemb2024 8:28amCLEARCLEARAlanine Aminotransferase (ALT/SGPT)March 07, 2025 7:15amDe2024 7:15am35 U/G18-30Zjaqw ColorDecember 2024 8:28amDecember 2024 8:28amYELLOW YELLOWAspartate Amino Transf (AST/SGOT)March 07, 2025 7:15amDecember 2024 7:15am16 U/E36-35Nxqja Glucose (UA)March 07, 2025 8:28amDecember 2024 8:28amNEGATIVE mg/dLNEGATIVEBUN/Creatinine RatioDece2024 7:15am March 07, 2025 7:15am10.3Urine KetonesD2024 8:28amDece2024 8:28amTRACE mg/dLAbnormal (applies to non-numeric results)NEGATIVEBlood Urea NitrogenDece2024 7:15amDecember 2024 7:15am11.0 mg/dL 7.0-18.0Urine Leukocyte EsteraseMarch 07, 2025 8:28amDecember 2024 8:28amNEGATIVENEGATIVECalcium LevelDece2024 7:15amDecemb2024 7:15am8.9 mg/dL8.5-10.1Urine NitriteDece2024 8:28amDecember 2024 8:28amNEGATIVENEGATIVEChloride LevelDece2024 7:15amDecember 2024 7:98bi535 mmol/J30-706Papvu pHDece2024 8:28amDecember 2024 8:28am 5.55.0-9.0Carbon Dioxide Levelce2024 7:15amDecember 2024 7:15am 31.3 mmol/L21.0-32.0Urine ProteinDeceer 2024 8:28amDecember 2024 8:19gv161 mg/dLAbnormal (applies to non-numeric results)NEG/TRACECreatinine March 07, 2025 7:15amDecember 2024 7:15am1.07 mg/dL0.70-1.30Urine Specific [facility]2024 8:28amDecember 2024 8:28am>=1.030 Abnormal (applies to non-numeric results)1.005-1.025Estimated GFR ()March 07, 2025 7:15amDecember 2024 7:15am>60>=60 mL/min/1.73m 2Urine UrobilinogenDece2024 8:28amDeceer 2024 8:28am0.2 EU/dL 0.2-1.0Estimated GFR (Non- AmericanDe2024 7:15amDeceer 2024 7:15am>60>=60 mL/min/1.73m 2GlobulinDeascension macomb-[facility]2024 7:15amDecember 2024 7:15am3.6 g/dLGlucose LevelDeascension [facility]2024 7:15amDeceer 2024 7:97it464 mg/dLAbove high zbzamg75-023Cixotmnlb LevelDeascension mac[facility]2024 7:15am March 07, 2025 7:15am4.1 mmol/L3.5-5.1Sodium LevelDebanner [facility] 2024 7:15am March 07, 2025 7:15go212 mmol/G847-461Klplo BilirubinDeascension macomb-[facility]2024 7:15amDeceer 2024 7:15am0.3 mg/dL0.2-1.0Total ProteinDebanner ironwood medical center 2024 7:15amDecember 2024 7:15am7.2 g/dL6.4-8.2 Vital Signs Vital Reading Result Reference Range Collection Date/Time Height 73 [in_i] January 30, 2025 11:94efEfaoou59.37 kgNov2024 11:22amBMI (Body Mass Index)23.1 kg/b8Xxsgrtpc 3rd, 2025 11:91kkYcfago57 [in_i]February 06, 2025 11:55bkKjzmty37.37 kgNov2024 11:45amBMI (Body Mass Index)23.1 kg/m2 February 06, 2025 11:81vyGupqku96 [in_i]February 06, 2025 3:86alXduaqf12.18 kgFebruary 06, 2025 3:15pmBody Pygdvqwtqdh79.8 [degF]97.6-99.0February 06, 2025 3:15pmHeart Rmrs885 /xsf25-081EtbqkaaaFebruary 06, 2025 3:15pmOxygen saturation by Pulse jfmezrmd97 %95-100February 06, 2025 3:15pmBP Oqwbdbsu601 mm[Hg] 100-140February 06, 2025 3:15pmBP Dnqpwtvrg91 mm[Hg]60-100February 06, 2025 3:15pmBMI (Body Mass Index)25.0 kg/t4YmtiasjfFebruary 06, 2025 3:77taWodede44 [in_i] March 08, 2025 9:22nbJvhpdk12.99 kgDecemb2024 9:42amBody Eycxbeummcw04.1 [degF]97.6-99.0Decemb2024 9:42amHeart Rate78 /uff34-914 March 08, 2025 9:42amOxygen saturation by Pulse ouikxlli63 %95-100Decemb2024 9:42amBP Dwibwkad607 mm[Hg]100-140Decemb2024 9:42amBP Ixpcwwojb33 mm[Hg]60-100Decemb2024 9:42amBMI (Body Mass Index)25.6 kg/x4Amleygmm2024 9:42am Advance Directives Advance Directive Response Recorded Date/ Time Advance Directives No January 26, 2020 5:48am Insurance Providers Guarantor Shelley Jaeger Address [address] [place] [id number] Info.Home Phone: Coverage Status Update:2025 Payer Group Member ID Coverage Type Subscriber Relationship to Subscriber Effective Date Expiration Date [id number] Schofield Id: [id number] [facility] [id number] Home Phone: [employer] Id: [id number] Axel Shelley [place] Id: [id number] [address] [place] [id number] Home Phone: Self Encounters Encounter Location(s) Arrival/Admit Date Discharge/Departure Date Discharge/Departure Disposition Provider(s) Departed Physician/ Provider [facility] 10:58am January 30, 2025 12:02pm Discharged to home care or self care (routine discharge) Yomi Prescott DO Departed Physician/ Provider Office Visit -[facility] February 06, 2025 10:54am February 06, 2025 11:57am Discharged to home care or self care (routine discharge) Yomi Prescott DO Departed Physician/ Provider Office Visit -[facility] February 06, 2025 3:12pm February 06, 2025 3:59pm Discharged to home care or self care (routine discharge) Sonali Mckinney APRN CNP Departed Physician/ Provider Office Visit -[facility] March 06, 2025 11:42am March 06, 2025 12:02pm Discharged to home care or self care (routine discharge) Yomi Prescott DO Non-patient / Non-visit -[facility] ecember 2024 7:15am Savanah Koehler MDDeparted Physician/Provider [facility] 9:37amMarch 08, 2025 10:20amDischarged to home care or self care (routine discharge)Sonali Mckinney APRN CNP Recent Diagnosis Onset Date Admit Date Laceration of hand, left Unknown Novembe r 2024 10:58am Laceration of hand, left Unknown Novembe r 2024 10:54am Hyperlipidemia Unknown February 06, 025 3:12pm Hypertension Unknown February 06 3:12pm Overweight (BMI 25.0-29.9) Unknown 2024 3:12pm Screening for colon cancer Unknown 2024 3:12pm Screening for prostate cancer Unknown No vember 2024 3:12pm Seizures Unknown February 06 3:12pm Laceration of hand, left Unknown Decembe r 2024 11:42am Dehydration Unknown March 08 025 9:37am Dizziness Unknown March 08 9:37am Assessments Diagnosis Onset Date Resolution Status Admit Date Laceration of hand, left inactiveJanuary 30, 2025 10:58amLaceration of hand, leftinactiveNovember 2024 10:54amHyperlipidemiaacuteFebruary 06, 2025 3:12pmHypertensionacute February 06, 2025 3:12pmOverweight (BMI 25.0-29.9)acuteFebruary 06, 2025 3:12pmScreening for colon canceracuteFebruary 06, 2025 3:12pmScreening for prostate canceracuteFebruary 06, 2025 3:12pmSeizuresacuteNov2024 3:12pmLaceration of hand, leftinactiveDecember 2024 11:42amDehydrationacute March 08, 2025 9:37amDizzinessacuteDecember 2024 9:37am Plan of Treatment Author Yomi Prescott [facility]2024 2:43pmJonathan returns with left index finger laceration. At [...] full release at that time. Works at [employer] The patient has been involved in our [...] sent with patient today. Author Yomi Prescott [facility] 2024 12:09pmJonatdmitri presents with left index finger laceration. At this juncture we have discussed the findings and diagnosis as well as personally reviewed appropriate imaging and performed interpretation of related testing and examination with the patient in office today. Prior medical notes from the [facility] and history have been reviewed. At this time I would recommend nonoperative treatment. Sutures removed today. Skin glue applied. He will stay out of work for another week. We will plan for follow-up 1 week for recheck. Works at [employer] The patient has been involved in our [...] work at this time. Author Sonali Mckinney [facility] 2024 2:16pmTo goal Continue losartan and nebivolol [...] this and agrees to this plan. Author [facility] 20[facility] 12:27pmJonatdmitri returns with left index finger laceration at the radial MCP joint. At this juncture we have discussed the findings and diagnosis as well as personally reviewed appropriate imaging and performed interpretation of related testing and examination with the patient in office today. Would allow to return to full activities without restrictions. Okay to try returning to work. Follow-up in 4 weeks for final check Works at [employer] The patient has been involved in our [...] and amended by myself Yomi Prescott D.O. Author Sonali Mckinney [facility] 2024 10:20am The patient was seen today for ER/Urgent Care follow-up. All available records were reviewed and discussed with the patient. All new medications prescribed were reviewed. Any additional changes are noted above. 2 Future Tests Future scheduled test information is [...]
[2025-03-18 10:24] VITALS: BP 150/100; PULSE 59; TEMP 36.7; O2SAT 99; BMI 22.4
--- NOTE | 2025-03-18 10:32 | XR_ITS ---
The [address] [address] Patient Name: MELISSA LIN MRN: [id number] date: 1975 Sex: M Assigned Patient Location: ER Current Patient Location: ED.MAIN Accession/Order Number: [id number] Exam Date: 03/18/2025 11:14 Report Date: 03/18/2025 11:29 At the request of: KARSON SPARKS MD Procedure: XR knee LT 3V LEFT KNEE - 3 views CLINICAL HISTORY: Pain, swelling COMPARISON: None FINDINGS: No knee joint effusion. Mild degenerative changes without acute bony process. XR/XR knee LT 3V IMPRESSION: MILD DEGENERATIVE CHANGES WITHOUT ACUTE BONY PROCESS. Impression dictated by: Justino Macias Jr., D.OKehinde 03/18/2025 11:29 AM Dictation Location: [place] [address] Electronically authenticated by: [id number] Y Date: 03/18/2025 11:29
--- NOTE | 2025-03-18 10:54 | ED.GENADUL1 ---
HPI HPI - General Adult General Chief complaint: Extremity Problem, Nontraumatic Stated complaint: L KNEE PAIN Time Seen by Provider: 03/18/25 10:26 Source: patient Mode of arrival: walk-in History of Present Illness HPI narrative: 49-year-old male presented to the emergency department for left knee pain and swelling. He has had it for a few days and does not recall any unusual incident where he could have hurt it. In urgent care center told him to go to the emergency department. He has no chest pain or shortness of breath. He has pain behind the left knee and he feels like something is going to snap. Related Data Home Medications ?Medication ?Instructions ?Recorded ?Confirmed atorvastatin 40 mg tablet 40 mg PO DAILY 01/27/25 03/07/25 carbamazepine 200 mg tablet 300 mg PO Q12H 01/27/25 03/07/25 levetiracetam 1,000 mg tablet 1,000 mg PO Q12H 01/27/25 03/07/25 losartan 100 mg tablet 100 mg PO DAILY 01/27/25 03/07/25 nabumetone 750 mg tablet 750 mg PO DAILY 01/27/25 03/07/25 nebivolol 10 mg tablet 10 mg PO DAILY 01/27/25 03/07/25 Allergies Allergy/AdvReac Type Severity Reaction Status Date / Time No Known Drug Allergies Allergy Verified 03/07/25 06:52 Opioid HPI Opioid Management Most Recent Opioid Data: Last Pain Scale 5 Today, 10:35 Review of Systems ROS Narrative A ten point review of systems is negative except as noted above. PFSH PFSH Social History Little interest or pleasure in doing things: not at all Feeling down, depressed, or hopeless: not at all Exam Narrative Exam Narrative: Nurses note and vital signs reviewed General:The patient appears well and in no apparent distress. Patient is resting comfortably on cart. Skin:Warm, dry, no pallor noted.There is no rash noted. Head:Normocephalic, atraumatic Eye: Normal conjunctiva, no drainage Ears, Nose, Mouth, and Throat: oral mucosa is moist. Nares patent. Cardiovascular:Regular Rate and Rhythm Respiratory:Patient is in no distress, no accessory muscle use, lungs are clear to auscultation, no wheezing, rales or rhonchi Back:non-tender GI: Soft and nontender Musculoskeletal: The left knee is mildly swollen compared to the contralateral. The knee joint is stable on varus and valgus motion. Anterior and posterior drawer test are normal. No mass is palpable in the popliteal fossa. No ballotable effusion. Neurological:A&O, normal speech Psychiatric:Cooperative Constitutional Vital Signs, click to edit/add: Last Vital Signs Temp 98.1 F 03/18/25 10:24 Pulse 59 L 03/18/25 10:24 Resp 18 03/18/25 10:24 BP 150/100 H 03/18/25 10:24 Pulse Ox 99 03/18/25 10:24 O2 Del Method Room Air 03/18/25 10:24 Course Vital Signs Vital signs: Vital Signs Temperature 98.1 F 03/18/25 10:24 Pulse Rate 59 L 03/18/25 10:24 Respiratory Rate 18 03/18/25 10:24 Blood Pressure 150/100 H 03/18/25 10:24 Pulse Oximetry 99 03/18/25 10:24 Oxygen Delivery Method Room Air 03/18/25 10:24 Temperature 98.1 F 03/18/25 10:24 Pulse Rate 59 L 03/18/25 10:24 Respiratory Rate 18 03/18/25 10:24 Blood Pressure 150/100 H 03/18/25 10:24 Pulse Oximetry 99 03/18/25 10:24 Oxygen Delivery Method Room Air 03/18/25 10:24 Medical Decision Making MDM Narrative Medical decision making narrative: D-dimer is normal. I do not suspect DVT at this point. X-ray of the knee shows mild degenerative changes. Knee immobilizer applied, application checked by me and found to be appropriate, he is neurovascularly intact. He will follow-up with his established orthopedist and take ctaa-gjv-goxwpee ibuprofen. Treatment diagnosis and follow-up were discussed thoroughly. Differential Diagnosis Differential Diagnosis: Knee sprain, knee effusion, ligamentous injury, meniscal injury Lab Data Lab results reviewed: Yes I reviewed the patient's lab results Labs: Lab Results 03/18/25 Range/Units 10:42 D-Dimer 0.25 (<=0.59) mg/L FEU Imaging Data X-ray left knee: Radiologist's impression: ITS Impressions Knee X-Ray 03/18/25 10:32 IMPRESSION: MILD DEGENERATIVE CHANGES WITHOUT ACUTE BONY PROCESS. Impression dictated by: Justino Macias Jr., D.O. 03/18/2025 11:29 AM Dictation Location: [facility]18 Electronically authenticated by: [id number] Y Date: 03/18/2025 11:29 Discharge Plan Discharge Chief Complaint: Extremity Problem, Nontraumatic Clinical Impression: Knee pain, left Patient Disposition: Home, Self-Care Time of Disposition Decision: 11:38 Condition: Good Mode of Transportation: Private Vehicle Prescriptions / Home Meds: No Action atorvastatin 40 mg tablet 40 mg PO DAILY carbamazepine 200 mg tablet 300 mg PO Q12H levetiracetam 1,000 mg tablet 1,000 mg PO Q12H losartan 100 mg tablet 100 mg PO DAILY nabumetone 750 mg tablet 750 mg PO DAILY nebivolol 10 mg tablet 10 mg PO DAILY Print Language: Palestinian Instructions: Knee Pain (ED) Additional Instructions: Follow-up with your orthopedist, Dr. Prescott Referrals: LIBRADO VIDES [Primary Care Provider, Unknown] - 1 week EDILIA PRESCOTT [Referring] - 1 week
--- OUTSIDE RECORDS SUMMARY | 2025-03-18 11:02 | XMS_ITS | Clinical Summary ---
Author Organization [facility] Address [address] [place] [address] Care Team Providers Care Early Intervention Specialist Name Role Phone Raul Cohen Primary Care Provider [phone] Allergies No known active allergies Medications MedicationSigDispense [...] (100 mg) by mouth Daily 90 tablet /003554/ctive atorvastatin (Lipitor) 40 MG tablet Indications:Mixed dyslipidemiaTake 1 tablet (40 mg) by mouth in the evening 90 tablet /ctive nabumetone (Relafen) 750 MG tablet Indications:Chronic left shoulder painTake 1 tablet (750 mg) by mouth in the morning and 1 tablet (750 mg) before bedtime. 180 tablet 504/ctive Active Problems ProblemNoted DateDiagnosed DateMixed yodkjhnupiry06/02/2024ependence on other enabling machines and eymloys07/05/2023Essential /05/2023rand mal seizure spmusfod93/05/2023Obstructive sleep apnea (adult) (pediatric)09/01/2022 Postural kyphosis of cervicothoracic kpnumq9509/01/2022Reactive depression 09/01/2022rimary osteoarthritis of right elbow09/01/2022S/P rotator cuff repair 06/30/2016Post traumatic seizure faljoqia66/24/2017Incomplete tear of left rotator cuff06/12/2016Cubital tunnel syndrome on left05/01/2016Chronic left shoulder pain03/13/2016Adhesive capsulitis of left kdcuhslr82/15/2016Impingement syndrome of left yvpsijyz79/15/2016Lateral epicondylitis of left elbow03/13/2016 Encounters DateTypeDepartmentCare RvrqLovhbvcoiuv54/20/5136Zujgse06/25/2025linisync Result Encounter [facility] External Department Unsolicited Provider, Generic External Data 01/31/2025Telephone [facility] [address] [place] [address] Zaynab Church RN ER Follow-up ([facility] ER on 01/27/2025 for Left hand lacertation)01/19/2025 3:30 PM EDTOffice Visit [facility] [address] [address] [place] [address] Mesfin Chin MD Essential hypertension; Mixed dyslipidemia; Chronic left shoulder pain01/19/2025amboo flowsheet [facility] 112 [facility] 100 [place] [address] Mesfin Chin MD 01/19/20259853Hrqjjm92/02/2025Refill [facility] 112 [facility] 100 [place] [address] Mesfin Chin MD Essential vcfzmrnwaftc27/02/2025Telephone [facility] 112 [facility] 100 [place] [address] Mesfin Chin MD from Last 3 Months Immunizations ImmunizationAdministration DatesNext DueInfluenza, injectable, quadrivalent, preservative free12/22/2022,05/09/2022,12/29/2020,01/31/2020,01/01/2019, 12/23/2017Influenza, seasonal, injectable, preservative free12/20/2016, 01/20/2015Pfizer Bivalent Booster 12 Years And Older05/09/20225551DECW-RGK-3 (COVID- 19) vaccine, mRNA, spike protein, LNP, PF, hue-sucrose, 30 mcg/0.3 mL12/22/2022 Tetanus toxoid, igonbulx07/19/2001 Family History Medical HistoryRelationNameCommentsNo Known ProblemsDaughterArthritisFatherDave DiabetesFatherDaveHeart diseaseFatherDaveStrokeFatherDaveArthritisMotherPat AsthmaMotherPatDiabetesMotherPatAlcohol abuseMother's BrotherTomArthritis Paternal GrandmotherMaudeNo Known ProblemsSister 1No Known ProblemsSister 2No Known ProblemsSister 3RelationNameStatusCommentsDaughterAliveFatherDaveAlive MotherPatAliveMother's BrotherTomPaternal GrandmotherMaudeSister 1AliveSister 2 AliveSister 3Alive Social History Tobacco UseTypesPacks/DayYears UsedDateSmoking Tobacco: NeverSmokeless Tobacco: Never Tobacco Cessation:Counseling Given: Yes Alcohol UseStandard Drinks/NwumTftwpqflQiu22 (1 standard drink = 0.6 oz pure alcohol)caffeine intake: 2-3 cups per krdJ2828 Health LiteracyAnswerDate RecordedHow often do you need [...] relatives?Once a week03/03/2024How often do you attend cheondoism or jehovah's witness services?More than 4 times per year03/03/2024o you belong to any clubs or organizations such as cheondoism groups, unions, [employer] or athletic lali ups, or school groups?No03/03/2024How often do you attend meetings of the clubs or organizations you belong to?Never03/03/2024re you , , , , never , or living with a partner?Rvmcxyz2303/03/2024 AUDIT-CAnswerDate RecordedQ1: How often do you have [...] at all 03/03/2024HQ-2AnswerDate RecordedPatient Health Questionnaire-2 Score0 09/01/2022[place] [facility] [place] of Occupational Health - Occupational Stress QuestionnaireAnswerDate RecordedDo you feel stress - tense, restless, nervous, or anxious, or unable to sleep at night because yourmind is troubled all the time - these days?Only a ksqqzu5303/03/2024Exercise Vital SignAnswerDate Recorded On average, how many [...] steady place to sleep or slept in [facility] (including now)?No08/31/2022Housing Stability Vital SignAnswerDate RecordedIn [...] highest degree you have received?Some college, no tpnybr5308/05/2022Sex and Gender InformationValueDate RecordedSex Assigned at BirthNot on fileLegal EazVaac3806/11/2022 7:26 PM EDTGender Identity Not on fileSexual OrientationNot on fileOccupationIndustryJob Start DateJob End Dateworks full-timeNot on fileNot on fileNot on file Last Filed Vital Signs Vital SignReadingTime TakenCommentsBlood Kwzseuyn207/9203/18/2025 9:40 AM EST Dllez3326 9:40 AM EQXQhubudaqsmu21.4 ??C (97.6 ??F)03/18/2025 9:40 AM ESTRespiratory Rate--Oxygen Puluyjqndz04%03/18/2025 9:40 AM ESTInhaled Oxygen Concentration--Hlafhq35.5 kg (173 lb)03/18/2025 9:40 AM KAXXcukbg578.4 cm (6' 1 )01/19/2025 3:12 PM EDTBody Mass Index22.8201/19/2025 3:12 PM EDT Plan of Treatment DateTypeDepartmentCare Team (Latest Contact Info)Nsxexsdawgx28/22/2026 3:30 PM EDTOffice Visit [facility] [address] Medicine [address] [place] [address] [place] [address] Mesfin Chin MD 112 [facility] 100 [place], [place] [id number] Health MaintenanceDue DateLast DoneCommentsCT Dyftcdpixikx62/12/1975Colonoscopy 1974Colorectal Cancer Huxrjztgg68/12/1975FIT-DNA1974FIT1974 FOBT1974 1528Hkeywcotnfrfb02/12/1975COVID-19 Vaccine ( season) 5012/22/2022, 07/06/2020Influenza Vaccine (#1)5012/22/2022, 05/09/2022, 12/29/2020, Additional history existsPneumococcal Vaccine: Pediatrics (0 to 5 Years) and At-Risk Patients (6 to 64 Years)Aged OutNo longer eligible based on patient's age to complete this topic Procedures Procedure NamePriorityDate/TimeAssociated DiagnosisCommentsSROKLAHOMA H[facility]PITAL ASSOCIATION PROSTATE SPECIFIC ANTIGEN CBPQLgsuzqj25/25/2025 7:22 AM EST ALL LIPID PROFILE (FASTING)Zffrapz2402/21/2025 7:22 AM EST [facility] CMP (CMP) (FOR REMOTE [facility] USE)Gihamfp7602/21/2025 7:22 AM EST ALL CBC WITH AUTO YZYYMeuobur47/25/2025 7:22 AM EST from Last 3 Months Results * SRMCOH PROSTATE SPECIFIC ANTIGEN SCRN (02/21/2025 7:22 AM EST)ComponentValue Ref RangeTest MethodAnalysis TimePerformed AtPathologist SignaturePROSTATE SPECIFIC ANTIGEN SCRN0.80<=4.00 ng/mLTBHSpecimen (Source)Anatomical Location / LateralityCollection Method / VolumeCollection TimeReceived Time02/21/2025 7:22 AM EST02/21/2025 7:30 AM EST Narrative [facility] - 02/21/2025 9:03 AM EST Authorizing ProviderResult TypeResult StatusGeneric External Data Provider CLINISYNCFinal ResultPerforming OrganizationAddressCity/State/ZIP CodePhone Number [facility] * [facility] CMP (CMP) (FOR REMOTE [facility] USE) (02/21/2025 7:22 AM EST)ComponentValueRef RangeTest MethodAnalysis TimePerformed AtPathologist LybctlbdbESFGZP659475 - 145 mmol/LTBHPOTASSIUM4.33.5 - 5.1 mmol/DYZFZRKXOXMC54466 - 107 mmol/LTBH CARBON ERXABNS38.921.0 - 32.0 mmol/LTBHANION GAP11.4MVGYXWSMVD18277 - 106 mg/dLTBHBLOOD UREA ATYFISUP49.07.0 - 18.0 mg/dLTBHCREATININE0.980.70 - 1.30 mg/dLTBHTBH EGFR-AF [place]>60>=60 mL/min/1.73m 2TBHTBH EGFR-NON AF [place] >60>=60 mL/min/1.73m 2TBHBUN CREATININE RATIO14.7VTHBLGLRCB8.68.5 - 10.1 mg/dL TBHBILIRUBIN TOTAL0.30.2 - 1.0 mg/dLTBHASPARTATE AMINO SESSKSSIDPX0747 - 37 U/LTBHALANINE YOJGPBFABLGIIKXX6252 - 63 U/LTBHALKALINE LNLHPOOKFIK6334 - 116 U/LTBHTOTAL PROTEIN7.06.4 - 8.2 g/dLTBHALBUMIN LEVEL3.63.4 - 5.0 g/dLTBH GLOBULIN3.4g/dLTBHALBUMIN GLOBULIN RATIO1.1TBHSpecimen (Source)Anatomical Location / LateralityCollection Method / VolumeCollection TimeReceived Time 02/21/2025 7:22 AM EST02/21/2025 7:30 AM EST Narrative [facility]YNC - 02/21/2025 8:23 AM EST Authorizing ProviderResult TypeResult StatusGeneric External Data Provider CLINISYNCFinal ResultPerforming OrganizationAddressCity/State/ZIP CodePhone Number [facility] * (ABNORMAL) ALL LIPID PROFILE (FASTING) (02/21/2025 7:22 AM EST)ComponentValue Ref RangeTest MethodAnalysis TimePerformed AtPathologist Signature HNXBYVXIUZFLA171(H)<=150 mg/bXDEOZEIPUWYTMGH524<=200 mg/dLTBHHDL JESIENDRYEK07 40 - 60 mg/dLTBHComment: > or =60 mg/dl - LOW CARDIOVASCULAR RISK <40 mg/dl - HIGH CARDIOVASCULAR RISK LDL CHOLESTEROL NACOLRLNSD384.0mg/dLTBHComment: <100 mg/dl OPTIMAL 100-129 mg/dl NEAR OR ABOVE OPTIMAL 130-159 mg/dl BORDERLINE HIGH 160-189 mg/dl HIGH >190 mg/dl VERY HIGH VLDL BSKDPYLTJGI98.2mg/dLTBHCHOL HDL RATIO4.2TBHComment: 3.3 - 4.4 ?? LOW RISK 4.4 - 7.1 ?? AVERAGE RISK 7.1 - 11.0 ??MODERATE RISK >11.0 HIGH RISK Specimen (Source)Anatomical Location / LateralityCollection Method / Volume Collection TimeReceived Time02/21/2025 7:22 AM EST02/21/2025 7:30 AM EST Narrative CLINISYNC - 02/21/2025 8:23 AM EST Authorizing ProviderResult TypeResult StatusGeneric External Data Provider CLINISYNCFinal ResultPerforming OrganizationAddressCity/State/ZIP CodePhone Number [facility] * (ABNORMAL) ALL CBC WITH AUTO DIFF (02/21/2025 7:22 AM EST)ComponentValueRef RangeTest MethodAnalysis TimePerformed AtPathologist SignatureTBH WBC6.44.0 - 11.0 10 3/uLTBHTBH RBC4.40(L)4.70 - 6.10 10 6/uLTBHTBH HGB13.6(L)14.0 - 18.0 g/dLTBHTBH HCT41.4(L)42.0 - 54.0 %TBHTBH MCV94.1(H)80.0 - 94.0 fLTBHTBH MCH 30.925.9 - 34.0 pgTBHTBH MCHC32.929.9 - 35.2 g/dLTBHTBH RDW11.911.0 - 15.0 % TBHTBH RZY364206 - 450 10 3/uLTBHTBH MPV8.4(L)9.5 - 13.5 [...] Provider CLINISYNCFinal ResultPerforming OrganizationAddressCity/State/ZIP CodePhone Number [facility] from Last 3 Months Insurance Care Teams Team MemberRelationshipSpecialtyStart DateEnd Date Raul Cohen DO [address] [place] [phone] PCP - GeneralInternal Yzaqjvrj53/10/25
--- OUTSIDE RECORDS SUMMARY | 2025-03-18 11:02 | XMS_ITS | Encounter Summary ---
Author Organization [facility] Address [address] [place] [address] Care Team Providers Care Earth Moving Machine Operator Name Role Phone Raul Cohen Primary Care Provider [phone] Encounter Details DateTypeDepartmentCare Team (Latest Contact Info)Oqyjfsdpsau16/20/2025Travel Social History Tobacco UseTypesPacks/DayYears UsedDateSmoking Tobacco: NeverSmokeless Tobacco: NeverAlcohol UseStandard Drinks/VzbrOavznoxhEvp05 (1 standard drink = 0.6 oz pure alcohol)caffeine intake: 2-3 cups per cliI0497 Health LiteracyAnswerDate RecordedHow often do you need [...] relatives?Once a week03/03/2024How often do you attend baptist or congregational services?More than 4 times per year03/03/2024o you belong to any clubs or organizations such as baptist groups, unions, fraternal or athletic lali ups, or school groups?No03/03/2024How often do you attend meetings of the clubs or organizations you belong to?Never03/03/2024re you , , , , never , or living with a partner?Elmqyey7003/03/2024 AUDIT-CAnswerDate RecordedQ1: How often do you have [...] Health Questionnaire-2 Score0 09/01/2022[facility] [place] of Occupational Health - Occupational Stress QuestionnaireAnswerDate RecordedDo you feel stress - tense, restless, nervous, or anxious, or unable to sleep at night because yourmind is troubled all the time - these days?Only a elqbkx7603/03/2024Exercise Vital SignAnswerDate Recorded On average, how many [...] steady place to sleep or slept in [place] (including now)?No08/31/2022Housing Stability Vital SignAnswerDate RecordedIn the last 12 months, was there a time when you were not able to pay the mortgage or rent on time?No03/03/2024In the past 12 months, how many times have you moved where you were living? At any time in the past 12 months, were you homeless or living in a custodial (including now)?No03/03/2024EducationAnswerDate RecordedWhat is the highest level of school you have completed or the highest degree you have received?Some college, no bimevw6808/05/2022Sex and Gender InformationValueDate RecordedSex Assigned at BirthNot on fileLegal FmcIcey8106/11/2022 7:26 PM EDTGender Identity Not on fileSexual OrientationNot on fileOccupationIndustryJob Start DateJob End Dateworks full-timeNot on fileNot on fileNot on filedocumented as of this encounter Plan of Treatment DateTypeDepartmentCare Team (Latest Contact Info)Knntrdzyojc34/22/2026 3:30 PM EDTOffice Visit [facility] [address] [facility] 100 [place] [address] Mesfin Chin MD 112 [facility] [address] [place] [address] (Fax) documented as of this encounter Visit Diagnoses Not on filedocumented in this encounter Care Teams Team MemberRelationshipSpecialtyStart DateEnd Date Raul Cohen DO [address] [place] [phone] PCP - GeneralInternal Tioxiiuq53/10/25documented as of this encounter
--- OUTSIDE RECORDS SUMMARY | 2025-03-18 11:03 | XMS_ITS | Clinical Summary ---
Author Organization [facility] Address [address] [place], [place] [address] Care Team Providers Care Mercury Recoverer Name Role Phone Mesfin Chin MD Primary Care Provider Allergies No known active allergies Medications MedicationSigDispense QuantityRefillsLast FilledStart DateEnd DateStatus CPAP Indications:STEVAN (obstructive sleep apnea)CPAP 11 cmH2O, mask, tubing, humidifier, filters. Lifetime supplies. Dx: G47.33 DME: [employer], f: [phone] 1 Device Active CPAP Provide new SD card. Current card is not functional. 1 Device 11/03/2016Active CPAP AutoPAP 5-12 cmH2O, mask, humidity, filters. Lifetime supplies. Dx: G47.33. Fax 30 day compliance rpt to [phone] when available. 1 Device 11/03/2016Active CPAP 2nd request for download report. Fax results to [phone]. 1 Device 02/02/2017Active calcium carbonate (OS-BALWINDER 500) [...] repair - LEFT06/30/2016OSA on CPAP06/20/2016Post traumatic seizure lfqtbuuk53/24/2017Incomplete tear of left rotator cuff06/12/2016Cubital tunnel syndrome on left05/01/2016Chronic left shoulder pain03/13/2016Lateral epicondylitis of left elbow03/13/2016Impingement syndrome of left qqygnypi36/15/2016Adhesive capsulitis of left shoulder 03/13/2016 Resolved Problems ProblemNoted DateDiagnosed DateResolved DateCerebral aneurysm, nonruptured Family History Medical HistoryRelationCommentsDiabetesFatherRelationStatusCommentsFatherAlive MotherAlive Social History Tobacco UseTypesPacks/DayYears UsedDateSmoking Tobacco: NeverSmokeless Tobacco: Never Tobacco Cessation:Counseling Given: No Alcohol UseStandard Drinks/WeekCommentsYes0 (1 standard drink = 0.6 oz pure alcohol)very rarePHQ-2AnswerDate RecordedPHQ-2 ptoap6635Area Deprivation IndexAnswerDate RecordedNational Score (1-100), lower number is lower risk87 2022State Score (1-10), lower number is lower rhof6643Data from: https://www.neighborhoodatlas.medicine.[facility].edu/. Last address used for tacinjbhmkr[address] [facility]2022Sex and Gender InformationValueDate RecordedSex Assigned at XztdlNlon60/22/2022 10:12 PM EDTLegal JsfMqpw75/02/2012 8:11 AM ESTGender GblrnvkkJwpl35/22/2022 10:12 PM EDTSexual OrientationStraight 09/08/2024 8:53 PM EDTOccupationIndustryJob Start DateJob End DateGENERALNot on fileNot on fileNot on file Last Filed Vital Signs Vital SignReadingTime TakenCommentsBlood Xijhuoyh739/44282 10:07 AM EDT Tagyz712406/19/2020 10:07 AM IEHImohiajpdfg33.4 ??C (97.6 ??F)01/30/2017 9:24 AM EDTRespiratory Vdyt375506/19/2020 10:07 AM EDTOxygen Hqwtpyxpkd64%06/19/2020 10:07 AM EDTInhaled Oxygen Concentration--Deaouj95.1 kg (170 lb)06/19/2020 10:07 AM NVWHhahvu928.4 cm (6' 1 )06/19/2020 10:07 AM EDTBody Mass Index22.43006/19/2020 10:07 AM EDT Plan of Treatment Health MaintenanceDue DateLast DoneCommentsAnxiety Dprboeetg93/12/1993Depression Psmuxkkcd96/12/1993HIV Qobbkpbam19/12/1993Hepatitis C Yarpuxptj89/12/1993 DTaP,Tdap,Td Vaccine (1 - Tdap)1993Hepatitis B Vaccine (1 of 3 - 19+ 3- dose series)1993Lipid Iueqlfvfr01/12/2010CT Ijtjzvyzmgoc22/12/2020 Cologuard (FIT-DNA)08/09/20191680Hctwnbcaorp42/12/2020Colorectal Cancer Screening 08/09/2019Fecal Occult Blood08/09/20198759Ttkbbtdgxspoa64/12/2020Diabetes Screening , 04/11/2016, 04/11/2015, Additional history exists Pneumococcal Vaccine: 50+ (1 of 1 - PCV)2024Shingrix Vaccine (1 of 2) 5Covid-19 Vaccine ( - season)/, 05/09/2022, 10/06/2021, Additional history existsInfluenza Vaccine (#1)/, 05/09/2022, 12/29/2020, Additional history existsRSV Vaccine (1 - 1-dose 75+ series)2049 Medical Devices ImplantedTypeAreaManufacturerDevice IdentifierShelf Expiration DateModel / Serial / LotAnchor Swivelock 4.75mm Peek 19.1mm Suture Closed Eyelet Vent Sterile - [id number] Implanted:Qty: 1 [facility]: Bone - Shoulder [employer]02/26/2021R-2324PSLC / / [id number]:PEEK SWIVELOCKAnchor Swivelock 4.75mm Peek 19.1mm Suture Closed Eyelet Vent Sterile - [id number] Implanted:Qty: 1 on 06/30/2016 [facility]ENTERAnchflLeft: Bone - Shoulder [employer]12/27/2020R-2324PSLC / / [id number]:PEEK SWIVELOCKAnchor Corkscrew Fiberwire 5.5mm 2 Full Thread Peek 14.7mm Suture 2 Sterile - [id number] Implanted:Qty: 2 on 06/30/2016 [facility]ImplantLeft: Bone - Shoulder [employer]09/26/2020R-1927PSF / / [id number]:PEEK CORKSCREW Procedures Procedure NamePriorityDate/TimeAssociated DiagnosisCommentsCOMPREHENSIVE METABOLIC VYYLVYbktqhm11/23/2021 10:35 AM EDT Partial epilepsy with impairment [...] mg/dL06/19/2020 5:19 PM [facility] Alkaline Yvjdzqqahpr6615 - 113 U/L06/19/2020 5:19 [facility] ZzgsmmweuvzkSEN1963 - 40 U/L06/19/2020 5:19 [facility] VlrgizslyrdgZkthdmu0833 - 99 mg/dL06/19/2020 5:[address] [facility] LaboratoriesComment: The [place] Diabetes Association (ADA) provides guidance for cutoff [...] Standards of Medical Care in Diabetes 2016, [place] Diabetes Association. Diabetes Care. 2016.39(Suppl 1). YGJ918 - 24 mg/dL06/19/2020 5:[address] [facility] LaboratoriesCreatinine 0.850.73 - 1.22 mg/dL06/19/2020 5:[address] [facility] LaboratoriesSodium 010214 - 144 mmol/L06/19/2020 5:[address] [facility] LaboratoriesPotassium 4.13.7 - 5.1 mmol/L06/19/2020 5:[address] [facility] LaboratoriesChloride 62351 - 105 mmol/L06/19/2020 5:[address] [facility] MrlszoxmxzepYT56311 - 30 mmol/L06/19/2020 5:[address] [facility] LaboratoriesAnion Gap99 - 18 mmol/L06/19/2020 5:[address] [facility] RhwlovbertamDBU2160 - 54 U/L 06/19/2020 5:[address] [facility] LaboratorieseGFR->60 06/19/2020 5:[address] [facility] LaboratorieseGFR-All Other Races>60. 06/19/2020 5:[address] [facility] LaboratoriesComment: eGFR (Estimated GFR) Units of [...] / Volume Collection TimeReceived TimeBloodBLOOD SPECIMEN / Abzopnj8906/19/2020 10:35 AM EDT 06/19/2020 10:37 AM EDT Narrative Authorizing ProviderResult TypeResult StatusSilviandrés Ramos MDLABORATORY Final ResultPerforming OrganizationAddressCity/State/ZIP CodePhone Number [facility] [address] [place] [address] [facility] [address] [place] [address] from Last 3 Months or Most Recently Relevant to Health Maintenance Insurance Care Teams Team MemberRelationshipSpecialtyStart DateEnd Mesfin Chin MD [address] [place] [address] PCP - GeneralFamily Medicine07/17/17
== END 2025-03-18 11:51 | disposition home or self-care (01) ==
PROVIDERS: Emergency Provider Emergency Medicine; PCP Nurse Practitioner Family
DX: M25.562 Pain in left knee (principal)
CPT/HCPCS: 36415; 73562; 85378; 99283

== ENCOUNTER 2025-03-29 09:45 | Outpatient (OUT) | payer OTHER, SELFPAY ==
--- OUTSIDE RECORDS SUMMARY | 2025-03-29 04:23 | XMS_ITS | Continuity of Care Document ---
Author Organization [facility] Address [address] [place] [address] Phone Care Team Providers Care Dental Treatment Coordinator Name Role Phone Yomi Prescott DO Attending Provider Mesfin Chin MD Primary Care Provider [phone] Sonali Mckinney APRN Primary Care Provider Sonali Mckinney APRN Attending Provider Savanah Koehler MD Attending Provider [phone] Gil Virk DO Attending Provider Aster Zaldivar CMA Attending Provider [facility] Care Teams Patient Care Team Team Status: Active Member Role/Relationship Status Dates Sonali Mckinney APRN DIRECTOR PRODUCT DEVELOPMENT-C Primary Care Provider Active Visit Care Team [...] 2025 End: February 06, 2025Sonali Mckinney APRN DIRECTOR PRODUCT DEVELOPMENT-CPrimary Care Provider ActiveStart: February 06, 2025 End: February 06, 2025 Visit Care Team Team Status: Inactive Member Role/Relationship Status Dates Sonali Mckinney APRN DIRECTOR PRODUCT DEVELOPMENT-C Primary Care Provider Active Start: February 062024 End: February 06, 2025Sonali Mckinney APRN DIRECTOR PRODUCT DEVELOPMENT-CAttending ProviderActive Start: February 06, 2025 End: February 06, 2025 Visit Care Team Team Status: Inactive Member Role/Relationship Status Dates Sonali Mckinney APRN DIRECTOR PRODUCT DEVELOPMENT-C Primary Care Provider Active Start: February End: March 06, 2025Yomi Prescott DOAttending ProviderActiveStart: March 06, 2025 End: March 06, 2025 Visit Care Team Team Status: Active Member Role/Relationship Status Dates Sonali Mckinney APRN DIRECTOR PRODUCT DEVELOPMENT-C Primary Care Provider Active Start: February Savanah Koehler MDAttmilton ProviderActiveStart: March 07, 2025 Visit Care Team Team Status: Inactive Member Role/Relationship Status Dates Sonali Mckinney APRN DIRECTOR PRODUCT DEVELOPMENT-C Primary Care Provider Active Start: March 082024 End: March 08, 2025Sonali Mckinney APRN DIRECTOR PRODUCT DEVELOPMENT-CAttending ProviderActive Start: March 08, 2025 End: March 08, 2025 Visit Care Team Team Status: Active Member Role/Relationship Status Dates Sonali Mckinney APRN DIRECTOR PRODUCT DEVELOPMENT-C Primary Care Provider Active Start: March 182024 Gil Virk DOAttending ProviderActiveStart: March 18, 2025 Visit Care Team Team Status: Active Member Role/Relationship Status Dates Sonali Mckinney APRN DIRECTOR PRODUCT DEVELOPMENT-C Primary Care Provider Active Start: March 212024 Altagracia Solisending ProviderActiveStart: March 21, 2025 Patient Care Team Team Status: Inactive Member Role/Relationship Status Dates Sonali Mckinney APRN DIRECTOR PRODUCT DEVELOPMENT-C Primary Care Provider Active Start: March 292024 End: March 29, 2025Sonali Mckinney APRN DIRECTOR PRODUCT DEVELOPMENT-CAttending ProviderActive Start: March 29, 2025 End: March 29, 2025 Chief Complaint and Reason for Visit Chief Complaint Admit Date [facility] ER LT HAND LAC WX January 30, 2025 10:58am [facility] 1 WEEK February 06, 2025 10:54am Est Care November 10th, 2025 3:12pm [facility] 4 WEEKS March 06, 2025 1 1:42am [facility] ER f/u March 08, 2025 9:37am Amb Documentation March 21, 2025 10:06am knee pain March 29, 2025 8:26am Reason for Visit Admit Date Laceration of hand, left January 30 025 10:58am Laceration of hand, left February 06, 2025 10:54am Hyperlipidemia February 06, 2025 3:12pm Hypertension February 06, 2025 3:12pm Overweight (BMI 25.0-29.9) January 3:12pm Screening for colon cancer January 3:12pm Screening for prostate cancer January 282024 3:12pm Seizures February 06, 2025 3:12pm Laceration of hand, left March 06 025 11:42am Dehydration March 08, 2025 9:37am Dizziness March 08, 2025 9:37am Family history of psoriatic arthritis De cember 2024 8:26am Multiple joint pain March 29, 2025 8:26am Right knee pain March 29, 2025 8:26am Allergies, Adverse Reactions, Alerts Allergen Type Severity [...] Dizziness March 08, 2025 10:12am Unknown Active Multiple joint pain March 29, 2025 8:48am Unknown Active Hyperlipidemia January 30, 2025 11:26am Unknown Active Seizures January 30, 2025 11:26am Unknown A ctive Family history of psoriatic arthritis March 29 025 8:49am Unknown Active Right knee pain March 29, 2025 8:59am Unknown Active Hypertension January 30, 2025 11:26am Unknown A ctive Dehydration March 08, 2025 10:13am Unknown Active Inactive/Resolved Problems Problem Diagnosis/Recorded Date Onset Date Stat us Laceration of hand, left January 30, 2025 11:35am Un known Resolved Medications Medication Status Dose Units Route Directions Qty Days Refills S tart Date Stop Date End Date Reason(s) Instructions Adherence Methylprednisolone (Medrol (Grant)) 4 mg tablets,dose pa ck Active 0 POper package gyxysrerfj729Ehydpzgm 2024 12:00amRight knee pain Pain in right kneePO PER PKG DIRComplies with drug therapyAtorvastatin 40 mg tabletActiveMGPONovemb 2024 12:00amComplies with drug therapyNabumetone 750 mg tabletActiveMGPONovemb 2024 12:00amComplies with drug therapy Carbamazepine 200 mg tabletActiveMGPONoveverde [facility] 2024 12:00amComplies with drug therapyLosartan 100 mg tabletActiveMGPONovemb 2024 12:00amComplies with drug therapyAmoxicillin-Pot Clavulanate 875-125 mg tabletDiscontinuedTABPO January 30, 2025 12:00amNoveverde valley medical center 2024 3:19pmLevetiracetam 1,000 mg tabletActiveMGPONovemb 2024 12:00amComplies with drug therapyNebivolol 10 mg tabletDiscontinuedMGPONoveverde valley medical center 2024 12:00amNoveverde valley medical [facility] 2024 3:49pm Nebivolol 10 mg pbjqgtHqviel99ARNARbkvx01908Utgkifez 2024 3:49pm Hypertension Essential (primary) hypertensionComplies with drug therapy Relevant Diagnostic Tests and/or Laboratory Data Laboratory Results Test Collection Date/Time Result Date/Time Result Interpretation Reference Range Result Comment Performing Site Anion Gap March 07, 2025 7:15am March 07, 2025 7: 15am 11.8 [facility]Ge[facility] 7:15amDel[facility] 2024 7:15am2.3 mg/dL 1.8-2.4Urine Microscopic Review2024 8:28amMarch 07, 2025 8:28amYESTroponin I High SensitivityMarch 07, 2025 9:16amMarch 07, 2025 9:16am5.9 pg/mL4.0-76.1CUT-OFF POINTS HAVE BEEN ESTABLISHED BASED ON THE FOURTHUNIVERSAL DEFINITION OF MYOCARDIAL INFARCTION. THE UPPERREFERENCE LIMIT (URL) OF TROPONIN, DEFINED THE 99THPERCENTILE OF cTnI DISTRIBUTION IN A REFERENCE POPULATION,HAS BEEN CONFIRMED THE DECISION THRESHOLD FOR MIDIAGNOSIS.99TH PERCENTILE = 76.2 PG/MLNOTE: HIGH-SENSITIVITY TROPONIN ASSAY IS NOT INTENDED TO BEUSED IN ISOLATION BUT SHOULD BE INTERPRETED IN CONJUNCTIONWITH OTHER DIAGNOSTIC AND CLINICAL INFORMATION.D-Dimer Quantitative (PE/DVT)March 18, 2025 10:42amMarch 18, 2025 10:42am0.25 mg/L FEU<=0.59Increases in D- Dimer concentration observed withthromboembolic events can be variable due to localization,size, and age of the thrombus. Therefore, a thromboembolicevent cannot be diagnosed with certainty on the basis of thereference range. D-Dimers may also be elevated for a varietyof disorders including advanced age, , coronarydisease, cancer, liver disease, infection, inflammation,rajni keyanna, DIC, trauma, post-surgery, diabetes, thrombolyticor anticoagulant therapy, stress, and generalizedhospitalization.Albumin/Globulin RatioMarch 07, 2025 7:15amMarch 07, 2025 7:15am1.0Urine BilirubinDe2024 8:28am March 07, 2025 8:28amNEGATIVENEGATIVEAlbuminMarch 07, 2025 7:15am March 07, 2025 7:15am3.6 g/dL3.4-5.0Urine Occult BloodMarch 07, 2025 8:28amMarch 07, 2025 8:28amNEGATIVENEGATIVEAlkaline PhosphataseMarch 07, 2025 7:15amMarch 07, 2025 7:98ty422 U/LAbove high syzmst08-672Ujwqg AppearanceMarch 07, 2025 8:28amDecember 2024 8:28amCLEARCLEARAlanine Aminotransferase (ALT/SGPT)March 07, 2025 7:15amDecember 2024 7:15am35 U/E65-71Ijpgb ColorDece2024 8:28amDecember 2024 8:28amYELLOW YELLOWAspartate Amino Transf (AST/SGOT)March 07, 2025 7:15amDecember 2024 7:15am16 U/T38-73Sdwvq Glucose (UA)March 07, 2025 8:28amDecember 2024 8:28amNEGATIVE mg/dLNEGATIVEBUN/Creatinine RatioDece2024 7:15am March 07, 2025 7:15am10.3Urine KetonesD2024 8:28amDeceer 2024 8:28amTRACE mg/dLAbnormal (applies to non-numeric results)NEGATIVEBlood Urea NitrogenDece2024 7:15amDecember 2024 7:15am11.0 mg/dL 7.0-18.0Urine Leukocyte EsteraseDece2024 8:28amDecember 2024 8:28amNEGATIVENEGATIVECalcium LevelDece2024 7:15amDecember 2024 7:15am8.9 mg/dL8.5-10.1Urine NitriteDece2024 8:28amDecember 2024 8:28amNEGATIVENEGATIVEChloride LevelDeceer 2024 7:15amDecember 2024 7:89hx465 mmol/A98-742Mweyb pHD2024 8:28amDecember 2024 8:28am 5.55.0-9.0Carbon Dioxide LevelDeceverde valley medical center 2024 7:15amDecember 2024 7:15am 31.3 mmol/L21.0-32.0Urine ProteinDeceer 2024 8:28amDecember 2024 8:99az938 mg/dLAbnormal (applies to non-numeric results)NEG/TRACECreatinine March 07, 2025 7:15amDecember 2024 7:15am1.07 mg/dL0.70-1.30Urine Specific Gravityce2024 8:28amDecember 2024 8:28am>=1.030 Abnormal (applies to non-numeric results)1.005-1.025Estimated GFR ()March 07, 2025 7:15amDecember 2024 7:15am>60>=60 mL/min/1.73m 2Urine UrobilinogenDece2024 8:28amDecember 2024 8:28am0.2 EU/dL 0.2-1.0Estimated GFR (Non- AmericanDeuniversity of michigan health2024 7:15amDecember 2024 7:15am>60>=60 mL/min/1.73m 2GlobulinDeuniversity of michigan health2024 7:15amDecember 2024 7:15am3.6 g/dLGlucose LevelDeceverde valley medical center 2024 7:15amDeceer 2024 7:78ry711 mg/dLAbove high jshoox19-639Zpccxvoyc LevelDeuniversity of michigan health2024 7:15am March 07, 2025 7:15am4.1 mmol/L3.5-5.1Sodium LevelDeceverde valley medical center 2024 7:15am March 07, 2025 7:50ut013 mmol/L893-390Ftcbl BilirubinDece2024 7:15amDecember 2024 7:15am0.3 mg/dL0.2-1.0Total ProteinDeceer 2024 7:15amDecember 2024 7:15am7.2 g/dL6.4-8.2 Vital Signs Vital Reading Result Reference Range Collection Date/Time Height 73 [in_i] January 30, 2025 11:24pgJnffve06.37 kgNov2024 11:22amBMI (Body Mass Index)23.1 kg/p8QuoctjnjJanuary 30, 2025 11:76unMhkwjl75 [in_i]February 06, 2025 11:43czYufkmv66.37 kgFebruary 06, 2025 11:45amBMI (Body Mass Index)23.1 kg/m2 February 06, 2025 11:28zzZweubg19 [in_i]February 06, 2025 3:23bjNalykv94.18 kgNov2024 3:15pmBody Vwbcpvtnkee73.8 [degF]97.6-99.0February 06, 2025 3:15pmHeart Prel016 /nsa56-679SvjzzpqyFebruary 06, 2025 3:15pmOxygen saturation by Pulse kgigxqoj01 %95-100February 06, 2025 3:15pmBP Lhdfarjm906 mm[Hg] 100-140February 06, 2025 3:15pmBP Fgylbmcbp52 mm[Hg]60-100February 06, 2025 3:15pmBMI (Body Mass Index)25.0 kg/s0DtzgdbuiFebruary 06, 2025 3:66mkEuyoiz96 [in_i] March 08, 2025 9:86khTkffxh36.99 kgDece2024 9:42amBody Wrpdjpvxdfi50.1 [degF]97.6-99.0Dece2024 9:42amHeart Rate78 /stg90-135 March 08, 2025 9:42amOxygen saturation by Pulse rofphjgg66 %95-100Dece2024 9:42amBP Qjxsbjmg197 mm[Hg]100-140December 2024 9:42amBP Zswnsxbid49 mm[Hg]60-100December 2024 9:42amBMI (Body Mass Index)25.6 kg/j4Fmfqvpcx2024 9:52sdZjcshm64 [in_i]March 29, 2025 8:30amWeight 85.72 kgDecember 2024 8:30amBody Myudrvprbkd56.8 [degF]97.6-99.0[facility] 2024 8:30amHeart Rate70 /bxw28-049AludidgwMarch 29, 2025 8:30amOxygen saturation by Pulse wblvoyso54 %95-100March 29, 2025 8:30amBP Ntphxkhn195 mm[Hg]100-1402024 8:30amBP Ubocgmrns28 mm[Hg]60-1002024 8:30amBMI (Body Mass Index)24.9 kg/z8Clssuhst2024 8:30am Advance Directives Advance Directive Response Recorded Date/ Time Advance Directives No January 26, 2020 5:48am Insurance Providers Guarantor Shelley Jaeger Address [address] [place], [place] [address]Contact Info.Home Phone: Coverage Status Update:2025 Payer Group Member ID Coverage Type Subscriber Relationship to Subscriber Effective Date Expiration Date [employer] [id number] Schofield Id: [id number] [address] [place], [place] [address] Home Phone: Email: [email or web address] Id: [id number] B Fleming , D Id: [id number] [address] [place] [address] Home Phone: Email: [email or web address] Encounters Encounter Location(s) Arrival/Admit Date Discharge/Departure Date Discharge/Departure Disposition Provider(s) Departed Physician/ Provider [facility], [facility] 10:58am January 30, 2025 12:02pm Discharged to home care or self care (routine discharge) Yomi Prescott DO Departed Physician/ Provider Office Visit -[facility] February 06, 2025 10:54am February 06, 2025 11:57am Discharged to home care or self care (routine discharge) Yomi A Genie , DO Departed Physician/ Provider Office Visit -[facility] February 06, 2025 3:12pm February 06, 2025 3:59pm Discharged to home care or self care (routine discharge) Sonali Mckinney APRN CNP Departed Physician/ Provider Office Visit -[facility] [place] March 06, 2025 11:42am March 06, 2025 12:02pm Discharged to home care or self care (routine discharge) Yomi Prescott DO Non-patient / Non-visit -[facility] ecember 2024 7:15am Savanah Koehler , [facility], 20[facility] 9:37amDe2024 10:20amDischarged to home care or self care (routine discharge)Sonali Mckinney APRN [facility]PPho[facility] / Ume-mmvvr-[facility]jzh[facility] CoDel[facility] 2024 10:42amShelley Will-patient / Qho-zcqbz-CSSPrem[facility] 20[facility] 10:06am Aster Zaldivar [facility] NETWORKDeparted Physician/Provider Office Visit-[facility] 2024 8:26amDelittle [facility] 2024 9:21amDischarged to home care or self care (routine [...] r 2024 11:42am Dehydration Unknown March 08 9:37am Dizziness Unknown March 08 9:37am Family history of psoriatic arthritis Unknown March 29, 2025 8:26am Multiple joint pain Unknown February 8:26am Right knee pain Unknown March 29, 025 8:26am Assessments Diagnosis Onset Date Resolution Status Admit Date Laceration of hand, left inactiveJanuary 30, 2025 10:58amLaceration of hand, leftinactiveNovember 2024 10:54amHyperlipidemiaacuteNovember 2024 3:12pmHypertensionacute February 06, 2025 3:12pmOverweight (BMI 25.0-29.9)acuteFebruary 06, 2025 3:12pmScreening for colon canceracuteNov2024 3:12pmScreening for prostate canceracuteNov2024 3:12pmSeizuresacuteNov2024 3:12pmLaceration of hand, leftinactiveDecember 2024 11:42amDehydrationacute March 08, 2025 9:37amDizzinessacuteDeceer 2024 9:37amFamily history of psoriatic arthritisacuteDeceer 2024 8:26amMultiple joint painacute March 29, 2025 8:26amRight knee painacuteDecember 2024 8:26am Plan of Treatment Author Yomi Prescott [facility] 2024 2:43pmJonatdmitri returns with left index finger laceration. [...] full release at that time. Works at [employer] [place] The patient has been involved in our [...] sent with patient today. Author Yomi Prescott [facility] 2024 12:09pmJonatdmitri presents with left index finger laceration. At this juncture we have discussed the findings and diagnosis as well as personally reviewed appropriate imaging and performed interpretation of related testing and examination with the patient in office today. Prior medical notes from the [facility] and history have been reviewed. At this time I would recommend nonoperative treatment. Sutures removed today. Skin glue applied. He will stay out of work for another week. We will plan for follow-up 1 week for recheck. Works at [employer] The patient has been involved in our [...] work at this time. Author Sonali Mckinney [facility] 2024 2:16pmTo goal Continue losartan and [...] agrees to this plan. Author Yomi Prescott [facility]AuthoredDeceearl 2024 12:27pmJoaparna returns with left index finger laceration at [...] 4 weeks for final check Works at [employer] [place] The patient has been involved in our [...] myself Yomi Prescott D.O. Author Sonali Mckinney [facility]AuthoredDel[facility] 2024 10:30am The patient was seen today for ER/Urgent Care follow-up. All available records were reviewed and discussed with the patient. All new medications prescribed were reviewed. Any additional changes are noted above. Symptoms have now resolved, he has increased his fluids. Denies any dizziness or lightheadedness. Denies any palpitations of racing heart. Note given to return to work. Future Tests Future scheduled test information is unavailable Pending Tests Test Name Ordered Date Scheduled Date Cyclic Citrulliated Pep Ab March 29, 2025 8 :46am Rheumatoid FactorDecemb2024 8:46amComprehensive Metabolic PanelNovember 2024 2:08pm Future Visits Future appointment information is unavailable Future Procedures Procedure Name Ordered Date Scheduled Date WAYNE Antinuclear Antibodies March 29, 2025 8 :46am Anti-Streptolysin O AntibodyDecemb2024 8:46amComplete Blood Count Auto DiffDecemb2024 8:46amC-Reactive ProteinDecemb2024 8:46am Erythrocyte Sedimentation RateDece2024 8:46amUric AcidDecember 2024 8:46amAMB CologuardNovember 2024 3:40pmComplete Blood Count Auto Diff February 07, 2025 2:08pmLipid PanelNovember th, 2025 2:08pmPSA Screen (Yearly Only)February 07, 2025 2:08pm Future Medications Future medication information is unavailable Patient Instructions Patient instructions are unavailable
--- OUTSIDE RECORDS SUMMARY | 2025-03-29 09:49 | XMS_ITS | Encounter Summary ---
Author Organization [facility] Address [address] [place] [address] Care Team Providers Care Candy Mixer Name Role Phone Raul Cohen Primary Care Provider [phone] Encounter Details DateTypeDepartmentCare Team (Latest Contact Info)Bilssrocezp90/20/2025Travel Social History Tobacco UseTypesPacks/DayYears UsedDateSmoking Tobacco: NeverSmokeless Tobacco: NeverAlcohol UseStandard Drinks/NzzaGyhgclrmZez36 (1 standard drink = 0.6 oz pure alcohol)caffeine intake: 2-3 cups per fvfL5695 Health LiteracyAnswerDate RecordedHow often do you need [...] relatives?Once a week03/03/2024How often do you attend islam or yarsani services?More than 4 times per year03/03/2024o you belong to any clubs or organizations such as islam groups, unions, fraternal or athletic lali ups, or school groups?No03/03/2024How often do you attend meetings of the clubs or organizations you belong to?Never03/03/2024re you , , , , never , or living with a partner?Oerbevw9403/03/2024 AUDIT-CAnswerDate RecordedQ1: How often do you have [...] at all 03/03/2024HQ-2AnswerDate RecordedPatient Health Questionnaire-2 Score0 09/01/2022[facility] [place] [facility] Occupational Health - Occupational Stress QuestionnaireAnswerDate RecordedDo you feel stress - tense, restless, nervous, or anxious, or unable to sleep at night because yourmind is troubled all the time - these days?Only a plmthb4003/03/2024Exercise Vital SignAnswerDate Recorded On average, how many [...] steady place to sleep or slept in [place] (including now)?No08/31/2022Housing Stability Vital SignAnswerDate RecordedIn the last 12 months, was there a time when you were not able to pay the mortgage or rent on time?No03/03/2024In the past 12 months, how many times have you moved where you were living? At any time in the past 12 months, were you homeless or living in a longterm (including now)?No03/03/2024EducationAnswerDate RecordedWhat is the highest level of school you have completed or the highest degree you have received?Some college, no xhdikf2608/05/2022Sex and Gender InformationValueDate RecordedSex Assigned at BirthNot on fileLegal MtrEwee4206/11/2022 7:26 PM EDTGender Identity Not on fileSexual OrientationNot on fileOccupationIndustryJob Start DateJob End Dateworks full-timeNot on fileNot on fileNot on filedocumented as of this encounter Plan of Treatment DateTypeDepartmentCare Team (Latest Contact Info)Wywnewjlgkc11/22/2026 3:30 PM EDTOffice Visit [facility] [address] [address] [place] [address] Mesfin Chin MD [address] [facility] [address] [place] [address] (Fax) documented as of this encounter Visit Diagnoses Not on filedocumented in this encounter Care Teams Team MemberRelationshipSpecialtyStart DateEnd Date Raul Cohen DO [address] [place] [id number] PCP - GeneralInternal Vmwxdvna08/10/25documented as of this encounter
--- OUTSIDE RECORDS SUMMARY | 2025-03-29 09:49 | XMS_ITS | Clinical Summary ---
Author Organization [facility] Address [address] [place] [address] Care Team Providers Care President & Founder Name Role Phone Raul Cohen Primary Care Provider [phone] Allergies No known active allergies Medications MedicationSigDispense [...] (100 mg) by mouth Daily 90 tablet //ctive atorvastatin (Lipitor) 40 MG tablet Indications:Mixed dyslipidemiaTake 1 tablet (40 mg) by mouth in the evening 90 tablet /ctive nabumetone (Relafen) 750 MG tablet Indications:Chronic left shoulder painTake 1 tablet (750 mg) by mouth in the morning and 1 tablet (750 mg) before bedtime. 180 tablet 504/ctive Active Problems ProblemNoted DateDiagnosed DateMixed fdftszozbuqp27/02/2024ependence on other enabling machines and aijwngh98/05/2023Essential qxhewcwrdtni98/05/2023rand mal seizure xmuzoigx96/05/2023Obstructive sleep apnea (adult) (pediatric)09/01/2022 Postural kyphosis of cervicothoracic kekucf8009/01/2022Reactive depression 09/01/2022rimary osteoarthritis of right elbow09/01/2022S/P rotator cuff repair 06/30/2016Post traumatic seizure tnxbegvh26/24/2017Incomplete tear of left rotator cuff06/12/2016Cubital tunnel syndrome on left05/01/2016Chronic left shoulder pain03/13/2016Adhesive capsulitis of left gghrhgew62/15/2016Impingement syndrome of left cspaizli36/15/2016Lateral epicondylitis of left elbow03/13/2016 Encounters DateTypeDepartmentCare RpxsIxncgwruibc73/20/3181Sewcvd67/25/2025linisync Result Encounter [facility] Unsolicited Provider, Generic External Data 01/31/2025Telephone [facility] [address] [place] [address] Zaynab Church RN ER Follow-up ([facility] on 01/27/2025 for Left hand lacertation)01/19/2025 3:30 PM EDTOffice Visit [facility] [address] [address] [place] [address] Mesfin Chin MD Essential hypertension; Mixed dyslipidemia; Chronic left shoulder pain01/19/2025amboo flowsheet [facility] [address] [facility] 100 [place] [address] Mesfin Chin MD 01/19/20257167Yfetom47/02/2025Refill [facility] [address] [facility] [address] [place] [address] Mesfin Chin MD Essential inhxabjpwusg55/02/2025Telephone [facility] [address] [facility] [address] [place] [address] Mesfin Chin MD from Last 3 Months Immunizations ImmunizationAdministration DatesNext DueInfluenza, injectable, quadrivalent, preservative free12/22/2022,05/09/2022,12/29/2020,01/31/2020,01/01/2019, 12/23/2017Influenza, seasonal, injectable, preservative free12/20/2016, 01/20/2015Pfizer Bivalent Booster 12 Years And Older05/09/20223538AWVL-EUM-1 (COVID- 19) vaccine, mRNA, spike protein, LNP, PF, hue-sucrose, 30 mcg/0.3 mL12/22/2022 Tetanus toxoid, cpcaebnr95/19/2001 Family History Medical HistoryRelationNameCommentsNo Known ProblemsDaughterArthritisFatherDave DiabetesFatherDaveHeart diseaseFatherDaveStrokeFatherDaveArthritisMotherPat AsthmaMotherPatDiabetesMotherPatAlcohol abuseMother's BrotherTomArthritis Paternal GrandmotherMaudeNo Known ProblemsSister 1No Known ProblemsSister 2No Known ProblemsSister 3RelationNameStatusCommentsDaughterAliveFatherDaveAlive MotherPatAliveMother's BrotherTomPaternal GrandmotherMaudeSister 1AliveSister 2 AliveSister 3Alive Social History Tobacco UseTypesPacks/DayYears UsedDateSmoking Tobacco: NeverSmokeless Tobacco: Never Tobacco Cessation:Counseling Given: Yes Alcohol UseStandard Drinks/EkfxAfpmsqggHwg37 (1 standard drink = 0.6 oz pure alcohol)caffeine intake: 2-3 cups per tipB2723 Health LiteracyAnswerDate RecordedHow often do you need [...] relatives?Once a week03/03/2024How often do you attend uatsdin or shinto services?More than 4 times per year03/03/2024o you belong to any clubs or organizations such as uatsdin groups, unions, Liztic or athletic lali ups, or school groups?No03/03/2024How often do you attend meetings of the clubs or organizations you belong to?Never03/03/2024re you , , , , never , or living with a partner?Jepmdaq7203/03/2024 AUDIT-CAnswerDate RecordedQ1: How often do you have [...] at all 03/03/2024HQ-2AnswerDate RecordedPatient Health Questionnaire-2 Score0 09/01/2022[facility] - Occupational Stress QuestionnaireAnswerDate RecordedDo you feel stress - tense, restless, nervous, or anxious, or unable to sleep at night because yourmind is troubled all the time - these days?Only a mbzmxr8903/03/2024Exercise Vital SignAnswerDate Recorded On average, how many [...] steady place to sleep or slept in [facility] (including now)?No08/31/2022Housing Stability Vital SignAnswerDate RecordedIn [...] highest degree you have received?Some college, no sicyat8308/05/2022Sex and Gender InformationValueDate RecordedSex Assigned at BirthNot on fileLegal KosQtxg1706/11/2022 7:26 PM EDTGender Identity Not on fileSexual OrientationNot on fileOccupationIndustryJob Start DateJob End Dateworks full-timeNot on fileNot on fileNot on file Last Filed Vital Signs Vital SignReadingTime TakenCommentsBlood Ubwawovw460/9203/18/2025 9:40 AM EST Exekx5500 9:40 AM LUXNbwquidsvdc85.4 ??C (97.6 ??F)03/18/2025 9:40 AM ESTRespiratory Rate--Oxygen Ecsxewscyy69%03/18/2025 9:40 AM ESTInhaled Oxygen Concentration--Szimgq47.5 kg (173 lb)03/18/2025 9:40 AM WZFDkapvk854.4 cm (6' 1 )01/19/2025 3:12 PM EDTBody Mass Index22.8201/19/2025 3:12 PM EDT Plan of Treatment DateTypeDepartmentCare Team (Latest Contact Info)Yltieljrqig30/22/2026 3:30 PM EDTOffice Visit [facility] [address] [facility] 100 [place] [address] Mesfin Chin MD 112 [facility] 100 [place] [address] Procedures Procedure NamePriorityDate/TimeAssociated DiagnosisCommentsSROH PROSTATE SPECIFIC ANTIGEN BNTFBrfsmes27/25/2025 7:22 AM EST ALL LIPID PROFILE (FASTING)Gewnvms2202/21/2025 7:22 AM EST [facility] CMP (CMP) (FOR REMOTE COUNTS INCLUDE [facility] AT THE [facility] USE)Cecdslz3902/21/2025 7:22 AM EST ALL CBC WITH AUTO TIHZOqigbfp96/25/2025 7:22 AM EST from Last 3 Months Results * SRMCOH PROSTATE SPECIFIC ANTIGEN SCRN (02/21/2025 7:22 AM EST)ComponentValue Ref RangeTest MethodAnalysis TimePerformed AtPathologist SignaturePROSTATE SPECIFIC ANTIGEN SCRN0.80<=4.00 ng/mLTBHSpecimen (Source)Anatomical Location / LateralityCollection Method / VolumeCollection TimeReceived Time02/21/2025 7:22 AM EST02/21/2025 7:30 AM EST Narrative CLINISYNC - 02/21/2025 9:03 AM EST Authorizing ProviderResult TypeResult StatusGeneric External Data Provider CLINISYNCFinal ResultPerforming OrganizationAddressCity/State/ZIP CodePhone Number [facility] * CCF CMP (CMP) (FOR REMOTE COUNTS INCLUDE 234 BEDS AT THE [facility] USE) (02/21/2025 7:22 AM EST)ComponentValueRef RangeTest MethodAnalysis TimePerformed AtPathologist ZwrfomijkAATXEA569030 - 145 mmol/LTBHPOTASSIUM4.33.5 - 5.1 mmol/WOEKURTMIDKR69238 - 107 mmol/LTBH CARBON TCAUNEL37.921.0 - 32.0 mmol/LTBHANION GAP11.9UCPLTNLHTM08870 - 106 mg/dLTBHBLOOD UREA CLVDDKFT67.07.0 - 18.0 mg/dLTBHCREATININE0.980.70 - 1.30 mg/dLTBHTBH EGFR-AF CAMEROONIAN>60>=60 mL/min/1.73m 2TBHTBH EGFR-NON AF CAMEROONIAN >60>=60 mL/min/1.73m 2TBHBUN CREATININE RATIO14.7GSODBTPDCP3.68.5 - 10.1 mg/dL TBHBILIRUBIN TOTAL0.30.2 - 1.0 mg/dLTBHASPARTATE AMINO CAUZEKZTSQP4024 - 37 U/LTBHALANINE ERGSOVMDOYMCOPGP5499 - 63 U/LTBHALKALINE VQFGUNCIZIO9078 - 116 U/LTBHTOTAL PROTEIN7.06.4 - 8.2 g/dLTBHALBUMIN LEVEL3.63.4 - 5.0 g/dLTBH GLOBULIN3.4g/dLTBHALBUMIN GLOBULIN RATIO1.1TBHSpecimen (Source)Anatomical Location / LateralityCollection Method / VolumeCollection TimeReceived Time 02/21/2025 7:22 AM EST02/21/2025 7:30 AM EST Narrative CLINISYNC - 02/21/2025 8:23 AM EST Authorizing ProviderResult TypeResult StatusGeneric External Data Provider CLINISYNCFinal ResultPerforming OrganizationAddressCity/State/ZIP CodePhone Number [facility] * (ABNORMAL) ALL LIPID PROFILE (FASTING) (02/21/2025 7:22 AM EST)ComponentValue Ref RangeTest MethodAnalysis TimePerformed AtPathologist Signature DEMZMASRFUSJH017(H)<=150 mg/qIUXGXUTGJMMKCXK489<=200 mg/dLTBHHDL KWQPWHORIZK42 40 - 60 mg/dLTBHComment: > or =60 mg/dl - LOW CARDIOVASCULAR RISK <40 mg/dl - HIGH CARDIOVASCULAR RISK LDL CHOLESTEROL BACDQLJRTJ071.0mg/dLTBHComment: <100 mg/dl OPTIMAL 100-129 mg/dl NEAR OR ABOVE OPTIMAL 130-159 mg/dl BORDERLINE HIGH 160-189 mg/dl HIGH >190 mg/dl VERY HIGH VLDL GGDYSSMGUSE19.2mg/dLTBHCHOL HDL RATIO4.2TBHComment: 3.3 - 4.4 ?? LOW RISK 4.4 - 7.1 ?? AVERAGE RISK 7.1 - 11.0 ??MODERATE RISK >11.0 HIGH RISK Specimen (Source)Anatomical Location / LateralityCollection Method / Volume Collection TimeReceived Time02/21/2025 7:22 AM EST02/21/2025 7:30 AM EST Narrative CLINISYNC - 02/21/2025 8:23 AM EST Authorizing ProviderResult TypeResult StatusGeneric External Data Provider CLINISYNCFinal ResultPerforming OrganizationAddressCity/State/ZIP CodePhone Number [facility] * (ABNORMAL) ALL CBC WITH AUTO DIFF (02/21/2025 7:22 AM EST)ComponentValueRef RangeTest MethodAnalysis TimePerformed AtPathologist SignatureTBH WBC6.44.0 - 11.0 10 3/uLTBHTBH RBC4.40(L)4.70 - 6.10 10 6/uLTBHTBH HGB13.6(L)14.0 - 18.0 g/dLTBHTBH HCT41.4(L)42.0 - 54.0 %TBHTBH MCV94.1(H)80.0 - 94.0 fLTBHTBH MCH 30.925.9 - 34.0 pgTBHTBH MCHC32.929.9 - 35.2 g/dLTBHTBH RDW11.911.0 - 15.0 % TBHTBH EIO329767 - 450 10 3/uLTBHTBH MPV8.4(L)9.5 - 13.5 [...] DateEnd Date Raul Cohen DO [address] [place] [address] PCP - GeneralInternal Euqfkxmg81/10/25
--- OUTSIDE RECORDS SUMMARY | 2025-03-29 09:49 | XMS_ITS | Clinical Summary ---
Author Organization [facility] Address [address] [place], [place] [id number] Care Team Providers Care Machine Fixer Name Role Phone Mesfin Chin MD Primary Care Provider Allergies No known active allergies Medications MedicationSigDispense QuantityRefillsLast FilledStart DateEnd DateStatus CPAP Indications:STEVAN (obstructive sleep apnea)CPAP 11 cmH2O, mask, tubing, humidifier, filters. Lifetime supplies. Dx: G47.33 DME: [employer], f: [phone] 1 Device Active CPAP Provide new SD card. Current card is not functional. 1 Device 11/03/2016Active CPAP AutoPAP 5-12 cmH2O, mask, humidity, filters. Lifetime supplies. Dx: G47.33. Fax 30 day compliance rpt to [phone] when available. 1 Device 11/03/2016Active CPAP 2nd request for download report. Fax results to [phone]. 1 Device 02/02/2017Active calcium carbonate (OS-BALWINDER 500) [...] repair - LEFT06/30/2016OSA on CPAP06/20/2016Post traumatic seizure utjefcdi05/24/2017Incomplete tear of left rotator cuff06/12/2016Cubital tunnel syndrome on left05/01/2016Chronic left shoulder pain03/13/2016Lateral epicondylitis of left elbow03/13/2016Impingement syndrome of left iaqxbcwy98/15/2016Adhesive capsulitis of left shoulder 03/13/2016 Resolved Problems ProblemNoted DateDiagnosed DateResolved DateCerebral aneurysm, nonruptured Family History Medical HistoryRelationCommentsDiabetesFatherRelationStatusCommentsFatherAlive MotherAlive Social History Tobacco UseTypesPacks/DayYears UsedDateSmoking Tobacco: NeverSmokeless Tobacco: Never Tobacco Cessation:Counseling Given: No Alcohol UseStandard Drinks/WeekCommentsYes0 (1 standard drink = 0.6 oz pure alcohol)very rarePHQ-2AnswerDate RecordedPHQ-2 feayx7215Area Deprivation IndexAnswerDate RecordedNational Score (1-100), lower number is lower risk87 2022State Score (1-10), lower number is lower pekz7763Data from: https://www.neighborhoodatlas.medicine.[facility].edu/. Last address used for [facility]2022Sex and Gender InformationValueDate RecordedSex Assigned at CinqcHsiz59/22/2022 10:12 PM EDTLegal KmvBfbh12/02/2012 8:11 AM ESTGender MrxdyclkRvbf51/22/2022 10:12 PM EDTSexual OrientationStraight 09/08/2024 8:53 PM EDTOccupationIndustryJob Start DateJob End DateGENERALNot on fileNot on fileNot on file Last Filed Vital Signs Vital SignReadingTime TakenCommentsBlood Wzgmmxbd244/27667 10:07 AM EDT Zmqgk934706/19/2020 10:07 AM NJNWloewnlojoj80.4 ??C (97.6 ??F)01/30/2017 9:24 AM EDTRespiratory Okys756006/19/2020 10:07 AM EDTOxygen Pzefnhurjz50%06/19/2020 10:07 AM EDTInhaled Oxygen Concentration--Fegthi26.1 kg (170 lb)06/19/2020 10:07 AM DCGUnwllk245.4 cm (6' 1 )06/19/2020 10:07 AM EDTBody Mass Index22.43006/19/2020 10:07 AM EDT Plan of Treatment Health MaintenanceDue DateLast DoneCommentsAnxiety Flcehmxyj94/12/1993Depression Kyidgazpr53/12/1993HIV Kpzjbzsib81/12/1993Hepatitis C Mozyfbeuq66/12/1993 DTaP,Tdap,Td Vaccine (1 - Tdap)1993Hepatitis B Vaccine (1 of 3 - 19+ 3- dose series)1993Lipid Dsjakybhq03/12/2010CT Xwzdgebnidjk35/12/2020 Cologuard (FIT-DNA)08/09/20196168Enjynxciwte99/12/2020Colorectal Cancer Screening 08/09/2019Fecal Occult Blood08/09/20194649Ywkuionynawox37/12/2020Diabetes Screening , 04/11/2016, 04/11/2015, Additional history exists Pneumococcal Vaccine: 50+ (1 of 1 - PCV)2024Shingrix Vaccine (1 of 2) 5Covid-19 Vaccine ( - season)/, 05/09/2022, 10/06/2021, Additional history existsInfluenza Vaccine (#1)/, 05/09/2022, 12/29/2020, Additional history existsRSV Vaccine (1 - 1-dose 75+ series)2049 Medical Devices ImplantedTypeAreaManufacturerDevice IdentifierShelf Expiration DateModel / Serial / LotAnchor Swivelock 4.75mm Peek 19.1mm Suture Closed Eyelet Vent Sterile - [id number] Implanted:Q[facility]: Bone - Shoulder [employer]02/26/2021R-2324PSLC / / [id number]:PEEK SWIVELOCKAnchor Swivelock 4.75mm Peek 19.1mm Suture Closed Eyelet Vent Sterile - [id number] Implanted:Qty: 1 [facility] 06[facility]30/2016 [facility]AnchcaLeft: Bone - Shoulder [employer]12/27/2020R-2324PSLC / / [id number]:PEEK SWIVELOCKAnchor Corkscrew Fiberwire 5.5mm 2 Full Thread Peek 14.7mm Suture 2 Sterile - [id number] Implanted:Qty: 2 [facility] 06[facility]30/2016 [facility]plantLeft: Bone - Shoulder [employer]09/26/2020R-1927PSF / / [id number]:PEEK CORKSCREW Procedures Procedure NamePriorityDate/TimeAssociated DiagnosisCommentsCOMPREHENSIVE METABOLIC DZKKFTlejkbo53/23/2021 10:35 AM EDT Partial epilepsy with impairment [...] mg/dL06/19/2020 5:19 PM [facility] Alkaline Ejzncqjrwhr8512 - 113 U/L06/19/2020 5:19 [facility] YzjugroksrliPVS3046 - 40 U/L06/19/2020 5:19 PM [facility]TC[facility] WpfzdlgmviueAofkprn1112 - 99 mg/dL06/19/2020 5:19 PM [facility] LaboratoriesComment: The [place] Diabetes Association (ADA) provides guidance for cutoff [...] Standards of Medical Care in Diabetes 2016, [place] Diabetes Association. Diabetes Care. 2016.39(Suppl 1). FET653 - 24 mg/dL06/19/2020 5:19 PM [facility] LaboratoriesCreatinine 0.850.73 - 1.22 mg/dL06/19/2020 5:19 PM [facility] LaboratoriesSodium 044114 - 144 mmol/L06/19/2020 5:19 PM [facility] LaboratoriesPotassium 4.13.7 - 5.1 mmol/L06/19/2020 5:19 PM [facility] LaboratoriesChloride 14539 - 105 mmol/L06/19/2020 5:19 PM [facility] OrbwzjiccafqCC71391 - 30 mmol/L06/19/2020 5:19 PM [facility] LaboratoriesAnion Gap99 - 18 mmol/L06/19/2020 5:19 PM [facility] KglyihooxrqgHCJ2314 - 54 U/L 06/19/2020 5:19 PM [facility] LaboratorieseGFR->60 06/19/2020 5:19 PM [facility] LaboratorieseGFR-All Other Races>60. 06/19/2020 5:19 PM [facility] LaboratoriesComment: eGFR (Estimated GFR) Units of [...] / Volume Collection TimeReceived TimeBloodBLOOD SPECIMEN / Gyumiju2106/19/2020 10:35 AM EDT 06/19/2020 10:37 AM EDT Narrative Authorizing ProviderResult TypeResult StatusSilviandrés Ramos MDLABORATORY Final ResultPerforming OrganizationAddressCity/State/ZIP CodePhone Number [facility] [address] [place] [address] [facility] [employer] [address] [place] [address] from Last 3 Months or Most Recently Relevant to Health Maintenance Insurance Care Teams Team MemberRelationshipSpecialtyStart DateEnd Mesfin Chin MD [address] [place] [address] PCP - GeneralFamily Medicine07/17/17
--- OUTSIDE RECORDS SUMMARY | 2025-03-29 09:51 | XMS_ITS | CCD ---
Author Organization [facility] Care Team Providers Care Museum Exhibit Designer Name Role Phone Josiah Blankenship Primary Care [...] Provider Josiah Blankenship MD Primary Care Provider [phone] Josiah Blankenship MD Primary Care Provider Josiah Blankenship MD Primary Care Provider [phone] TRINA SINHA Attending Unavailable SELF Referring Unavailable JOSIAH BLANKENSHIP Primary Care Unavailab le JOSIAH BLANKENSHIP Attending Unavailable JOSIAH BLANKENSHIP Attending Unavailable JOSIAH BLANKENSHIP Attending Unavailable JOSIAH BLANKENSHIP Attending Unavailable Yomi Prescott DO Attending Provider [phone] Josiah Blankenship MD Primary Care Provider Sonali Mckinney APRN Primary Care Provider Sonali Mckinney APRN Attending Provider Medications Current Medications MedicationDrug Class(es)DatesSig (Normalized)Sig (Original)acetaminophen 325 mg oral tablet (16 sources)take 1 tablet by mouth every six hours as neededacetaminophen (Tylenol) 325 MG tablet Take 325 mg by mouth every 6 (six) hours if needed. Activeatorvastatin 40 mg oral tablet (20 sources)HMG-CoA Reductase InhibitorStart: 09-24-2023 End: 97-53-3949Ygovieymliym 40 mg tablet Active MG PO January 30, 2025 12:00am Complies with drug therapycalcium carbonate 1250 mg oral tablet (9 sources)Start: 01-13-2982ccmc 1 tablet by mouth once dailycalcium carbonate (OS-BALWINDER 500) 500 mg calcium (1,250 mg) tablet Take 1 tablet by mouth once daily. 60 tablet 5 07/17/2017 ActiveComment on above:Take 1 tablet by mouth once daily. carBAMazepine 200 mg oral tablet (20 sources)Mood StabilizerStart: 70-89-8312Agltekracxbfk 200 mg tablet Active MG PO January 30, 2025 12:00am Complies with drug therapyStart: 2022 End: 82-41-6567gode 1 tablet by mouth once daily in the morning, then take 2 tablets by mouth once daily in the eveningcarBAMazepine (TEGRETOL) 200 mg tablet Indications: Post traumatic seizure disorder (HCC) TAKE 1 AND 1/2 TABLETS BY MOUTH EVERY MORNING AND 2 TABLETS EVERY EVENING 315 tablet 3 09/26/2024 Active Start: 07-15-2019 End: 50-33-6117kicMLEdwzolsj (TEGRETOL) 200 mg tablet Indications: Post traumatic [...] oral capsule (1 source)Vitamin DStart: 07-17-2017 End: 83-70-4985kism 1 capsule by mouth once dailyCholecalciferol, Vitamin D3, (VITAMIN D) 1,000 unit cap Take 1 capsule by mouth once daily. 60 capsule 5 07/17/2017 06/21/2021 DiscontinuedComment on above:Take 1 capsule by mouth once daily.CPAP (20 sources)Start: 35-04-7861SLPY 2nd request for download report. Fax results to [phone]. 1 Device 02/02/2017 ActiveStart: 61-78-8221DYBC 2nd request for download report. Fax results to [phone]. 1 Device 0 02/02/2017 ActiveStart: 14-38-5871LDQC Provide new SD card. Current card is not functional. 1 Device 11/03/2016 ActiveStart: 43-34-7200IMNY AutoPAP 5-12 cmH2O, mask, humidity, filters. Lifetime supplies. Dx: G47.33. Fax 30 day compliance rpt to [phone] when available. 1 Device 11/03/2016 ActiveStart: 58-87-4143KISE Provide new SD card. Current card is not functional. 1 Device 0 11/03/2016 ActiveStart: 83-68-5909FHHQ AutoPAP 5-12 cmH2O, mask, humidity, filters. Lifetime supplies. Dx: G47.33. Fax 30 day compliance rpt to [phone] when available. 1 Device 0 11/03/2016 ActiveStart: 84-46-4913DGPX Indications: STEVAN (obstructive sleep apnea) CPAP 11 cmH2O, mask, tubing, humidifier, filters. Li fetime supplies. Dx: G47.33 DME: [employer], f: [phone] 1 Device 0 10/22/2015ActiveComment on above:CPAP 11 cmH2O, mask, tubing, humidifier, filters. Lifetime supplies. Dx: G47.33 DME: [employer], f: [phone] new SD card. Current card is not functional. AutoPAP 5-12 cmH2O, mask, humidity, filters. Lifetime supplies. Dx: G47.33. Fax 30 day compliance rpt to [phone] when available.2nd request for download report. Fax results to [phone].levETIRAcetam 1000 mg oral tablet (20 sources)Start: 2022 End: 88-54-6712Nhltfpktljwkc 1,000 mg tablet Active MG PO January 30, 2025 12:00am Complies with drug therapyStart: 07-30-2020 End: 16-33-5726thyd 1 tablet by mouth twice dailylevETIRAcetam (KEPPRA) 1,000 mg tablet Indications: Post traumatic seizure disorder (HCC) Take 1 tablet by mouth twice daily. 180 tablet 3 06/21/2021 ActiveComment on above:Take 1 tablet by mouth twice daily.losartan potassium 100 mg oral tablet (20 sources)Angiotensin 2 Receptor BlockerStart: 05-26-2020 End: 38-62-5809Vgijoknh 100 mg tablet Active MG PO January 30, 2025 12:00am Complies with drug therapyComment on above:Take 100 mg by mouth once daily. melatonin 10 mg oral tablet (2 sources)take 1 tablet by mouth at bedtimemelatonin 10 MG tablet Take 1 tablet by mouth at bedtime Activenabumetone 750 mg oral tablet (20 sources)Nonsteroidal Anti-inflammatory DrugStart: 11-07-2024 End: 84-43-7308Yebobfxrzz 750 mg tablet Active MG PO January 30, 2025 12:00am Complies with drug therapyStart: 03-28-2024 End: 33-90-9691lgev 1 tablet by mouth in the morningnabumetone (Relafen) 750 MG tablet Indications: Chronic left shoulder pain Take 1 tablet (750 mg) by mouth in the morning and 1 tablet (750 mg) before bedtime. 180 tablet 1 03/28/2024 09/24/2024 ActiveStart: 02-22-2024 End: 89-85-8751qolz 1 tablet by mouth in the morningnabumetone (Relafen) 750 MG tablet Indications: Chronic left shoulder pain Take 1 tablet (750 mg) by mouth in the morning and 1 tablet (750 mg) before bedtime. 60 tablet 02/22/2024 03/23/2024 ExpiredStart: 05-04-2023 End: 73-16-1259onei 1 tablet by mouth in the morningnabumetone (Relafen) 750 MG tablet Indications: Chronic right shoulder pain Take 1 tablet (750 mg) by mouth in the morning and 1 tablet (750 mg) before bedtime. 60 tablet 0 05/04/2023 06/03/2023 Activenaproxen 500 mg oral tablet (1 source)Nonsteroidal Anti-inflammatory DrugStart: 06-30-2016 End: 08-31-6104vhfd 1 tablet by mouth twice daily at mealtimenaproxen (NAPROSYN) 500 mg tablet Take 1 tablet by mouth twice daily with meals. Take with food 20 t ablet 0 06/30/2016 06/21/2021 DiscontinuedComment on above:Take 1 tablet by mouth twice daily with meals. Take with food Completed/Discontinued Medications MedicationDrug Class(es)DatesSig (Normalized)Sig (Original)amoxicillin 875 mg / clavulanate 125 mg oral tablet (3 sources)Penicillin-class AntibacterialStart: 01-30-2025 End: 21-73-9437Gpaurwkujsw-Pot Clavulanate 875-125 mg tablet Discontinued TAB PO January 30, 2025 12:00am February 06, 2025 3:19pmmeloxicam 15 mg oral tablet (3 sources)Nonsteroidal Anti-inflammatory DrugStart: 08-31-2023 End: 23-31-6586muxm 1 tablet by mouth once dailymeloxicam (Mobic) 15 MG tablet Indications: Impingement syndrome of left shoulder Take 1 tablet (15mg) by mouth Daily 90 tablet 1 08/31/2023 02/22/2024 Discontinued (Therapy completed) nebivolol 10 mg oral tablet (20 sources)Start: 08-01-2023 End: 62-40-7248Bdkzffgxw 10 mg tablet Discontinued MG PO January 30, 2025 12:00am February 06, 2025 3:49pmtraMADol hydrochloride 50 mg oral tablet (2 sources)Opioid AgonistStart: 05-04-2023 End: 32-81-5592korw 1 tablet by mouth every six hours for paintraMADol (Ultram) 50 MG tablet Indications: Rotator cuff syndrome, right Take 1 tablet (50 mg) by mouth every 6 (six) hours if needed for severe pain for up to 7 days 21 tablet 0 05/04/2023 05/11/2023 Problems Active Problems Problem ClassificationProblemDateDocumented DateEpisodic/ChronicAbdominal pain (9 sources)Unspecified abdominal pain; Translations: [Right upper quadrant pain] Onset: 72-04-2562KweqyvazNsbatwxpe of lipid metabolism (20 sources)Dyslipidemia; Translations: [Mixed hyperlipidemia]Onset: 02-29-2024 22-02-7758ExiwwltLbuuvuul; convulsions (16 sources)Other generalized epilepsy and epileptic syndromes, not intractable, without status epilepticus; Translations: [Generalized convulsive epilepsy, without mention of intractable epilepsy]Onset: hronic Epilepsy; convulsions (20 sources)Seizure; Translations: [Post traumatic seizures]Onset: 06-20-2016 EpisodicEssential hypertension (20 sources)Essential hypertension; Translations: [Essential (primary) hypertension]Onset: 722283-42-6863QuelsnsJadx disorders (16 sources)Reactive depression (situational); Translations: [Major depressive disorder, single episode, unspecified]Onset: 635386-60-2717MlhaahqEltx wounds of extremities (8 sources)Laceration of left hand; Translations: [Laceration without foreign body of left hand, initial encounter]66-89-9802DepqmzjaAvkbtpywwmkmte (16 sources)Osteoarthritis of joint of right elbow; Translations: [Primary osteoarthritis, right elbow]Onset: 341438-33-5832ZcgqoglTxpvw acquired deformities (16 sources)Postural kyphosis; 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, cervicothoracic region]Onset: 250264-13-9316GogdikbCvoel connective tissue disease (2 sources)Right rotator cuff syndrome; Translations: [Unspecified rotator cuff tear or rupture of right shoulder, not specified as traumatic]89-43-6768Hyqlqocc Other connective tissue disease (2 sources)Non-traumatic partial tear of left rotator cuff; Translations: [Incomplete rotator cuff tear or rupture of left shoulder, not specified as traumatic]51-25-6773JuuqevzkHkxxg nervous system disorders (20 sources)Lesion of ulnar nerve, left upper limb; Translations: [Lesion of ulnar nerve]Onset: 667243-43-4614NukmfcqZbbur non-traumatic joint disorders (20 sources)Chronic pain of left upper limb; Translations: [Pain in left shoulder]Onset: 340589-52-5461NnrwxoegXlbfh non-traumatic joint disorders (2 sources)Chronic pain of right upper limb; Translations: [Pain in right shoulder]77-38-6167SevvihjnSpmqh screening for suspected conditions (not mental disorders or infectious disease) (2 sources)Patient encounter status; Translations: [Encounter for screening for malignant neoplasm of colon]30-09-7674LvebsonhCkrwz upper respiratory infections (2 sources)Viral upper respiratory tract infection; Translations: [Acute upper respiratory infection, unspecified]05-71-7703MaupewbqEryxrdnr codes; unclassified (20 sources)Obstructive sleep apnea syndrome; Translations: [Obstructive sleep apnea (adult) (pediatric)]Onset: 398866-98-9796VoosuvuYrdsuiao codes; unclassified (16 sources)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; Translations: [Dependence on other enabling machines and devices]Onset: hronic Past or Other Problems Problem ClassificationProblemDateDocumented DateEpisodic/ChronicOther and ill- defined cerebrovascular disease (4 sources)Cerebral arterial aneurysm; Translations: [Cerebral aneurysm, nonruptured]Onset: 04-07-2007 Resolved: 402561-20-6674ZijitrwTkqvg connective tissue disease (20 sources)Lateral epicondylitis of left humerus; Translations: [Lateral epicondylitis, left elbow]Onset: 211529-50-8871JqvropknUmxxp connective tissue disease (20 sources)Impingement syndrome of left shoulder region; Translations: [Impingement syndrome of left shoulder]Onset: 676886-43-3486PuvyjuitGkeva connective tissue disease (20 sources)Adhesive capsulitis of left shoulder; Translations: [Adhesive capsulitis of left shoulder]Onset: 019692-96-5446GoyaovykPaogy connective tissue disease (20 sources)Partial thickness rotator cuff tear; Translations: [Incomplete rotator cuff tear or rupture of leftshoulder, not specified as traumatic]Onset: 709005-75-5771Qrhqroor Results Test NameValueInterpretationReference RangeFacilityXR Shoulder - right 2 Viewson 36-43-9761Qorfs are no acute osseous changes. ELECTRONICALLY SIGNED [...] changes. ELECTRONICALLY SIGNED BY: Washington White MD [facility] HealthcareXR Shoulder - right 2 ViewsOrdered By: Washington White on 08-39-6725ONIW [employer] Work Phone: XR Shoulder - right 2 Viewson 46-61-1230Hapntttch Study observation (narrative)[facility] HealthcareAMYLASEon 32-05-4389Cgkymnm [Catalytic activity/Vol]48 U/TKvahra61-620Tpi [facility] HospitalComment on above: Performed By: #### RAFAEL, LIPA, CMP #### [facility] [address] [address] [address] Mando Huynh AUTO DIFFon 96-97-3792APQL #0.1 103/ulNormal0.0-0.1The [facility] HospitalComment on above:Performed By: #### CBC #### [facility] [address] [address] [address] Mando MckennaBasophils/100 WBC (Bld)1.1 %Normal0.2-2.0The [facility] Comment on above:Performed By: #### CBC #### [facility] [address] [address] [address] Mando Trujillo #0.2 103/ulNormal0.0-0.7The [facility] HospitalComment on above: Performed By: #### CBC #### [facility] [address] [address] [address] Mando Duttaosinophils/100 WBC (Bld)3.2 %Normal0.9-7.0The [facility] Comment on above:Performed By: #### CBC #### [facility] [address] [place] [address] Dr. Mando Duttarythrocyte distribution width (RBC) [Ratio]11.9 %Dtivkh09.0-15.0 The [facility] HospitalComment on above:Performed By: #### CBC #### [facility] [address] [place] [address] Dr. Mando MckennaHematocrit (Bld) [Volume fraction]42.6 %Hclhpg85.0-54.0The [facility] HospitalComment on above:Performed By: #### CBC #### [facility] [address] [place] [address] Dr. Mando MckennaHemoglobin (Bld) [Mass/Vol]13.5 g/dLCritically low14.0-18.0The [facility] HospitalComment on above:Performed By: #### CBC #### [facility] [address] [place] [address] Dr. Mando Greene #0.01 10e3/ulNormal0.00-0.03The [facility] HospitalComment on above:Performed By: #### CBC #### [facility] [address] [place] [address] Dr. Mando Greene %0.2 %Normal0.0-0.5The [facility] HospitalComment on above: Performed By: #### CBC #### [facility] [address] [place] [address] Dr. Mando EscobedoH #1.6 103/ulNormal1.2-3.8The [facility] HospitalComment on above:Performed By: #### CBC #### [facility] [address] [place] [address] Dr. Mando Eugenemphocytes/100 WBC (Bld)33.8 %Xdvrpn38.5-60.0The [facility] HospitalComment on above:Performed By: #### CBC #### [facility] [address] [place] [address] Dr. Mando BraxtonUAL DIFF REQNONormalThe [facility] HospitalComment on above: Performed By: #### CBC #### [facility] [address] [address] [address] Mando Diaz (RBC) [Entitic mass]30.1 fnOcuhbx34.9-34.0The [facility] HospitalComment on above:Performed By: #### CBC #### [facility] [address] [place] [address] Dr. Mando Diaz (RBC) [Mass/Vol]31.7 g/zSNhtknv14.9-35.2The [facility] HospitalComment on above:Performed By: #### CBC #### [facility] [address] [place] [address] Dr. Mando Nails (RBC) [Entitic vol]94.9 fLCritically high80.0-94.0The [facility] HospitalComment on above:Performed By: #### CBC #### [facility] [address] [place] [address] Dr. Mando Javed #0.6 103/ulNormal0.3-0.8The [facility] HospitalComment on above:Performed By: #### CBC #### [facility] [address] [place] [address] Dr. Mando Taocytes/100 WBC (Bld)11.9 %Normal1.7-12.0The [facility] Comment on above:Performed By: #### CBC #### [facility] [address] [place] [address] Dr. Mando Bran #2.4 103/ulNormal1.4-6.5The [facility] HospitalComment on above:Performed By: #### CBC #### [facility] [address] [place] [address] Dr. Mando Billingsleyutrophils/100 WBC (Bld)49.8 %Rhaodl15.0-75.0The [facility] HospitalComment on above:Performed By: #### CBC #### [facility] [address] [place] [address] Dr. Mando Fortune mean volume (Bld) [Entitic vol]8.4 fLCritically low 9.5-13.5The [facility] HospitalComment on above:Performed By: #### CBC #### [facility] [address] [place] [address] Dr. Mando MckennaPLT307 103/chVukjxn668-565Oha [facility] HospitalComment on above: Performed By: #### CBC #### [facility] [address] [place] [address] Dr. Mando MckennaRBC4.49 106/ulCritically low4.70-6.10The [facility] HospitalComment on above:Performed By: #### CBC #### [facility] [address] [place] [address] Dr. Mando MckennaWBC4.7 103/ulNormal4.0-11.0The [facility] HospitalComment on above: Performed By: #### CBC #### [facility] [address] [place] [address] Dr. Mando MckennaCT ABD/PELV W CONon 46-58-7899LZ ABD/PELV W CONEXAMINATION: CT ABD/PELV W CON [...] Electronically authenticated by: JENA BANGURA Date: 2021-08-29 09:26[facility] URINE PROFILEon 43-96-7699Tcavcwroc Ql (U)NegativeNormal NEGATIVEWyandot Memorial HospitalComment on above:Performed By: #### ERUR #### [facility] [address] [place] [address] Dr. Mando Sullivan (U)CLEARNormalCLEARWyandot Memorial HospitalComment on above: Performed By: #### ERUR #### [facility] [address] [place] [address] Dr. Mando Storey (U)YELLOWNormalYELLOWWyandot Memorial HospitalComment on above: Performed By: #### ERUR #### [facility] [address] [place] [address] Dr. Mando Almanza micrscopic examination will be performed if indicated. NormalWyandot Memorial HospitalComment on above:Performed By: #### ERUR #### [facility] [address] [place] [address] Dr. Mando MckennaGlucose Ql (U)NegativeNormalNEGATIVEWyandot Memorial HospitalComment on above:Performed By: #### ERUR #### [facility] [address] [place] [address] Dr. Mando MckennaHemoglobin Ql (U)NegativeNormalNEGATIVEWyandot Memorial Hospital Comment on above:Performed By: #### ERUR #### [facility] [address] [place] [address] Dr. Mando MckennaKetones Ql (U)NegativeNormalNEGATIVEWyandot Memorial HospitalComment on above:Performed By: #### ERUR #### [facility] [address] [place] [address] Dr. Mando MckennaLEUKOCYTESNegativeNormalNEGATIVEWyandot Memorial HospitalComment on above:Performed By: #### ERUR #### [facility] [address] [place] [address] Dr. Mando Adler Ql (U)NegativeNormalNEGATIVEThe [facility] HospitalComment on above:Performed By: #### ERUR #### [facility] [address] [place] [address] Dr. Mando MckennapH (U)6.0 [pH]Normal5-9The [facility] HospitalComment on above: Performed By: #### ERUR #### [facility] [address] [place] [address] Dr. Mando MckennaSPEC GRAVITY1.347Dourvg7.005-<=1.025The [facility] HospitalComment on above:Performed By: #### ERUR #### [facility] [address] [place] [address] Dr. Mando Sharpe PROTEINNegativeNormalNEGATIVE/ TRACEThe [facility] Comment on above:Performed By: #### ERUR #### [facility] [address] [place] [address] Dr. Mando Alvarez MICRO INDNOT INDICATEDNormalThe [facility] HospitalComment on above:Performed By: #### ERUR #### [facility] [address] [place] [address] Dr. Mando Del Torobilinogen Qn (U)0.2 {Jackie'U}/dLNormal0.2 - 1.0The [facility] HospitalComment on above:Performed By: #### ERUR #### [facility] [address] [place] [address] Dr. Mando MckennaLACTATE/LACTIC ACIDon 00-31-3146Ybpnwoi [Moles/Vol]0.4 mmol/L Normal0.4-1.9The [facility] HospitalComment on above:Performed By: #### RAFAEL, LIPA, CMP #### [facility] [address] [place] [address] Dr. Mando MckennaLIPASEon 89-09-7119Cidyxb [Catalytic activity/Vol]74.0 U/LNormal 73.0-393.0The Juan HospitalComment on above:Performed By: #### RAFAEL, LIPA, CMP #### [facility] [address] [place] [address] Dr. Mando Olmos 14(COMP METB)on 65-73-2748Mksnvdg [Mass/Vol]3.6 g/dLNormal 3.4-5.0The [facility] HospitalComment on above:Performed By: #### RAFAEL, LIPA, CMP #### [facility] [address] [place] [address] Dr. Mando MckennaAlbumin/Globulin [Mass ratio]1.1 {ratio}NormalThe [facility] HospitalComment on above:Performed By: #### RAFAEL, LIPA, CMP #### [facility] [address] [place] [address] Dr. Mando Wheat [Catalytic activity/Vol]83 U/AQwvbtb77-843Zsr [facility] HospitalComment on above:Performed By: #### RAFAEL, LIPA, CMP #### [facility] [address] [place] [address] Dr. Mando Iqbal [Catalytic activity/Vol]25 U/IKanopx22-60Zyv [facility] HospitalComment on above:Performed By: #### RAFAEL, LIPA, CMP #### [facility] [address] [place] [address] Dr. Mando Machado gap [Moles/Vol]11.8 mmol/LNormalThe [facility] Comment on above:Performed By: #### RAFAEL, LIPA, CMP #### [facility] [address] [place] [address] Dr. Mando MckennaAST [Catalytic activity/Vol]13 U/LCritically yjt78-17Itr [facility] HospitalComment on above:Performed By: #### RAFAEL, LIPA, CMP #### [facility] [address] [place] [address] Dr. Mando MckennaBilirubin [Mass/Vol]0.3 mg/dLNormal0.2-1.0The [facility] Comment on above:Performed By: #### RAFAEL, LIPA, CMP #### [facility] [address] [address] [address] Mando MckennaCalcium [Mass/Vol]8.6 mg/dLNormal8.5-10.1The [facility] Comment on above:Performed By: #### RAFAEL, LIPA, CMP #### [facility] [address] [address] [address] Mando MckennaChloride [Moles/Vol]104 mmol/GJrgcby32-531Gdk [facility] Comment on above:Performed By: #### RAFAEL, LIPA, CMP #### [facility] [address] [place] [address] Dr. Mando MckennaCO2 [Moles/Vol]29.3 mmol/KHcuwid74.0-32.0The [facility] Comment on above:Performed By: #### RAFAEL, LIPA, CMP #### [facility] [address] [place] [address] Dr. Mando MckennaCreatinine [Mass/Vol]0.81 mg/dLNormal0.70-1.30The [facility] HospitalComment on above:Performed By: #### RAFAEL, LIPA, CMP #### [facility] [address] [place] [address] Dr. Mando DuttaGFR-AF BARBADIAN>60Normal>=60The [facility] HospitalComment on above:Performed By: #### RAFAEL, LIPA, CMP #### [facility] [address] [place] [address] Dr. Mando DuttaGFR-NON AF BARBADIAN>60Normal>=60The [facility] HospitalComment on above:Performed By: #### RAFAEL, LIPA, CMP #### [facility] [address] [place] [address] Dr. Mando MckennaGlobulin (S) [Mass/Vol]3.3 g/dLNormalThe [facility] HospitalComment on above:Performed By: #### RAFAEL, LIPA, CMP #### [facility] [address] [place] [address] Dr. Mando MckennaGlucose [Mass/Vol]96 mg/dMTkztzb91-197Dqp [facility] Comment on above:Performed By: #### RAFAEL, LIPA, CMP #### [facility] [address] [address] [address] Mando MckennaPotassium [Moles/Vol]4.1 mmol/LNormal3.5-5.1The [facility] Comment on above:Performed By: #### RAFAEL, LIPA, CMP #### [facility] [address] [place] [address] Dr. Mando MckennaProtein [Mass/Vol]6.9 g/dLNormal6.4-8.2The [facility] Comment on above:Performed By: #### RAFAEL, LIPA, CMP #### [facility] [address] [place] [address] Dr. Mando MckennaSodium [Moles/Vol]141 mmol/EXnywwv917-864Qoc [facility] Comment on above:Performed By: #### RAFAEL, LIPA, CMP #### [facility] [address] [place] [address] Dr. Mando MckennaUrea nitrogen [Mass/Vol]17.0 mg/dLNormal7.0-18.0[facility] HospitalComment on above:Performed By: #### RAFAEL, LIPA, CMP #### [facility] [address] [place] [address] Dr. Mando Connor nitrogen/Creatinine [Mass ratio]21.0 mg/mgNormalThe [facility] HospitalComment on above:Performed By: #### RAFAEL, LIPA, CMP #### [facility] [address] [place] [address] Dr. Mando Holland SINGLE QUAD RT UPPERon 44-45-5251VR SINGLE QUAD RT UPPER EXAMINATION: US SINGLE [...] Electronically authenticated by: JENA BANGURA Date: 2021-08-29 08:18No[facility] AUTO DIFFon 19-15-1516EGFC #0.1 103/ulNormal0.0-0.1[facility] HospitalComment on above:Performed By: #### CBC #### [facility] [address] [place] [address] Dr. Mando MckennaBasophils/100 WBC (Bld)1.1 %Normal0.2-2.0[facility] Comment on above:Performed By: #### CBC #### [facility] [address] [place] [address] Dr. Mando Trujillo #0.1 103/ulNormal0.0-0.7The [facility] HospitalComment on above: Performed By: #### CBC #### [facility] [address] [place] [address] Dr. Mando Duttaosinophils/100 WBC (Bld)1.7 %Normal0.9-7.0[facility] Comment on above:Performed By: #### CBC #### [facility] [address] [place] [address] Dr. Mando Duttarythrocyte distribution width (RBC) [Ratio]12.1 %Svlodf83.0-15.0 The [facility] HospitalComment on above:Performed By: #### CBC #### [facility] [address] [place] [address] Dr. Mando MckennaHematocrit (Bld) [Volume fraction]42.2 %Nwqvwe67.0-54.0[facility] HospitalComment on above:Performed By: #### CBC #### [facility] [address] [place] [address] Dr. Mnado MckennaHemoglobin (Bld) [Mass/Vol]13.6 g/dLCritically low14.0-18.0The [facility] HospitalComment on above:Performed By: #### CBC #### [facility] [address] [place] [address] Dr. Mando Greene #0.02 10e3/ulNormal0.00-0.03The [facility] HospitalComment on above:Performed By: #### CBC #### [facility] [address] [place] [address] Dr. Mando Greene %0.3 %Normal0.0-0.5The [facility] HospitalComment on above: Performed By: #### CBC #### [facility] [address] [place] [address] Dr. Mando Cabrera #1.7 103/ulNormal1.2-3.8The [facility] HospitalComment on above:Performed By: #### CBC #### [facility] [address] [place] [address] Dr. Mando Escobedohocytes/100 WBC (Bld)27.1 %Hqivbk00.5-60.0The [facility] HospitalComment on above:Performed By: #### CBC #### [facility] [address] [place] [address] Dr. Mando BraxtonUAL DIFF REQNONormalThe [facility] HospitalComment on above: Performed By: #### CBC #### [facility] [address] [place] [address] Dr. Mando Gay (RBC) [Entitic mass]30.1 fxKpsluh36.9-34.0The [facility] HospitalComment on above:Performed By: #### CBC #### [facility] [address] [place] [address] Dr. Mando Diaz (RBC) [Mass/Vol]32.2 g/kSRvcduf26.9-35.2The [facility] HospitalComment on above:Performed By: #### CBC #### [facility] [address] [place] [address] Dr. Mando Nails (RBC) [Entitic vol]93.4 qVEofehl68.0-94.0The [facility] HospitalComment on above:Performed By: #### CBC #### [facility] [address] [place] [address] Dr. Mando Javed #0.7 103/ulNormal0.3-0.8The [facility] HospitalComment on above:Performed By: #### CBC #### [facility] [address] [place] [address] Dr. Mando Taocytes/100 WBC (Bld)11.5 %Normal1.7-12.0The [facility] Comment on above:Performed By: #### CBC #### [facility] [address] [place] [address] Dr. Mando Bran #3.7 103/ulNormal1.4-6.5The [facility] HospitalComment on above:Performed By: #### CBC #### [facility] [address] [place] [address] Dr. Mando Billingsleyutrophils/100 WBC (Bld)58.3 %Ucxqsq39.0-75.0The [facility] HospitalComment on above:Performed By: #### CBC #### [facility] [address] [place] [address] Dr. Mando Fortune mean volume (Bld) [Entitic vol]8.1 fLCritically low 9.5-13.5The [facility] HospitalComment on above:Performed By: #### CBC #### [facility] [address] [place] [address] Dr. Mando MckennaPLT318 103/noQkqsyl626-498Nxm [facility] HospitalComment on above: Performed By: #### CBC #### [facility] [address] [place] [address] Dr. Mando MckennaRBC4.52 106/ulCritically low4.70-6.10The [facility] HospitalComment on above:Performed By: #### CBC #### [facility] [address] [place] [address] Dr. Mando MckennaWBC6.4 103/ulNormal4.0-11.0The [facility] HospitalComment on above: Performed By: #### CBC #### [facility] [address] [place] [address] Dr. Mando FloresASEon 50-77-8440Rgnetz [Catalytic activity/Vol]81.0 U/LNormal 73.0-393.0The [facility] HospitalComment on above:Performed By: #### CMP, LIPA #### [facility] [address] [place] [address] Dr. Mando MckennaPROF 14(COMP METB)on 73-03-0208Nocjlwq [Mass/Vol]3.9 g/dLNormal 3.4-5.0The [facility] HospitalComment on above:Performed By: #### CMP, LIPA #### [facility] [address] [place] [address] Dr. Mando MckennaAlbumin/Globulin [Mass ratio]1.1 {ratio}NormalThe [facility] Memorial HospitalComment on above:Performed By: #### CMP, LIPA #### [facility] [address] [place] [address] Dr. Mando Wheat [Catalytic activity/Vol]91 U/VMlamsq38-940Llj [facility] HospitalComment on above:Performed By: #### CMP, LIPA #### [facility] [address] [place] [address] Dr. Mando Iqbal [Catalytic activity/Vol]30 U/ZBukzph26-82Bpc [facility] HospitalComment on above:Performed By: #### CMP, LIPA #### [facility] [address] [place] [address] Dr. Mando Machado gap [Moles/Vol]10.6 mmol/LNormalThe [facility] on above:Performed By: #### CMP, LIPA #### [facility] [address] [place] [address] Dr. Mando MckennaAST [Catalytic activity/Vol]14 U/LCritically tim20-83Bxc [facility] HospitalComment on above:Performed By: #### CMP, LIPA #### [facility] [address] [address] [address] Mando MckennaBilirubin [Mass/Vol]0.1 mg/dLCritically low0.2-1.0The [facility] HospitalComment on above:Performed By: #### CMP, LIPA #### [facility] [address] [place] [address] Dr. Mando MckennaCalcium [Mass/Vol]9.0 mg/dLNormal8.5-10.1The [facility] Comment on above:Performed By: #### CMP, LIPA #### [facility] [address] [place] [address] Dr. Mando MckennaChloride [Moles/Vol]103 mmol/EMguaoy68-085FpqWyandot Memorial Hospital Comment on above:Performed By: #### CMP, LIPA #### [facility] [address] [place] [address] Dr. Mando MckennaCO2 [Moles/Vol]31.3 mmol/YPunzvz82.0-32.0The [facility] Comment on above:Performed By: #### CMP, LIPA #### [facility] [address] [place] [address] Dr. Mando MckennaCreatinine [Mass/Vol]0.96 mg/dLNormal0.70-1.30The [facility] HospitalComment on above:Performed By: #### CMP, LIPA #### [facility] [address] [place] [address] Dr. Mando DuttaGFR-AF BARBADIAN>60Normal>=60The [facility] HospitalComment on above:Performed By: #### CMP, LIPA #### [facility] [address] [place] [address] Dr. Mando DuttaGFR-NON AF BARBADIAN>60Normal>=60The [facility] HospitalComment on above:Performed By: #### CMP, LIPA #### [facility] [address] [place] [address] Dr. Mando MckennaGlobulin (S) [Mass/Vol]3.6 g/dLNormalThe [facility] HospitalComment on above:Performed By: #### CMP, LIPA #### [facility] [address] [address] [address] Mando MckennaGlucose [Mass/Vol]95 mg/jWRviswc35-176AujWyandot Memorial Hospital Comment on above:Performed By: #### CMP, LIPA #### [facility] [address] [address] [address] Mando MckennaPotassium [Moles/Vol]3.9 mmol/LNormal3.5-5.1[facility] Comment on above:Performed By: #### CMP, LIPA #### [facility] [address] [place] [address] Dr. Mando MckennaProtein [Mass/Vol]7.5 g/dLNormal6.4-8.2[facility] Comment on above:Performed By: #### CMP, LIPA #### [facility] [address] [address] [address] Mando MckennaSodium [Moles/Vol]141 mmol/UDimhft171-518KzlWyandot Memorial Hospital Comment on above:Performed By: #### CMP, LIPA #### [facility] [address] [place] [address] Dr. Mando MckennaUrea nitrogen [Mass/Vol]18.0 mg/dLNormal7.0-18.0[facility] HospitalComment on above:Performed By: #### CMP, LIPA #### [facility] [address] [place] [address] Dr. Mando Connor nitrogen/Creatinine [Mass ratio]18.8 mg/mgNoMetroHealth Main Campus Medical CenterComment on above:Performed By: #### CMP, LIPA #### [facility] [address] [place] [address] Dr. Mando Mckenna Vital Signs Date TimeVital SignValuePerforming JjozqxcfiMltdfyoe39-96-6666 15:15-0500Body oxpale538.42 Casie Blankenship MD Work Phone: [facility]11-10-2025 15:15-0500 Body mass index (BMI) [Ratio]25 kg/v7TbfmxkJosiah Blankenship MD Work Phone: [phone])[address] [place], [place] 3363511-10-2025 15:15-0500 Body fwixdwqiand29.8 [degF]Josiah Blankenship MD Work Phone: [phone] [place], [place] 3363511-10-2025 15:15-0500 Body icmtka71.18 kgJosiah Blankenship MD Work Phone: [phone] [place], [place] 3363511-10-2025 15:15-0500 Diastolic blood zmfnkcty33 mm[Hg]Josiah Blankenship MD Work Phone: [phone] [place], [place] 3363511-10-2025 15:15-0500 Heart wrhw596 /minEsedrick Blankenship MD Work Phone: [phone] [place], [place] 3363511-10-2025 15:15-0500 SaO2% (BldA) [Mass fraction]97 %Josiah Blankenship MD Work Phone: [phone] [place], [place] 3363511-10-2025 15:15-0500 Systolic blood hltpehyi416 mm[Hg]Josiah Blankenship MD Work Phone: [phone] [place], [place] 3363511-10-2025 11:45-0500 Body cuqfds127.42 Casie Blankenship MD Work Phone: [phone] [place], [place] 3363511-10-2025 11:45-0500 Body mass index (BMI) [Ratio]23.1 kg/c5WdnfnjJosiah Blankenship MD Work Phone: [phone])[address] [place], [place] 3363511-10-2025 11:45-0500 Body .37 kgJosiah Blankenship MD Work Phone: [phone])[address] [place], [place] 3363511-03-2025 11:22-0500 Body zktmvi005.42 Casie Blankenship MD Work Phone: [phone] [place], [place] 3363511-03-2025 11:22-0500 Body mass index (BMI) [Ratio]23.1 kg/i4Hjxpwx Hemeyer MD Work Phone: [phone])[address] [place], [place] 3363511-03-2025 11:22-0500 Body cntpoa37.37 kgJosiah Blankenship MD Work Phone: [phone])[address] [place], [place] 3363510-23-2025 15:12-0400 Body .4 cmEsedrick Blankenship MD Work Phone: [phone] [place], [place] 5134710-23-2025 15:12-0400Body mass index (BMI) [Ratio]22.56 kg/q9PphfmgJosiah Blankenship MD Work Phone: [phone])[address] [place], [place] 5134710-23-2025 15:12-0400Body bkjais25.56 kgJosiah Blankenship MD Work Phone: [phone] [place], [place] 5134710-23-2025 15:12-0400Diastolic blood mm[Hg]Josiah Blankenship MD Work Phone: [phone] [place], [place] 5134710-23-2025 15:12-0400Heart rate68 /min Josiah Blankenship MD Work Phone: [phone] [place], [place] 5134710-23-2025 15:12-5111BuM0% (BldA) [Mass fraction]99 %Josiah Blankenship MD Work Phone: [phone] [place], [place] 5134710-23-2025 15:12-0400Systolic blood dfbgohgd158 mm[Hg]Josiah Blankenship MD Work Phone: [phone] [place], [place] 5134705-20-2025 16:03-0400Body szwdfo846.4 Casie Blankenship MD Work Phone: [phone] [place], [place] 5134705-20-2025 16:03-0400Body mass index (BMI) [Ratio]22.82 kg/i8CwmbuvJosiah Blankenship MD Work Phone: [phone] [place], [place] 5134705-20-2025 16:03-0400Body bejyrd35.47 kgJosiah Blankenship MD Work Phone: [phone] [place], [place] 5134705-20-2025 16:03-0400Diastolic blood xyhofmiw75 mm[Hg]Josiah Blankenship MD Work Phone: [phone] [place], [place] 5134705-20-2025 16:03-0400Heart rate74 /min Josiah Blankenship MD Work Phone: [phone] [place], [place] 5134705-20-2025 16:03-3110TdG0% (BldA) [Mass fraction]99 %Josiah Blankenship MD Work Phone: [phone])[address] [place], [place] 5134705-20-2025 16:03-0400Systolic blood dgtvinbl112 mm[Hg]Josiah Blankenship MD Work Phone: [phone])[address] [place], [place] 5134711-25-2024 16:03-0500Body .4 cmEsedrick Blankenship MD Work Phone: [phone] [place], [place] 5134711-25-2024 16:03-0500Body mass index (BMI) [Ratio]22.82 kg/j5LzibdmJosiah Blankenship MD Work Phone: 1(978)[address] [place], [place] 5134711-25-2024 16:03-0500Body zckelb45.47 kgJosiah Blankenship MD Work Phone: [phone])[address] [place], [place] 5134711-25-2024 16:03-0500Diastolic blood gmlleeze53 mm[Hg]Josiah Blankenship MD Work Phone: [phone] [place], [place] 5134711-25-2024 16:03-0500Heart rate71 /min Josiah Blankenship MD Work Phone: [phone])[facility] [place], [place] [address]Tklcawcjqs19-72-1314 16:03-0419LlR8% (BldA) [Mass fraction]98 %Josiah Blankenship MD Work Phone: [phone])[address] [place], [place] 5134711-25-2024 16:03-0500Systolic blood pbeagyvj824 mm[Hg]Josiah Blankenship MD Work Phone: [phone] [place], [place] 5134702-05-2024 15:27-0500Body mass index (BMI) [Ratio]22.82 kg/x4BlcnnaJosiah Blankenship MD Work Phone: [phone] [place], [place] 5134702-05-2024 15:27-0500Body .47 kgEdyasmeen Hemeyer MD Work Phone: [facility] Encounters Encounter DateEncounter TypeCare ProviderFacilityStart: 02-06-2025 End: 35-87-4080hloozbfgguMiqrncLois Blankenship MD Work Phone: -[facility]art: 02-06-2025 End: 22-85-9038Vuimnkk encounter procedureJeandreasgian Mckinney PROFILE SAW SETUP OPERATOR [facility] Work Phone: Start: 02-06-2025 End: 68-58-3185ilrfxmhixyObauqr J Hemeyer MD Work Phone: [facility]: 02-06-2025 End: 96-85-7349Awuatmt encounter procedureJustjuan josé [place] DO-[facility] [place] Work Phone: Start: 01-30-2025 End: 86-99-8280websykargwWakxeb J Hemeyer MD Work Phone: -[facility]: 01-30-2025 End: 52-20-0239Stvkdcp encounter procedureJustjuan josé [place] [facility] [place] Work Phone: Start: 01-19-2025 End: 21-46-8174Wfylan outpatient visit 25 minutesEdyasmeen Blankenship MD Work Phone: [facility] MedicineComment on above: Essential hypertension; Mixed dyslipidemia; Chronic left shoulder painStart: 01-19-2025 End: 21-59-0903nzjbkeceloNIBNZG J HEMEYERNot AvailableStart: 01-19-2025 End: 25-76-4311Fmwztf Lucía Blankenship MD Work Phone: [facility] [facility] MedicineStart: 01-19-2025 End: 36-50-8301Tjhemy Lucía Blankenship MD Work Phone: [facility] [place] [facility] MedicineStart: 10-05-2024 End: 91-99-6951BcttqcAonechMarianna Ramos MD Work Phone: NeurosurgeryComment on above:Refill RequestStart: 09-26-2024 End: 26-43-6278FoaigkWdefpsMarianna Ramos MD Work Phone: NeurologyComment on above:Refill RequestStart: 09-09-2024 End: 28-38-1865Vzwjybosaggw consultation with Nini Sinha APRN.WRAPPING CLERK Work Phone: NeurologyStart: 09-09-2024 End: 56-74-6945ttcgmjueoyTCT M MERNERFacility:Newark HospitalComment on above:STEVAN on CPAP (Primary Dx); Post traumatic seizure disorder (HCC)Start: 08-24-2024 End: 50-41-8356IltnvhOdgiyb J Hemeyer MD Work Phone: [facility] 100Comment on above:Essential hypertension (CMS/HCC)Start: 08-16-2024 End: 60-69-4823Stocgg outpatient visit 25 minutesJosiah Blankenship MD Work Phone: [facility] 100Comment on above:Essential hypertension (CMS/HCC); Mixed dyslipidemia (CMS/HCC)Start: 08-16-2024 End: 51-52-6385rouitgkoaaIYWLXU J HEMEYERNot AvailableStart: 08-16-2024 End: 67-36-9346Kusmwp flowsheetJosiah Blankenship MD Work Phone: [facility] 100Start: 08-16-2024 End: 85-18-7708Tvhmtx flowsPayton Blankenship MD Work Phone: [facility] 100Start: 03-21-2024 End: 86-79-5109KtrxhvLbette J Hemeyer MD Work Phone: [facility] 100Comment on above:Chronic left shoulder painStart: 03-03-2024 End: 82-64-5865Ewveym outpatient visit 15 minutesJosiah Blankenship MD Work Phone: [facility] 100Comment on above:Viral upper respiratory tract infection (Primary Dx)Start: 03-03-2024 End: 37-42-9145gocupdhaduUCMRRQ J HEMEYERNot AvailableStart: 03-03-2024 End: 97-27-9373Nbxozb Lucía Blankenship MD Work Phone: [facility] 100Start: 03-03-2024 End: 63-62-4065Bptvmu Lucía Blankenship MD Work Phone: [facility] 100Start: 02-22-2024 End: 05-96-4503Qxyivg outpatient visit 25 minutesJosiah Blankenship MD Work Phone: [facility] 100Comment on above:Essential hypertension (CMS/HCC) (Primary Dx); Mixed dyslipidemia (CMS/HCC); Chronic left shoulder pain; 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; Impingement syndrome of left shoulderStart: 02-22-2024 End: 91-43-6127iwsjjuaumdUSFTHI J HEMEYERNot AvailableStart: 02-22-2024 End: 95-16-8572Rfltwz Lucía Blankenship MD Work Phone: [facility] 100Start: 02-22-2024 End: 87-95-2851Tnyoyg Lucía Blankenship MD Work Phone: [facility] 100Start: 08-27-2023 End: 56-96-2932Bylfxgeh Erich Sinha PROFILE SAW SETUP OPERATOR.WRAPPING CLERK Work Phone: NeurologyComment on above:Post traumatic seizure disorder (HCC)Start: 05-04-2023 End: 56-00-1447Kgnbbp outpatient visit 25 minutesJosiah Blankenship MD Work Phone: [facility] FMComment on above:Chronic right shoulder pain (Primary Dx); Rotator cuff syndrome, rightStart: 27-53-8359YpesmwTtemj Langenbeck PROFILE SAW SETUP OPERATOR.WRAPPING CLERK Work Phone: NeurologyComment on above:Refill RequestStart: 94-81-2398LvfecqUhmReyna Sinha APRN.CNP Work Phone: NeurologyComment on above:Refill RequestStart: 60-34-6269Ozqgvxftz encounterSbrennon Ramos MD Work Phone: NeurologyComment on above:Forms ([employer])Start: 08-29-2021 End: 45-57-7799vxnvsgsgysPB JENA BANGURAFacility:W2Vntgn: 08-27-2021 End: 66-21-8920afqsnrssciCT EDWARD HEMEYERFacility:W4Oxwpx: 30-17-2282Tdgcyxelp encounterSbrennon Ramos MD Work Phone: NeurologyComment on above:Lab req emailed to patient Start: 06-19-2021 End: 67-49-8852Fryzgcwg HealthTrina Sinha APRN.CNP Work Phone: NeurologyComment on above:Post traumatic seizure disorder (HCC) Procedures DateProcedureProcedure DetailPerforming ClinicianStart: 59-90-5054Ozzor depression screening assessmentTrina Sinha APRN.CNP Work Phone: Start: 31-34-0947Pmffwcq of repair of musculotendinous cuff of shoulderS/P rotator cuff repair - LEFTTrina Sinha APRN.CNP Work Phone: Plan of Treatment DateCare ActivityDetailAuthorStart: 07-19-2025 End: 81-03-6811Fjxfywd encounter gnxrccxuc05/22/2026 3:30 PM EDT Office Visit [facility] [address] [facility] [address] [place] [address] Josiah Blankenship MD [address] [facility] 100 [place] [address] (Fax)[facility] MedicineStart: 06-19-2025 End: 18-09-8641Dxqfmpvlibeps metabolic 2000 panel - Serum or PlasmaComprehensive metabolic panel Lab Routine Essential hypertension Expected: 06/19/2025, Expires: 09/17/2025[facility] Work Phone: Comment on above:Expected: 06/19/2025, Expires: 09/17/2025Start: 06-19-2025 End: 09-05-8277Ahknf 1996 panel - Serum or PlasmaLipid panel Lab Routine Mixed dyslipidemia Expected: 06/19/2025, Expires: 09/17/2025[facility] HealthcareComment on above:Expected: 06/19/2025, Expires: 09/17/2025Start: 01-19-2025 End: 49-69-5157Ihbsvgu encounter ijevfzboc76/23/2025 3:30 PM EDT Office Visit [facility] [facility] [address] [facility] [address] [place] [address] Josiah Blankenship MD [address] [place] [address] Essential hypertension; Mixed dyslipidemiaNOMS [place] 100 Family MedicineComment on above:Essential hypertension; Mixed dyslipidemiaStart: 91-87-2335UXLHS-19 Vaccine ( season)COVID-19 Vaccine ( season)[facility] HealthcareStart: 06-68-5236Rirnxggax vaccinationNOTX HealthcareStart: 08-16-2024 End: 08-58-1274Wpruyfr encounter procedureNOMS CI FM 100Comment on above: Essential hypertension (CMS/HCC); Mixed dyslipidemia (CMS/HCC)Start: 28-82-5615Sskcucprpzjc Vaccine: 50+ (1 of 1 - PCV)Pneumococcal Vaccine: 50+ (1 of 1 - PCV)[facility] 20[facility] Shingrix Vaccine (1 of 2)Shingrix Vaccine (1 of 2)[facility]: 03-03-2024 End: 11-45-9275Rokkqzr encounter wtdfzmtyt38/05/2024 4:00 PM EST Office Visit [facility] [address] [place] [address] [place] [address] Josiah Blankenship MD [address] [place] [address] (Fax) ArrivedNOMS CI FM 100Comment on above: ArrivedStart: 02-22-2024 End: 58-50-4434Vgjuytz encounter gvqvyaxrm87/25/2024 4:00 PM EST Office Visit [facility] [address] [place] [address] [place] [address] Josiah Blankenship MD [address] [place] [address] (Fax) Essential hypertension (CMS/HCC); Chronic left shoulder painNOMS CI FM 100Comment on above:Essential hypertension (CMS/HCC); Chronic left shoulder painStart: 48-31-2937Wjoyz-19 Vaccine ( season) Covid-19 Vaccine ()[facility]: 62-19-0810Agygneubw vaccinationInfluenza Vaccine (#1)[facility] HealthcareStart: 08-31-2023 End: 71-75-9477Itaylcq encounter /03/2024 4:00 PM EDT Office Visit [facility] [address] [place] [address] Josiah Blankenship MD [address] [place] [address] (Fax)[facility] FMStart: 38-19-9125KGPXKRSY SCREENDIABETES SCREENMooringsport ClinicStart: 44-41-7362Rrvamlnh ScreeningDiabetes Screening [facility]: 23-34-3398Kntgz-19 Vaccine ( season)Covid-19 Vaccine ()[facility]: 82-91-7355Kqfqoozws vaccinationChillicothe Hospitaltart: 25-10-6884Cfato depression screening assessmentDEPRESSION SCREENINGChillicothe Hospitaltart: 68-43-2911RVILBRDMVJ ASSESSMENTDEPRESSION ASSESSMENTChillicothe Hospitaltart: 31-80-6397COHJA-19 VACCINE (3 - Booster for Pfizer series)COVID-19 VACCINE (3 - Booster for Pfizer series) [facility]: 39-57-6730XXPZU-19 VACCINE (3 - Booster for Pfizer series)COVID-19 VACCINE (3 - Booster for Pfizer series)[facility]: 06-36-3046VIUEFWGEL (FIT-DNA)COLOGUARD (FIT-DNA)[facility]: 31-83-5350ZqenuvxculaAMYFWWAZVBXNqdauqhau ClinicStart: 94-18-6431XVNRBAKIGY CANCER SCREENINGCOLORECTAL CANCER SCREENINGChillicothe Hospitaltart: 07-64-1217FW COLONOGRAPHYCT COLONOGRAPHYChillicothe Hospitaltart: 29-30-4618JPMCU OCCULT BLOOD FECAL OCCULT BLOODChillicothe Hospitaltart: 05-27-5197Wimpugluu for malignant neoplasm of colonChillicothe Hospitalt[facility]: 06-09-8951AYWUUKJGMYDRPNBJOKCPJEQYPS [facility]: 66-99-6442Rbfug 1996 panel - Serum or PlasmaLipid ScreeningChillicothe Hospitaltart: 26-96-2340Jvyfb panelLipid ScreeningChillicothe Hospitaltart: 84-40-8618PWTOM SCREENLIPID SCREENChillicothe Hospitaltart: 1993 Hepatitis B Vaccine (1 of 3 - 19+ 3-dose series)Hepatitis B Vaccine (1 of 3 - 19+ 3-dose series)[facility]: 50-09-0745Quezcoowb B Vaccines (1 of 3 - 19+ 3-dose series)Hepatitis B Vaccines (1 of 3 - 19+ 3-dose series)BEAR [facility] HealthcareStart: 85-85-0638Dmrst microalbumin profileChillicothe Hospitaltart: 43-70-1548Hwxdgtx ScreeningAnxiety ScreeningChillicothe Hospitaltart: 1992 Depression ScreeningDepression ScreeningChillicothe Hospitaltart: 1992 HEPATITIS C SCREENINGHEPATITIS C SCREENINGChillicothe Hospitaltart: 1992 Hepatitis C screeningHepatitis C ScreeningChillicothe Hospitaltart: 50-63-7211HEM SCREENINGHIV SCREENINGChillicothe Hospitaltart: 16-03-2171WRT screeningHIV ScreeningChillicothe Hospitaltart: 05-07-1236FPgO/Tdap/Td Vaccines (1 - Tdap) DTaP/Tdap/Td Vaccines (1 - Tdap)[facility]: 20-51-9703QXR Vaccines (1 of 1 - Standard series)MMR Vaccines (1 of 1 - Standard series)[facility] Start: 43-92-7862DOXPSDLIN B (1 of 3 - 3-dose series)HEPATITIS B (1 of 3 - 3- dose series)[facility]: 26-03-0860Srzasxbwh B Vaccine (1 of 3 - 3- dose series)Hepatitis B Vaccine (1 of 3 - 3-dose series)[facility]: 49-92-7095Islmdpphy for malignant neoplasm of colonRegency [facility] Immunizations Immunization DateImmunizationNotesCare WkdtiperPsoekcxq23-24-3221teurmzzrm, injectable, quadrivalent, preservative freeJosiah Blankenship MD Work Phone: [facility] CenterSvtkfrgtmw14-23-9054QIHU-LYM-4 (COVID-19) vaccine, mRNA, spike protein, LNP, PF, hue-sucrose, 30 mcg/0.3 mLJosiah Blankenship MD Work Phone: [facility] CenterFldqqrvpwi24-26-3699ibfciympx virus vaccine, unspecified formulationJosiah Blankenship MD Work Phone: [facility] CenterMgihksdmyr02-56-7892qqatzugpv, injectable, quadrivalent, preservative freeJosiah Blankenship MD Work Phone: [facility] CenterZbbsoicnoy78-56-8680Ykrpgv Bivalent Booster 12 Years And OlderJosiah Blankenship MD Work Phone: [facility] CenterUccntegdik75-04-4592irkqfsshn virus vaccine, unspecified formulationJasmin Brooks APRN.WRAPPING CLERK Work Phone: [facility] HospitalTchpmc98-33-3895ioyxbrshr, injectable, quadrivalent, preservative freeJosiah Blankenship MD Work Phone: [facility] CenterVlsrebtbit98-11-8967rrokmcaqv, injectable, quadrivalent, preservative freeJosiah Blankenship MD Work Phone: [facility] CenterOrzohxdfju02-87-6016mwdfuxgni, injectable, quadrivalent, preservative freeJosiah Blankenship MD Work Phone: [facility] CenterMscpufrsku43-17-3561uifpghrcx, injectable, quadrivalent, preservative freeJosiah Blankenship MD Work Phone: [facility] CenterAondcdmaof74-56-6939arcgwbqpf, seasonal, injectable, preservative freeEdyasmeen Blankenship MD Work Phone: [facility] CenterYcyeiascta28-24-3950vgxkakyhd, seasonal, injectable, preservative freeEdyasmeen Blankenship MD Work Phone: [facility] CenterBurrgvvavm57-43-7603noxlczh toxoid, adsorbed Edyasmeen Blankenship MD Work Phone: [facility] Payers DatePayer CategoryPayerPolicy [id number] [facility] [id number] Private Health InsuranceOH[facility] [employer]IC [id number] 2021-Present [phone] [address] [address] [place] [address] O [id number] Social History DateTypeDetailFacilityStart: 07-11-2011 End: 35-39-1284Lkimhtu smoking status NHISNever smoked tobaccoWvumedicine Barnesville Hospital Start: 06-19-2020 End: 07-04-9013Zvwwztp intakeCurrent drinker of alcohol (finding)[facility]: 22-70-5826Xzlqatf SDOH Alcohol Commentvery rareWvumedicine Barnesville Hospital Start: 17-57-5838Dcf Assigned At BirthMaleCmercy health [facility] hospital ClinicStart: 07-11-2011 End: 03-63-9372Bvwbnjn use and exposureSmokeless tobacco non-userChillicothe Hospitaltart: 06-19-2020 End: 10-07-8228Juauqzp of Social functionChillicothe Hospitaltart: 06-19-2020 End: 42-91-2871Bpytsak use panelChillicothe Hospitaltart: 85-59-3395Feuop Depression Screening Tqkmgdidvp7Emncgsqij ClinicStart: 29-17-2608Wvubmy identity Identifies as male gender (finding)[facility] HospitalWithin the last year, have you been [...] before (I/we) got money to buy more.Never trueNOTX HealthcareStart: 08-05-2022 Srzcgkbpo52XJKM HealthcareStart: 07-45-0211Vsalenh Commentcaffeine intake: 2-3 cups per dayBEAR RIVER VALLEY [facility] HealthcareStart: 72-90-6734Zvf Assigned At BirthNot on fileBEAR RIVER VALLEY HOSPITAL HealthcareStart: 29-19-8685Leuziv orientationHeterosexual (finding)[facility] smoking status NHISUnknown if ever smokedSt. Rita'S Hospital Work Phone: SexMale (finding)[facility] Medical Equipment Procedure CodeEquipment CodeEquipment Original TextEquipment IdentifierDates [place] Swivelock 4.75mm Peek 19.1mm Suture Closed Eyelet Vent Sterile - [id number]: 52-21-7057Ojbmoqe on above:Description: PEEK SWIVELOCKAnchor Swivelock 4.75mm Peek 19.1mm Suture Closed Eyelet Vent Sterile - [id number]: 70-60-0591Koblnrs on above:Description: PEEK SWIVELOCKAnchor Corkscrew Fiberwire 5.5mm 2 Full Thread Peek 14.7mm Suture 2 Sterile - [id number]: 81-15-0091Smwckdi on above:Description: PEEK CORKSCREW Functional Status LvmsMgmrdugisyPqwajsXsulcdtq81-18-3728Avd you deaf, or do you have serious difficulty hearingNo 06/08/2014 1:57 PM EDT Nae Smith Ma [facility] Work Phone: [phone] you blind, or do you have serious difficulty seeing, even when wearing glassesNo 06/08/2014 1:57 PM EDT Nae Smith Ma [facility]03-12-2015Do you have serious difficulty walking or climbing stairsNo 06/08/2014 1:57 PM EDT Nae Smith Ma [facility] 26-96-8821Aa you have difficulty dressing or bathingNo 06/08/2014 1:57 PM EDT Nae Smith MaD[facility] Medical CenterXljhsf73-40-9031Eyphyzx of a physical, mental, or emotional condition, do you have difficulty doing errands alone such as visiting a physician's office or shoppingNo 06/08/2014 1:57 PM EDT Nae Smith Ma [facility] Mental Status SgonXvtarbgiwrImhxniJzibudan97-71-2190Vainxcj of a physical, mental, or emotional condition, do you have serious difficulty concentrating, remembering, or making decisionsNo 06/08/2014 1:57 PM EDT Sarah Hernandez Nae [facility] Clinical Notes 04-07-2007 to 01-30-2025 Note Date & JhriJehvBboksmnd13-54-7670 Evaluation note* Diagnosis Onset Date Resolution Status Admit Date Laceration of hand, left acuteNovember 2024 10:58amLaceration of hand, leftacuteNovember 2024 10:54am [facility] Work Phone: [phone] 270-884511-03-2025 Evaluation note* Diagnosis Onset Date Resolution Status Admit Date Laceration of hand, left acuteNovember 2024 10:58amLaceration of hand, leftacuteNovember 2024 10:54amHyperlipidemiaacuteNovember 2024 3:12pmHypertensionacuteNovember 2024 3:12pmScreening for colon canceracuteNov2024 3:12pm SeizuresacuteNovember 2024 3:12pm [facility] Work Phone: [phone]) 747-283910-23-2025 History of Present illness Narrative* Josiah Blankenship [...] file prior to visit. documented in this encounterSoutheast Missouri Community Treatment CenterUwvsbjttlh46-26-6972 Telephone encounter Note* Telephone Encounter - Phillip Hill PA-C - 10/05/2024 11:00 AM EDT The following approved medication requests have been transmitted electronically. Requested Prescriptions Signed Prescriptions Disp Refills levETIRAcetam (KEPPRA) 1,000 mg tablet 180 tablet 3 Sig: Take 1 tablet by mouth two times a day. Authorizing Provider: PHILLIP HILL PA-C [facility]07-09-2025 Miscellaneous Notes* Telephone Encounter - Phillip [...] Contact Number: [facility] Number: [phone] Generic/ brand: Generic 30 or 90 day supply requested: 90 Last appointment: 09/09/24 Next Appointment: none Patient of Dr. Justin Carolina [phone] [address] [place], [place] [address] documented in this encounterWvumedicine Barnesville Hospital07-09-2025 Telephone encounter Note * Telephone Encounter - Zonia Phillips - 10/05/2024 10:34 AM EDT Prescription Refill: Requested by: pharmacy Please E-Scribe Caller Contact Number: [facility] Number: [phone] Generic/ brand: Generic 30 or 90 day supply requested: 90 Last appointment: 09/09/24 Next Appointment: none Patient of Dr. Justin Carolina [id number] [address] [place], [place] [address] [facility]06-30-2025 Telephone encounter Note* Telephone Encounter - Clyde Aponte APRN.CNP - 09/26/2024 2:27 PM EDT The following approved medication requests have been transmitted electronically. Requested Prescriptions Signed Prescriptions Disp Refills carBAMazepine (TEGRETOL) 200 mg tablet 315 tablet 3 Sig: TAKE 1 AND 1/2 TABLETS BY MOUTH EVERY MORNING AND 2 TABLETS EVERY EVENING Authorizing Provider: CLYDE APONTE APRN.CNP [facility]06-30-2025 Miscellaneous Notes* Telephone Encounter - Clyde [...] Contact Number: [facility] Number: [phone] Generic/ brand: 30 or 90 day supply requested: 90 Last appointment: 09-09-2024 Next Appointment: none Patient of Dr. Justin Carolina [phone] [address] [place] [address] documented in this encounterWvumedicine Barnesville Hospital06-30-2025 Telephone encounter Note * Telephone Encounter - Alina Sanchez - 09/26/2024 1:44 PM EDT Prescription Refill: Requested by: pharmacy Please E-Scribe Caller Contact Number: [facility] Number: [phone] Generic/ brand: 30 or 90 day supply requested: 90 Last appointment: 09-09-2024 Next Appointment: none Patient of Dr. Justin Carolina [phone] [address] [place], [place] [address] [facility]06-13-2025 NoteHNO ID: [id number] Author: TRINA SINHA APRN.WRAPPING CLERK Service: ? Author Type: Nurse Practitioner Type: Progress Notes Filed: 09/12/2024 09:35 Note Text: [facility] EPILEPSY CENTER VIRTUAL VISIT I have communicated my name and active licensure. The patient's identity and physical location were verified at the time of this visit. Either the patient or their legal agricultural sales representative has been informed of the risks and benefits of -- and alternatives to -- treatment through a remote evaluation and consents to proceed with the evaluation remotely. Patient on video y himself. Lives in [place], [place]. HISTORY OF PRESENT ILLNESS: Caio Carolina [...] CPAP at night.. Occupation: Works FT at [employer]. , lives with his . Driving: yes [...] request for download report. Fax results to [phone]. CPAP Provide new SD card. Current card is not functional. CPAP AutoPAP 5-12 cmH2O, mask, humidity, filters. Lifetime supplies. Dx: G47.33. Fax 30 day compliance rpt to [phone] when available. CPAP CPAP 11 cmH2O, mask, tubing, humidifier, filters. Lifetime supplies. Dx: G47.33 DME: [employer], f: [phone] No current facility-administered medications for this visit. [...] seizures, medications, general health, documentation. Trina Sinha APRN.WRAPPING CLERK September 09[facility]06-13-2025 History of Present illness Narrative* Trina Sinha, SCHUYLER.WRAPPING CLERK - 09/09/2024 4:19 PM EDT [facility] EPILEPSY CENTER VIRTUAL VISIT I have communicated my name and active licensure. The patient's identity and physical location wereverified at the time of this visit. Either the patient or their legal agricultural sales representative has been informed of the risks and benefits of -- and alternatives to -- treatment through a remote evaluation andconsents to proceed with the evaluation remotely. Patient on video y himself. Lives in [place], [place]. HISTORY OF PRESENT ILLNESS: Caio Carolina [...] CPAP at night.. Occupation: Works FT at [employer]. , lives with his . Driving: yes [...] request for download report. Fax results to [phone]. CPAP Provide new SD card. Current card is not functional. CPAP AutoPAP 5-12 cmH2O, mask, humidity, filters. Lifetime supplies. Dx: G47.33. Fax 30 day compliance rpt to [phone] when available. CPAP CPAP 11 cmH2O, mask, tubing, humidifier, filters. Lifetime supplies. Dx: G47.33 DME: [facility], f: [phone] No current facility-administered medications for this visit. [...] APRN.VANESSA September 09, 2024 documented in this encounterWvumedicine [facility] Hospital05-20-2025 History of Present illness Narrative* Josiah [...] of evaluation and management. documented in this encounterSoutheast Missouri Community Treatment CenterTtiohcetsp72-80-5610 History of Present illness Narrative* Josiah Blankenship MD - 03/03/2024 3:45 PM EST Images from the original note were not included. Patient ID: Caio Carolnia is a 48 y.o. male who presents [...] will reconsider antibiotic therapy. documented in this encounterSoutheast Missouri Community Treatment CenterDnxeveqzad20-93-1638 History of Present illness Narrative* Josiah Blankenship [...] left shoulder As above documented in this encounterSoutheast Missouri Community Treatment CenterUmvosinvlr12-02-4422 History of Present illness Narrative* Trina Sinha, PROFILE SAW SETUP OPERATOR.WRAPPING CLERK - 08/27/2023 5:33 PM EDT [facility] EPILEPSY CENTER VIRTUAL VISIT I have communicated my name and active licensure. The patient's identity and physical location wereverified at the time of this visit. Either the patient or their legal agricultural sales representative has been informed of the risks and benefits of -- and alternatives to -- treatment through a remote evaluation andconsents to proceed with the evaluation remotely. Patient on video by himself. Lives in [place], [place]. HISTORY OF PRESENT ILLNESS: Caio Carolina [...] or when he sleeps. Occupation: Works at [employer]. and lives with his . Driving: yes [...] request for download report. Fax results to [phone]. CPAP Provide new SD card. Current card is not functional. CPAP AutoPAP 5-12 cmH2O, mask, humidity, filters. Lifetime supplies. Dx: G47.33. Fax 30 day compliance rpt to [phone] when available. CPAP CPAP 11 cmH2O, mask, tubing, humidifier, filters. Lifetime supplies. Dx: G47.33 [facility], f: [phone] No current facility-administered medications for this visit. [...] of driving laws here in the state [facility]. - Consults: none - Follow up: 12 months I spent 14 minutes during this encounter counseling on seizures, medications /effects, lifestyle, triggers for seizures, safety, documentation.. Trina Sinha APRN.WRAPPING CLERK August 27, 2023 documented in this encounterWvumedicine [facility] Hospital02-05-2024 History of Present illness Narrative* Josiah [...] reviewed with the patient. documented in this encounterSoutheast Missouri Community Treatment CenterElhtfuwbfu10-92-8791 Miscellaneous Notes* Telephone Encounter - Clyde Aponte APRN.VANESSA - 01/28/2023 10:37 AM EDT The following approved medication requests have been transmitted electronically. Requested Prescriptions Signed Prescriptions Disp Refills carBAMazepine (TEGRETOL) 200 mg tablet 315 tablet 3 Sig: TAKE 1 AND 1/2 TABLETS BY MOUTH EVERY MORNING AND 2 TABLETS EVERY EVENING Authorizing Provider: CLYDE APONTE APRN.CNP documented in this encounterWvumedicine Barnesville Hospital05-01-2023 Miscellaneous Notes* Telephone Encounter - Jasmin Brooks APRN.CNP - 07/28/2022 11:08 PM EDT The following approved medication requests have been transmitted electronically. Requested Prescriptions Signed Prescriptions Disp Refills carBAMazepine (TEGRETOL) 200 mg tablet 315 tablet 1 Si 1/2 TAB IN AM AND 2 TABS IN PM Authorizing Provider: JASMIN BROOKS APRN.VANESSA documented in this encounterWvumedicine Barnesville Hospital06-03-2022 Miscellaneous Notes* Telephone Encounter - Catalina Degroot RN - 08/30/2021 10:34 AM EDT I spoke with Nubia at [facility], she was informed form is inappropriate for this office. Catalina Degroot RN * Telephone Encounter - Ilana Oleary - 08/29/2021 12:42 PM EDT Form received: From (agency / facility / parent): [facility] bat person (if given): Phone #: [phone] Fax # : [phone] Email: [email or web address] Information requested: Certificate of medical necessity Patient of Dr. Anderson Forwarded to nurse. documented in this encounterWvumedicine Barnesville Hospital03-25-2022 Miscellaneous Notes* Telephone Encounter - Catalina Degroot RN - 06/21/2021 8:51 AM EDT Images from the original note were not included. 06/21/21 Trina Sinha APRN.WRAPPING CLERK P Neur Epilepsy [facility], Need a lab form sent to this patient via mail. Need below: Dx code R56.1 CBZ (total), LEV, cmp, cbc Thank you. 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 Theyare an established patient of Dr. Anderson and was last seen on 06/19/2020 . Seizures: None Last reported was in [id number] AED's: Keppra 1000mg BID CBZ 200mg, 1.5 tabs in am and 2 tabs in the pm In other health, using his CPAP Occupation: works at [employer] Driving: yes Mood: good Memory: good CURRENT [...] request for download report. Fax results to [phone]. CPAP Provide new SD card. Current card is not functional. CPAP AutoPAP 5-12 cmH2O, mask, humidity, filters. Lifetime supplies. Dx: G47.33. Fax 30 day compliance rpt to [phone] when available. naproxen (NAPROSYN) 500 mg tablet Take 1 tablet by mouth twice daily with meals. Take with food CPAP CPAP 11 cmH2O, mask, tubing, humidifier, filters. Lifetime supplies. Dx: G47.33 DME: [facility], f: [phone] No current facility-administered medications for this visit. [...] 10 minutes during this encounter counseling on correction effects of medications. Trina Sinha APRN.WRAPPING CLERK June 19, 2021 documented in this encounterWvumedicine Barnesville Hospital01-09-2008 History of Past illness Narrative* ProblemNoted DateResolved DateCerebral aneurysm, nonruptured documented as of this encounter (statuses as of 06/21/2021) [facility]01-09-2008 History of Past illness Narrative* ProblemNoted Date Resolved DateCerebral aneurysm, yfvnusezkse45documented as of this encounter (statuses as of 06/21/2021) [facility]01-09-2008 History of Past illness Narrative* ProblemNoted Date Resolved DateCerebral aneurysm, rslezqvhczp28documented as of this encounter (statuses as of 08/30/2021) [facility]01-09-2008 History of Past illness Narrative* ProblemNoted Date Resolved DateCerebral aneurysm, sbfctqwonoa83documented as of this encounter (statuses as of 07/29/2022) [facility]01-09-2008 History of Past illness Narrative* ProblemNoted Date Diagnosed DateResolved DateCerebral aneurysm, smoxhkhucmt46 documented as of this encounter (statuses as of 01/28/2023) [facility] note* Diagnosis Post traumatic seizure disorder (HCC) Post traumatic seizures documented in this encounter [facility] HospitalEvalubayhealth [facility] note* Diagnosis Post traumatic seizure disorder (HCC) Post traumatic seizures [facility] Diagnosis Post traumatic seizure disorder (HCC) Post traumatic seizures [facility]* Diagnosis Chronic right shoulder pain- Primary Pain in joint, shoulder region Rotator cuff syndrome, right Chronic right shoulder pain Pain in joint, shoulder region Rotator cuff syndrome, right documented in this encounter [facility] CenterEvaluation [facility]* Diagnosis Post traumatic seizure disorder (HCC) Post traumatic seizures documented in this encounter [facility] HospitalEvalubayhealth [facility] note* Diagnosis Essential hypertension (CMS/HCC)- Primary Unspecified essential hypertension Mixed dyslipidemia (CMS/HCC) Chronic left shoulder pain Pain in joint, shoulder region 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 Impingement syndrome of left shoulder documented in this encounter [facility] HealthcareEvaluation note* Diagnosis Chronic left shoulder pain Pain in joint, shoulder region documented in this encounter [facility] HealthcareEvaluation note* Diagnosis Viral upper respiratory tract infection- Primary Acute upper respiratory infections of unspecified site documented in this encounter [facility] HealthcareEvaluation note* Diagnosis Essential hypertension (CMS/HCC) Unspecified essential hypertension documented in this encounter [facility] HealthcareEvaluation note* Diagnosis Essential hypertension (CMS/HCC) Unspecified essential hypertension Mixed dyslipidemia (CMS/HCC) documented in this encounter [facility] HealthcareEvaluation note* Diagnosis STEVAN on CPAP- Primary Obstructive sleep apnea (adult) (pediatric) Post traumatic seizure disorder (HCC) Post traumatic seizures documented in this encounter [facility] HospitalEvalub[facility] note* Diagnosis Post traumatic seizure disorder (HCC) Post traumatic seizures documented in this encounter [facility] HospitalEvalub[facility] note* Diagnosis Essential hypertension Unspecified essential hypertension Mixed dyslipidemia Chronic left shoulder pain Pain in joint, shoulder region documented in this encounter [facility] HealthcareEvaluation note* Diagnosis Onset Date Resolution Status Admit Date Laceration of hand, left acuteNovember 2024 10:58am [facility] Work Phone: Reason for referral (narrative)No reason for referral information availableSt. Rita'S Hospital Work Phone: Summary Purpose Family History Relationship [...] or prosecute any alcohol or drug abuse patient.[facility] HospitalIn the event this information is protected by the Federal Confidentiality of Alcohol and Drug Abuse Patient Records regulations: The Federal rules restrict any use of the information to criminally investigate or prosecute any alcohol or drug abuse patient.[facility] HospitalIn the event this information is protected by the Federal Confidentiality of Alcohol and Drug Abuse Patient Records regulations: The Federal rules restrict any use of the information to criminally investigate or prosecute any alcohol or drug abuse patient.[facility] HospitalIn the event this information is protected by the Federal Confidentiality of Alcohol and Drug Abuse Patient Records regulations: The Federal rules restrict any use of the information to criminally investigate or prosecute any alcohol or drug abuse patient.[facility] HospitalIn the event this information is protected by the Federal Confidentiality of Alcohol and Drug Abuse Patient Records regulations: The Federal rules restrict any use of the information to criminally investigate or prosecute any alcohol or drug abuse patient.[facility] HospitalIn the event this information is protected by the Federal Confidentiality of Alcohol and Drug Abuse Patient Records regulations: The Federal rules restrict any use of the information to criminally investigate or prosecute any alcohol or drug abuse patient.[facility] HospitalIn the event this information is protected by the Federal Confidentiality of Alcohol and Drug Abuse Patient Records regulations: The Federal rules restrict any use of the information to criminally investigate or prosecute any alcohol or drug abuse patient.[facility] HospitalIn the event this information is protected by the Federal Confidentiality of Alcohol and Drug Abuse Patient Records regulations: The Federal rules restrict any use of the information to criminally investigate or prosecute any alcohol or drug abuse patient.[facility] HospitalIn the event this information is protected by the Federal Confidentiality of Alcohol and Drug Abuse Patient Records regulations: The Federal rules restrict any use of the information to criminally investigate or prosecute any alcohol or drug abuse patient.[facility] Reason for Visit (unrecogniz ed section and content) ReasonCommentsFollow UpRefill RequestSpecialtyDiagnoses / ProceduresReferred By ContactReferred To ContactNeurology / EPILEPSY Diagnoses Partial epilepsy with impairment of consciousness Procedures OFFICE/OUTPATIENT ESTABLISHED MOD MDM 30-39 MIN VIDEO SPEC EST Self Trina Sinha, PROFILE SAW SETUP OPERATOR.WRAPPING CLERK [address] [place] [address] Referral IDStatusReasonStswansboro DateExpiration DateVisits RequestedVisits [id number]/202212/[id number] req emailed to patientReasonCommentsFormsHart Medical EquipmentReasonOnset DateCommentsRefill Agjyrnz9707/28/2022ReasonCommentsRefill RequestReasonCommentsJoint PainReason CommentsFollow UpRefill RequestFollowup for Epilepsy and general health review, RFS.ReasonCommentsMed RefillReasonCommentsHypertensionHyperlipidemiaReason CommentsFollow UpSeizuresRefill RequestSpecialtyDiagnoses / ProceduresReferred By ContactReferred To ContactNeurology / EPILEPSY Diagnoses Encounter for medication refill Yearly med refills. No changes. Seizure free Procedures SYNCHRONOUS AUDIO-ONLY VISIT EST HIGH MDM 40 MIN VIDEO SPEC DIRECT SCHED Self Trina Sinha, PROFILE SAW SETUP OPERATOR.WRAPPING CLERK [address] [place] [address] Phone: tel: fax: Referral IDStatusReasonG[place] DateExpiration DateVisits RequestedVisits [id number] DateCommentsRefill Ztueloa3009/26/2024ReasonOnset DateCommentsRefill Lgasqmx7210/05/2024 Care Teams (unrecognized sec tion and content) Team MemberRelationshipSpecialtyStart DateEnd Date Josiah Blankenship [address] [place] [phone] (Fax) PCP - GeneralFamily Practice07/17/17Team MemberRelationshipSpecialtyStart DateEnd Date [place] [address] (Fax) PCP - GeneralFamily Practice07/17/17Team MemberRelationshipSpecialtyStart DateEnd Date Josiah Blankenship MD [address] [facility] [address] (Fax) PCP - GeneralFamily Practice07/17/17Team MemberRelationshipSpecialtyStart DateEnd Date Josiah Blankenship MD [address] [facility] [address] (Fax) PCP - GeneralFamily Medicine07/17/17Team MemberRelationshipSpecialtyStart DateEnd Date Josiah Blankenship MD [address] [facility] [place] [address] (Fax) PCP - GeneralFamily Medicine07/17/17Team MemberRelationshipSpecialtyStart DateEnd Date Josiah Blankenship MD [address] [place] [address] PCP - GeneralFamily Medicine08/21/22Team MemberRelationshipSpecialtyStart DateEnd Date Josiah Blankenshpi MD [address] [facility] [place] [address] (Fax) PCP - GeneralFamily Medicine07/17/17Team MemberRelationshipSpecialtyStart DateEnd Date Josiah Blankenship MD (Fax) PCP - GeneralFamily Medicine08/21/22Team MemberRelationshipSpecialtyStart DateEnd Date Josiah Blaknenship MD (Fax) PCP - GeneralFamily Medicine08/21/22Team MemberRelationshipSpecialtyStart DateEnd Date Josiah Blankenship MD (Fax) PCP - GeneralFamily Medicine08/21/22Team MemberRelationshipSpecialtyStart DateEnd Date Josiah Blankenship MD (Fax) PCP - GeneralFamily Medicine08/21/22Team MemberRelationshipSpecialtyStart DateEnd Date Josiah Blankenship MD (Fax) PCP - GeneralFamily Medicine08/21/22Team MemberRelationshipSpecialtyStart DateEnd Date Josiah Blankenship MD [address] [place] [address] (Fax) PCP - GeneralFamily Medicine07/17/17Team MemberRelationshipSpecialtyStart DateEnd Date Josiah Blankenship MD [address] [place] [address] (Fax) PCP - GeneralFamily Medicine07/17/17Team MemberRelationshipSpecialtyStart DateEnd [...] Member Role/Relationship Status Dates Sonali Mckinney APRN PIE[employer]BER-C Primary Care Provider Active Team Status: Inactive Member Role/Relationship Status Dates Yomi Prescott DO Attending Provider Active S tart: February 06, 2025 End: February 06, 2025Sonali Mckinney APRN P[employer]CE JOBBER-CPrimary Care Provider ActiveStart: February 06, 2025 End: February 06, 2025 Team Status: Inactive Member Role/Relationship Status Dates Sonali Mckinney APRN [employer]BER-C Primary Care Provider Active Start: February 062024 End: February 06, 2025Sonali Mckinney APRN PIECE JOBBER-CAttending ProviderActive Start: February 06, 2025 End: February 06, 2025 (unrecognized sect ion and content) No Status Records FoundNo Status Records FoundNo Status Records Found INFORMATION SOURCE (unrecogn ized section and content) DATE CREATED AUTHOR 09/04/2021 [facility] DATE CREATED AUTHOR AUTHOR'S ORGANIZ ATION 09/12/2024 [facility] DATE CREATED AUTHOR AUTHOR'S ORGANIZ ATION 01/21/2025 [facility] EPIC Goals (unrecognized [...] BE BASED ON THE PRIMARY CLINICAL RECORDS. [employer] provides no warranty or guarantee of the accuracy or completeness of information in this document.
[2025-03-29 10:23] LABS: Hematocrit 42.7 % (42.0-54.0); Hemoglobin 13.8 g/dL (14.0-18.0); Immature Granulocytes Abs Auto 0.02 10^3/uL (0.00-0.03); Immature Granulocytes Pct Auto 0.4 % (0.0-0.5); Lymphocytes Absolute Auto 1.5 10^3/uL (1.2-3.8); Mean Corpuscular HGB Conc 32.3 g/dL (29.9-35.2); Mean Corpuscular Hemoglobin 30.9 pg (25.9-34.0); Mean Corpuscular Volume 95.5 fL (80.0-94.0); Platelet Count 356 10^3/uL (150-450); Red Blood Count 4.47 10^6/uL (4.70-6.10); White Blood Count 5.3 10^3/uL (4.0-11.0)
[2025-03-29 11:01] LABS: Uric Acid 3.8 mg/dL (3.5-7.2)
[2025-03-30 17:08] LABS: Anti-CCP Ab, IgG/IgA 11 units (0-19)
[2025-04-01 13:08] LABS: Antinuclear Antibodies, IFA Positive (.)
== END 2025-03-29 09:46 | disposition home or self-care (01) ==
LOC: LAB 09:46
PROVIDERS: PCP Nurse Practitioner Family; Visit Provider Nurse Practitioner Family
DX: M25.50 Pain in unspecified joint (principal); Z84.0 Family history of diseases of the skin and subcutaneous tissue
CPT/HCPCS: 36415; 84550; 85025; 85652; 86038; 86060; 86140; 86200; 86431